=== PATIENT | male | born 1945 | race Caucasian/White ===

== ENCOUNTER 2020-04-17 11:55 | Outpatient (CLI) | payer MEDICARE, SELFPAY ==
--- NOTE | ~2020-04-17 | US_ITS ---
EXAMINATION: US venous doppler LE RT DATE: 04/17/2020 12:35 INDICATION: Right lower limb pain TECHNIQUE: Saleh scale images without and with compression and Doppler images of the right lower extre mity veins were obtained. COMPARISON: None FINDINGS: The right common femoral vein, profunda femoral vein, femoral vein, popliteal vein, peronea l trunk, posterior tibial veins, and greater saphenous vein are patent. IMPRESSION: 1. Patent right lower extremity veins. No evidence of deep venous thrombosis. Reviewed, dictated and finalized at location A. IER STAINED GLASS
== END 2020-04-17 11:56 | disposition home or self-care (01) ==
PROVIDERS: PCP Internal Medicine; Visit Provider Internal Medicine
DX: M79.651 Pain in right thigh (principal)
CPT/HCPCS: 93971

== ENCOUNTER 2022-04-15 09:46 | Outpatient (CLI) | payer MEDICARE, SELFPAY ==
--- NOTE | ~2022-04-15 | CT_ITS ---
EXAMINATION: CT diagnostic chest w con DATE: 04/15/2022 10:33 INDICATION: Weight loss, history of tobacco use TECHNIQUE: Transaxial computed tomographic images of the chest were obtained after the administration of 75 cc of Omnipaque 350 intravenous contrast. The dose-length product (DLP) was 137.96 mGy-cm. Ite rative reconstruction was used. COMPARISON: 05/12/2016 FINDINGS: There is severe emphysema. There is a suture line in the left lung apex. There is a new are a of thick walled cavitation in the left lung apex measuring approximately 4.6 x 3.6 cm. There is als o new soft tissue density surrounding the suture line of the left lung apex which tracks towards the left hilum. A chronic area of scarring is seen in the right lung apex. There is a new 6 mm nodule of the left upper lobe on image 47. There is no pleural effusion. The heart size is normal. Mucous secre tions are seen in the trachea. There is mild thoracic spondylosis. IMPRESSION: 1. New area of thick walled cavitation in the left lung apex and developing soft tissue density surro unding the left upper lobe suture line findings are concerning for malignancy or possibly infection. Further evaluation with PET/CT is recommended. 2. Severe emphysema. Reviewed, dictated and finalized at location A. ER TECHNICIAN IMPRESSION: 1. New area of thick walled cavitation in the left lung apex and developing sof t tissue density surrounding the left upper lobe suture line findings are los rning for malignancy or possibly infection. Further evaluation with PET/CT is r ecommended. 2. Severe emphysema.
== END 2022-04-15 09:47 | disposition home or self-care (01) ==
PROVIDERS: PCP Family Medicine; Visit Provider Nurse Practitioner Family
DX: R91.8 Other nonspecific abnormal finding of lung field (principal); A15.0 Tuberculosis of lung; J43.9 Emphysema, unspecified
CPT/HCPCS: 71260; Q9967

== ENCOUNTER 2022-04-27 07:18 | Outpatient (CLI) | payer MEDICARE, SELFPAY ==
--- NOTE | ~2022-04-27 | PE_ITS ---
EXAMINATION: PET skull to mid thigh DATE: 04/27/2022 10:51 INDICATION: Other nonspecific abnormal finding of lung field. TECHNIQUE: Blood glucose level was 83 mg/dL. 10.589 mCi of 18-fluorodeoxyglucose (18-FDG) was adminis tered i.v. Low dose computed tomography (CT) images were acquired from the base of the brain to the p roximal thighs for attenuation correction and anatomic localization. Automated exposure control was e mployed. Dose-length product (DLP) was 481 mGy-cm. Positron emission tomography (PET) images were acq uired in the same distribution. COMPARISON: Chest CT 04/15/2022, 05/12/2016 FINDINGS: Head/neck: There are no pathologically enlarged lymph nodes. Chest: There is severe emphysema. There is mild scarring at right lung apex. There is a staple line i n left upper lobe. There is a 6.5 x 6.2 cm cavitary mass involving left upper lobe and superior segme nt left lower lobe with maximum SUV of 9.9. There are approximately 4 nodules in left lung base measu ring up to 8 mm with maximum SUV of 3.6. No pleural effusion. Abdomen/pelvis/proximal thighs: The liver, gallbladder, spleen, pancreas, adrenal glands, and left ki dney are normal. There is a 4 mm stone in right kidney. There are no dilated loops of bowel. There is diverticulosis of the colon without evidence of diverticulitis. There are changes of appendectomy. T here are no pathologically enlarged lymph nodes. There is no free intraperitoneal fluid. There is no osseous malignancy. IMPRESSION: 1. Cavitary mass and nodules in left lung with increased activity, which may be infection and/or asmita gnancy. Consider bronchoscopy. 2. Severe emphysema. Reviewed, dictated and finalized at location A. CE SPECIALIST IMPRESSION: 1. Cavitary mass and nodules in left lung with increased activity, which may be infection and/or malignancy. Consider bronchoscopy. 2. Severe emphysema.
[2022-04-27 07:57] LABS: Glucose Point of Care 83 mg/dl (65-105)
== END 2022-04-27 07:19 | disposition home or self-care (01) ==
PROVIDERS: PCP Family Medicine; Visit Provider Nurse Practitioner Family
DX: R91.8 Other nonspecific abnormal finding of lung field (principal); J98.4 Other disorders of lung; R93.89 Abnormal findings on diagnostic imaging of other specified body structures; J43.9 Emphysema, unspecified
CPT/HCPCS: 78815; A9552

== ENCOUNTER 2022-05-14 01:20 | Day surgery (SDC) | payer MEDICARE, SELFPAY ==
[2022-05-04 14:57] VITALS: BMI 17.9
[2022-05-14 09:36] VITALS: BP 102/72; PULSE 61; RESP 18; TEMP 36.1; O2SAT 93
[2022-05-14] MEDS: LACTATED RINGERS 1,000 ML 150 ML IV CONT (09:38)
--- NOTE | 2022-05-14 09:55 | WPDANESEPPF ---
Anes - Initial Pre Proc Eval Procedure: Operation Date: 05/14/22 11:00 Proposed Procedures p Screening Colonoscopy - Chad Bolanos MD Date/Time: 05/14/22 09:55 Surgeon: Chad Bolanos MD Pre Op Diagnosis: neoplasm screening Patient Data Age: 76 Gender: M Height: 1.6 m Weight: 45.4 kg Last Vital Signs Temp 36.1 C L 05/14/22 09:36 Pulse 61 05/14/22 09:36 Resp 18 05/14/22 09:36 BP 102/72 05/14/22 09:36 Pulse Ox 93 05/14/22 09:36 O2 Del Method Room Air 05/14/22 09:36 Allergies Allergy/AdvReac Type Severity Reaction Status Date / Time No Known Allergies Allergy Verified 05/14/22 09:35 Home Medications Medication Instructions Recorded Confirmed Type albuterol sulfate 90 mcg/actuation 1 inh inhalation Q4H PRN shortness 03/11/22 05/14/22 Rx aerosol inhaler of breath or wheezing #6.7 grams aspirin 81 mg chewable tablet 81 mg PO DAILY 03/11/22 05/14/22 History metoprolol succinate 25 mg 25 mg PO DAILY #90 tabs 03/11/22 05/14/22 Rx tablet,extended release 24 hr simvastatin 10 mg tablet 10 mg PO DAILY #90 tabs 03/11/22 05/14/22 Rx vitamins A,C,O-vwrw-gykwqu 2,148 2 tablet PO DAILY 03/11/22 05/14/22 History mcg-113 mg-45 mg-17.4 mg tablet (PreserVision AREDS) mirtazapine 15 mg tablet (Remeron) 15 mg PO QHS #90 tabs 04/06/22 05/14/22 Rx budesonide-formoterol HFA 160 2 inh inhalation BID 05/04/22 05/14/22 History mcg-4.5 mcg/actuation aerosol inhaler (Symbicort) Patient hx anesthesia problems: none Family hx anesthesia problems: none Results Review: All pre-operative results and documents have been reviewed as part of the pre-operative evaluation. 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 They have 3 living children; one child in a car wreck. Retired 1998. Smoked cigarettes 1 ppd x 10 years, then cigars up to 10 per day, now 2 cigars a week. Years smoked: 50 Smoking status: Former smoker Tobacco type: cigars Additional smoking assessment comments: Difficult to assess smoking intensity, mixture of cigarettes then cigars, Alcohol intake: current Alcohol use details: 2 drinks yearly Substance use: never Substance use type: does not use Living arrangements: with family Spiritual care concerns: No Anes - Eval Final PreProcedure Day of Procedure 05/14/22 09:55 Patient weight: thin Heart: regular rate and rhythm Lungs: clear to auscultation Airway: Mallampati scale class II Neurological: alert and oriented Last oral intake: >/= 8 hours ASA classification: IV Emergent: no Anesthetic plan: proceed Anesthesia type and monitoring: general GIVS and standard monitoring Results Review: All pre-operative results and documents have been reviewed as part of the pre-operative evaluation. Informed Consent: The patient's anesthetic plan and its attendant risks and benefits were discussed with the patient/family/POA. Questions were solicited and answers provided to the satisfaction of the patient/family/POA.
--- NOTE | 2022-05-14 10:04 | PM.HPGS ---
History of Present Illness History of Present Illness Consent: Risks, benefits, and alternatives have been discussed and questions answered. Patient agrees to proceed with procedure. Chief complaint: neoplasm screening Narrative: Velasquez Kent is a 76 year old male with last colonoscopy about 15 years ago Review of Systems Constitutional: Constitutional: Denies headache(s) and Denies weakness Eyes: Eyes: Denies blurry vision ENT: Reports Normal hearing present, Denies headache(s) and Denies neck pain Cardiovascular: Cardiovascular: Denies chest pain and Denies dyspnea Respiratory: Respiratory: Denies dyspnea Gastrointestinal: Gastrointestinal: Reports no additional gastrointestinal complaints Genitourinary: Genitourinary: Denies dysuria Musculoskeletal: Musculoskeletal: Denies neck pain Integumentary/Breasts: Skin/Breast: Denies dry skin Neurologic: Reports Normal hearing present, Denies headache(s) and Denies weakness Psychiatric: Psychiatric: Denies anxiety Endocrine: Endocrine: Denies change in body appearance Hematologic/Lymphatic: Hematologic/Lymphatic: Denies easy bleeding Allergic/Immunologic: Allergic/Immunologic: Denies urticaria PMFSH Past Medical History Medical History Colonoscopy planned (~2010) Emphysema lung Essential hypertension Hyperlipidemia Personal history of skin cancer Screening for colon cancer 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 They have 3 living children; one child in a car wreck. Retired 1998. Smoked cigarettes 1 ppd x 10 years, then cigars up to 10 per day, now 2 cigars a week. Years smoked: 50 Smoking status: Former smoker Tobacco type: cigars Additional smoking assessment comments: Difficult to assess smoking intensity, mixture of cigarettes then cigars, Alcohol intake: current Alcohol use details: 2 drinks yearly Substance use: never Substance use type: does not use Living arrangements: with family Spiritual care concerns: No Meds Home Medications and Allergies Home Medications Medication Instructions Recorded Confirmed Type albuterol sulfate 90 mcg/actuation 1 inh inhalation Q4H PRN shortness 03/11/22 05/14/22 Rx aerosol inhaler of breath or wheezing #6.7 grams aspirin 81 mg chewable tablet 81 mg PO DAILY 03/11/22 05/14/22 History metoprolol succinate 25 mg 25 mg PO DAILY #90 tabs 03/11/22 05/14/22 Rx tablet,extended release 24 hr simvastatin 10 mg tablet 10 mg PO DAILY #90 tabs 03/11/22 05/14/22 Rx vitamins A,C,N-twej-rehgxw 2,148 2 tablet PO DAILY 03/11/22 05/14/22 History mcg-113 mg-45 mg-17.4 mg tablet (PreserVision AREDS) mirtazapine 15 mg tablet (Remeron) 15 mg PO QHS #90 tabs 04/06/22 05/14/22 Rx budesonide-formoterol HFA 160 2 inh inhalation BID 05/04/22 05/14/22 History mcg-4.5 mcg/actuation aerosol inhaler (Symbicort) Allergies Allergy/AdvReac Type Severity Reaction Status Date / Time No Known Allergies Allergy Verified 05/14/22 09:35 Vital Signs Vital Signs - 24 hr 05/14/22 09:36 Temperature 97 F L Pulse Rate 61 Respiratory Rate 18 Blood Pressure 102/72 Pulse Oximetry 93 Oxygen Delivery Room Air Exam Const: General: comfortable and no acute distress HENMT: Face/Nose/Sinus: Normal nares present Eyes: General: appearance normal, both eyes and all related structures Neck: Neck: no JVD Resp:
[2022-05-14 10:37] VITALS: BP 112/63; PULSE 70; RESP 17; O2SAT 99
[2022-05-14 10:47] VITALS: BP 104/59; PULSE 71; RESP 16; O2SAT 100
[2022-05-14 10:57] VITALS: BP 105/61; PULSE 70; RESP 20; O2SAT 100
== END 2022-05-14 11:05 | disposition home or self-care (01) ==
PROVIDERS: PCP Family Medicine; Visit Provider Internal Medicine Gastroenterology
PROC: 0DJD8ZZ Inspection of Lower Intestinal Tract, Via Natural or Artificial Opening Endoscopic (ICD-10-PCS; CPT 45378; principal; 2022-05-14 11:00)
DX: Z12.11 Encounter for screening for malignant neoplasm of colon (principal); K57.30 Diverticulosis of large intestine without perforation or abscess without bleeding; D12.3 Benign neoplasm of transverse colon; D12.4 Benign neoplasm of descending colon; K64.8 Other hemorrhoids; J43.9 Emphysema, unspecified; I10 Essential (primary) hypertension; E78.5 Hyperlipidemia, unspecified; Z87.891 Personal history of nicotine dependence; Z79.51 Long term (current) use of inhaled steroids; Z79.82 Long term (current) use of aspirin
CPT/HCPCS: 45385; 88305; J2704; J7120

== ENCOUNTER 2022-05-19 12:13 | Outpatient (CLI) | payer MEDICARE, SELFPAY ==
[2022-05-19 13:25] LABS: Alveolar/Arterial O2 Gradient 21.2 mmHg; Base Excess ABG 1.2 mEq/l (+/-2.0); Carboxyhemoglobin 1.4 % THb (0-2.0); Fractional Inspired Oxygen 21 %; HCO3 ABG 25.3 mEq/l (22.0-26.0); Methemoglobin ABG 0.3 %THb (0-1.5); Oxygen Content ABG 19.8 %vol (16.0-22.0); Oxygen Saturation ABG 96.5 % (95.0-100.0); Oxyhemoglobin 94.4 % THb (90.0-100.0); PCO2 ABG 38.5 mmHg (35.0-45.0); PO2 ABG 82.4 mmHg (80.0-100.0); PO2 FiO2 Ratio Arterial Blood 3.92 %; Reduced Hemoglobin 3.9 %THb (0-5.0); Total Hemoglobin 14.9 g/dL (12.0-18.0); pH ABG 7.435 (7.350-7.450)
[2022-05-19 13:28] LABS: Device ROOM AIR; Modified Allen's Test Pass; Site Drawn RIGHT RADIAL
--- NOTE | 2022-05-19 14:22 | ECHO_ITS ---
Patient Info Name: Velasquez Kent Age: 76 years : 1945 Gender: Male Ht: 63 in Wt: 100 lbs BSA: 1.41 m2 Technical Quality: Poor Exam Date: 05/19/2022 2:35 PM Exam Location: [facility] Patient Status: Outpatient Admit Date: 05/19/2022 Staff Ordering Physician: Supriya Jacobo MD Coyote Hunter: Jer Rich RDCS, RT Attending Provider: Supriya Jacobo MD Referring Physician: Odalis VALENCIA; Exam Type: CA echo doppler color flow Study Info Indications R06.02 - Shortness of breath Complete two-dimensional, color flow and Doppler transthoracic echocardiogram is performed. Summary 1. Complete two-dimensional, color flow and Doppler transthoracic echocardiogram is performed. 2. Technically suboptimal study due to poor sonographic images. 3. Left ventricular chamber dimension is normal. 4. Left ventricular systolic function is normal, estimated at 60-65%. 5. The left ventricular diastolic function is abnormal. 6. E/e' 13 is mildly elevated. Left Ventricle Technically suboptimal study due to poor sonographic images. E/e' 13 is mildly elevated. Left ventricular chamber dimension is normal. Left ventricular systolic function is normal, estimated at 60-65%. The left ventricular diastolic function is abnormal. Right Ventricle Right ventricular chamber dimension is not well visualized. Left Atria Left atrial chamber dimension is normal. Right Atria Right atrial chamber dimension is not well visualized. Aortic Valve The aortic valve is not well visualized. Cannot determine number of aortic valve leaflets. There is no aortic valve stenosis based on valve area and gradients. There is no aortic valve regurgitation. Pulmonic Valve There is no pulmonic regurgitation. Mitral Valve There is no mitral valve stenosis. There is no mitral valve regurgitation. Tricuspid Valve There is no tricuspid valve regurgitation. Pericardium/Pleural There is no pericardial effusion. Inferior Vena Cava Normal inferior vena cava with >50% collapse upon inspiration consistent with normal right atrial pressure, 5 mmHg. Aorta The aortic root size at the sinus of Valsalva is not well visualized. Left Ventricular Outflow Tract Name Value Normal LVOT 2D LVOT Diameter 1.9 cm LVOT Doppler LVOT Peak Gradient 2 mmHg LVOT Mean Gradient 1 mmHg LVOT VTI 12 cm LVOT VTI/AV VTI Ratio 1.1 LVOT Stroke Volume 33 ml LVOT CO 5.3 l/min LVOT CI 3.8 l/min/m2 Mitral Valve Name Value Normal MV Doppler MV Decel Mcpherson 669 cm/s2 MV PHT 36 ms MV Area (PHT) 6.1 cm2 4.0-5.0
--- NOTE | 2022-05-20 13:30 | WPDSIXMINUTE ---
Six Minute Walk Procedure Procedure Performed Pulmonary Stress Test (6 min walk) Six Minute Walk Six Minute Walk: This is a 6 minute walk test. The test was performed and interpreted in accordance with the 2014 ERS/ATS task force guidelines. Findings: The patient's resting room air oxygen saturation measured by pulse oximetry and resting heart rate were not recorded due to technical difficulties. After 1 minute ambulation, the room air saturation was 96% and the heart rate was 79 bpm. Patient ambulated for 183 meters and oxygen saturation remained 92 to 95%. Heart rate at the end of the study was 96 bpm. The patient did not qualify for supplemental oxygen at rest or with ambulation. There are no prior studies for comparison.
--- NOTE | 2022-05-20 13:33 | P.PCNPFT_ITS ---
PFT Procedure Performed PFT Procedure Performed Spirometry with Pre/Post Bronchodilator Plethysmography (Lung Vol) Diffusing Cap (DLCO) Flow Vol Loop PFT Interpretation This is a pulmonary function test with pre and post-bronchodilator spirometry, plethysmography and diffusing capacity. The test was performed and results interpreted in accordance with the 2019 and 2005 ATS/ERS Task Force guidelines respectively using the Global Lung Function Initiative-2012 reference equations. Patient demonstrated good effort and cooperation. Reproducibility criteria were met. The quality of the pre bronchodilator spirometry maneuver was Grade A and post bronchodilator spirometry maneuver was Grade A. Findings: Spirometry: There is decreased maximal expiratory airflow at all lung volumes with concave expiratory flow tracing. The contour the inspiratory flow tracing is normal. The pre bronchodilator FVC is 2.50 L, 80% predicted. The pre bronchodilator FEV1 is 0.73 L, 631% predicted. The pre bronchodilator FEV1: FVC ratio is 29%. The post bronchodilator FVC is 3.01 L, representing a 20% increase. The post bronchodilator FEV1 is 0.84 L, representing a 15% increase. The post bronchodilator FEV1: FVC ratio is 28%. Plethysmography: The total lung capacity is 6.31 L, 112% predicted. The functional residual capacity is 4.61 L, 156% predicted. The residual volume is 3.75 L, 171% predicted. Diffusion capacity: The diffusing capacity unadjusted for hemoglobin and carboxyhemoglobin is 8.3, 38% predicted. The diffusing capacity adjusted for alveolar volume is 2.60, 63% predicted. The resting room air arterial blood gas is a pH of 7.44, PaCO2 39, PaO2 82. Impression: There is a very severe obstructive abnormality with significant improvement after inhaling a single dose of albuterol. The increase in residual volume is consistent with air trapping from an obstructive abnormality. H yperinflation is present as demonstrated by the increase in functional residual capacity and is consistent with an obstructive abnormality. The diffusing capacity unadjusted for hemoglobin and carboxyhemoglobin is moderately decreased and normalizes when adjusted for alveolar volume. There are no prior studies for comparison
== END 2022-05-19 12:14 | disposition home or self-care (01) ==
LOC: ANHPFT 12:14
PROVIDERS: PCP Family Medicine; Visit Provider Internal Medicine Critical Care Medicine
DX: R06.02 Shortness of breath (principal); R07.9 Chest pain, unspecified; R91.8 Other nonspecific abnormal finding of lung field; R94.2 Abnormal results of pulmonary function studies
CPT/HCPCS: 36600; 82375; 82805; 83050; 93306; 94060; 94618; 94726; 94729

== ENCOUNTER 2022-05-20 08:44 | Outpatient (CLI) | payer MEDICARE, SELFPAY ==
[2022-05-12 15:21] VITALS: BMI 17.9
--- NOTE | 2022-05-12 15:21 | PC.NURSE ---
Pre Radiology instructions Report to the outpatient [facility] on date _05/20/22 @ 0900_ Procedure Time: _1100_ YOU MAY BE MONITORED AT HOSPITAL FOR UP TO 4 HOURS AFTER YOUR PROCEDURE. A visitors will be allowed to accompany the patient into the hospital. ?The visitor will be instructed to remain with patient at all times or leave the building due to restrictions.? We will allow the visitor to come back to the postoperative area when patient is ready.? NO children visitors allowed at this time. You and your visitor will be asked to self-screen and do not enter if you have any COVID symptoms. A mask is OPTIONAL within the hospital. Patients are to have no food or drink 6 hours prior to procedure time (0500 AM) Driving will be restricted after the procedure, you must have a person to drive you home. Labs will be drawn in preop area and once reviewed, you will be taken to radiology area for procedure. When the procedure is completed, you will be taken to outpatient where you will be monitored for several hours. You may have one visitor in this area. Other than holding anti-coagulants, patient may take other medication(s) as scheduled. Prior to your appointment date patients are instructed to hold anti-coagulants after discussing with ordering provider to stop. If unable to discontinue anti-coagulants please notify radiologist. ? No aspirin or warfarin (Coumadin) for 7 days prior to the procedure. ? No clopidogrel (Plavix), ticagrelor (Brilinta), prasugrel (Effient) or dabigatran (Pradaxa) for 5 days prior to the procedure. ? No rivaroxaban (Xarelto), apixaban (Eliquis), dipyridamole (Aggrenox or Persantine) or cilostazol (Pletal) for 2 days prior to the procedure. Medications to discontinue per physician: __ASPIRIN Date to take last dose: ___05/12/22 Please leave all valuables, including medications, at home the day of procedure. The hospital will not accept responsibility for valuables. Wear comfortable, loose fitting clothing.? Follow any additional instructions given to you from ordering provider. Telephone instructions given to PATIENT and asked if any additional questions and then verbalized understanding. Patient advised to call scheduling provider office or registration scheduling [phone] if any additional questions.
[2022-05-20] VITALS (12 sets, daily range): BP systolic 89–136; BP diastolic 53–79; PULSE 57–62; RESP 16; TEMP 36.5; O2SAT 99–100
--- NOTE | ~2022-05-20 | CT_ITS ---
EXAMINATION: CT biopsy lung w/imaging DATE: 05/20/2022 11:52 INDICATION: Thick-walled FDG avid cavitary mass in the left upper lobe. TECHNIQUE: The procedure including the risks and benefits was discussed with the patient. Risks discu ssed included infection, approximately 1/20 risk of symptomatic hemorrhage beyond mild hemoptysis, ap proximately 1/3 risk of pneumothorax, and approximately 1/10 risk of pneumothorax severe enough to wa rrant chest tube placement. The patient understood the risks and agreed to proceed. The patient was p laced prone. The skin overlying the left paraspinal posterior chest wall was prepped and draped in s terile fashion. Anesthetic was administered with 1% lidocaine subcutaneously. A 19 gauge outer need le was advanced under CT guidance to the lesion of interest. A 20 gauge core biopsy needle was then u sed to obtain 6 core biopsy specimens, 4 placed in formalin for cytology and to place and a sterile c ontainer for AFB and fungal smears and culture. The needle was removed and the entry site was cleaned and dressed. There were no immediate complications. The dose-length product was 122.63 mGy-cm. FINDINGS: CT images demonstrate the outer needle tip adjacent to a solid nodular component to the thi ck-walled cavitary lesion in the left upper lobe which demonstrated increased FDG uptake in this loca tion on prior PET/CT. IMPRESSION: 1. Successful CT-guided biopsy of a solid FDG avid component of a thick-walled cavitary mass in the l eft upper lobe. Reviewed, dictated and finalized at location A. IMPRESSION: 1. Successful CT-guided biopsy of a solid FDG avid component of a thick-walled cavitary mass in the left upper lobe.
--- NOTE | ~2022-05-20 | XR_ITS ---
XR chest 1V portable DATE: 05/20/2022 14:41 INDICATION: [address]-guided lung biopsy TECHNIQUE: Portable upright AP chest on 05/20/2022 at 1438 hours COMPARISON: 05/20/2022 portable AP chest at 1244 hours FINDINGS: There remains no evidence of pneumothorax following CT-guided percutaneous needle biopsy of left upper lobe thick-walled cavitary mass. Postoperative change of the left lung is again noted. Bilateral hyperinflation, consistent with COPD. Normal heart size. Prominent aortic arch calcification. Osteopenia. IMPRESSION: No evidence of iatrogenic pneumothorax [address] guided percutaneous needle biopsy of left lung Reviewed, dictated and finalized at location A. IMPRESSION: No evidence of iatrogenic pneumothorax [address] guided percu taneous needle biopsy of left lung
--- NOTE | ~2022-05-20 | XR_ITS ---
EXAMINATION: XR chest 1V portable DATE: 05/20/2022 12:47 INDICATION: Status post percutaneous left lung biopsy TECHNIQUE: frontal view of the chest was obtained. COMPARISON: Chest radiograph dated 05/20/2022 at 11:47 AM FINDINGS: Emphysema with regions of increased lucency and architectural distortion. Left apical opacity with in terspersed lucencies correspond to a thick-walled cavitary mass on prior CT. Suture line extends thro ugh the opacity which along with mild relative volume loss in left hemithorax is likely related to pr ior partial left pneumonectomy . Linear discoid atelectasis/scarring at the left lower lung zone. No other airspace opacities, pulmonary edema, pleural effusion or pneumothorax. Heart size is normal. IMPRESSION: 1. No pneumothorax or other acute cardiopulmonary disease post percutaneous biopsy of a cavitary left upper lobe mass which could be either malignant or related to chronic infection. Reviewed, dictated and finalized at location A. IMPRESSION: 1. No pneumothorax or other acute cardiopulmonary disease post percutaneous bio psy of a cavitary left upper lobe mass which could be either malignant or relat ed to chronic infection.
--- NOTE | ~2022-05-20 | XR_ITS ---
EXAMINATION: XR chest 1V DATE: 05/20/2022 11:49 INDICATION: Status post percutaneous left upper lobe lung biopsy TECHNIQUE: frontal view of the chest was obtained. COMPARISON: Chest radiograph dated 04/06/2022 FINDINGS: Scattered increased lucencies with architectural distortion consistent with severe emphysema. Opaciti es in the left upper lobe corresponding to the biopsied thick-walled cavitary mass. There is a suture line extending across the mass consistent with prior partial pneumonectomy. Mild linear discoid atel ectasis/scarring at the medial left lower lung zone. No other airspace opacities, pulmonary edema, p leural effusion or pneumothorax. Heart size is normal. IMPRESSION: 1. No pneumothorax, pleural effusion or other acute cardiopulmonary disease post percutaneous biopsy of a thick-walled left upper lobe cavitary mass which could be infectious or malignant in etiology. 2. Severe emphysema. Reviewed, dictated and finalized at location A. IMPRESSION: 1. No pneumothorax, pleural effusion or other acute cardiopulmonary disease pos t percutaneous biopsy of a thick-walled left upper lobe cavitary mass which cou ld be infectious or malignant in etiology. 2. Severe emphysema.
[2022-05-20 10:00] LABS: Mean Platelet Volume 10.6 fl (7.4-10.4); Platelet Count Result 277 k/mm3 (150-375)
[2022-05-20 10:17] LABS: INR 1.1; Prothrombin Time 13.6 Seconds (11.1-14.7)
== END 2022-05-20 15:42 | disposition home or self-care (01) ==
PROVIDERS: PCP Family Medicine; Referring Provider Internal Medicine Critical Care Medicine; Visit Provider Radiology Diagnostic Radiology
PROC: BB24ZZZ Computerized Tomography (CT Scan) of Bilateral Lungs (ICD-10-PCS; CPT 32408; principal; 2022-05-20 11:00)
DX: J84.10 Pulmonary fibrosis, unspecified (principal); J43.9 Emphysema, unspecified
CPT/HCPCS: 32408; 36415; 71045; 85049; 85610; 87015; 87102; 87116; 87206; 88305; 88312

== ENCOUNTER 2022-09-09 13:51 | Outpatient (CLI) | payer MEDICARE, SELFPAY ==
--- NOTE | ~2022-09-09 | CT_ITS ---
EXAMINATION:CT diagnostic chest wo con DATE: 09/09/2022 14:06 INDICATION: Other nonspecific abnormal findings in lung field. TECHNIQUE: Computed tomography (CT) of the chest was performed without intravenous contrast. Automate d exposure control and iterative reconstruction technique were employed. The dose-length product (DLP ) was 148.82 mGy-cm. COMPARISON: Chest CT 05/20/2022, 04/15/2022 FINDINGS: There is severe emphysema. Calcified bilateral lung nodules and calcified hilar lymph nodes are consistent with old granulomatous disease. There is peripheral scarring in right upper lobe and superior segment right lower lobe. There are airspace opacities with cavitation and volume loss invol ving left upper lobe and superior segment left lower lobe. No pleural effusion. There is calcified at herosclerosis of the aorta and many of the other arteries. The heart size is normal. There are alberts ry artery calcifications. No pericardial effusion. There is a 5 mm stone in right kidney. There is mi ld thoracic spondylosis. IMPRESSION: 1. Airspace opacities with cavitation and volume loss involving left upper lobe and superior segment left lower lobe, stable from 04/15/2022, likely granulomatous disease. Correlate with biopsy results f rom 05/20/2022. 2. Severe emphysema. Reviewed, dictated and finalized at location E. IMPRESSION: 1. Airspace opacities with cavitation and volume loss involving left upper lobe and superior segment left lower lobe, stable from 04/15/2022, likely granulomat ous disease. Correlate with biopsy results from 05/20/2022. 2. Severe emphysema.
== END 2022-09-09 13:52 | disposition home or self-care (01) ==
PROVIDERS: PCP Family Medicine; Visit Provider Internal Medicine Critical Care Medicine
DX: R91.8 Other nonspecific abnormal finding of lung field (principal); J43.9 Emphysema, unspecified
CPT/HCPCS: 71250

== ENCOUNTER 2023-02-14 08:44 | Outpatient (CLI) | payer MEDICARE, SELFPAY ==
--- NOTE | ~2023-02-14 | CT_ITS ---
CT Scan of the Chest without Contrast: Clinical Indication: Lung mass Technique: Contiguous sections were acquired throughout the chest without intravenous contrast. Dose reduction technique was used on this scan by utilizing automated exposure control and iterative recon struction technique. The dose-length product (DLP) was 66.49 mGy-cm. COMPARISON: 09/09/2022 Findings: There is no evidence of any significant mediastinal, hilar or axillary lymphadenopathy. The mediastin al soft tissues appear normal. There is no evidence of pleural or pericardial effusion. There is severe emphysema. Stable right apical scarring noted. Calcified right lower lobe granulomas are present. Stable appearance of apparent heterogeneous cavitary lesion in the left upper lobe with coarse calcifications and some nodular consolidation. Images through the upper abdomen reveal nonobstructing right renal stone. Impression: Stable heterogeneous appearing cavitary lesion left upper lobe with associated volume loss and coarse calcification. Correlate with prior biopsy results. Severe emphysema. Reviewed, dictated and finalized at [facility]. 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 Correlate with prior biopsy results. Severe emphysema.
== END 2023-02-14 08:45 | disposition home or self-care (01) ==
PROVIDERS: PCP Family Medicine; Visit Provider Internal Medicine Critical Care Medicine
DX: J43.9 Emphysema, unspecified (principal); R91.8 Other nonspecific abnormal finding of lung field
CPT/HCPCS: 71250

== ENCOUNTER 2023-09-20 09:45 | Outpatient (CLI) | payer MEDICARE, SELFPAY ==
--- NOTE | ~2023-09-20 | CT_ITS ---
EXAMINATION: CT diagnostic chest wo con DATE: 09/20/2023 10:10 INDICATION: R91.8 - Other nonspecific abnormal finding of lung field TECHNIQUE: Computed tomography (CT) of the chest was performed without intravenous contrast. Addition al 3D reconstructions utilizing coronal maximum intensity projection (MIP) were performed. Automated exposure control and iterative reconstruction technique were employed. The dose-length product was 63 .13 mGy-cm. COMPARISON: None FINDINGS: Severe upper lung predominant emphysema. Stable appearance of the left upper lung where there is volu me loss partial collapse and consolidation of a significant portion of the perihilar left upper lobe with and pleural parenchymal scarring thick-walled cavitary lesion at the left apex. A cavitary lesio n also involves a portion of the superior segment of the left lower lobe most likely sequela of prior infection. In the left midlung there is additional new region of atelectasis with associated volume loss at the periphery of the anterior segment of the left upper lobe. There are a few new small centr ilobular nodules in the posterior segment of the left lower lobe largest measuring 4 mm with subtle c alcification consistent with old granulomatous disease. Also stable appearance of peripheral pleural parenchymal with calcifications at the posterior right upper lobe. Several new patchy areas of consol idation and spiculated nodular opacities in the anterior segment of the right upper lobe, the largest region of consolidation measuring 2.3 x 1.8 cm. A few additional 4 mm or smaller new pulmonary nodul es clustered along the right upper lobe along the minor fissure. Unchanged small loculated left pleur al effusion. Heart size is normal. No pericardial effusion. Thoracic aorta is normal in caliber. No p athologically enlarged thoracic lymphadenopathy. 6 mm nonobstructing stone at the upper pole the righ t kidney. Mild thoracic spondylosis. IMPRESSION: 1. New patchy areas of consolidation and spiculated nodules in the anterior segment of the right uppe r lobe most suggestive of pneumonia but would recommend 3 month follow-up chest CT to document resolu tion or appropriate evolution. 2. Stable appearance of chronic volume loss, atelectasis/scarring and thick-walled cavitary lesion at the left apex and small loculated left pleural effusion which are likely sequela of chronic infectio n. 3. Severe emphysema. 4. 6 mm nonobstructing right renal stone. Reviewed, dictated and finalized at location A. IMPRESSION: 1. New patchy areas of consolidation and spiculated nodules in the anterior seg ment of the right upper lobe most suggestive of pneumonia but would recommend 3 month follow-up chest CT to document resolution or appropriate evolution. 2. Stable appearance of chronic volume loss, atelectasis/scarring and thick-wal led cavitary lesion at the left apex and small loculated left pleural effusion which are likely sequela of chronic infection. 3. Severe emphysema. 4. 6 mm nonobstructing right renal stone.
== END 2023-09-20 09:46 | disposition home or self-care (01) ==
PROVIDERS: PCP Nurse Practitioner Family; Visit Provider Internal Medicine Critical Care Medicine
DX: R91.8 Other nonspecific abnormal finding of lung field (principal); J43.9 Emphysema, unspecified; N20.0 Calculus of kidney
CPT/HCPCS: 71250

== ENCOUNTER 2023-09-22 15:44 | Inpatient (IN) | payer MEDICARE, SELFPAY ==
[2023-09-22] VITALS (11 sets, daily range): BP systolic 93–121; BP diastolic 54–76; PULSE 111–126; RESP 16–35; TEMP 36.3; O2SAT 97–100; BMI 14.9; BMI 15.1
--- NOTE | ~2023-09-22 | XR_ITS ---
XR chest 1V portable 09/22/2023 16:19 Indication: Chest pain Procedure: AP portable chest Comparison: Comparison to multiple prior studies sequentially, with oldest reviewed study dated 08/2020.. Findings: There is a spiculated mass in the right upper lobe which may may be infectious/inflammatory , although malignancy is not excluded. There is chronic left apical pleural thickening/scarring. The lungs are hyperinflated which is consistent with, but not diagnostic of chronic obstructive pulmonary disease. Impression: 1: Spiculated mass right upper lobe which may be infectious/inflammatory, although malignancy is not excluded. 2: Chronic left apical pleural thickening/scarring with associated postsurgical changes. Reviewed, dictated and finalized at location B. Impression: 1: Spiculated mass right upper lobe which may be infectious/inflammatory, altho ugh malignancy is not excluded. 2: Chronic left apical pleural thickening/scarring with associated postsurgica l changes.
--- NOTE | ~2023-09-22 | CT_ITS ---
EXAMINATION: CTA chest PE protocol DATE: 09/22/2023 18:13 INDICATION: elevated dimer, chest pain, follow up CXR TECHNIQUE: Computed tomography angiography (CTA) of the chest was performed with 100 mL Omnipaque-350 intravenous contrast timed to evaluate the pulmonary arteries. Coronal maximum intensity projection 3D-reconstructions were created by the technologist. The dose-length product (DLP) was 169.66 mGy-cm. Automated exposure control and iterative reconstruction technique were employed. COMPARISON: CT chest 09/20/2023. FINDINGS: Lung parenchyma and airways: Severe emphysematous change. Left apical cavitary lesion with left upper lobe volume loss. Spiculated irregular right upper lobe nodule. Scattered smaller pulmonary nodules. Peripheral nodular scarring in the right apex. Pleura: Stable small loculated left pleural effusion. Thoracic inlet, axillae and chest wall: Unremarkable. Thoracic aorta: No significant dilation. No dissection. Mediastinum: Normal. Heart and pericardium: Normal. Coronary artery calcifications: Absent. Upper abdomen: No significant finding. Bones: No acute osseous finding. Pulmonary arteries: Study quality: Adequate. No pulmonary emboli detected. IMPRESSION: No CT evidence of acute pulmonary embolus. Stable likely postinfectious left upper lung cavitary lesion. Stable irregular spiculated right upper lobe nodule, prior recommendation for 3 month follow-up is unchanged. Stable loculated small left pleural effusion Reviewed, dictated and finalized at location K.
--- NOTE | 2023-09-22 15:59 | ECG_ITS ---
Test Date: 2023-09-22 16:02:36 Measurements Intervals [place] Rate: 112 P: 0 NM: 0 QRS: 58 QRSD: 85 T: 84 QT: 289 QTc: 395 Interpretive Statements ATRIAL FIBRILLATION WITH RAPID VENTRICULAR RESPONSE ANTEROSEPTAL MYOCARDIAL INFARCTION , OF INDETERMINATE AGE BORDERLINE ST ABNORMALITY- LATERAL LEADS BASELINE ARTIFACT- I, II, III, AVR, AVL, AVF, V1-V2 ABNORMAL ECG No previous ECG available for comparison Electronically Signed On 09-22-2023 16:57:37 CDT by Ramy Javed D.O.
--- NOTE | 2023-09-22 16:07 | ED.CHESTPAIN ---
HPI - Chest Pain General Chief Complaint: Chest Pain <Garrett Vaughan PA-C - Last Filed: 09/22/23 19:11> Stated Complaint: chest tightness <Garrett Vaughan PA-C - Last Filed: 09/22/23 19:11> Time Seen by Provider: 09/22/23 15:56 <Garrett Vaughan PA-C - Last Filed: 09/22/23 19:11> Source: patient <Garrett Vaughan PA-C - Last Filed: 09/22/23 19:11> Mode of arrival: EMS <Garrett Vaughan PA-C - Last Filed: 09/22/23 19:11> Limitations: no limitations <Garrett Vaughan PA-C - Last Filed: 09/22/23 19:11> History of Present Illness HPI narrative: This is a 77-year-old male presents to the ED via EMS for Chief complaint of chest tightness. Reports a sense of impending doom but is unsure how to describe this other than just not feeling right. reports some intermittent chest tightness on the left side but not necessarily associated with exertion. Denies shortness of breath above baseline. He has emphysema and has chronic shortness of breath and cough. EMS reported AFib and patient does think that he has been in AFib before. States that he takes metoprolol but no blood thinners. Patient states that he just started taking Zoloft yesterday prescribed by PCP. Lot of increased stressors recently with dying last year and his dog dying this year. Denies back pain, dyspnea, abdominal pain, nausea vomiting, syncope, lightheadedness, numbness, weakness. <Garrett Vaughan PA-C - Last Filed: 09/22/23 19:11> Related Data Home Medications: Home Medications Medication Instructions Recorded Confirmed aspirin 81 mg chewable tablet 81 mg PO DAILY 03/11/22 09/20/23 vitamins A,C,S-jnpg-kazjst 2,148 2 tablet PO DAILY 03/11/22 09/20/23 mcg-113 mg-45 mg-17.4 mg tablet (PreserVision AREDS) <Garrett Vaughan PA-C - Last Filed: 09/22/23 19:11> Allergies/Adverse Reactions: Allergies Allergy/AdvReac Type Severity Reaction Status Date / Time No Known Allergies Allergy Verified 09/22/23 16:00 <Garrett Vaughan PA-C - Last Filed: 09/22/23 19:11> Review of Systems Review of Systems: All systems as dictated in HPI <Garrett Vaughan PA-C - Last Filed: 09/22/23 19:11> [facility] Past Medical History Medical History: Medical History Atypical nevi Colonoscopy planned (~2010) Emphysema lung Essential hypertension Hyperlipidemia Loss of appetite Personal history of skin cancer 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 They have 3 living children; one child in a car wreck. Retired 1998. Smoked cigarettes 1 ppd x 10 years, then cigars up to 10 per day, now 2 cigars a week. Years smoked: 50 Smoking status: Former smoker Tobacco type: cigars Additional smoking assessment comments: Difficult to assess smoking intensity, mixture of cigarettes then cigars, Alcohol intake: current Alcohol use details: 2 drinks yearly Substance use: never Substance use type: does not use Living arrangements: with family Occupation/Education: retired Gender identity (if verbalized by the patient): Male Spiritual care concerns: No <Garrett
[2023-09-22 16:18] LABS: Basophils Absolute Auto 0.1 K/mm3 (0.0-0.1); Basophils Percent Auto 0.7 % (0.2-1.2); Eosinophils Absolute Auto 0.1 K/mm3 (0-0.3); Eosinophils Percent Auto 0.8 % (0-4.4); Hematocrit 42.1 % (42.0-52.0); Hemoglobin 13.8 g/dL (14.0-18.0); Immature Granulocyte Absolute 0.06 K/mm3 (0.00-0.031); Immature Granulocyte Percent A 0.6 % (0-0.5); Lymphocytes Absolute Auto 1.55 K/mm3 (0.9-3.2); Lymphocytes Percent Auto 15.8 % (18.3-44.2); Mean Corpuscular HGB Conc 32.8 g/dl (32-36); Mean Corpuscular Hemoglobin 30.1 pg (26-34); Mean Corpuscular Volume 91.9 fl (80-100); Mean Platelet Volume 9.8 fl (7.4-10.4); Monocytes Absolute Auto 1.1 K/mm3 (0.1-0.6); Monocytes Percent Auto 10.7 % (2.6-8.5); Neutrophils Percent Auto 71.4 % (45.5-73.1); Platelet Count Result 320 k/mm3 (150-375); Red Blood Count 4.58 M/mm3 (4.6-6.20); White Blood Count 9.8 K/mm3 (4.5-10.0)
[2023-09-22 16:26] LABS: INR 1.1; Partial Thromboplastin Time 27.5 Seconds (22.3-36.8)
[2023-09-22 16:29] LABS: Alanine Aminotransferase 26 U/L (6-50); Albumin Level 3.5 g/dL (3.5-5.1); Alkaline Phosphatase 180 U/L (38-126); Anion Gap 6 mmol/L (4-12); Aspartate Amino Transferase 34 U/L (17-59); Bilirubin,Total 0.4 mg/dL (0.2-1.3); Blood Urea Nitrogen 14 mg/dL (9-20); Calcium 8.4 mg/dL (8.4-10.2); Carbon Dioxide 29 mmol/L (22-30); Chloride 98 mmol/L (98-107); Estimated CRCL calculation 47 ml/min; Estimated Glomerular Filt Rate > 60; Glucose 94 mg/dL (65-110); Lipase 120 U/L (23-300); Potassium 4.6 mmol/L (3.4-5.0); Sodium 133 mmol/L (137-145)
[2023-09-22 16:41] LABS: Troponin I < 0.012 ng/mL (0.000-0.034)
[2023-09-22 16:47] LABS: D Dimer 0.61 ug/mL (<0.48)
[2023-09-22 17:12] LABS: Device ROOM AIR; Fractional Inspired Oxygen 21 %; HCO3 VBG 26.9 mEq/l (24.0-30.0); PCO2 VBG 47.9 mmHg (42.0-48.0); PO2 VBG 31.6 mmHg (35.0-45.0); pH VBG 7.368 (7.300-7.400)
[2023-09-22 17:21] LABS: NT Pro B Type Natriuretic Pept 4190 pg/mL (19.9-100)
--- NOTE | 2023-09-22 18:54 | ECG_ITS ---
Test Date: 2023-09-22 19:30:33 Measurements Intervals [place] Rate: 121 P: 0 NV: 0 QRS: -30 QRSD: 76 T: 84 QT: 286 QTc: 406 Interpretive Statements ATRIAL FIBRILLATION WITH RAPID VENTRICULAR RESPONSE ANTEROSEPTAL MYOCARDIAL INFARCTION , OF INDETERMINATE AGE BORDERLINE ST-T WAVE ABNORMALITY- HIGH LATERAL LEADS BASELINE ARTIFACT- I, II, III, AVR, AVL, AVF ABNORMAL ECG Compared to ECG 09/22/2023 16:02:36 No significant changes Electronically Signed On 09-22-2023 20:26:51 CDT by Ramy Javed D.O.
--- NOTE | 2023-09-22 19:52 | PC.NURSE ---
Upon assessing patient and obtaining vitals the patient's blood pressure was 95/63. Notified Dr. Fisher who advised to hold off on giving the Metoprol 25mg PO.
[2023-09-22 19:57] LABS: Troponin I < 0.012 ng/mL (0.000-0.034)
--- NOTE | 2023-09-22 21:03 | ADMGEN ---
This patient, Velasquez Kent, was admitted to IMU Room 212-01. Patient/family oriented to hospital policies and general routines including ID bracelet, bed and alarms, visiting hours, pain management, procedures, bathroom and other care routines, personal items, smoking policy, room service/diet, and visiting hours. Information on how to activate the Rapid Response Team has been discussed. Patient/Family are encouraged to report perceived risks to care and to ask questions if they do not understand what they are told or what they should do.
[2023-09-22] MEDS: ACETAMINOPHEN 500 MG TABLET 1000 MG PO (22:01)
[2023-09-22] MEDS: METOPROLOL TARTRATE INJ 5 MG/5 ML VIAL IV PUSH (22:04)
--- NOTE | 2023-09-22 22:28 | PM.IMHP ---
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 Stable irregular spiculated right upper lobe nodule 1st noted on CT chest on 09/22/2023. The patient woke up on the day of admission and he felt very off. He reports he cannot describe it well but it was like and pending doom, it was not chest pain or chest pressure. He just knew he had to go to the ER. Summoned EMS. [place] [facility] demonstrated BNP 4100, alkaline phosphatase 180, sodium 133, chest CTA with small loculated stable left pleural effusion, stable left upper lobe and right upper lobe nodules. No PE. Blood pressure 95/55 and heart rate in the 110s to 120s. EKG demonstrating atrial fibrillation with rapid ventricular rate. No obvious acute ischemia. Troponin negative. No intervention was given in the ER and the patient was admitted to IMU telemetry unit for admission on 09/22/2023. 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 They have 3 living children; one child in a car wreck. Retired 1998. Smoked cigarettes 1 ppd x 10 years, then cigars up to 10 per day, now 2 cigars a week. Years smoked: 50 Smoking status: Current every day smoker Tobacco type: cigars Additional smoking assessment comments: 1 Cigar a day Alcohol intake: former Alcohol use details: 2 drinks yearly Substance use: never Substance use type: does not use Do You Feel Safe in your Home?: Yes Lack of Transportation: No Lack of Food: Never True Current Housing: I Have Housing Concerned About Future Housing: No Difficulty Paying Gas/Electric Bills: No Difficulty Paying for Meds: No Currently Unemployed: No Education: High School Diploma/GED Difficulty w/ Childcare or Family Care: No Living arrangements: with family Occupation/Education: retired Gender identity (if verbalized by the patient): Male Spiritual care concerns: No Meds Home Medications and Allergies Home Medications Medication Instructions Recorded Confirmed Type aspirin 81 mg chewable tablet 81 mg PO DAILY 03/11/22 09/22/23 History vitamins A,C,S-wsuf-qmswqa 2,148 1 tablet PO BIDWM 03/11/22 09/22/23 History mcg-113 mg-45 mg-17.4 mg tablet (PreserVision AREDS) sertraline 25 mg tablet 25 mg PO DAILY #90 tabs 09/20/23 09/22/23 Rx budesonide 160 mcg-glycopyr 9 See Rx Instructions .Route 09/21/23 09/22/23 Rx mcg-formot 4.8 mcg/actuation HFA .COMPLEX #30 grams inhaler (Breztri Aerosphere) metoprolol succinate 25 mg 25 mg PO DAILY #90 tabs 09/21/23 09/22/23 Rx tablet,extended release 24 hr simvastatin 10 mg tablet 10 mg PO D
[2023-09-22 22:38] LABS: Troponin I < 0.012 ng/mL (0.000-0.034)
[2023-09-22 22:51] LABS: Magnesium 2.1 mg/dL (1.6-2.3)
[2023-09-22] MEDS: APIXABAN 2.5 MG TABLET PO (23:06)
[2023-09-22] MEDS: METOPROLOL TARTRATE 25 MG TABLET PO (23:07)
[2023-09-22] MEDS: SODIUM CHLORIDE 0.9% IV 1,000 ML 150 ML IV CONT (23:07)
[2023-09-23] VITALS (17 sets, daily range): BP systolic 90–121; BP diastolic 51–63; PULSE 47–122; RESP 16–18; TEMP 36.2–37; O2SAT 97–99; BMI 15.1
--- NOTE | 2023-09-23 | ECHO_ITS ---
Patient Info Name: Velasquez Kent Age: 77 years : 1945 Gender: Male Ht: 63 in Wt: 88 lbs BSA: 1.32 m2 HR: 107 bpm BP: 90 / 63 mmHg Heart Rhythm: Bradycardia Technical Quality: Fair Exam Date: 09/23/2023 11:09 AM Exam Location: Echo Lab Patient Status: Outpatient Admit Date: 09/22/2023 Staff Ordering Physician: Mariama Jane MD Die Engraver: Dilcia Dale RDCS Attending Provider: Mariama Jane MD Exam Type: CA echo doppler color flow Study Info Indications - a fib Complete two-dimensional, color flow and Doppler transthoracic echocardiogram is performed. Summary 1. Left ventricular chamber dimension is normal. 2. Left ventricular systolic function is normal, estimated at 65-70%. 3. Right ventricular systolic function is normal. 4. There is mild mitral valve regurgitation. 5. There is trivial anterior pericardial effusion. Left Ventricle Left ventricular chamber dimension is normal. Left ventricular systolic function is normal, estimated at 65-70%. There is no increased left ventricular wall thickness. Right Ventricle Right ventricular chamber dimension is normal. Right ventricular systolic function is normal. Left Atria Left atrial chamber dimension is normal. Right Atria Right atrial chamber dimension is normal. Atrial Septum Intact interatrial septum visualized by color flow imaging. Aortic Valve The aortic valve is not well visualized. There is no aortic valve stenosis. There is no aortic valve regurgitation. There is mild aortic valve calcification. Pulmonic Valve The pulmonic valve is not well visualized. There is no pulmonic regurgitation. Mitral Valve There is mild mitral valve regurgitation. Tricuspid Valve There is trace tricuspid valve regurgitation. Pericardium/Pleural There is trivial anterior pericardial effusion. Inferior Vena Cava Normal inferior vena cava with >50% collapse upon inspiration consistent with normal right atrial pressure, 3 mmHg. Aorta The aortic root size at the sinus of Valsalva is normal. Left Ventricular Outflow Tract Name Value Normal LVOT 2D LVOT Diameter 1.9 cm LVOT Doppler LVOT Peak Gradient 2 mmHg LVOT Mean Gradient 1 mmHg LVOT VTI 19 cm LVOT VTI/AV VTI Ratio 1.1 LVOT Stroke Volume 53 ml LVOT CO 2.7 l/min LVOT CI 2.1 l/min/m2 Pulmonic Valve Name Value Normal PV Doppler PV Peak Gradient 2 mmHg Mitral Valve Name Value Normal MV Doppler MV Decel [place] 165 cm/s2
[2023-09-23] MEDS: ALBUTEROL SULFATE (*SP) AEROSOL 1 PUFF INHALATION (02:32)
[2023-09-23 05:06] LABS: Hemoglobin 13.2 g/dL (14.0-18.0); Mean Corpuscular Volume 90.9 fl (80-100); Mean Platelet Volume 10.1 fl (7.4-10.4); Platelet Count Result 305 k/mm3 (150-375); White Blood Count 9.7 K/mm3 (4.5-10.0)
[2023-09-23 05:10] LABS: Anion Gap 5 mmol/L (4-12); Blood Urea Nitrogen 15 mg/dL (9-20); Calcium 8.3 mg/dL (8.4-10.2); Carbon Dioxide 27 mmol/L (22-30); Chloride 101 mmol/L (98-107); Estimated CRCL calculation 43 ml/min; Estimated Glomerular Filt Rate > 60; Glucose 79 mg/dL (65-110); Potassium 4.3 mmol/L (3.4-5.0); Sodium 133 mmol/L (137-145)
[2023-09-23] MEDS: SODIUM CHLORIDE 0.9% IV 1,000 ML 150 ML IV CONT ×2 (05:41→13:04)
--- NOTE | 2023-09-23 07:38 | ECG_ITS ---
Test Date: 2023-09-23 07:45:12 Measurements Intervals [place] Rate: 48 P: 85 AK: 142 QRS: 32 QRSD: 87 T: 66 QT: 409 QTc: 367 Interpretive Statements SINUS BRADYCARDIA ANTEROSEPTAL MYOCARDIAL INFARCTION, PROBABLY OLD BORDERLINE ST-T WAVE ABNORMALITY- INF/LAT LEADS BASELINE ARTIFACT- I, II, III, AVR, AVL, AVF, V1, V5-V6 ABNORMAL ECG Compared to ECG 09/22/2023 19:30:33 ATRIAL FIBRILLATION NO LONGER PRESENT Electronically Signed On 09-23-2023 07:49:01 CDT by Ramy Javed D.O.
--- NOTE | 2023-09-23 07:56 | PM.IMPN ---
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 Stable irregular spiculated right upper lobe nodule 1st noted on CT chest on 09/22/2023. The patient woke up on the day of admission and he felt very off. He reports he cannot describe it well but it was like and pending doom, it was not chest pain or chest pressure. He just knew he had to go to the ER. Summoned EMS. [facility] demonstrated BNP 4100, alkaline phosphatase 180, sodium 133, chest CTA with small loculated stable left pleural effusion, stable left upper lobe and right upper lobe nodules. No PE. Blood pressure 95/55 and heart rate in the 110s to 120s. EKG demonstrating atrial fibrillation with rapid ventricular rate. No obvious acute ischemia. Troponin negative. No intervention was given in the ER and the patient was admitted to IMU telemetry unit for admission on 09/22/2023. atrial fibrillation with rapid ventricular rate Continue Eliquis 2.5 mg p.o. b.i.d.. Adverse effects, risk and benefits discussed to which she agreed to start. His ventricular rate is currently between 110 and 120s. Received metoprolol 5 mg IV x1. On metoprolol tartrate 25 mg p.o. b.i.d.. 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 Now patient has sinus rhythm, and sinus Martínez, hold metoprolol p.o. Consult pipe insulator helper for medical managements Severe malnutrition He is not yet 80 years old but he is 40 kg only and his skin is very frail already. -TSH within normal limits Possible due to depression, patient has no appetite, and dog within the last year. He was 105 lb 1 year ago, now 88 lb. He has a very poor appetite. Regular diet ordered with dietary supplements and dietitian consult. Continue FRONT END UI DEVELOPER sertraline 25 mg p.o. daily which was just started prior to admission continue to assess for response. Care coordination consulted to help strengthen his support system. right upper lobe, left upper lobe nodules -status: Stable. -his plant tour guide is Dr. Jacobo. Continue outpatient follow-up and serial imaging history of hypertension Hold hypertension medication because of hypotension Chronic Conditions -COPD: Continue FRONT END UI DEVELOPER Breztri, his plant tour guide is Dr. Jacobo -hyperlipidemia: Continue FRONT END UI DEVELOPER statin F/E/N: Replace lytes as needed, regular diet with dietary supplements GI prophylaxis: Not indicated DVT prophylaxis: Start Eliquis 2.5 mg p.o. b.i.d. Lines: Peripheral IV Code Status: Patient wishes to be full code Dispo: Admission to telemetry unit for AFib with RVR and dehydration. Anticipate discharge back to home. Functional status and anticipated needs: Blind in the left eye. Does not drive. Within the last year his and dog . His friends do not call or visit. He is lonely at home and has been diagnosed with depression. He is very high risk. Comfort and empathy provided. Support groups and psycho social therapy are indicated. Care coordination consulted to assist. Will refer patient to psychiatrist after discharge Medication reconciliation obtained via the following: Nurse completed on admission Social Drivers of Health -Living arrangements, functional status, significant history: Lives at home alone. Not use
--- NOTE | 2023-09-23 08:20 | PC.NURSE ---
Detailed message left with Dr. Neff informing that pt converted to sinus altagracia.
[2023-09-23] MEDS: APIXABAN 2.5 MG TABLET PO (08:26)
[2023-09-23] MEDS: OPTI-GEN TAB 1 TABLET PO ×2 (08:26→17:24)
[2023-09-23] MEDS: SERTRALINE HCL 25 MG TABLET PO (08:26)
[2023-09-23] MEDS: SIMVASTATIN 10 MG TABLET PO (08:27)
--- NOTE | 2023-09-23 09:01 | PM.CNCAR ---
Assessment and Plan Assessment and plan (1) Atrial fibrillation: Code(s): I48.91 - Unspecified atrial fibrillation Status: Acute Assessment and Plan: Paroxysmal atrial fibrillation presenting with symptomatic atrial fibrillation with rapid ventricular response. He spontaneously converted to sinus rhythm this morning around 0730. Will discontinue metoprolol tartrate 25mg q12 and shift him back to ToprolXL 25mg daily (he is mildly bradycardic) He has been started on anticoagulation with apixaban Echo has been ordered TSH within normal limits electrolytes within normal limits (2) Dehydration: Code(s): E86.0 - Dehydration Status: Acute Assessment and Plan: Continue IV fluids (3) Depression: Code(s): F32.A - Depression, unspecified Status: Acute Assessment and Plan: Continue SSRI. Provided emotional support. History of Present Illness History of Present Illness Consult date/time: 09/23/23 09:01 Requesting physician: Eladio Neff MD Consult reason: atrial fibrillation Reason For Visit: Afib RVR, Chest pain rule out Narrative: Velasquez Kent is a 77 year old male with paroxysmal atrial fibrillation. He comes to the hospital with complaints of just not feeling right. He has been having issues with balance and feeling dizzy but has not had any falls. He has been feeling a sensation of racing heartbeat intermittently for the past year but his symptoms are usually self limited therefore he has not been evaluated. He does state that he had atrial fibrillation during two previous hospitalizations and takes metoprolol at home but has never been anticoagulated. He is back in sinus rhythm at this point and is asymptomatic. 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 They have 3 living children; one child in a car wreck. Retired 1998. Smoked cigarettes 1 ppd x 10 years, then cigars up to 10 per day, now 2 cigars a week. Years smoked: 50 Smoking status: Current every day smoker Tobacco type: cigars Additional smoking assessment comments: 1 Cigar a day Alcohol intake: former Alcohol use details: 2 drinks yearly Substance use: never Substance use type: does not use Do You Feel Safe in your Home?: Yes Lack of Transportation: No Lack of Food: Never True Current Housing: I Have Housing Concerned About Future Housing: No Difficulty Paying Gas/Electric Bills: No Difficulty Paying for Meds: No Currently Unemployed: No Education: High School Diploma/GED Difficulty w/ Childcare or Family Care: No Living arrangements: with family Occupation/Education: retired Gender identity (if verbalized by the patient): Male Spiritual care concerns: No Meds Home Medications and Allergies Home Medications Medication Instructions Recorded Confirmed Type aspirin 81 mg chewable tablet 81 mg PO DAILY 03/11/22 09/22/23 History vitamins A,C,F-hizy-yaxaus 2,148 1 tablet PO BIDWM 03/11/22 09/22/23 History mcg-113 mg-45 mg-17.4 mg tab
[2023-09-23] MEDS: FLUTICASONE/UMECLIDIN/VILANTER 100-62.5-25 MCG ELLIPTA 1 PUFF INHALATION (09:11)
[2023-09-23] MEDS: APIXABAN 5 MG TABLET BY MOUTH (21:57)
[2023-09-23] MEDS: MELATONIN 5 MG TABLET PO (21:57)
[2023-09-24] VITALS (14 sets, daily range): BP systolic 116–129; BP diastolic 50–71; PULSE 47–60; RESP 18–32; TEMP 36.7–36.9; O2SAT 98
[2023-09-24] MEDS: FLUTICASONE/UMECLIDIN/VILANTER 100-62.5-25 MCG ELLIPTA 1 PUFF INHALATION (08:25)
[2023-09-24] MEDS: APIXABAN 5 MG TABLET BY MOUTH ×2 (08:53→20:40)
[2023-09-24] MEDS: SERTRALINE HCL 25 MG TABLET PO (08:53)
[2023-09-24] MEDS: OPTI-GEN TAB 1 TABLET PO ×2 (08:53→16:32)
[2023-09-24] MEDS: SIMVASTATIN 10 MG TABLET PO (08:54)
--- NOTE | 2023-09-24 09:44 | PM.IMPN ---
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 Stable irregular spiculated right upper lobe nodule 1st noted on CT chest on 09/22/2023. The patient woke up on the day of admission and he felt very off. He reports he cannot describe it well but it was like and pending doom, it was not chest pain or chest pressure. He just knew he had to go to the ER. Summoned EMS. [facility] demonstrated BNP 4100, alkaline phosphatase 180, sodium 133, chest CTA with small loculated stable left pleural effusion, stable left upper lobe and right upper lobe nodules. No PE. Blood pressure 95/55 and heart rate in the 110s to 120s. EKG demonstrating atrial fibrillation with rapid ventricular rate. No obvious acute ischemia. Troponin negative. No intervention was given in the ER and the patient was admitted to IMU telemetry unit for admission on 09/22/2023. atrial fibrillation with rapid ventricular rate Continue Eliquis 2.5 mg p.o. b.i.d.. Adverse effects, risk and benefits discussed to which she agreed to start. His ventricular rate is currently between 110 and 120s. Received metoprolol 5 mg IV x1. On metoprolol tartrate 25 mg p.o. b.i.d.. 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 Now patient has sinus rhythm, and sinus Martínez, Decrease metoprolol p.o. 25 mg daily p.o. per progressive care nurse, bradycardia persists Consult progressive care nurse for medical managements Follow recommendation Severe malnutrition He is not yet 80 years old but he is 40 kg only and his skin is very frail already. -TSH within normal limits Possible due to depression, patient has no appetite, and dog within the last year. He was 105 lb 1 year ago, now 88 lb. He has a very poor appetite. Regular diet ordered with dietary supplements and dietitian consult. Continue SCRIPT EDITOR sertraline 25 mg p.o. daily which was just started prior to admission continue to assess for response. Care coordination consulted to help strengthen his support system. right upper lobe, left upper lobe nodules -status: Stable. -his mergers and acquisitions banker is Dr. Jacobo. Continue outpatient follow-up and serial imaging history of hypertension Hold hypertension medication because of hypotension Chronic Conditions -COPD: Continue SCRIPT EDITOR Breztri, his mergers and acquisitions banker is Dr. Jacobo -hyperlipidemia: Continue SCRIPT EDITOR statin F/E/N: Replace lytes as needed, regular diet with dietary supplements GI prophylaxis: Not indicated DVT prophylaxis: Start Eliquis 2.5 mg p.o. b.i.d. Lines: Peripheral IV Code Status: Patient wishes to be full code Dispo: Admission to telemetry unit for AFib with RVR and dehydration. Anticipate discharge back to home. Functional status and anticipated needs: Blind in the left eye. Does not drive. Within the last year his and dog . His friends do not call or visit. He is lonely at home and has been diagnosed with depression. He is very high risk. Comfort and empathy provided. Support groups and psycho social therapy are indicated. Care coordination consulted to assist. Will refer patient to psychiatrist after discharge Medication reconciliation obtained via the following: Nurse completed on admission [facility]
[2023-09-24 11:46] LABS: Glucose Point of Care 95 mg/dl (65-105)
[2023-09-24] MEDS: MELATONIN 5 MG TABLET PO (20:40)
[2023-09-25] VITALS (16 sets, daily range): BP systolic 95–138; BP diastolic 54–76; PULSE 51–155; RESP 16–32; TEMP 36.5–36.8; O2SAT 95–98
--- NOTE | 2023-09-25 05:58 | ECG_ITS ---
Test Date: 2023-09-25 05:59:59 Measurements Intervals [place] Rate: 140 P: 0 TN: 0 QRS: -23 QRSD: 86 T: 91 QT: 288 QTc: 440 Interpretive Statements ATRIAL FIBRILLATION WITH RAPID VENTRICULAR RESPONSE FREQUENT VENTRICULAR PREMATURE COMPLEXES ANTEROSEPTAL MYOCARDIAL INFARCTION, OF INDETERMINATE AGE ST-T WAVE ABNORMALITY IN INF/LAT LEADS- CONSIDER ISCHEMIA BASELINE ARTIFACT- I, II, III, AVR, AVL, AVF, V5-V6 ABNORMAL ECG Compared to ECG 09/23/2023 07:45:12 SINUS BRADYCARDIA NO LONGER PRESENT ST-T WAVE ABNORMALITY NOW PRESENT Electronically Signed On 09-25-2023 08:06:37 CDT by Ramy Javed D.O.
[2023-09-25] MEDS: METOPROLOL TARTRATE 50 MG TAB PO (06:43)
[2023-09-25] MEDS: FLUTICASONE/UMECLIDIN/VILANTER 100-62.5-25 MCG ELLIPTA 1 PUFF INHALATION (07:50)
[2023-09-25] MEDS: OPTI-GEN TAB 1 TABLET PO ×2 (09:20→16:16)
[2023-09-25] MEDS: SIMVASTATIN 10 MG TABLET PO (09:20)
[2023-09-25] MEDS: SERTRALINE HCL 25 MG TABLET PO (09:20)
[2023-09-25] MEDS: APIXABAN 5 MG TABLET BY MOUTH ×2 (09:20→21:28)
--- NOTE | 2023-09-25 10:36 | PM.IMPN ---
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 Stable irregular spiculated right upper lobe nodule 1st noted on CT chest on 09/22/2023. The patient woke up on the day of admission and he felt very off. He reports he cannot describe it well but it was like and pending doom, it was not chest pain or chest pressure. He just knew he had to go to the ER. Summoned EMS. [facility] demonstrated BNP 4100, alkaline phosphatase 180, sodium 133, chest CTA with small loculated stable left pleural effusion, stable left upper lobe and right upper lobe nodules. No PE. Blood pressure 95/55 and heart rate in the 110s to 120s. EKG demonstrating atrial fibrillation with rapid ventricular rate. No obvious acute ischemia. Troponin negative. No intervention was given in the ER and the patient was admitted to IMU telemetry unit for admission on 09/22/2023. atrial fibrillation with rapid ventricular rate Continue Eliquis 2.5 mg p.o. b.i.d.. Adverse effects, risk and benefits discussed to which she agreed to start. His ventricular rate is currently between 110 and 120s. Received metoprolol 5 mg IV x1. On metoprolol tartrate 25 mg p.o. b.i.d.. 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 Now patient has sinus rhythm, and sinus Martínez, Decrease metoprolol p.o. 25 mg daily p.o. per night assistant, bradycardia on metoprolol now pt has afib again, patient has palpitation Consult night assistant for medical managements Follow recommendation Severe malnutrition He is not yet 80 years old but he is 40 kg only and his skin is very frail already. -TSH within normal limits Possible due to depression, patient has no appetite, and dog within the last year. He was 105 lb 1 year ago, now 88 lb. He has a very poor appetite. Regular diet ordered with dietary supplements and dietitian consult. Continue MIS SPECIALIST sertraline 25 mg p.o. daily which was just started prior to admission continue to assess for response. Care coordination consulted to help strengthen his support system. right upper lobe, left upper lobe nodules -status: Stable. -his hand riveter is Dr. Jacobo. Continue outpatient follow-up and serial imaging history of hypertension Hold hypertension medication because of hypotension Chronic Conditions -COPD: Continue MIS SPECIALIST Breztri, his hand riveter is Dr. Jacobo -hyperlipidemia: Continue MIS SPECIALIST statin F/E/N: Replace lytes as needed, regular diet with dietary supplements GI prophylaxis: Not indicated DVT prophylaxis: Start Eliquis 2.5 mg p.o. b.i.d. Lines: Peripheral IV Code Status: Patient wishes to be full code Dispo: Admission to telemetry unit for AFib with RVR and dehydration. Anticipate discharge back to home. Functional status and anticipated needs: Blind in the left eye. Does not drive. Within the last year his and dog . His friends do not call or visit. He is lonely at home and has been diagnosed with depression. He is very high risk. Comfort and empathy provided. Support groups and psycho social therapy are indicated. Care coordination consulted to assist. Will refer patient to psychiatrist after discharge Medication reconciliation obtained via the following: Nurse comple
--- NOTE | 2023-09-25 14:04 | PM.PNCARD ---
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 If the patient continued to have problem with tachy-altagracia syndrome consider pacemaker Subjective Date/time seen: 09/25/23 14:04 Interval history: palpitation in AM and have recurrnt AF with RVR and HR was in 180 and down to 120 with metoprolol Review of Systems Review of Systems: All systems reviewed & are unremarkable except as noted in HPI and below Exam Const: General: comfortable and no acute distress Other: Able to lie flat Neck: Neck: supple and no JVD Carotids: no bruits Resp: Auscultation: clear to auscultation bilaterally and lung sounds not diminished Other: No chest wall tenderness Cardio: Rate: tachycardic Rhythm: abnormal rhythm regularly irregular Heart sounds: no gallops, no murmurs and no rubs Objective Data Vital Signs Vital Signs: Vital Signs - 24 hr 09/24/23 16:00 09/24/23 16:00 09/24/23 16:00 Temperature 36.7 C Pulse Rate 52 L 54 L Respiratory Rate 32 H Blood Pressure 116/50 L Pulse Oximetry 98 Oxygen Delivery Room Air Fraction of Inspired Oxygen 09/24/23 19:56 09/24/23 20:00 09/25/23 00:00 Temperature 36.7 C Pulse Rate 51 L 49 L 80 Respiratory Rate 18 Blood Pressure 116/58 L Pulse Oximetry 98 Oxygen Delivery Fraction of Inspired Oxygen 09/25/23 04:00 09/25/23 06:43 09/25/23 06:04 Temperature 36.6 C Pulse Rate 51 L 155 H 153 H Respiratory Rate 20 Blood Pressure 105/76 Pulse Oximetry 95 Oxygen Delivery Fraction of Inspired Oxygen 09/25/23 07:50 09/25/23 07:50 09/25/23 08:00 Temperature 36.6 C Pulse Rate 89 89 60 Respiratory Rate 20 20 32 H Blood Pressure 110/63 Pulse Oximetry 98 97 Oxygen Delivery Room Air Fraction of Inspired Oxygen 09/25/23 09:26 09/25/23 08:00 09/25/23 10:00 Temperature Pulse Rate 121 H 125 H 130 H Respiratory Rate Blood Pressure 106/62 Pulse Oximetry Oxygen Delivery Fraction of Inspired Oxygen 09/25/23 08:00 09/25/23 12:00 09/25/23 12:00 Temperature 36.5 C Pulse Rate 128 H 121 H Respiratory Rate 16 Blood Pressure 95/56 L Pulse Oximetry 98 Oxygen Delivery Room Air Fraction of Inspired Oxygen Intake/Output Intake/Output: Intake & Output 09/22/23 09/23/23 09/24/23 09/25/23 23:59 23:59 23:59 23:59 Intake Total 3355 1430 440 Output Total 380 2140 770 Balance 4416 -827 -819 Meds/Results Medications: Active Medications Generic Name Dose Route Start Last Admin Trade Name Freq PRN Reason Stop Dose Admin Albuterol 1 puff 09/22/23 22:15 09/23/23 02:32 Albuterol Sulfate (*Sp) Aerosol 1 Puff INHALATION 1 puff Q4H PRN Administration shortness of breath or wheezing Apixaban 5 mg 09/23/23 21:00 09/25/23 09:20 Apixaban 5 Mg Tablet BY MOUTH 5 mg Q12HR BROCK Administration Fluticasone/Umeclidinium/Vilanterol 1 puff 09/23/23 08:00 09/25/23 07:50 Fluticasone/Umeclidin/Vilanter 100-62.5-25 Mcg Ellipta INHALATION 1 puff DAILYRT BROCK Administration Melatonin 5 mg 09/23/23 21:00 09/24/23 20:40 Melatonin 5 Mg Tablet PO 5 mg HS BROCK Administration Multivitamins/Minerals 1 tablet 09/23/23 08:00 09/25/23 09:20 Opti-Gen Tab PO 1 tablet BIDWM BROCK Administration Perflutren Lipid Microsphere 0 ml 09/22/23 18:59 Perflutren Lipid Microspheres 1.5 Ml Vial Diluted To 10 Ml Total Volume IV PUSH 09/25/23 19:00 ONCE PRN adequate visualization Protocol Sertraline HCl 25 mg 09/23/23 09:00 09/25/23 09:20 Sertraline Hcl 25 Mg Tablet PO 2
[2023-09-25] MEDS: MELATONIN 5 MG TABLET PO (21:28)
[2023-09-25] MEDS: METOPROLOL TARTRATE 25 MG TABLET PO (21:29)
[2023-09-26] VITALS (23 sets, daily range): BP systolic 87–131; BP diastolic 47–66; PULSE 42–121; RESP 18–20; TEMP 35.9–36.7; O2SAT 96–99
[2023-09-26] MEDS: FLUTICASONE/UMECLIDIN/VILANTER 100-62.5-25 MCG ELLIPTA 1 PUFF INHALATION (08:02)
[2023-09-26] MEDS: OPTI-GEN TAB 1 TABLET PO ×2 (08:26→16:55)
[2023-09-26] MEDS: SERTRALINE HCL 25 MG TABLET PO (08:26)
[2023-09-26] MEDS: SIMVASTATIN 10 MG TABLET PO (08:26)
[2023-09-26] MEDS: METOPROLOL TARTRATE 25 MG TABLET PO (08:27)
[2023-09-26] MEDS: APIXABAN 5 MG TABLET BY MOUTH ×2 (08:27→21:03)
--- NOTE | 2023-09-26 10:05 | PM.IMPN ---
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 Stable irregular spiculated right upper lobe nodule 1st noted on CT chest on 09/22/2023. The patient woke up on the day of admission and he felt very off. He reports he cannot describe it well but it was like and pending doom, it was not chest pain or chest pressure. He just knew he had to go to the ER. Summoned EMS. [place] [facility] demonstrated BNP 4100, alkaline phosphatase 180, sodium 133, chest CTA with small loculated stable left pleural effusion, stable left upper lobe and right upper lobe nodules. No PE. Blood pressure 95/55 and heart rate in the 110s to 120s. EKG demonstrating atrial fibrillation with rapid ventricular rate. No obvious acute ischemia. Troponin negative. No intervention was given in the ER and the patient was admitted to IMU telemetry unit for admission on 09/22/2023. atrial fibrillation with rapid ventricular rate Continue Eliquis 2.5 mg p.o. b.i.d.. Adverse effects, risk and benefits discussed to which she agreed to start. His ventricular rate is currently between 110 and 120s. Received metoprolol 5 mg IV x1. On metoprolol tartrate 25 mg p.o. b.i.d.. 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 Now patient has sinus rhythm, and sinus Martínez, Decrease metoprolol p.o. 25 mg daily p.o. per anesthesiologist and critical care, bradycardia on metoprolol now pt has afib again, patient has palpitation Consult anesthesiologist and critical care for medical managements Started flecainide per anesthesiologist and critical care Severe malnutrition He is not yet 80 years old but he is 40 kg only and his skin is very frail already. -TSH within normal limits Possible due to depression, patient has no appetite, and dog within the last year. He was 105 lb 1 year ago, now 88 lb. He has a very poor appetite. Regular diet ordered with dietary supplements and dietitian consult. Continue DIRECTOR OF NUCLEAR MEDICINE sertraline 25 mg p.o. daily which was just started prior to admission continue to assess for response. Care coordination consulted to help strengthen his support system. right upper lobe, left upper lobe nodules -status: Stable. -his city magistrate is Dr. Jacobo. Continue outpatient follow-up and serial imaging history of hypertension Hold hypertension medication because of hypotension Chronic Conditions -COPD: Continue DIRECTOR OF NUCLEAR MEDICINE Breztri, his city magistrate is Dr. Jacobo -hyperlipidemia: Continue DIRECTOR OF NUCLEAR MEDICINE statin F/E/N: Replace lytes as needed, regular diet with dietary supplements GI prophylaxis: Not indicated DVT prophylaxis: Start Eliquis 2.5 mg p.o. b.i.d. Lines: Peripheral IV Code Status: Patient wishes to be full code Dispo: Admission to telemetry unit for AFib with RVR and dehydration. Anticipate discharge back to home. Functional status and anticipated needs: Blind in the left eye. Does not drive. Within the last year his and dog . His friends do not call or visit. He is lonely at home and has been diagnosed with depression. He is very high risk. Comfort and empathy provided. Support groups and psycho social therapy are indicated. Care coordination consulted to assist. Will refer patient to psychiatrist after discharge Medication reconciliation obtained via the following:
[2023-09-26] MEDS: ACETAMINOPHEN 325 MG TABLET 650 MG PO (10:13)
--- NOTE | 2023-09-26 11:20 | PCNFU ---
Nutrition Follow-Up Complete: Moderate Protein Calorie Malnutrition as related to inadequate protein-energy intake with increased protein energy needs in setting of chronic disease as evidenced by minimal oral intake for > 1-2 months, weight loss of 17 ibs in the past 1 year with moderate muscle wasting (temporalis) and moderate subcutaneous fast loss ( orbital fat pads). Goal:Meet estimated nutritional needs. Pt is progressing towards goal. Continue with same goal. Pt current nutrition is Regular, Ensure compact BID. Nutrition recommendation: Increased Ensure compact to TID Last recorded weight is 40 kg. Bowel Motility: +BM 09/22 Labs Reviewed: Hgb:13.2, HCT:40, NA:133 Meds Noted: eliquis Skin: no skin issues noted Additional Notes: Pt continues on a regular diet, intake varied from 25-100% of meals. Ensure compact BID, will increase to TID. Will monitor weight, labs, skin, oral intake, meds every 5 days.
--- NOTE | 2023-09-26 11:28 | PM.PNCARD ---
Progress Note: A&P Assessment and Plan (1) Atrial fibrillation: Code(s): I48.91 - Unspecified atrial fibrillation Status: Acute Plan 77-year-old man with severe emphysema presenting with increasing shortness of breath and paroxysmal atrial fibrillation. He has normal left ventricular systolic function by echo and no history of coronary disease. I am going to add flecainide to his regimen in hopes of restoring and maintaining sinus rhythm more effectively. For now continue the current dose of metoprolol as well as the apixaban. Lobo Romero MD [facility] Subjective Date/time seen: Date of service: 09/26/23 11:28 Interval history: palpitation in AM and have recurrnt AF with RVR and HR was in 180 and down to 120 with metoprolol 09/26/2023: Patient is still predominantly in atrial fibrillation on telemetry heart rate between 110 and 120. He is essentially asymptomatic with this. Exam Const: General: comfortable, no acute distress, alert and awake Orientation/consciousness: patient oriented x3 Other: Able to lie flat HENMT: Head: normal to inspection Eyes: General: appearance abnormal, both eyes Pupils: Equal, round and reactive pupils present Neck: Neck: normal visual inspection, supple and no JVD Carotids: normal carotid upstroke and no bruits Resp: Effort & Inspection: normal respiratory effort Auscultation: clear to auscultation bilaterally and lung sounds not diminished Other: No chest wall tenderness Cardio: Rate: tachycardic Rhythm: abnormal rhythm regularly irregular Heart sounds: S1 normal heart sound present, S2 normal heart sound present, no gallops, no murmurs and no rubs GI: Auscultation: normal bowel sounds Skin: General skin exam: normal color Neuro: General: patient oriented x3 Cranial nerves: Yes Equal, round and reactive pupils present Extrem: General: normal to inspection Psych: Appearance: grossly normal Mental Status: mental status grossly normal Objective Data Vital Signs Vital Signs: Vital Signs - 24 hr 09/25/23 12:00 09/25/23 12:00 09/25/23 14:00 Temperature 36.5 C Pulse Rate 128 H 121 H 128 H Respiratory Rate 16 Blood Pressure 95/56 L Pulse Oximetry 98 Oxygen Delivery Fraction of Inspired Oxygen 09/25/23 16:00 09/25/23 16:09/25/23 18:00 Temperature 36.8 C Pulse Rate 118 H 119 H 128 H Respiratory Rate 20 Blood Pressure 106/54 L Pulse Oximetry 97 Oxygen Delivery Fraction of Inspired Oxygen 09/25/23 20:39 09/25/23 21:29 09/25/23 20:00 Temperature 36.7 C Pulse Rate 110 H 103 H 110 H Respiratory Rate 18 18 Blood Pressure 138/68 Pulse Oximetry 98 98 Oxygen Delivery Room Air Fraction of Inspired Oxygen 09/25/23 20:00 09/26/23 00:00 09/26/23 01:54 Temperature Pulse Rate 117 H 109 H 110 H Respiratory Rate Blood Pressure Pulse Oximetry Oxygen Delivery Fraction of Inspired Oxygen 09/25/23 22:00 09/26/23 04:34 09/26/23 04:39 Temperature 36.7 C Pulse Rate 110 H 115 H Respiratory Rate 18 Blood Pressure 87/58 L 96/54 L Pulse Oximetry 96 Oxygen Delivery Fraction of Inspired Oxygen 09/26/23 04:00 09/26/23 05:41 09/26/23 08:00 Temperature 36.3 C L Pulse Rate 116 H 111 H 74 Respiratory Rate 20 Blood Pressure 103/66 Pulse Oximetry 98 Oxygen Delivery Fraction of Inspired Oxygen 09/26/23 08:02 09/26/23 08:02 09/26/23 08:27 Temperature Pulse Rate 103 H 110 H Respiratory Rate 20 Blood Pressure Pulse Oximetry 99 Oxygen Delivery Room Air Fraction of Inspired Oxygen 21 09/26/23 08:31 Temperature Pulse Rate 110 H Respiratory Rate Blood Pressure Pulse Oximetry Oxygen Delivery Fraction of Inspired Oxygen Intake/Output Intake/Output: Intake & Output 09/23/23 09/24/23 09/25/23 09/26/23 23:59 23:59 23:59 23:59 Intake Total 3355 1430 980 650 Output Total 380 2140 1620 290 Balance 6110 -869
--- NOTE | 2023-09-26 12:37 | PC.NURSE ---
1210- Jojo Gonzales [employer]E [employer] called and notified pt had 4.78 sec pause and converted to SB 40's. new order for Tambocor 100mg po to start was received - med not given; Jojo Gonzales stated she will notify Dr. Romero
[2023-09-26] MEDS: MELATONIN 5 MG TABLET PO (21:03)
[2023-09-27] VITALS (15 sets, daily range): BP systolic 103–134; BP diastolic 48–57; PULSE 41–85; RESP 16–22; TEMP 36.6–36.7; O2SAT 96–100
[2023-09-27] MEDS: FLUTICASONE/UMECLIDIN/VILANTER 100-62.5-25 MCG ELLIPTA 1 PUFF INHALATION (08:07)
[2023-09-27] MEDS: SERTRALINE HCL 25 MG TABLET PO (08:36)
[2023-09-27] MEDS: SIMVASTATIN 10 MG TABLET PO (08:36)
[2023-09-27] MEDS: APIXABAN 5 MG TABLET BY MOUTH ×2 (08:36→20:41)
[2023-09-27] MEDS: OPTI-GEN TAB 1 TABLET PO ×2 (08:36→17:17)
--- NOTE | 2023-09-27 09:02 | PM.IMPN ---
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 Stable irregular spiculated right upper lobe nodule 1st noted on CT chest on 09/22/2023. The patient woke up on the day of admission and he felt very off. He reports he cannot describe it well but it was like and pending doom, it was not chest pain or chest pressure. He just knew he had to go to the ER. Summoned EMS. [place] [facility] demonstrated BNP 4100, alkaline phosphatase 180, sodium 133, chest CTA with small loculated stable left pleural effusion, stable left upper lobe and right upper lobe nodules. No PE. Blood pressure 95/55 and heart rate in the 110s to 120s. EKG demonstrating atrial fibrillation with rapid ventricular rate. No obvious acute ischemia. Troponin negative. No intervention was given in the ER and the patient was admitted to IMU telemetry unit for admission on 09/22/2023. atrial fibrillation with rapid ventricular rate Continue Eliquis 2.5 mg p.o. b.i.d.. Adverse effects, risk and benefits discussed to which she agreed to start. His ventricular rate is currently between 110 and 120s. Received metoprolol 5 mg IV x1. On metoprolol tartrate 25 mg p.o. b.i.d.. echocardiogram 1. Left ventricular chamber dimension is normal. 2. Left ventricular systolic function is normal, estimated at 65-70%. 3. Right ventricular systolic function is normal. 4. There is mild mitral valve regurgitation. 5. There is trivial anterior pericardial effusion. Now patient has sinus rhythm, and sinus Martínez, Continue flecainide per gun barrel finisher Appreciate cardiology's consultation Severe malnutrition He is not yet 80 years old but he is 40 kg only and his skin is very frail already. -TSH within normal limits Possible due to depression, patient has no appetite, and dog within the last year. He was 105 lb 1 year ago, now 88 lb. He has a very poor appetite. Regular diet ordered with dietary supplements and dietitian consult. Continue BLOCK OPERATOR sertraline 25 mg p.o. daily which was just started prior to admission continue to assess for response. Care coordination consulted to help strengthen his support system. right upper lobe, left upper lobe nodules -status: Stable. -his fruit and vegetable inspector is Dr. Jacobo. Continue outpatient follow-up and serial imaging history of hypertension Hold hypertension medication because of hypotension Chronic Conditions -COPD: Continue BLOCK OPERATOR Breztri, his fruit and vegetable inspector is Dr. Jacobo -hyperlipidemia: Continue BLOCK OPERATOR statin F/E/N: Replace lytes as needed, regular diet with dietary supplements GI prophylaxis: Not indicated DVT prophylaxis: Start Eliquis 2.5 mg p.o. b.i.d. Lines: Peripheral IV Code Status: Patient wishes to be full code Dispo: Admission to telemetry unit for AFib with RVR and dehydration. Anticipate discharge back to home. Functional status and anticipated needs: Blind in the left eye. Does not drive. Within the last year his and dog . His friends do not call or visit. He is lonely at home and has been diagnosed with depression. He is very high risk. Comfort and empathy provided. Support groups and psycho social therapy are indicated. Care coordination consulted to assist. Will refer patient to psychiatrist after discharge Medication reconciliation obtained v
--- NOTE | 2023-09-27 10:37 | PM.PNCARD ---
Progress Note: A&P Assessment and Plan (1) Atrial fibrillation: Code(s): I48.91 - Unspecified atrial fibrillation Status: Acute Assessment and Plan: Paroxysmal atrial fibrillation presenting with symptomatic atrial fibrillation with rapid ventricular response. He spontaneously converted to sinus rhythm but went back into atrial fibrillation with RVR over the weekend. Attempted to start antiarrhythmic therapy with flecainide, but spontaneously converted to sinus rhythm once again and bradycardia has precluded flecainide administration Discontinue flecainide Will continue metoprolol tartrate 25mg q12h for now He has been started on anticoagulation with apixaban Evidence of tachy-altagracia syndrome. May require pacemaker at some point if we are unable to control his heart rate during episodes of AF Could also consider amiodarone for maintenance of sinus rhythm (2) Dehydration: Code(s): E86.0 - Dehydration Status: Acute Assessment and Plan: Resolved. (3) Depression: Code(s): F32.A - Depression, unspecified Status: Acute Assessment and Plan: Continue SSRI. Subjective Date/time seen: 09/27/23 10:37 Interval history: palpitation in AM and have recurrnt AF with RVR and HR was in 180 and down to 120 with metoprolol 09/26/2023: Patient is still predominantly in atrial fibrillation on telemetry heart rate between 110 and 120. He is essentially asymptomatic with this. Date of service 09/27/2023: He remains in sinus rhythm/sinus bradycardia today. Does not have any complaints. Exam Const: General: comfortable, no acute distress, alert and awake Orientation/consciousness: patient oriented x3 Other: Able to lie flat HENMT: Head: normal to inspection Eyes: General: appearance abnormal, both eyes Pupils: Equal, round and reactive pupils present Neck: Neck: normal visual inspection, supple and no JVD Carotids: normal carotid upstroke and no bruits Resp: Effort & Inspection: normal respiratory effort Auscultation: clear to auscultation bilaterally and lung sounds not diminished Other: No chest wall tenderness Cardio: Rate: regular rate and bradycardic Rhythm: regular rhythm Heart sounds: S1 normal heart sound present, S2 normal heart sound present, no gallops, no murmurs and no rubs GI: Auscultation: normal bowel sounds Skin: General skin exam: normal color Neuro: General: patient oriented x3 Cranial nerves: Yes Equal, round and reactive pupils present Extrem: General: normal to inspection Psych: Appearance: grossly normal Mental Status: mental status grossly normal Objective Data Vital Signs Vital Signs: Vital Signs - 24 hr 09/26/23 12:10 09/26/23 12:00 09/26/23 12:10 Temperature 36.4 C Pulse Rate 45 L 76 45 L Respiratory Rate 20 Blood Pressure 105/50 L Pulse Oximetry 99 Oxygen Delivery 09/26/23 14:00 09/26/23 16:30 09/26/23 16:35 Temperature 35.9 C L Pulse Rate 44 L 45 L 43 L Respiratory Rate 20 Blood Pressure 92/50 L 93/50 L Pulse Oximetry 96 Oxygen Delivery 09/26/23 16:00 09/26/23 18:00 09/26/23 20:00 Temperature Pulse Rate 47 L 44 L Respiratory Rate Blood Pressure Pulse Oximetry Oxygen Delivery Room Air 09/26/23 21:02 09/26/23 21:02 09/26/23 20:20 Temperature 36.6 C Pulse Rate 42 L 42 L 48 L Respiratory Rate 20 Blood Pressure 95/47 L Pulse Oximetry 98 Oxygen Delivery 09/26/23 20:00 09/26/23 21:34 09/26/23 23:18 Temperature Pulse Rate 45 L 44 L Respiratory Rate Blood Pressure Pulse Oximetry Oxygen Delivery Room Air 09/26/23 23:57 09/27/23 00:00 09/27/23 01:56 Temperature 36.5 C Pulse Rate 44 L 43 L 42 L Respiratory Rate 18 Blood Pressure 131/54 L Pulse Oximetry 99 Oxygen Delivery 09/27/23 03:44 09/27/23 04:00 09/27/23 04:00 Temperature 36.6 C Pulse Rate 42 L 41 L Respiratory Rate 18 Blood Pressu
[2023-09-27] MEDS: MELATONIN 5 MG TABLET PO (20:41)
[2023-09-27] MEDS: traZODone HCL 50 MG TABLET PO (23:42)
[2023-09-28] VITALS (19 sets, daily range): BP systolic 104–153; BP diastolic 47–56; PULSE 45–94; RESP 14–24; TEMP 36–36.7; O2SAT 93–100
[2023-09-28] MEDS: FLUTICASONE/UMECLIDIN/VILANTER 100-62.5-25 MCG ELLIPTA 1 PUFF INHALATION (07:05)
[2023-09-28] MEDS: OPTI-GEN TAB 1 TABLET PO ×2 (08:55→16:36)
[2023-09-28] MEDS: SIMVASTATIN 10 MG TABLET PO (08:55)
[2023-09-28] MEDS: APIXABAN 5 MG TABLET BY MOUTH ×2 (08:55→20:29)
[2023-09-28] MEDS: SERTRALINE HCL 25 MG TABLET PO (08:56)
--- NOTE | 2023-09-28 10:21 | PM.IMPN ---
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 Stable irregular spiculated right upper lobe nodule 1st noted on CT chest on 09/22/2023. The patient woke up on the day of admission and he felt very off. He reports he cannot describe it well but it was like and pending doom, it was not chest pain or chest pressure. He just knew he had to go to the ER. Summoned EMS. [place] [facility] demonstrated BNP 4100, alkaline phosphatase 180, sodium 133, chest CTA with small loculated stable left pleural effusion, stable left upper lobe and right upper lobe nodules. No PE. Blood pressure 95/55 and heart rate in the 110s to 120s. EKG demonstrating atrial fibrillation with rapid ventricular rate. No obvious acute ischemia. Troponin negative. No intervention was given in the ER and the patient was admitted to IMU telemetry unit for admission on 09/22/2023. atrial fibrillation with rapid ventricular rate echocardiogram 1. Left ventricular chamber dimension is normal. 2. Left ventricular systolic function is normal, estimated at 65-70%. 3. Right ventricular systolic function is normal. 4. There is mild mitral valve regurgitation. 5. There is trivial anterior pericardial effusion. Now patient has sinus rhythm, and sinus Altagracia, Appreciate cardiology's consultation, suspecting tachy-altagracia syndrome considering pacemaker at some point if we are unable to control his heart rate during episodes of AF, consider amiodarone for maintenance of sinus rhythm Severe malnutrition He is not yet 80 years old but he is 40 kg only and his skin is very frail already. -TSH within normal limits Possible due to depression, patient has no appetite, and dog within the last year. He was 105 lb 1 year ago, now 88 lb. He has a very poor appetite. Regular diet ordered with dietary supplements and dietitian consult. Continue CHECK WRITER sertraline 25 mg p.o. daily which was just started prior to admission continue to assess for response. Care coordination consulted to help strengthen his support system. right upper lobe, left upper lobe nodules -status: Stable. -his brick tender is Dr. Jacobo. Continue outpatient follow-up and serial imaging history of hypertension Hold hypertension medication because of hypotension Chronic Conditions -COPD: Continue CHECK WRITER Breztri, his brick tender is Dr. Jacobo -hyperlipidemia: Continue CHECK WRITER statin F/E/N: Replace lytes as needed, regular diet with dietary supplements GI prophylaxis: Not indicated DVT prophylaxis: Start Eliquis 2.5 mg p.o. b.i.d. Lines: Peripheral IV Code Status: Patient wishes to be full code Dispo: Admission to telemetry unit for AFib with RVR and dehydration. Anticipate discharge back to home. Functional status and anticipated needs: Blind in the left eye. Does not drive. Within the last year his and dog . His friends do not call or visit. He is lonely at home and has been diagnosed with depression. He is very high risk. Comfort and empathy provided. Support groups and psycho social therapy are indicated. Care coordination consulted to assist. Will refer patient to psychiatrist after discharge Medication reconciliation obtained via the following: Nurse completed on admission Social Drivers of Health -Living arrangements, vargas
--- NOTE | 2023-09-28 11:42 | PM.PNCARD ---
Progress Note: A&P Assessment and Plan (1) Atrial fibrillation: Code(s): I48.91 - Unspecified atrial fibrillation Status: Acute Assessment and Plan: Paroxysmal atrial fibrillation presenting with symptomatic atrial fibrillation with rapid ventricular response. He spontaneously converted to sinus rhythm but went back into atrial fibrillation with RVR over the weekend. Attempted to start antiarrhythmic therapy with flecainide, but spontaneously converted to sinus rhythm once again and bradycardia has precluded flecainide administration Because of bradycardia, will further reduce his metoprolol tartrate down to 12.5 mg p.o. b.i.d.. May need to stop it completely. Flecainide was stopped yesterday. He has been started on anticoagulation with apixaban Evidence of tachy-altagracia syndrome. May require pacemaker at some point if we are unable to control his heart rate during episodes of AF Could also consider amiodarone for maintenance of sinus rhythm (2) Dehydration: Code(s): E86.0 - Dehydration Status: Acute Assessment and Plan: Resolved. (3) Depression: Code(s): F32.A - Depression, unspecified Status: Acute Assessment and Plan: Continue SSRI. (4) Essential hypertension: Code(s): I10 - Essential (primary) hypertension Status: Acute Assessment and Plan: At goal (5) Hyperlipidemia: Code(s): E78.5 - Hyperlipidemia, unspecified Status: Acute Assessment and Plan: Continue statin Subjective Date/time seen: 09/28/23 11:42 Interval history: palpitation in AM and have recurrnt AF with RVR and HR was in 180 and down to 120 with metoprolol 09/26/2023: Patient is still predominantly in atrial fibrillation on telemetry heart rate between 110 and 120. He is essentially asymptomatic with this. Date of service 09/27/2023: He remains in sinus rhythm/sinus bradycardia today. Does not have any complaints. Date of service 09/28/2023: Heart rate is still slow but no chest pain or shortness of breath. Feels tired. Review of Systems Review of Systems: All systems reviewed & are unremarkable except as noted in HPI and below ENT: Denies Normal hearing present Cardiovascular: Cardiovascular: Denies diaphoresis Exam Const: General: comfortable, no acute distress, alert and awake Orientation/consciousness: patient oriented x3 Other: Able to lie flat HENMT: Head: normal to inspection Eyes: General: appearance abnormal, both eyes Sclera: sclerae normal Neck: Neck: normal visual inspection, supple and no JVD Carotids: normal carotid upstroke and no bruits Resp: Effort & Inspection: normal respiratory effort Auscultation: clear to auscultation bilaterally and lung sounds not diminished Other: No chest wall tenderness Cardio: Rate: regular rate and bradycardic Rhythm: regular rhythm Heart sounds: S1 normal heart sound present, S2 normal heart sound present, no gallops, no murmurs and no rubs GI: Inspection: non-distended Auscultation: normal bowel sounds Skin: General skin exam: normal color Neuro: General: patient oriented x3 Speech: normal speech Extrem: General: normal to inspection Psych: Appearance: grossly normal Mental Status: mental status grossly normal Objective Data Vital Signs Vital Signs: Vital Signs - 24 hr 09/27/23 12:00 09/27/23 12:00 09/27/23 12:00 Temperature 36.6 C Pulse Rate 48 L 47 L Respiratory Rate 20 Blood Pressure 103/53 L Pulse Oximetry 100 Oxygen Delivery Room Air 09/27/23 14:00 09/27/23 16:00 09/27/23 16:00 Temperature 36.6 C Pulse Rate 51 L 52 L 48 L Respiratory Rate 16 Blood Pressure 114/51 L Pulse Oximetry 98 Oxygen Delivery 09/27/23 16:00 09/27/23 18:00 09/27/23 20:00 Temperature 36.7 C Pulse Rate 51 L 47 L Respiratory Rate 22 H Blood Pressure 109/56 L Pulse Oximetry 97 Oxygen Delivery Room Air 09/27/23 20:41
[2023-09-28] MEDS: LIDOCAINE 5% PATCH 1 PATCH TRANSDERM (21:00)
[2023-09-28] MEDS: traZODone HCL 50 MG TABLET PO (21:01)
[2023-09-29] VITALS (18 sets, daily range): BP systolic 104–141; BP diastolic 46–61; PULSE 46–66; RESP 16–20; TEMP 35.8–36.8; O2SAT 96–100
[2023-09-29] MEDS: METOPROLOL TARTRATE 12.5 MG TABLET PO (08:17)
[2023-09-29] MEDS: APIXABAN 5 MG TABLET BY MOUTH (08:17)
[2023-09-29] MEDS: SIMVASTATIN 10 MG TABLET PO (08:17)
[2023-09-29] MEDS: OPTI-GEN TAB 1 TABLET PO ×2 (08:17→16:47)
[2023-09-29] MEDS: SERTRALINE HCL 25 MG TABLET PO (08:18)
[2023-09-29] MEDS: FLUTICASONE/UMECLIDIN/VILANTER 100-62.5-25 MCG ELLIPTA 1 PUFF INHALATION (08:30)
--- NOTE | 2023-09-29 09:01 | PM.IMPN ---
Progress Note: A&P Assessment and Plan (1) Atrial fibrillation: Code(s): I48.91 - Unspecified atrial fibrillation Status: Acute Assessment and Plan: 09/29/23: Currently rate controlled in the 60s On metoprolol 12.5 mg b.i.d. Continue Eliquis (2) Dehydration: Code(s): E86.0 - Dehydration Status: Acute Assessment and Plan: 09/29/23: Euvolemic Time Spent With Patient Time with patient: Greater than 35 minutes Subjective Date/time seen: 09/29/23 09:01 Interval history: Interval history: This is a 77-year-old male who presented to the hospital on 09/22/2023 with feeling off and described it as impending doom. Workup in the hospital included a chest CT which showed new patchy areas of consolidation and nodules in the anterior segment of the right upper lobe most suggestive of pneumonia with stable appearance of chronic volume loss, with thick walled cavitary lesion at the left apex and small loculated left pleural effusion, severe emphysema, 6 mm nonobstructing right renal stone. Chest x-ray showed a spiculated mass right upper lobe which may be infectious/inflammatory however malignancy could not be ruled out, chronic left apical pleural thickening/scarring with associated postsurgical changes. Chest CTA was negative for PE, stable likely postinfectious left upper lung cavitary lesion, stable irregular spiculated right upper lobe nodule, small left pleural effusion. Initial labs showed a normal white blood cell count of 9.8, hemoglobin of 13.8, D-dimer 0.61, sodium 133, alk-phos 180, proBNP 4190, lipase 120. EKG showing AFib with RVR with a rate of 140, QTC 440. Cardiology was consulted. Cardiology has decreased metoprolol down to 12.5 considering his bradycardia. He is now with heart rate in the 60s. 09/29/23: Patient denies. Patient endorses. Review of Systems Review of Systems: All systems reviewed & are unremarkable except as noted in HPI and below Constitutional: Constitutional: Reports as per HPI and Reports no additional constitutional complaints Eyes: Eyes: Reports as per HPI and Reports no additional eye complaints ENT: Reports system reviewed and no additional complaints, except as documented and Reports as per HPI Cardiovascular: Cardiovascular: Reports as per HPI and Reports no additional cardiovascular complaints Respiratory: Respiratory: Reports as per HPI and Reports no additional respiratory complaints Gastrointestinal: Gastrointestinal: Reports as per HPI and Reports no additional gastrointestinal complaints Genitourinary: Genitourinary: Reports no additional male genitourinary complaints and Reports as per HPI Musculoskeletal: Musculoskeletal: Reports no additional musculoskeletal complaints and Reports as per HPI Integumentary/Breasts: Skin/Breast: Reports system reviewed and no additional complaints, except as docu and Reports as per HPI Neurologic: Reports system reviewed and no additional complaints, except as documented and Reports as per HPI Psychiatric: Psychiatric: Reports no additional psychiatric complaints and Reports as per HPI Exam Narrative: General: In no acute distress, well nourished Head: atraumatic, no encephalopathy Eyes: EOMI, PERRLA, sclera clear ENT: moist mucous membranes, nasal passages clear Neck: supple, no JVD, no adenopathy, trachea midline Cardiac: Normal S1 and S2. No murmur, gallops or friction rubs, peripheral pulses intact. Respiratory: Lungs clear to auscultation, no adventitious lung sounds Gastrointestinal: soft, non-distended, non-tender, normoactive bowel sounds. : voiding without difficulty. Extremities: moves all extremities well, no edema, good ROM, strength 5/5 Skin: clean, dry, intact. No wounds or lesions. Neuro: Alert and oriented x4, cranial nerves intact, no neuro deficits. Psych: normal mood, normal affect, interactive Objective Data Vital Signs Vital Signs: Vital Signs - 24 hr 09/28/23
[2023-09-29 09:59] LABS: Basophils Absolute Auto 0.1 K/mm3 (0.0-0.1); Basophils Percent Auto 0.8 % (0.2-1.2); Eosinophils Absolute Auto 0.1 K/mm3 (0-0.3); Eosinophils Percent Auto 0.8 % (0-4.4); Hematocrit 36.1 % (42.0-52.0); Hemoglobin 12.1 g/dL (14.0-18.0); Immature Granulocyte Absolute 0.04 K/mm3 (0.00-0.031); Immature Granulocyte Percent A 0.5 % (0-0.5); Lymphocytes Absolute Auto 0.98 K/mm3 (0.9-3.2); Lymphocytes Percent Auto 11.3 % (18.3-44.2); Mean Corpuscular HGB Conc 33.5 g/dl (32-36); Mean Corpuscular Hemoglobin 30.6 pg (26-34); Mean Corpuscular Volume 91.2 fl (80-100); Mean Platelet Volume 10.1 fl (7.4-10.4); Monocytes Absolute Auto 0.8 K/mm3 (0.1-0.6); Monocytes Percent Auto 8.9 % (2.6-8.5); Neutrophils Absolute Auto 6.8 K/mm3 (1.3-6.7); Neutrophils Percent Auto 77.7 % (45.5-73.1); Platelet Count Result 263 k/mm3 (150-375); Red Blood Count 3.96 M/mm3 (4.6-6.20); Red Cell Distribution Width 13.7 % (11.5-14.5); White Blood Count 8.7 K/mm3 (4.5-10.0)
[2023-09-29 10:14] LABS: Alanine Aminotransferase 25 U/L (6-50); Alkaline Phosphatase 165 U/L (38-126); Anion Gap 5 mmol/L (4-12); Aspartate Amino Transferase 28 U/L (17-59); Bilirubin,Total 0.3 mg/dL (0.2-1.3); Blood Urea Nitrogen 13 mg/dL (9-20); Calcium 8.6 mg/dL (8.4-10.2); Carbon Dioxide 32 mmol/L (22-30); Chloride 95 mmol/L (98-107); Estimated CRCL calculation 42 ml/min; Estimated Glomerular Filt Rate > 60; Glucose 103 mg/dL (65-110); Magnesium 2.1 mg/dL (1.6-2.3); Sodium 132 mmol/L (137-145)
--- NOTE | 2023-09-29 12:45 | PM.DS ---
DS: Admitting Diagnosis Discharge Date 09/29/23 Admitting Diagnosis Atrial fibrillation Dehydration Depression DS: Summary Hospital Course Reason for hospitalization: Atrial fibrillation Dehydration Depression Hospital Course: This is a 77-year-old male who presented to the hospital on 09/22/2023 with feeling off and described it as impending doom. Workup in the hospital included a chest CT which showed new patchy areas of consolidation and nodules in the anterior segment of the right upper lobe most suggestive of pneumonia with stable appearance of chronic volume loss, with thick walled cavitary lesion at the left apex and small loculated left pleural effusion, severe emphysema, 6 mm nonobstructing right renal stone. Chest x-ray showed a spiculated mass right upper lobe which may be infectious/inflammatory however malignancy could not be ruled out, chronic left apical pleural thickening/scarring with associated postsurgical changes. Chest CTA was negative for PE, stable likely postinfectious left upper lung cavitary lesion, stable irregular spiculated right upper lobe nodule, small left pleural effusion. Initial labs showed a normal white blood cell count of 9.8, hemoglobin of 13.8, D-dimer 0.61, sodium 133, alk-phos 180, proBNP 4190, lipase 120. EKG showing AFib with RVR with a rate of 140, QTC 440. Cardiology was consulted. Cardiology has decreased metoprolol down to 12.5 considering his bradycardia. He is now with heart rate in the 60s. Today patient denies any new complaints. He is in a normal sinus rhythm. Labs reviewed and vitals are stable. Patient is stable for discharge at this time. He will be discharged on metoprolol ER 12.5 mg daily. He will need to follow with cardiology in a few weeks. Final diagnosis: AFib RVR, dehydration Status at Discharge Cognitive/behavioral status at discharge: Alert oriented x3 Functional status at discharge: independent ambulation Overall status at discharge: patient is progressing back to baseline Time Spent with Patient Time attestation: Total time spent providing and/or coordinating discharge services: Time spent: Greater than 30 minutes Exam Narrative: General: In no acute distress, well nourished Head: atraumatic, no encephalopathy Eyes: EOMI, PERRLA, sclera clear ENT: moist mucous membranes, nasal passages clear Neck: supple, no JVD, no adenopathy, trachea midline Cardiac: Normal S1 and S2. No murmur, gallops or friction rubs, peripheral pulses intact. Respiratory: Lungs clear to auscultation, no adventitious lung sounds Gastrointestinal: soft, non-distended, non-tender, normoactive bowel sounds. : voiding without difficulty. Extremities: moves all extremities well, no edema, good ROM, strength 5/5 Skin: clean, dry, intact. No wounds or lesions. Neuro: Alert and oriented x4, cranial nerves intact, no neuro deficits. Psych: normal mood, normal affect, interactive DS: Data Data Completed and Pending Completed studies during hospitalization: chest ct chest xray chest cta Pending studies at discharge: None Labs on day of discharge: Labs from last 24 hours 09/29/23 09:54 WBC 8.7 RBC 3.96 L Hgb 12.1 L Hct 36.1 L MCV 91.2 MCH 30.6 MCHC 33.5 RDW 13.7 Plt Count 263 MPV 10.1 Immature Gran % (Auto) 0.5 Neut % (Auto) 77.7 H Lymph % (Auto) 11.3 L Ferry % (Auto) 8.9 H Eos % (Auto) 0.8 Baso % (Auto) 0.8 Lymph # (Auto) 0.98 Ferry # (Auto) 0.8 H Eos # (Auto) 0.1 Baso # (Auto) 0.1 Abs Immat Gran (auto) 0.04 H Absolute Neuts (auto) 6.8 H Absolute Nucleated RBC 0.000 Nucleated RBC % 0.0 Sodium 132 L Potassium 4.0 Chloride 95 L Carbon Dioxide 32 H Anion Gap 5 BUN 13 Creatinine 0.70 Estim Creat Clear Calc 42 Estimated GFR > 60 Glucose 103 Calcium 8.6 Magnesium 2.1 Total Bilirubin 0.3 AST 28 ALT 25 Alkaline Phosphatase 165 H Total Protein 6.0 L Albumin 3.0 L Procedures/Treatments: None Discharge Plan Di
--- NOTE | 2023-09-29 13:00 | PCNFU ---
Nutrition Follow-Up Complete: Moderate Protein Calorie Malnutrition as related to inadequate protein-energy intake with increased protein energy needs in setting of chronic disease as evidenced by minimal oral intake for > 1-2 months, weight loss of 17 ibs in the past 1 year with moderate muscle wasting (temporalis) and moderate subcutaneous fast loss ( orbital fat pads). Goal:Meet estimated nutritional needs. Pt is progressing towards goal. Continue with same goal Pt current nutrition is Regular, Ensure compact BID. Nutrition recommendation: encourage po intake Last recorded weight is 39.2 kg. Bowel Motility:No BM recorded at this time Labs Reviewed: No new labs Meds Noted: Eliquis Skin: WNL Additional Notes: Pt continues on a regular diet, ensure compact BID. Intake averages 50% of meals. Encourage po intake. Will monitor weight, labs, skin, oral intake, meds every 5 days.
[2023-09-29] MEDS: ARTIFICIAL TEARS OPHTH SOLN 15 ML BOTTLE 1 DROP EACH EYE (13:07)
--- NOTE | 2023-09-29 14:59 | PC.NURSE ---
pt c/o of not feeling well - denies nausea BP 104/49 sitting in chair- monitor SB 46; pt returned to bed -HR 50's and BP 136/46 supine- pt stated felt better. Laura Henry NP called and updated on pt ;
--- NOTE | 2023-09-29 17:49 | PC.NURSE ---
Discharge instructions discussed with pt and son; ; also discussed fall precautions- pt / son acknowledged understanding. reviewed new medication and changes in metoprolol dose- pill cutter provided- son stated he will help his dad , home via w/c accompanied by staff to private vehicle driven by son
== END 2023-09-29 17:51 | disposition home or self-care (01) | DRG 308 ==
LOC: ANHED 19:11 → ANHIMU 19:53
PROVIDERS: Admitting Provider General Practice; Emergency Provider Physician Assistant; PCP Nurse Practitioner Family; Visit Provider Nurse Practitioner Acute Care
DX: I48.0 Paroxysmal atrial fibrillation (principal); E43 Unspecified severe protein-calorie malnutrition; Z68.1 Body mass index [BMI] 19.9 or less, adult; I10 Essential (primary) hypertension; E78.5 Hyperlipidemia, unspecified; F32.A Depression, unspecified; E86.0 Dehydration; J44.9 Chronic obstructive pulmonary disease, unspecified; F17.210 Nicotine dependence, cigarettes, uncomplicated; R91.8 Other nonspecific abnormal finding of lung field; Z85.828 Personal history of other malignant neoplasm of skin; Z79.82 Long term (current) use of aspirin; Z85.46 Personal history of malignant neoplasm of prostate
CPT/HCPCS: 36415; 71045; 71250; 71275; 80048; 80053; 82803; 82948; 83690; 83735; 83880; 84484; 85025; 85027; 85380; 85610; 85730; 93005; 93306; 94640; 97161; 97165; 99285; A9270; G0378; J7030; Q9967

== ENCOUNTER 2023-10-07 07:09 | Inpatient (IN) | payer MEDICARE, SELFPAY ==
[2023-10-07] VITALS (24 sets, daily range): BP systolic 99–135; BP diastolic 45–94; PULSE 43–128; RESP 16–26; TEMP 36.2–36.8; O2SAT 96–100; BMI 15.0
--- NOTE | ~2023-10-07 | XR_ITS ---
Clinical Indication: Atrial fibrillation PA and lateral views of the chest: Comparison: 09/22/2023 Findings: Stable COPD pattern. There is irregular consolidation/density medial left lung apex, which could reflect chronic scarring or other chronic change. Probable suture lines in place at the left latesha ng apex. Hazy airspace opacities the right upper lobe is similar to prior exam. Cardiomediastinal triston houette is within normal limits. Bones and soft tissues are unremarkable. Impression: Stable hazy opacity right upper lobe, probably pneumonia or nodule. Please refer to prior CT for furt her details. Probable stable irregular density at the left lung apex with suture line, which could reflect chronic scarring or other chronic change. Underlying COPD. Reviewed, dictated and finalized at location . Impression: Stable hazy opacity right upper lobe, probably pneumonia or nodule. Please refe r to prior CT for further details. Probable stable irregular density at the left lung apex with suture line, which could reflect chronic scarring or other chronic change. Underlying COPD.
--- NOTE | 2023-10-07 07:15 | ECG_ITS ---
Test Date: 2023-10-07 07:14:28 Measurements Intervals [place] Rate: 117 P: 0 NE: 0 QRS: -17 QRSD: 86 T: 98 QT: 286 QTc: 400 Interpretive Statements ATRIAL FIBRILLATION WITH RAPID VENTRICULAR RESPONSE ANTEROSEPTAL MYOCARDIAL INFARCTION , OF INDETERMINATE AGE [40+ ms Q WAVE IN V1-V4] ABNORMAL ECG Compared to ECG 09/25/2023 05:59:59 NO SIGNIFICANT CHANGE Electronically Signed On 10-07-2023 14:59:04 CDT by Lobo Romero M.D.
--- NOTE | 2023-10-07 07:26 | ED.ARRPALP ---
HPI - Arrhythmia/Palpitations General Chief Complaint: Arrhythmia/Palpitations Stated Complaint: Irreg heart rate Time Seen by Provider: 10/07/23 07:25 Source: patient and EMS Mode of arrival: EMS Limitations: no limitations History of Present Illness HPI narrative: 77 years old white male came to the emergency room by ambulance from home complaining not feeling well, diaphoretic, hot flashes nausea started auto striper. Similar to the symptoms when he had AFib 1 week ago. Patient currently on aspirin and an Eliquis. Patient lives alone. On arrival to the ED patient is asymptomatic monitor showing AFib with RVR at 120th Related Data Home Medications Medication Instructions Recorded Confirmed aspirin 81 mg chewable tablet 81 mg PO DAILY 03/11/22 09/22/23 vitamins A,C,B-fcro-jvcope 2,148 1 tablet PO BIDWM 03/11/22 09/22/23 mcg-113 mg-45 mg-17.4 mg tablet (PreserVision AREDS) albuterol sulfate 90 mcg/actuation 1 inh inhalation Q4H PRN shortness 09/22/23 09/22/23 aerosol inhaler of breath or wheezing Allergies Allergy/AdvReac Type Severity Reaction Status Date / Time No Known Allergies Allergy Verified 09/22/23 16:00 Review of Systems Review of Systems: All systems reviewed & are unremarkable except as noted in HPI and below PMFSH Past Medical History Medical History Atypical nevi Colonoscopy planned (~2010) Emphysema lung Essential hypertension Hyperlipidemia Loss of appetite Personal history of skin cancer 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 They have 3 living children; one child in a car wreck. Retired 1998. Smoked cigarettes 1 ppd x 10 years, then cigars up to 10 per day, now 2 cigars a week. Years smoked: 50 Smoking status: Current every day smoker Tobacco type: cigars Additional smoking assessment comments: 1 Cigar a day Alcohol intake: former Alcohol use details: 2 drinks yearly Substance use: never Substance use type: does not use Do You Feel Safe in your Home?: Yes Lack of Transportation: No Lack of Food: Never True Current Housing: I Have Housing Concerned About Future Housing: No Difficulty Paying Gas/Electric Bills: No Difficulty Paying for Meds: No Currently Unemployed: No Education: High School Diploma/GED Difficulty w/ Childcare or Family Care: No Living arrangements: with family Occupation/Education: retired Gender identity (if verbalized by the patient): Male Spiritual care concerns: No Exam Narrative: General appearance: Well-developed, well-nourished Skin: Normal color Head: Normocephalic, nontraumatic Eyes: Clear conjunctiva ENT: Oropharynx normal, ears normal, nose normal Neck: Supple, nontender Chest and respiratory: Airway patent, no respiratory distress, no accessory muscle use Heart: Tachycardia, irregular irregularity Abdomen: Soft, nontender, no organomegaly, quiet bowel sounds Vascular: Normal peripheral pulses, normal capillary refill. Musculoskeletal: Normal range of motion, nontender back Neurologic: Alert and oriented ?3, ENGAGEMENT LIAISON is normal as tested, no gross motor deficit
[2023-10-07] MEDS: dilTIAZem 100 MG/100 ML 100 MG/100 ML BAG IV CONT (07:38)
[2023-10-07] MEDS: dilTIAZem HCl INJ 25 MG/5 ML VIAL 10 MG IV PUSH (07:38)
[2023-10-07 07:43] LABS: Basophils Absolute Auto 0.1 K/mm3 (0.0-0.1); Basophils Percent Auto 0.8 % (0.2-1.2); Eosinophils Absolute Auto 0.1 K/mm3 (0-0.3); Eosinophils Percent Auto 0.5 % (0-4.4); Hematocrit 46.3 % (42.0-52.0); Hemoglobin 15.3 g/dL (14.0-18.0); Immature Granulocyte Absolute 0.11 K/mm3 (0.00-0.031); Immature Granulocyte Percent A 0.8 % (0-0.5); Lymphocytes Absolute Auto 1.62 K/mm3 (0.9-3.2); Lymphocytes Percent Auto 12.1 % (18.3-44.2); Mean Corpuscular Hemoglobin 30.1 pg (26-34); Mean Corpuscular Volume 91.1 fl (80-100); Mean Platelet Volume 10.3 fl (7.4-10.4); Monocytes Percent Auto 7.2 % (2.6-8.5); Neutrophils Absolute Auto 10.6 K/mm3 (1.3-6.7); Neutrophils Percent Auto 78.6 % (45.5-73.1); Platelet Count Result 357 k/mm3 (150-375); Red Blood Count 5.08 M/mm3 (4.6-6.20); Red Cell Distribution Width 13.5 % (11.5-14.5); White Blood Count 13.4 K/mm3 (4.5-10.0)
[2023-10-07 07:54] LABS: Alanine Aminotransferase 34 U/L (6-50); Albumin Level 3.8 g/dL (3.5-5.1); Alkaline Phosphatase 197 U/L (38-126); Anion Gap 11 mmol/L (4-12); Aspartate Amino Transferase 34 U/L (17-59); Bilirubin,Total 0.6 mg/dL (0.2-1.3); Blood Urea Nitrogen 10 mg/dL (9-20); Calcium 9.3 mg/dL (8.4-10.2); Carbon Dioxide 27 mmol/L (22-30); Chloride 97 mmol/L (98-107); Estimated Glomerular Filt Rate > 60; Glucose 144 mg/dL (65-110); Lipase 93 U/L (23-300); Potassium 4.5 mmol/L (3.4-5.0); Sodium 135 mmol/L (137-145)
[2023-10-07 08:03] LABS: INR 1.1
[2023-10-07 08:04] LABS: Troponin I < 0.012 ng/mL (0.000-0.034)
[2023-10-07 08:05] LABS: Partial Thromboplastin Time 26.1 Seconds (22.3-36.8)
--- NOTE | 2023-10-07 09:57 | ECG_ITS ---
Test Date: 2023-10-07 10:05:28 Measurements Intervals [place] Rate: 93 P: 0 IN: 0 QRS: -34 QRSD: 85 T: 90 QT: 331 QTc: 414 Interpretive Statements ATRIAL FIBRILLATION BORDERLINELEFT AXIS DEVIATION [QRS AXIS < -30] ANTEROSEPTAL MYOCARDIAL INFARCTION , OF INDETERMINATE AGE [40+ ms Q WAVE IN V1-V4] ABNORMAL ECG Compared to ECG 10/07/2023 07:14:28 NO SIGNIFICANT CHANGE Electronically Signed On 10-07-2023 15:01:44 CDT by Lobo Romero M.D.
--- NOTE | 2023-10-07 10:28 | ADMGEN ---
This patient, Velasquez Kent, was admitted to IMU Room 202-. Patient/family oriented to hospital policies and general routines including ID bracelet, bed and alarms, visiting hours, pain management, procedures, bathroom and other care routines, personal items, smoking policy, room service/diet, and visiting hours. Information on how to activate the Rapid Response Team has been discussed. Patient/Family are encouraged to report perceived risks to care and to ask questions if they do not understand what they are told or what they should do.
[2023-10-07 10:43] LABS: Troponin I < 0.012 ng/mL (0.000-0.034)
--- NOTE | 2023-10-07 11:11 | PM.CNCAR ---
Assessment and Plan Assessment and plan (1) Atrial fibrillation with rapid ventricular response: Code(s): I48.91 - Unspecified atrial fibrillation Status: Acute Plan 77-year-old man with severe emphysema that is triggering atrial fibrillation. He is anticoagulated with apixaban and despite modest dose of metoprolol is back in symptomatic atrial fibrillation. We do not have many other antiarrhythmic options other than amiodarone at this time so I am going to start loading him with IV amiodarone in the IMU today. I will stop the diltiazem IV and replace it with amiodarone. Systemic anticoagulation with apixaban will be continued. The patient expresses significant cost concerns regarding the apixaban but for now this will be continued. We can have the case workers look into his [id number] cost for either Xarelto and or dabigatran. Explained to the patient that warfarin of course is a low-cost option. He remembers for his father being on warfarin and he would like to avoid that. Will follow with you. Hope and expect that IV amiodarone will convert him to sinus rhythm at which time we will transition him to a maintenance dose of that agent. Lobo Romero MD [facility] History of Present Illness History of Present Illness Consult date/time: 10/07/23 11:11 Reason For Visit: Afib with RVR Narrative: This is a 77-year-old man with severe COPD/emphysema who is admitted to the hospital today with symptomatic recurrence of atrial fibrillation. He was just in the hospital here at [place] recently and the reader is referred to our notes from that hospitalization for further details. In summary he was found to have atrial fibrillation probably was driven by his severe COPD. He was treated treated with anticoagulation with apixaban and beta-elena. He was started on flecainide in hopes of maintaining sinus rhythm but because of problematic bradycardia in sinus rhythm flecainide was stopped. He was discharged to the hospital on a very low dose of metoprolol along with apixaban. This morning he was noticing abruptly he was feeling poorly with the sense of palpitations and generalized weakness. He was not really struggling to breathe or having any chest pain. He tried to take his pulse and recognize that it was fast and irregular as we called an ambulance was brought back to the hospital. In the ER he was of course found to be back in AF with RVR and he was then admitted for further evaluation and management. Are notes in the hospital record indicated that if he does not control sinus rhythm with metoprolol we would consider amiodarone as another, less ideal option given his significant lung disease. We did not feel he would be a good candidate for sotalol since he is rather bradycardic when he is in sinus rhythm and flecainide was stopped the last time he was in the hospital for similar reasons. He otherwise appears to be relatively comfortable he has IV diltiazem running and his heart rate is in the 100-115 at this time Review of Systems Constitutional: Constitutional: Reports lethargy Eyes: Eyes: Reports no additional eye complaints ENT: Reports system reviewed and no additional complaints, except as documented Cardiovascular: Cardiovascular: Reports as per HPI and Reports palpitations Respiratory: Respiratory: Reports no additional respiratory complaints Gastrointestinal: Gastrointestinal: Reports no additional gastrointestinal complaints Musculoskeletal: Musculoskeletal: Reports back pain Integumentary/Breasts: Skin/Breast: Reports system reviewed and no additional complaints, except as docu Neurologic: Reports system reviewed and no additional complaints, except as documented Endocrine: Endocrine: Reports no additional endocrine complaints Hematologic/Lymphatic: Hematologic/Lymphatic: Reports no additional hematologic/lymphatic complaints Allergic/Immunologic: Allergic/Immunologic: Reports no additional allergic/
[2023-10-07] MEDS: AMIODARONE 150 MG/D5W 100 ML 150 MG/100 ML BAG 600 MG IV CONT (12:02)
[2023-10-07] MEDS: AMIODARONE 360 MG/D5W 200 ML 360 MG/200 ML BAG 33.33 MG IV CONT (12:17)
--- NOTE | 2023-10-07 12:19 | PM.IMHP ---
H&P: HPI History of Present Illness Date/Time: 10/07/23 12:19 Chief Complaint: Tachycardia Narrative: 77 y/o M presents here with tachycardia with PMH of pAFib, hypertension, hyperlipidemia, and squamous cell carcinoma of right upper extremity. The patient presents here via EMS from home for further evaluation of suspected recurrent atrial fibrillation. Patient began feeling nauseated, diaphoretic, and general malaise this morning around 06:00 am while he was standing in the kitchen. Denying associated chest pain, shortness of breath, dizziness, or pre-syncope sensation. Did have some mild transient lightheadedness. Patient reports symptoms are similar to when he had AFib approximately 1 week ago. Per chart review, patient was admitted from 09/22/2023 to 09/29/2023 patient for paroxysmal AFib, had 2 previous episodes of atrial fibrillation during hospitalizations and was on metoprolol 25 mg ER daily. 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 Patient had been started on flecainide during the hospital course but subsequently developed bradycardia, flecainide was discontinued and metoprolol dose was decreased to 12.5 mg p.o. b.i.d. Now also on anticoagulation, Eliquis 5 mg b.i.d. Initial VS at presentation: 97.6? F, HR 128, RR 25, 135/94, and 100% on RA. ED workup showed: WBC 13.4, hemoglobin 15.3, normal coags, creatinine 0.9 and GFR >60, troponin thus far negative x2. CXR showed stable hazy opacity of the right upper lobe probably pneumonia or nodule (please refer to prior CT for further details on 09/21), probable stable irregular density of the left lung apex 0 suture line, and underlying COPD. 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 They have 3 living children; one child in a car wreck. Retired 1998. Smoked cigarettes 1 ppd x 10 years, then cigars up to 10 per day, now 2 cigars a week. Years smoked: 50 Smoking status: Former smoker Tobacco type: cigars Smoking end date: 10/24/23 Additional smoking assessment comments: 1/2 - 1 cigar per day, quit approx. two weeks ago Alcohol intake: former Alcohol use details: 2 drinks yearly Substance use: never Substance use type: does not use Do You Feel Safe in your Home?: Yes Lack of Transportation: No Lack of Food: Never True Current Housing: I Have Housing Concerned About Future Housing: No Difficulty Paying Gas/Electric Bills: No Difficulty Paying for Meds: No Currently Unemployed: No Education: High School Diploma/GED Difficulty w/ Childcare or Family Care: No Living arrangements: with family Occupation/Education: retired Gender identity (if verbalized by the patient): Male Spiritual care concerns: No Meds Home Medications and Allergies Home Medications Medication Instructions Recorded Confirmed Type asp
[2023-10-07 14:18] LABS: Troponin I < 0.012 ng/mL (0.000-0.034)
[2023-10-07] MEDS: ACETAMINOPHEN 325 MG TABLET 650 MG PO ×2 (15:35→20:21)
[2023-10-07] MEDS: ALBUTEROL SULFATE (*SP) AEROSOL 1 PUFF INHALATION (15:40)
[2023-10-07] MEDS: OPTI-GEN TAB 1 TABLET PO (18:27)
[2023-10-07] MEDS: AMIODARONE 360 MG/D5W 200 ML 360 MG/200 ML BAG 16.67 MG IV CONT (18:28)
[2023-10-07] MEDS: APIXABAN 5 MG TABLET BY MOUTH (20:21)
[2023-10-08] VITALS (24 sets, daily range): BP systolic 110–135; BP diastolic 54–68; PULSE 42–69; RESP 16–40; TEMP 36.4–37.1; O2SAT 98–100
[2023-10-08 04:23] LABS: Hemoglobin 12.4 g/dL (14.0-18.0); Mean Corpuscular HGB Conc 32.6 g/dl (32-36); Mean Platelet Volume 10.2 fl (7.4-10.4); Platelet Count Result 309 k/mm3 (150-375); Red Blood Count 4.27 M/mm3 (4.6-6.20); Red Cell Distribution Width 13.6 % (11.5-14.5); White Blood Count 8.4 K/mm3 (4.5-10.0)
[2023-10-08 04:39] LABS: Anion Gap 7 mmol/L (4-12); Blood Urea Nitrogen 16 mg/dL (9-20); Calcium 9.1 mg/dL (8.4-10.2); Carbon Dioxide 30 mmol/L (22-30); Chloride 94 mmol/L (98-107); Estimated CRCL calculation 33 ml/min; Estimated Glomerular Filt Rate > 60; Glucose 88 mg/dL (65-110); Potassium 4.4 mmol/L (3.4-5.0); Sodium 131 mmol/L (137-145)
[2023-10-08] MEDS: OPTI-GEN TAB 1 TABLET PO ×2 (08:12→17:08)
[2023-10-08] MEDS: ASPIRIN 81 MG CHEWABLE TABLET PO (08:12)
[2023-10-08] MEDS: SIMVASTATIN 10 MG TABLET PO (08:12)
[2023-10-08] MEDS: SERTRALINE HCL 25 MG TABLET PO (08:12)
[2023-10-08] MEDS: APIXABAN 5 MG TABLET BY MOUTH ×2 (08:12→20:41)
--- NOTE | 2023-10-08 08:26 | PM.PNCARD ---
Progress Note: A&P Assessment and Plan (1) Atrial fibrillation with rapid ventricular response: Code(s): I48.91 - Unspecified atrial fibrillation Status: Acute Plan Paroxysmal atrial fibrillation with RVR alternating with sinus bradycardia Hypertension controlled Plan Change from IV amiodarone to oral amiodarone 200 mg daily Continue apixaban 5 mg b.i.d. DC aspirin Continue metoprolol succinate 6.25 mg p.o. b.i.d. Follow-up in Dermatology to assist the severity and extent of bradycardia and chronotropic response Subjective Date/time seen: 10/08/23 08:26 Interval history: Converted to sinus rhythm yesterday, and currently sinus bradycardia Feel nausea this morning Review of Systems Review of Systems: All systems reviewed & are unremarkable except as noted in HPI and below Exam Const: Other: Pleasant thin chronically ill-appearing man a barrel-chested, in good spirits in no distress HENMT: Mouth: Yes moist mucous membranes Eyes: Sclera: sclerae normal Neck: Neck: supple Resp: Effort & Inspection: normal respiratory effort Other: Breath sounds are markedly diminished in all lung navarro Cardio: Rate: bradycardic Rhythm: regular rhythm GI: GI Palp: Yes Soft to palpation Auscultation: normal bowel sounds Skin: General skin exam: normal color Neuro: Other: Alert and oriented x3 Extrem: General: normal to inspection Objective Data Vital Signs Vital Signs: Vital Signs - 24 hr 10/07/23 09:50 10/07/23 10:38 10/07/23 11:34 Temperature 36.2 C L 36.2 C L Pulse Rate 97 118 H Respiratory Rate 26 H 22 H 20 Blood Pressure 108/70 105/54 L 103/48 L Pulse Oximetry 100 96 99 Oxygen Delivery 10/07/23 12:02 10/07/23 11:12 10/07/23 12:17 Temperature Pulse Rate 98 99 Respiratory Rate Blood Pressure Pulse Oximetry Oxygen Delivery Room Air 10/07/23 12:13 10/07/23 12:11 10/07/23 12:00 Temperature Pulse Rate 98 90 99 Respiratory Rate Blood Pressure Pulse Oximetry Oxygen Delivery 10/07/23 14:00 10/07/23 14:00 10/07/23 15:04 Temperature 36.8 C Pulse Rate 47 L 47 L 45 L Respiratory Rate 18 Blood Pressure 101/52 L 99/45 L Pulse Oximetry 100 Oxygen Delivery 10/07/23 15:40 10/07/23 18:28 10/07/23 18:20 Temperature Pulse Rate 58 L 52 L 52 L Respiratory Rate 16 Blood Pressure 105/56 L 105/56 L Pulse Oximetry Oxygen Delivery 10/07/23 16:00 10/07/23 18:00 10/07/23 16:00 Temperature Pulse Rate 45 L 52 L Respiratory Rate Blood Pressure Pulse Oximetry Oxygen Delivery Room Air 10/07/23 20:16 10/07/23 20:00 10/07/23 20:00 Temperature 36.8 C Pulse Rate 47 L 47 L 47 L Respiratory Rate 16 Blood Pressure 110/63 110/63 Pulse Oximetry 100 Oxygen Delivery 10/07/23 20:00 10/07/23 22:00 10/07/23 22:25 Temperature 36.8 C Pulse Rate 43 L 53 L Respiratory Rate 18 Blood Pressure 113/48 L 113/48 L Pulse Oximetry 100 Oxygen Delivery Room Air 10/07/23 22:00 10/07/23 23:49 10/08/23 00:00 Temperature 36.8 C Pulse Rate 43 L 43 L 43 L Respiratory Rate 16 Blood Pressure 110/56 L Pulse Oximetry 100 Oxygen Delivery 10/08/23 00:00 10/08/23 00:00 10/08/23 02:05 Temperature 36.7 C Pulse Rate 43 L 48 L Respiratory Rate 16 Blood Pressure 110/56 L 116/64 Pulse Oximetry 100 Oxygen Delivery Room Air 10/08/23 02:00 10/08/23 02:00 10/08/23 03:46 Temperature 36.8 C Pulse Rate 43 L 48 L 42 L Respiratory Rate 18 Blood Pressure 116/64 135/62 Pulse Oximetry 100 Oxygen Delivery 10/08/23 04:00 10/08/23 04:00 10/08/23 04:00 Temperature Pulse Rate 42 L 42 L 43 L Respiratory Rate 18 Blood Pressure 135/62 Pulse Oximetry 100 Oxygen Delivery Room Air 10/08/23 05:23 10/08/23 06:22 10/08/23 06:00 Temperature 36.8 C Pulse Rate 43 L 46 L 46 L Respiratory Rate 18 Blood Pressure 126/54 L 126/54 L Pulse O
[2023-10-08] MEDS: FLUTICASONE/UMECLIDIN/VILANTER 100-62.5-25 MCG ELLIPTA 1 PUFF INHALATION (09:23)
[2023-10-08] MEDS: AMIODARONE HCL 200 MG TABLET PO (09:24)
--- NOTE | 2023-10-08 11:35 | PM.IMPN ---
Progress Note: A&P Assessment and Plan (1) Atrial fibrillation with rapid ventricular response: Code(s): I48.91 - Unspecified atrial fibrillation Status: Acute (2) Essential hypertension: Code(s): I10 - Essential (primary) hypertension Status: Acute Plan Patient here with recurrent AFib. Admitted last month for same complaint, some difficulty controlling rate due to bradycardia. Metoprolol dose was decreased from 25 mg daily to 12.5 mg b.i.d.. Initially given diltiazem in the ED, transitioned to amiodarone by cardiology. cxr with hazy opacity rul, probabaly pneumonia. prior ct with probable stable irregular density at the left lung apex with suture line, which could relfect chronic scarring or other chronic change. unelrying COPD troponin x 3 negative. diltiazem switch to amiodarone. not a good candidate for flecainide or sotalol given patient was bradycardic durignt previous admission. on eliquis for anticoagulation. 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 Prefers to avoid warfarin. emphysema/copd Diet: Heart healthy GI Prophylaxis: Not currently indicated DVT Prophylaxis: Continue home Eliquis Lines: Peripheral Code Status: Full code Subjective Date/time seen: 10/08/23 11:35 Interval history: convereted to sinus rhythm. no new compalints. no sob, chest pain. Review of Systems Review of Systems: All systems reviewed & are unremarkable except as noted in HPI and below Exam Narrative: General appearance: Well-developed, well-nourished Skin: Normal color Head: Normocephalic, nontraumatic Eyes: Clear conjunctiva ENT: Oropharynx normal, ears normal, nose normal Neck: Supple, nontender Chest and respiratory: Airway patent, no respiratory distress, no accessory muscle use Heart: regular rate and rhythm Abdomen: Soft, nontender, no organomegaly, quiet bowel sounds Vascular: Normal peripheral pulses, normal capillary refill. 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, no gross motor deficit Objective Data Vital Signs Vital Signs: Vital Signs - 24 hr 10/07/23 12:02 10/07/23 12:17 10/07/23 12:13 Temperature Pulse Rate 98 99 98 Respiratory Rate Blood Pressure Pulse Oximetry Oxygen Delivery 10/07/23 12:11 10/07/23 12:00 10/07/23 14:00 Temperature Pulse Rate 90 99 47 L Respiratory Rate Blood Pressure Pulse Oximetry Oxygen Delivery 10/07/23 14:00 10/07/23 15:04 10/07/23 15:40 Temperature 98.3 F Pulse Rate 47 L 45 L 58 L Respiratory Rate 18 16 Blood Pressure 101/52 L 99/45 L Pulse Oximetry 100 Oxygen Delivery 10/07/23 18:28 10/07/23 18:20 10/07/23 16:00 Temperature Pulse Rate 52 L 52 L 45 L Respiratory Rate Blood Pressure 105/56 L 105/56 L Pulse Oximetry Oxygen Delivery 10/07/23 18:00 10/07/23 16:00 10/07/23 20:16 Temperature 98.3 F Pulse Rate 52 L 47 L Respiratory Rate 16 Blood Pressure 110/63 Pulse Oximetry 100 Oxygen Delivery Room Air 10/07/23 20:00 10/07/23 20:00 10/07/23 20:00 Temperature Pulse Rate 47 L 47 L Respiratory Rate Blood Pressure 110/63 Pulse Oximetry Oxygen Delivery Room Air 10/07/23 22:00 10/07/23 22:25 10/07/23 22:00 Temperature 98.2 F Pulse Rate 43 L 53 L 43 L Respiratory Rate 18 Blood Pressure 113/48 L 113/48 L Pulse Oximetry 100 Oxygen Delivery 10/07/23 23:49 10/08/23 00:00 10/08/23 00:00 Temperature 98.3 F Pulse Rate 43 L 43 L Respiratory Rate 16 Blood Pressure 110/56 L Pulse Oximetry 100 Oxygen Delivery Room Air 10/08/23 00:00 10/08/23 02:05 10/08/23 02:00 Temperature 98.1 F Pulse Rate 43 L 48 L 43 L Respiratory Rate 16 Blood Pressure 110/56 L 116/64 Pulse Oximetry 100 Oxygen Delivery 10/08/23 02:00 10/08/23 03:46 10/08/23 04:00 Temperature 98.3 F Pulse Rate 48
[2023-10-08] MEDS: ALBUTEROL SULFATE (*SP) AEROSOL 1 PUFF INHALATION ×2 (15:25→21:27)
[2023-10-08] MEDS: ACETAMINOPHEN 325 MG TABLET 650 MG PO (17:08)
[2023-10-08] MEDS: MELATONIN 3 MG TABLET 6 MG PO (21:24)
[2023-10-09] VITALS (23 sets, daily range): BP systolic 94–144; BP diastolic 58–73; PULSE 50–139; RESP 18–40; TEMP 36.5–37.1; O2SAT 97–100
[2023-10-09 04:34] LABS: Basophils Absolute Auto 0.1 K/mm3 (0.0-0.1); Basophils Percent Auto 0.8 % (0.2-1.2); Eosinophils Absolute Auto 0.1 K/mm3 (0-0.3); Eosinophils Percent Auto 1.1 % (0-4.4); Hematocrit 35.9 % (42.0-52.0); Hemoglobin 12.3 g/dL (14.0-18.0); Immature Granulocyte Absolute 0.03 K/mm3 (0.00-0.031); Immature Granulocyte Percent A 0.4 % (0-0.5); Lymphocytes Absolute Auto 1.43 K/mm3 (0.9-3.2); Lymphocytes Percent Auto 17.1 % (18.3-44.2); Mean Corpuscular HGB Conc 34.3 g/dl (32-36); Mean Corpuscular Volume 87.6 fl (80-100); Mean Platelet Volume 9.8 fl (7.4-10.4); Monocytes Absolute Auto 0.9 K/mm3 (0.1-0.6); Monocytes Percent Auto 10.7 % (2.6-8.5); Neutrophils Absolute Auto 5.9 K/mm3 (1.3-6.7); Neutrophils Percent Auto 69.9 % (45.5-73.1); Platelet Count Result 272 k/mm3 (150-375); Red Cell Distribution Width 13.3 % (11.5-14.5); White Blood Count 8.4 K/mm3 (4.5-10.0)
[2023-10-09 05:09] LABS: Alanine Aminotransferase 26 U/L (6-50); Albumin Level 2.9 g/dL (3.5-5.1); Alkaline Phosphatase 152 U/L (38-126); Anion Gap 6 mmol/L (4-12); Aspartate Amino Transferase 29 U/L (17-59); Bilirubin,Total 0.5 mg/dL (0.2-1.3); Blood Urea Nitrogen 13 mg/dL (9-20); Calcium 8.5 mg/dL (8.4-10.2); Carbon Dioxide 28 mmol/L (22-30); Chloride 95 mmol/L (98-107); Estimated CRCL calculation 39 ml/min; Estimated Glomerular Filt Rate > 60; Glucose 90 mg/dL (65-110); Magnesium 1.9 mg/dL (1.6-2.3); Sodium 129 mmol/L (137-145)
--- NOTE | 2023-10-09 07:54 | PM.PNCARD ---
Progress Note: A&P Assessment and Plan (1) Atrial fibrillation with rapid ventricular response: Code(s): I48.91 - Unspecified atrial fibrillation Status: Acute Plan Paroxysmal atrial fibrillation with RVR alternating with sinus bradycardia Hypertension controlled Sinus bradycardia asymptomatic Plan Cont amiodarone 200 mg daily Continue apixaban 5 mg b.i.d. Continue metoprolol succinate 6.25 mg p.o. b.i.d. Follow-up in clinic Subjective Date/time seen: 10/09/23 07:54 Interval history: no acute events Review of Systems Review of Systems: All systems reviewed & are unremarkable except as noted in HPI and below Exam Const: Other: Pleasant thin chronically ill-appearing man a barrel-chested, in good spirits in no distress HENMT: Mouth: Yes moist mucous membranes Eyes: Sclera: sclerae normal Neck: Neck: supple Resp: Effort & Inspection: normal respiratory effort Other: Breath sounds are markedly diminished in all lung navarro Cardio: Rate: bradycardic Rhythm: regular rhythm GI: GI Palp: Yes Soft to palpation Auscultation: normal bowel sounds Skin: General skin exam: normal color Neuro: Other: Alert and oriented x3 Extrem: General: normal to inspection Objective Data Vital Signs Vital Signs: Vital Signs - 24 hr 10/08/23 08:00 10/08/23 09:24 10/08/23 09:30 Temperature 37.1 C Pulse Rate 48 L 54 L 56 L Respiratory Rate 32 H Blood Pressure 130/58 L Pulse Oximetry 98 Oxygen Delivery 10/08/23 08:00 10/08/23 10:00 10/08/23 08:00 Temperature Pulse Rate 45 L 51 L Respiratory Rate Blood Pressure Pulse Oximetry Oxygen Delivery Room Air 10/08/23 11:48 10/08/23 12:00 10/08/23 15:26 Temperature 36.4 C Pulse Rate 52 L 56 L Respiratory Rate 24 H 20 Blood Pressure 115/57 L Pulse Oximetry 100 Oxygen Delivery Room Air 10/08/23 15:46 10/08/23 12:00 10/08/23 14:00 Temperature 36.5 C Pulse Rate 54 L 54 L 53 L Respiratory Rate 40 H Blood Pressure 131/59 L Pulse Oximetry 100 Oxygen Delivery 10/08/23 16:00 10/08/23 16:00 10/08/23 18:00 Temperature Pulse Rate 54 L 54 L Respiratory Rate Blood Pressure Pulse Oximetry Oxygen Delivery Room Air 10/08/23 20:14 10/08/23 20:00 10/08/23 21:28 Temperature 36.5 C Pulse Rate 69 68 Respiratory Rate 18 20 Blood Pressure 113/63 Pulse Oximetry 100 Oxygen Delivery Room Air 10/08/23 23:24 10/08/23 20:00 10/08/23 22:00 Temperature 36.5 C Pulse Rate 53 L 59 L 54 L Respiratory Rate 18 Blood Pressure 120/68 Pulse Oximetry 100 Oxygen Delivery 10/09/23 00:00 10/09/23 00:00 10/09/23 02:00 Temperature Pulse Rate 54 L 51 L Respiratory Rate Blood Pressure Pulse Oximetry Oxygen Delivery Room Air 10/09/23 04:57 10/09/23 04:00 10/09/23 06:00 Temperature 36.5 C Pulse Rate 51 L 52 L 50 L Respiratory Rate 18 Blood Pressure 128/61 Pulse Oximetry 100 Oxygen Delivery 10/09/23 04:00 Temperature Pulse Rate Respiratory Rate Blood Pressure Pulse Oximetry Oxygen Delivery Room Air Intake/Output Intake/Output: Intake & Output 10/06/23 10/07/23 10/08/23 10/09/23 23:59 23:59 23:59 23:59 Intake Total 1021.7 751.1 350 Output Total 400 700 Balance 1021.7 351.1 -350 Meds/Results Medications: Active Medications Generic Name Dose Route Start Last Admin Trade Name Freq PRN Reason Stop Dose Admin Acetaminophen 650 mg 10/07/23 09:14 10/08/23 17:08 Acetaminophen 325 Mg Tablet PO 650 mg Q4H PRN Administration Mild Pain (1-3) or Fever Albuterol 1 puff 10/07/23 12:32 10/08/23 21:27 Albuterol Sulfate (*Sp) Aerosol 1 Puff INHALATION 1 puff Q4H PRN Administration shortness of breath or wheezing Amiodarone HCl 200 mg 10/08/23 09:00 10/08/23 09:24 Amiodarone Hcl 200 Mg Tablet PO 200 mg DAILY@0800 BROCK Administration Apixaban
[2023-10-09] MEDS: FLUTICASONE/UMECLIDIN/VILANTER 100-62.5-25 MCG ELLIPTA 1 PUFF INHALATION (08:13)
[2023-10-09] MEDS: ASPIRIN 81 MG CHEWABLE TABLET PO (08:24)
[2023-10-09] MEDS: SERTRALINE HCL 25 MG TABLET PO (08:24)
[2023-10-09] MEDS: APIXABAN 5 MG TABLET BY MOUTH ×2 (08:24→21:11)
[2023-10-09] MEDS: SIMVASTATIN 10 MG TABLET PO (08:24)
[2023-10-09] MEDS: AMIODARONE HCL 200 MG TABLET PO (08:24)
[2023-10-09] MEDS: OPTI-GEN TAB 1 TABLET PO ×2 (08:25→17:29)
[2023-10-09] MEDS: AMIODARONE 150 MG/D5W 100 ML 150 MG/100 ML BAG 600 MG IV CONT (09:04)
[2023-10-09] MEDS: ACETAMINOPHEN 325 MG TABLET 650 MG PO ×2 (09:43→15:23)
[2023-10-09] MEDS: AMIODARONE 360 MG/D5W 200 ML 360 MG/200 ML BAG 33.33 MG IV CONT (11:28)
--- NOTE | 2023-10-09 12:37 | PM.IMPN ---
Progress Note: A&P Assessment and Plan (1) Atrial fibrillation with rapid ventricular response: Code(s): I48.91 - Unspecified atrial fibrillation Status: Acute (2) Essential hypertension: Code(s): I10 - Essential (primary) hypertension Status: Acute Plan Patient here with recurrent AFib. Admitted last month for same complaint, some difficulty controlling rate due to bradycardia. Metoprolol dose was decreased from 25 mg daily to 12.5 mg b.i.d.. Initially given diltiazem in the ED, transitioned to amiodarone by cardiology. cxr with hazy opacity rul, probabaly pneumonia. prior ct with probable stable irregular density at the left lung apex with suture line, which could relfect chronic scarring or other chronic change. unelrying COPD troponin x 3 negative. diltiazem switch to amiodarone. not a good candidate for flecainide or sotalol given patient was bradycardic durignt previous admission. Patient converted to sinus rhythm however back to AFib again. Further management per Cardiology. on eliquis for anticoagulation. 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 Prefers to avoid warfarin. emphysema/copd Diet: Heart healthy GI Prophylaxis: Not currently indicated DVT Prophylaxis: Continue home Eliquis Lines: Peripheral Code Status: Full code Subjective Date/time seen: 10/09/23 12:37 Interval history: Patient flipped back to AFib RVR again today. Received IV amiodarone bolus per Cardiology. Review of Systems Review of Systems: All systems reviewed & are unremarkable except as noted in HPI and below Exam Narrative: General appearance: Well-developed, well-nourished Skin: Normal color Head: Normocephalic, nontraumatic Eyes: Clear conjunctiva ENT: Oropharynx normal, ears normal, nose normal Neck: Supple, nontender Chest and respiratory: Airway patent, no respiratory distress, no accessory muscle use Heart: AFib with RVR tachycardic Abdomen: Soft, nontender, no organomegaly, quiet bowel sounds Vascular: Normal peripheral pulses, normal capillary refill. 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, no gross motor deficit Objective Data Vital Signs Vital Signs: Vital Signs - 24 hr 10/08/23 15:26 10/08/23 15:46 10/08/23 14:00 Temperature 97.7 F Pulse Rate 56 L 54 L 53 L Respiratory Rate 20 40 H Blood Pressure 131/59 L Pulse Oximetry 100 Oxygen Delivery 10/08/23 16:00 10/08/23 16:00 10/08/23 18:00 Temperature Pulse Rate 54 L 54 L Respiratory Rate Blood Pressure Pulse Oximetry Oxygen Delivery Room Air 10/08/23 20:14 10/08/23 20:00 10/08/23 21:28 Temperature 97.7 F Pulse Rate 69 68 Respiratory Rate 18 20 Blood Pressure 113/63 Pulse Oximetry 100 Oxygen Delivery Room Air 10/08/23 23:24 10/08/23 20:00 10/08/23 22:00 Temperature 97.7 F Pulse Rate 53 L 59 L 54 L Respiratory Rate 18 Blood Pressure 120/68 Pulse Oximetry 100 Oxygen Delivery 10/09/23 00:00 10/09/23 00:00 10/09/23 02:00 Temperature Pulse Rate 54 L 51 L Respiratory Rate Blood Pressure Pulse Oximetry Oxygen Delivery Room Air 10/09/23 04:57 10/09/23 04:00 10/09/23 06:00 Temperature 97.7 F Pulse Rate 51 L 52 L 50 L Respiratory Rate 18 Blood Pressure 128/61 Pulse Oximetry 100 Oxygen Delivery 10/09/23 04:00 10/09/23 08:00 10/09/23 08:24 Temperature 97.9 F Pulse Rate 57 L 120 H Respiratory Rate 40 H Blood Pressure 144/61 H Pulse Oximetry 100 Oxygen Delivery Room Air 10/09/23 09:04 10/09/23 11:28 10/09/23 11:41 Temperature 98 F Pulse Rate 132 H 126 H 139 H Respiratory Rate 40 H Blood Pressure 144/61 H 120/72 122/58 L Pulse Oximetry 100 Oxygen Delivery 10/09/23 08:00 10/09/23 10:00 10/09/23 12:00 Temperature Pulse Rate 72 122 H 122 H Respiratory Rate Blood Pressure
[2023-10-09] MEDS: AMIODARONE 360 MG/D5W 200 ML 360 MG/200 ML BAG 16.67 MG IV CONT (17:29)
[2023-10-09] MEDS: traZODone HCL 50 MG TABLET PO (21:11)
--- NOTE | 2023-10-09 22:22 | PM.EVENT ---
Event Note Event Note Event Note: Patient on amiodarone drip at 0.5 mg/minute after he received bolus and oral 200 mg earlier today. Nursing states that patient has been continuing to get tachycardic into the 120-140 range. No infectious symptoms reported. Ordered one time dose 12.5 mg metoprolol tartrate oral.
[2023-10-09] MEDS: METOPROLOL TARTRATE 12.5 MG TABLET PO (22:31)
[2023-10-10] VITALS (24 sets, daily range): BP systolic 90–114; BP diastolic 46–68; PULSE 46–102; RESP 16–22; TEMP 36.1–37.1; O2SAT 97–100
[2023-10-10 04:38] LABS: Basophils Absolute Auto 0.1 K/mm3 (0.0-0.1); Basophils Percent Auto 1.1 % (0.2-1.2); Eosinophils Absolute Auto 0.2 K/mm3 (0-0.3); Eosinophils Percent Auto 2.9 % (0-4.4); Hematocrit 37.7 % (42.0-52.0); Hemoglobin 12.5 g/dL (14.0-18.0); Immature Granulocyte Absolute 0.04 K/mm3 (0.00-0.031); Immature Granulocyte Percent A 0.6 % (0-0.5); Lymphocytes Absolute Auto 1.33 K/mm3 (0.9-3.2); Lymphocytes Percent Auto 20.2 % (18.3-44.2); Mean Corpuscular HGB Conc 33.2 g/dl (32-36); Mean Corpuscular Hemoglobin 29.4 pg (26-34); Mean Corpuscular Volume 88.7 fl (80-100); Mean Platelet Volume 10.1 fl (7.4-10.4); Monocytes Absolute Auto 0.8 K/mm3 (0.1-0.6); Monocytes Percent Auto 12.8 % (2.6-8.5); Neutrophils Absolute Auto 4.1 K/mm3 (1.3-6.7); Neutrophils Percent Auto 62.4 % (45.5-73.1); Platelet Count Result 260 k/mm3 (150-375); Red Blood Count 4.25 M/mm3 (4.6-6.20); Red Cell Distribution Width 13.4 % (11.5-14.5); White Blood Count 6.6 K/mm3 (4.5-10.0)
[2023-10-10 04:56] LABS: Alanine Aminotransferase 25 U/L (6-50); Albumin Level 2.8 g/dL (3.5-5.1); Alkaline Phosphatase 148 U/L (38-126); Anion Gap 6 mmol/L (4-12); Aspartate Amino Transferase 28 U/L (17-59); Bilirubin,Total 0.2 mg/dL (0.2-1.3); Blood Urea Nitrogen 14 mg/dL (9-20); Calcium 8.4 mg/dL (8.4-10.2); Carbon Dioxide 28 mmol/L (22-30); Chloride 98 mmol/L (98-107); Estimated CRCL calculation 39 ml/min; Estimated Glomerular Filt Rate > 60; Glucose 86 mg/dL (65-110); Magnesium 1.9 mg/dL (1.6-2.3); Potassium 3.8 mmol/L (3.4-5.0); Sodium 132 mmol/L (137-145)
[2023-10-10] MEDS: AMIODARONE 360 MG/D5W 200 ML 360 MG/200 ML BAG 16.67 MG IV CONT (05:00)
[2023-10-10] MEDS: FLUTICASONE/UMECLIDIN/VILANTER 100-62.5-25 MCG ELLIPTA 1 PUFF INHALATION (07:40)
--- NOTE | 2023-10-10 08:22 | PM.PNCARD ---
Progress Note: A&P Assessment and Plan (1) Atrial fibrillation with rapid ventricular response: Code(s): I48.91 - Unspecified atrial fibrillation Status: Acute Plan 77-year-old man with paroxysmal atrial fibrillation. As I mentioned on my consult note on Tuesday he is a poor candidate for sotalol and flecainide therefore he has been started on amiodarone despite the fact that he has significant chronic lung disease. He has been receiving intravenous amiodarone all weekend. Going to shift him to an oral loading dose today. I will also add a low dose of long-acting metoprolol to the regimen to try to provide better heart rate control when he is in atrial fib. We may not continue this for the mcc. Current dosage of amiodarone will be 800 mg daily with plans to gradually reduce that to a maintenance dosage over time. Lobo Romero MD [facility] Subjective Date/time seen: Date of service: 10/10/23 08:22 Interval history: Follow-up visit in this 77-year-old man with paroxysmal atrial fibrillation as well as severe COPD. He feels gradually better over the weekend. Telemetry in the last 48 hours demonstrates paroxysmal atrial fib with sinus bradycardia alternating between AF. His AF heart rate has come down such as when he is in it he is essentially asymptomatic. At this time he is in atrial fibrillation with a heart rate of 90-110 and is unaware of it. Exam Const: Other: Pleasant thin chronically ill-appearing man a barrel-chested, in good spirits in no distress HENMT: Mouth: Yes moist mucous membranes Eyes: Sclera: sclerae normal Neck: Neck: supple Resp: Effort & Inspection: normal respiratory effort Other: Breath sounds are markedly diminished in all lung navarro Cardio: Rate: regular rate Rhythm: abnormal rhythm irregularly irregular Other: Irregularly irregular heart rate 95 GI: Auscultation: normal bowel sounds Skin: General skin exam: normal color Neuro: Other: Alert and oriented x3 Extrem: General: normal to inspection Objective Data Vital Signs Vital Signs: Vital Signs - 24 hr 10/09/23 08:24 10/09/23 09:04 10/09/23 11:28 Temperature Pulse Rate 120 H 132 H 126 H Respiratory Rate Blood Pressure 144/61 H 120/72 Pulse Oximetry Oxygen Delivery 10/09/23 11:41 10/09/23 10:00 10/09/23 12:00 Temperature 36.6 C Pulse Rate 139 H 122 H 122 H Respiratory Rate 40 H Blood Pressure 122/58 L Pulse Oximetry 100 Oxygen Delivery 10/09/23 12:00 10/09/23 14:00 10/09/23 09:15 Temperature Pulse Rate 107 H 130 H Respiratory Rate Blood Pressure Pulse Oximetry Oxygen Delivery Room Air 10/09/23 16:00 10/09/23 17:29 10/09/23 16:00 Temperature 37.1 C Pulse Rate 109 H 102 H Respiratory Rate 28 H Blood Pressure 135/73 107/65 Pulse Oximetry 98 Oxygen Delivery Room Air 10/09/23 16:00 10/09/23 17:29 10/09/23 18:00 Temperature Pulse Rate 96 102 H 106 H Respiratory Rate Blood Pressure 107/65 Pulse Oximetry Oxygen Delivery 10/09/23 19:44 10/09/23 21:56 10/09/23 22:31 Temperature 37.1 C 37.1 C Pulse Rate 102 H 118 H 136 H Respiratory Rate 18 18 Blood Pressure 109/64 114/68 Pulse Oximetry 99 99 Oxygen Delivery 10/09/23 23:53 10/09/23 20:00 10/09/23 20:00 Temperature 36.9 C Pulse Rate 81 91 Respiratory Rate 18 Blood Pressure 94/60 L Pulse Oximetry 97 Oxygen Delivery Room Air 10/09/23 22:00 10/10/23 00:00 10/10/23 00:00 Temperature Pulse Rate 131 H 71 Respiratory Rate Blood Pressure Pulse Oximetry Oxygen Delivery Room Air 10/10/23 01:58 10/10/23 02:00 10/10/23 04:00 Temperature 37.1 C Pulse Rate 98 79 82 Respiratory Rate 18 Blood Pressure 91/54 L Pulse Oximetry 97 Oxygen Delivery 10/10/23 04:00 10/10/23 04:59 10/10/23 05:00 Temperature Pulse Rate 89 89 Respiratory Rate Blood Pressure 102/64 Pul
[2023-10-10] MEDS: APIXABAN 5 MG TABLET BY MOUTH ×2 (09:12→20:44)
[2023-10-10] MEDS: ASPIRIN 81 MG CHEWABLE TABLET PO (09:12)
[2023-10-10] MEDS: SIMVASTATIN 10 MG TABLET PO (09:12)
[2023-10-10] MEDS: OPTI-GEN TAB 1 TABLET PO ×2 (09:12→17:48)
[2023-10-10] MEDS: AMIODARONE HCL 200 MG TABLET 400 MG PO ×3 (09:12→20:44)
[2023-10-10] MEDS: METOPROLOL SUCCINATE EXT REL 25 MG TABCR PO (09:12)
[2023-10-10] MEDS: SERTRALINE HCL 25 MG TABLET PO (09:12)
--- NOTE | 2023-10-10 10:11 | PC.NURSE ---
Addendum entered by Betty Hernandez RN 10/10/23 10:37: Dr. Harrison informed of pt's heart rate and rhythm. No new orders Original Note: Pt spontaneously converted into sinus bradycrdia. HR 48-52. Pt denies dizziness or lightheadedness.
--- NOTE | 2023-10-10 13:15 | PCNFU ---
Nutrition Follow-Up Complete: Severe protein calorie malnutrition related to chronic loss of appetite as evidenced by Weight loss -17%/6 months; intakes <50% needs >1 month; severe muscle wasting and fat loss Goal:1. Improve PO intake at least 50% meals and supplements 2. Maintain weight Pt current nutrition is Regular, Ensure compact BID. Nutrition recommendation: continue with current plan of care Last recorded weight is 41.3 kg. Bowel Motility: +BM 10/07 Labs Reviewed: Hgb:12.5, HCt:37.7, Alb:2.8, NA:132 Meds Noted: Eliquis Skin: WNL Additional Notes: Pt on a regular diet, intake varied from 25-75%, pt reports being a small eater, does not like or want any supplements, states he is eating the best he can. Encouraged good po intake. Agree with orders. Monitoring intakes, weights, labs, plan of care Follow up in 7 days
--- NOTE | 2023-10-10 13:25 | PM.IMPN ---
Progress Note: A&P Assessment and Plan (1) Atrial fibrillation with rapid ventricular response: Code(s): I48.91 - Unspecified atrial fibrillation Status: Acute (2) Essential hypertension: Code(s): I10 - Essential (primary) hypertension Status: Acute Plan Patient here with recurrent AFib. Admitted last month for same complaint, some difficulty controlling rate due to bradycardia. Metoprolol dose was decreased from 25 mg daily to 12.5 mg b.i.d.. Initially given diltiazem in the ED, transitioned to amiodarone by cardiology. cxr with hazy opacity rul, probabaly pneumonia. prior ct with probable stable irregular density at the left lung apex with suture line, which could relfect chronic scarring or other chronic change. unelrying COPD troponin x 3 negative. diltiazem switch to amiodarone. not a good candidate for flecainide or sotalol given patient was bradycardic durignt previous admission. Patient converted to sinus rhythm however back to AFib again. Re-initiated amiodarone drip and switched to higher dose of amiodarone. Back to sinus rhythm again. Will continue to monitor at this time. If remains on sinus rhythm plan to DC on amiodarone 400 mg b.i.d. on eliquis for anticoagulation. 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 Prefers to avoid warfarin. emphysema/copd Diet: Heart healthy GI Prophylaxis: Not currently indicated DVT Prophylaxis: Continue home Eliquis Lines: Peripheral Code Status: Full code Subjective Date/time seen: 10/10/23 13:25 Interval history: Amiodarone infusion switched to oral amiodarone. Converted back to sinus rhythm this a.m.. Denies any new complaints. Review of Systems Review of Systems: All systems reviewed & are unremarkable except as noted in HPI and below Exam Narrative: General appearance: Well-developed, well-nourished Skin: Normal color Head: Normocephalic, nontraumatic Eyes: Clear conjunctiva ENT: Oropharynx normal, ears normal, nose normal Neck: Supple, nontender Chest and respiratory: Airway patent, no respiratory distress, no accessory muscle use Heart: Sinus rhythm mildly bradycardic Abdomen: Soft, nontender, no organomegaly, quiet bowel sounds Vascular: Normal peripheral pulses, normal capillary refill. 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, no gross motor deficit Objective Data Vital Signs Vital Signs: Vital Signs - 24 hr 10/09/23 14:00 10/09/23 16:00 10/09/23 17:29 Temperature 98.8 F Pulse Rate 107 H 109 H 102 H Respiratory Rate 28 H Blood Pressure 135/73 107/65 Pulse Oximetry 98 Oxygen Delivery 10/09/23 16:00 10/09/23 16:00 10/09/23 17:29 Temperature Pulse Rate 96 102 H Respiratory Rate Blood Pressure 107/65 Pulse Oximetry Oxygen Delivery Room Air 10/09/23 18:00 10/09/23 19:44 10/09/23 21:56 Temperature 98.8 F 98.8 F Pulse Rate 106 H 102 H 118 H Respiratory Rate 18 18 Blood Pressure 109/64 114/68 Pulse Oximetry 99 99 Oxygen Delivery 10/09/23 22:31 10/09/23 23:53 10/09/23 20:00 Temperature 98.4 F Pulse Rate 136 H 81 91 Respiratory Rate 18 Blood Pressure 94/60 L Pulse Oximetry 97 Oxygen Delivery 10/09/23 20:00 10/09/23 22:00 10/10/23 00:00 Temperature Pulse Rate 131 H 71 Respiratory Rate Blood Pressure Pulse Oximetry Oxygen Delivery Room Air 10/10/23 00:00 10/10/23 01:58 10/10/23 02:00 Temperature 98.8 F Pulse Rate 98 79 Respiratory Rate 18 Blood Pressure 91/54 L Pulse Oximetry 97 Oxygen Delivery Room Air 10/10/23 04:00 10/10/23 04:00 10/10/23 04:59 Temperature Pulse Rate 82 89 Respiratory Rate Blood Pressure Pulse Oximetry Oxygen Delivery Room Air 10/10/23 05:00 10/09/23 20:00 10/09/23 22:00 Temperature Pulse Rate 89 98 131 H Respiratory Rate Blood Pressure 102/64
[2023-10-10] MEDS: traZODone HCL 50 MG TABLET PO (20:44)
[2023-10-11] VITALS (13 sets, daily range): BP systolic 95–110; BP diastolic 40–56; PULSE 41–61; RESP 16–20; TEMP 36.6–36.7; O2SAT 97–98
[2023-10-11] MEDS: FLUTICASONE/UMECLIDIN/VILANTER 100-62.5-25 MCG ELLIPTA 1 PUFF INHALATION (08:23)
[2023-10-11] MEDS: AMIODARONE HCL 200 MG TABLET 400 MG PO (08:52)
[2023-10-11] MEDS: APIXABAN 5 MG TABLET BY MOUTH (08:52)
[2023-10-11] MEDS: SIMVASTATIN 10 MG TABLET PO (08:52)
[2023-10-11] MEDS: OPTI-GEN TAB 1 TABLET PO (08:52)
[2023-10-11] MEDS: METOPROLOL SUCCINATE EXT REL 25 MG TABCR PO (08:52)
[2023-10-11] MEDS: ASPIRIN 81 MG CHEWABLE TABLET PO (08:52)
[2023-10-11] MEDS: SERTRALINE HCL 25 MG TABLET PO (08:52)
--- NOTE | 2023-10-11 09:47 | PM.PNCARD ---
Progress Note: A&P Assessment and Plan (1) Atrial fibrillation with rapid ventricular response: Code(s): I48.91 - Unspecified atrial fibrillation Status: Acute Assessment and Plan: Paroxysmal atrial fibrillation with symptomatic recurrence on metoprolol. He has been started on an oral loading dose of amiodarone and in the last 24 hours has been maintaining sinus rhythm with this. Metoprolol has also been added to his regimen in hopes of providing better rate control if he does revert to atrial fibrillation. Continue amiodarone 400mg q12h for one week, then decrease to 400mg daily. Will plan to decrease to a maintenance dose when seen as an outpatient Continue ToprolXL 25mg daily Continue systemic anticoagulation with apixaban Referral to EP has been sent He has been scheduled for follow up in our office [place] for discharge today from a cardiac standpoint Subjective Date/time seen: 10/11/23 09:47 Interval history: Follow-up visit in this 77-year-old man with paroxysmal atrial fibrillation as well as severe COPD. He feels gradually better over the weekend. Telemetry in the last 48 hours demonstrates paroxysmal atrial fib with sinus bradycardia alternating between AF. His AF heart rate has come down such as when he is in it he is essentially asymptomatic. At this time he is in atrial fibrillation with a heart rate of 90-110 and is unaware of it. Date of service 10/11/2023: He is feeling well today. Denies palpitations. His telemetry remains stable with maintenance of sinus rhythm/sinus bradycardia. Review of Systems Review of Systems: All systems reviewed & are unremarkable except as noted in HPI and below Constitutional: Constitutional: Reports lethargy Eyes: Eyes: Reports no additional eye complaints ENT: Reports system reviewed and no additional complaints, except as documented Cardiovascular: Cardiovascular: Reports as per HPI and Reports palpitations Respiratory: Respiratory: Reports no additional respiratory complaints Gastrointestinal: Gastrointestinal: Reports no additional gastrointestinal complaints Musculoskeletal: Musculoskeletal: Reports back pain Integumentary/Breasts: Skin/Breast: Reports system reviewed and no additional complaints, except as docu Neurologic: Reports system reviewed and no additional complaints, except as documented Endocrine: Endocrine: Reports no additional endocrine complaints and Reports palpitations Hematologic/Lymphatic: Hematologic/Lymphatic: Reports no additional hematologic/lymphatic complaints Allergic/Immunologic: Allergic/Immunologic: Reports no additional allergic/immunologic complaints Exam Const: Other: Pleasant thin chronically ill-appearing man a barrel-chested, in good spirits in no distress HENMT: Mouth: Yes moist mucous membranes Eyes: Sclera: sclerae normal Neck: Neck: supple Resp: Effort & Inspection: normal respiratory effort Auscultation: clear to auscultation bilaterally and diminished lung sounds Cardio: Rate: regular rate and bradycardic Rhythm: regular rhythm GI: Auscultation: normal bowel sounds Skin: General skin exam: normal color Neuro: Other: Alert and oriented x3 Extrem: General: normal to inspection Other: No edema Objective Data Vital Signs Vital Signs: Vital Signs - 24 hr 10/10/23 10:00 10/10/23 11:33 10/10/23 12:00 Temperature 36.1 C L Pulse Rate 48 L 46 L 48 L Respiratory Rate 22 H Blood Pressure 96/46 L Pulse Oximetry 99 Oxygen Delivery 10/10/23 12:00 10/10/23 16:04 10/10/23 14:00 Temperature 36.4 C Pulse Rate 52 L 48 L Respiratory Rate 22 H Blood Pressure 90/49 L Pulse Oximetry 99 Oxygen Delivery Room Air 10/10/23 16:00 10/10/23 16:00 10/10/23 18:00 Temperature Pulse Rate 46 L 49 L Respiratory Rate Blood Pressure Pulse Oximetry Oxygen Delivery Room Air 10/10/23 20:11 10/10/23 20:44 10/10/23 20:00 [place]
--- NOTE | 2023-10-11 12:09 | PM.DS ---
DS: Admitting Diagnosis Discharge Date 10/11/2023 Admitting Diagnosis AFib with RVR DS: Discharge Diagnosis Discharge Diagnosis (1) Atrial fibrillation with rapid ventricular response: Code(s): I48.91 - Unspecified atrial fibrillation Status: Acute (2) Essential hypertension: Code(s): I10 - Essential (primary) hypertension Status: Acute DS: Summary Hospital Course Hospital Course: Patient here with recurrent AFib. Admitted last month for same complaint, some difficulty controlling rate due to bradycardia. Metoprolol dose was decreased from 25 mg daily to 12.5 mg b.i.d.. Initially given diltiazem in the ED, transitioned to amiodarone by cardiology. cxr with hazy opacity rul, probabaly pneumonia. prior ct with probable stable irregular density at the left lung apex with suture line, which could relfect chronic scarring or other chronic change. unelrying COPD troponin x 3 negative. diltiazem switch to amiodarone. not a good candidate for flecainide or sotalol given patient was bradycardic durignt previous admission. Patient converted to sinus rhythm however back to AFib again. Re-initiated amiodarone drip and switched to higher dose of amiodarone. Back to sinus rhythm again and remained in sinus rhythm. Amiodarone 400 mg twice daily for a week then lowered down to once daily planned. Needs EP evaluation as an outpatient basis which will be arranged by lead software developer. on eliquis for anticoagulation. manager case management to look into [id number] cost for either Xarelto and or dabigatran. Prefers to avoid warfarin. emphysema/copd Diet: Heart healthy GI Prophylaxis: Not currently indicated DVT Prophylaxis: Continue home Eliquis Lines: Peripheral Code Status: Full code Time Spent with Patient Time attestation: Total time spent providing and/or coordinating discharge services: 40 minutes Exam Narrative: General appearance: Well-developed, well-nourished Skin: Normal color Head: Normocephalic, nontraumatic Eyes: Clear conjunctiva ENT: Oropharynx normal, ears normal, nose normal Neck: Supple, nontender Chest and respiratory: Airway patent, no respiratory distress, no accessory muscle use Heart: Sinus rhythm mildly bradycardic Abdomen: Soft, nontender, no organomegaly, quiet bowel sounds Vascular: Normal peripheral pulses, normal capillary refill. Musculoskeletal: Normal range of motion, nontender back Neurologic: Alert and oriented ?3, [employer] is normal as tested, no gross motor deficit Discharge Plan Discharge Attending physician on discharge: Solitario Harrison Consulting providers: Alistair Kothari Discharging Clinician: Solitario Harrison Anticipated Discharge Date/Time: 10/11/23 12:06 Patient Disposition: Home, Self-Care Activity: as tolerated Diet: heart healthy Discharge Instructions: Please call Jen to check if there is assistance for cost of medication Patient Instructions: Antibiotic Form Stand Alone Forms: General Discharge Information Follow-up/Referrals: Jojo Gonzales APN-C [Advanced Practice Nurse] - (11/23/2023 at 10:00. Arrive at 9:45) Noelle Tian APN-C [Primary Care Provider] - 1 Week Discharge Medications: New metoprolol succinate [Toprol XL] 25 mg Tablet Extended Release 24 Hr 25 mg PO QAM Qty: 30 0RF amiodarone [Pacerone] 200 mg Tablet See Rx Instructions .ROUTE .COMPLEX Qty: 74 0RF Rx Instructions: 400 mg twice daily x 1 week then 400 mg daliy Continued sertraline 25 mg tablet 25 mg PO DAILY Qty: 90 0RF aspirin 81 mg tablet,chewable 81 mg PO DAILY PreserVision AREDS 2,148 mcg-113 mg-45 mg-17.4mg tablet 1 tablet PO BIDWM Rx Instructions: administer with AM and PM meals albuterol sulfate 90 mcg/actuation HFA aerosol inhaler 1 inh inhalation Q4H PRN (Reason: shortness of breath or wheezing) Eliquis 5 mg Tablet 5 mg BYMOUTH Q12HR Qty: 60 0RF Breztri Aerosphere 16
== END 2023-10-11 17:16 | disposition home or self-care (01) | DRG 310 ==
LOC: ANHED 09:22 → ANHIMU 09:45
PROVIDERS: Student in an Organized Health Care Education/Training Program; Admitting Provider Internal Medicine; Emergency Provider Emergency Medicine; PCP Nurse Practitioner Family; Visit Provider Internal Medicine
DX: I48.0 Paroxysmal atrial fibrillation (principal); J43.9 Emphysema, unspecified; E78.5 Hyperlipidemia, unspecified; F17.290 Nicotine dependence, other tobacco product, uncomplicated; I10 Essential (primary) hypertension; Z79.82 Long term (current) use of aspirin; Z79.01 Long term (current) use of anticoagulants; Z85.828 Personal history of other malignant neoplasm of skin
CPT/HCPCS: 36415; 71046; 80048; 80053; 83690; 83735; 84484; 85025; 85027; 85610; 85730; 93005; 94640; 96365; 96366; 96367; 99285; A9270; G0378; J0282

== ENCOUNTER 2023-10-18 07:22 | Inpatient (IN) | payer MEDICARE, SELFPAY ==
[2023-10-18] VITALS (32 sets, daily range): BP systolic 106–157; BP diastolic 43–77; PULSE 40–54; RESP 14–37; TEMP 36.3–36.7; O2SAT 99–100; BMI 16.4
--- NOTE | ~2023-10-18 | CT_ITS ---
EXAMINATION: CT abdomen pelvis w con DATE: 10/18/2023 13:52 INDICATION: Abdominal pain. Hematuria. TECHNIQUE: Computed tomography (CT) of the abdomen and pelvis was performed with 100 mL Omnipaque 350 intravenous contrast. Automated exposure control and iterative reconstruction technique were employe d. The dose-length product was 159.24 mGy-cm. COMPARISON: Chest CT 09/22/2023 FINDINGS: The visualized portions of the lung bases demonstrate emphysema. There is mild atelectasis bilaterally. No pleural effusion. The heart size is normal. No pericardial effusion. The liver, gallb ladder, spleen, pancreas, and adrenal glands are normal. There are cysts in the kidneys measuring up to 7 mm on the left. There is a 5 mm stone in right kidney. There is calcified atherosclerosis of the aorta and many of the other arteries. There is diverticulosis of the colon without evidence of diver ticulitis. There are changes of appendectomy. There are no pathologically enlarged lymph nodes. There is trace pelvic ascites. There is lumbar levoscoliosis and severe spondylosis. IMPRESSION: 1. 5 mm nonobstructing right kidney stone. Reviewed, dictated and finalized at location A.
--- NOTE | ~2023-10-18 | XR_ITS ---
EXAMINATION: XR chest 2V DATE: 10/18/2023 07:56 INDICATION: Shortness of breath. TECHNIQUE: Frontal and lateral views of the chest were obtained on 3 radiographs. COMPARISON: Chest 2 views 10/07/2023, chest CT 09/22/2023, 04/15/22 FINDINGS: The lungs are hyperexpanded with lucencies, consistent with emphysema. There is a 3 cm mass in right upper lobe. There are airspace opacities with volume loss, cavitation, suture lines, and ca lcifications in left lung upper lobe. No pleural effusion or pneumothorax. The heart size is normal. IMPRESSION: 1. Stable mass in right lung upper lobe, likely pneumonia. 2. Stable airspace opacities with cavitation in left upper lobe. Lung biopsy on 05/20/2022 demonstrate d necrotizing granuloma. 3. Emphysema. Reviewed, dictated and finalized at location A. IMPRESSION: 1. Stable mass in right lung upper lobe, likely pneumonia. 2. Stable airspace opacities with cavitation in left upper lobe. Lung biopsy on 05/20/2022 demonstrated necrotizing granuloma. 3. Emphysema.
--- NOTE | ~2023-10-18 | CT_ITS ---
EXAMINATION: CT brain wo con DATE: 10/18/2023 11:44 INDICATION: Headache. TECHNIQUE: Computed tomography (CT) of the head was performed without intravenous contrast. The mA wa s adjusted according to patient size. Iterative reconstruction technique was employed. The dose-lengt h product was 605.33 mGy-cm. COMPARISON: None FINDINGS: There are scattered areas of low attenuation in the cerebral white matter. There is no intr acranial hemorrhage, acute infarction, or abnormal intracranial mass lesion. The ventricles are joan l in size. There are likely changes of ocular lens replacement surgeries. The paranasal sinuses are c lear. The mastoid air cells are normal. IMPRESSION: 1. Extensive nonspecific cerebral white matter disease, which likely represents chronic small vessel ischemic disease. Reviewed, dictated and finalized at location A.
--- NOTE | 2023-10-18 07:25 | ECG_ITS ---
Test Date: 2023-10-18 07:31:59 Measurements Intervals [place] Rate: 40 P: 86 NC: 171 QRS: 38 QRSD: 96 T: 74 QT: 484 QTc: 397 Interpretive Statements SINUS BRADYCARDIA POSSIBLE ANTERIOR MYOCARDIAL INFARCTION , PROBABLY OLD [30 ms Q WAVE IN V3/V4, OR R < 0.2 mV IN V4] Compared to ECG 10/07/2023 10:05:28 Atrial fibrillation no longer present Electronically Signed On 10-18-2023 10:24:25 CDT by Kenneth Zabala M.D.
[2023-10-18 07:52] LABS: Basophils Absolute Auto 0.1 K/mm3 (0.0-0.1); Basophils Percent Auto 0.8 % (0.2-1.2); Eosinophils Absolute Auto 0.1 K/mm3 (0-0.3); Eosinophils Percent Auto 0.6 % (0-4.4); Hematocrit 39.9 % (42.0-52.0); Hemoglobin 13.3 g/dL (14.0-18.0); Immature Granulocyte Absolute 0.05 K/mm3 (0.00-0.031); Immature Granulocyte Percent A 0.6 % (0-0.5); Lymphocytes Absolute Auto 0.95 K/mm3 (0.9-3.2); Lymphocytes Percent Auto 12.2 % (18.3-44.2); Mean Corpuscular HGB Conc 33.3 g/dl (32-36); Mean Corpuscular Hemoglobin 29.7 pg (26-34); Mean Corpuscular Volume 89.1 fl (80-100); Mean Platelet Volume 10.2 fl (7.4-10.4); Monocytes Absolute Auto 0.6 K/mm3 (0.1-0.6); Monocytes Percent Auto 8.2 % (2.6-8.5); Neutrophils Percent Auto 77.6 % (45.5-73.1); Platelet Count Result 274 k/mm3 (150-375); Red Blood Count 4.48 M/mm3 (4.6-6.20); Red Cell Distribution Width 13.5 % (11.5-14.5); White Blood Count 7.8 K/mm3 (4.5-10.0)
[2023-10-18 08:02] LABS: Alanine Aminotransferase 35 U/L (6-50); Albumin Level 3.1 g/dL (3.5-5.1); Alkaline Phosphatase 167 U/L (38-126); Anion Gap 8 mmol/L (4-12); Aspartate Amino Transferase 36 U/L (17-59); Bilirubin,Total 0.5 mg/dL (0.2-1.3); Blood Urea Nitrogen 12 mg/dL (9-20); Calcium 9.3 mg/dL (8.4-10.2); Carbon Dioxide 27 mmol/L (22-30); Chloride 96 mmol/L (98-107); Estimated CRCL calculation 37 ml/min; Estimated Glomerular Filt Rate > 60; Glucose 97 mg/dL (65-110); Potassium 4.8 mmol/L (3.4-5.0); Sodium 131 mmol/L (137-145)
--- NOTE | 2023-10-18 10:19 | ED.SOB ---
HPI - SOB/Dyspnea General Chief Complaint: Shortness of Breath/Dyspnea Stated Complaint: SOB & abd pain Time Seen by Provider: 10/18/23 09:27 Source: patient Mode of arrival: EMS ([facility]) Limitations: no limitations History of Present Illness HPI Narrative: Patient presents with complaint of shortness of breath and abdominal pain. Notes the shortness of breath has been worse over the last 5 days and he has presented treat times to the hospital in a short period of time for this symptom. He was recently diagnosed with atrial fibrillation and has a history of COPD not on supplemental oxygen. He is prescribed breech tree and also uses additional albuterol inhaler p.r.n.. He is on Eliquis and believes he is on a rate controlling medication that begins with an A, possibly amiodarone. He used inhaler prior to arrival but did not feel that that helped. EMS had administered small bolus of normal saline in route. He says the abdominal pain is low in his abdomen, like a cramp. He denies any fever cough. He has been having an intermittent headache which he states is unusual for him. He states his brain feels numb he has been more forgetful. He denies any falls. He states he feels dizzy and off balance and in general has been having weakness.. Patient states he has had difficulty sleeping for the past 5 nights. His last bowel movement was the day before yesterday. He denies diarrhea, constipation, or bloody stools. He has been nauseated but no vomiting. His approximately a year ago and he recently had to put his dog down Brisa is having some increased anxiety about his health given the relatively new diagnosis of atrial fibrillation. He lives by himself and finds that his health is declining away he is unable to do certain things he used to do. He is able to name the activities of daily living that he can continue to do but he notes that he used to be able to cut the lawn, etc. Related Data Home Medications Medication Instructions Recorded Confirmed aspirin 81 mg chewable tablet 81 mg PO DAILY 03/11/22 10/18/23 vitamins A,C,W-xrlh-iaeeuy 2,148 1 tablet PO BIDWM 03/11/22 10/18/23 mcg-113 mg-45 mg-17.4 mg tablet (PreserVision AREDS) albuterol sulfate 90 mcg/actuation 1 inh inhalation Q4H PRN shortness 09/22/23 10/18/23 aerosol inhaler of breath or wheezing budesonide 160 mcg-glycopyr 9 2 inh inhalation BID 10/07/23 10/18/23 mcg-formot 4.8 mcg/actuation HFA inhaler (Breztri Aerosphere) Allergies Allergy/AdvReac Type Severity Reaction Status Date / Time No Known Allergies Allergy Verified 10/18/23 17:55 [facility] Past Medical History Medical History (Updated 10/18/23 @ 21:14 by Rona Sanchez DO) 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 Atrial fibrillation Paroxysmal Atypical nevi COPD (chronic obstructive pulmonary disease) severe obstructive lung disease with good response to bronchodilators noted on pulmonary function testing April 2022 Depression Emphysema lung Essential hypertension History of tobacco abuse Hyperlipidemia Macular degeneration 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 They have 3 living children; one child in a car wreck. Retired 1998. Smoked cigarettes 1 ppd x 10 years, then cigars up to 10 per day, now 2 cigars a week. He drinks only on very rare occasion. Code status: Surrogate decision maker:
[2023-10-18] MEDS: predniSONE 20 MG TABLET 40 MG PO (11:47)
[2023-10-18 11:57] LABS: Alveolar/Arterial O2 Gradient 66.1 mmHg; Base Excess ABG 1.9 mEq/l (+/-2.0); Fractional Inspired Oxygen 21 %; HCO3 ABG 27.2 mEq/l (22.0-26.0); Oxygen Content ABG 11.7 %vol (16.0-22.0); PCO2 ABG 45.1 mmHg (35.0-45.0); PO2 FiO2 Ratio Arterial Blood 1.41 %; Total Hemoglobin 14.1 g/dL (12.0-18.0); pH ABG 7.399 (7.350-7.450)
[2023-10-18] MEDS: IPRATROPIUM 0.5 MG/ALBUTEROL SULFATE 2.5 MG AMPUL.NEB 3 ML INHALATION (12:02)
[2023-10-18] MEDS: ALBUTEROL SULFATE NEB 2.5 MG/3 ML INH INHALATION ×2 (12:02→14:59)
[2023-10-18 12:09] LABS: Lactic Acid Reflex 1.2 mmol/L (0.7-2.0)
[2023-10-18 12:11] LABS: PO2 ABG 29.6 mmHg (80.0-100.0)
[2023-10-18 12:12] LABS: Oxygen Saturation ABG 55.8 % (95.0-100.0); Oxyhemoglobin 59.3 % THb (90.0-100.0)
[2023-10-18 12:13] LABS: Device ROOM AIR; Site Drawn LEFT RADIAL
[2023-10-18 12:35] LABS: Influenza A QL RT-PCR Negative (Negative); Influenza B QL RT-PCR Negative (Negative); RSV RNA, RT-PCR Negative (Negative); SARS-CoV-2 RNA PCR Negative (Negative)
[2023-10-18 13:16] LABS: Add Urine Microscopic? YES; Appearance Urine Turbid (Clear); Bacteria Urine None Seen /hpf; Bilirubin Urine Negative (Negative); Blood Urine 2+ (Negative); Color Urine Yellow (Yellow); Glucose Urine UA Negative (Negative); Ketones Urine Trace mg/dL (Negative); Leukocyte Esterase Ur Negative LEU/UL (Negative); Need Manual Microscopic Reviewed; Nitrate Urine Negative (Negative); Protein Urine Trace mg/dL (Negative); RBC Urine >100 /hpf (0-2); Squamous Epithelial Cell Urine None Seen /hpf (Few); WBC Urine 0-5 /hpf (0-3)
[2023-10-18 13:23] LABS: Amorphous Sediment Urine Moderate
[2023-10-18] MEDS: ACETAMINOPHEN 500 MG TABLET 1000 MG PO (13:58)
[2023-10-18] MEDS: MORPHINE SULFATE (*CRX) 4 MG/ML INJ IV PUSH (14:48)
[2023-10-18] MEDS: SODIUM CHLORIDE 0.9% IV 1,000 ML 999 ML IV CONT (15:56)
[2023-10-18 16:51] LABS: Troponin I < 0.012 ng/mL (0.000-0.034)
--- NOTE | 2023-10-18 17:25 | ADMGEN ---
This patient, Velasquez Kent, was admitted to Medical Room 247-. Patient/family oriented to hospital policies and general routines including ID bracelet, bed and alarms, visiting hours, pain management, procedures, bathroom and other care routines, personal items, smoking policy, room service/diet, and visiting hours. Information on how to activate the Rapid Response Team has been discussed. Patient/Family are encouraged to report perceived risks to care and to ask questions if they do not understand what they are told or what they should do.
--- NOTE | 2023-10-18 20:36 | PM.IMHP ---
H&P: HPI History of Present Illness Date/Time: 10/18/23 20:36 Chief Complaint: Shortness of breath and weakness Narrative: 77-year-old male with past medical history of severe obstructive pulmonary disease, paroxysmal atrial fibrillation and essential hypertension who presented to the ER via EMS from home due to shortness of breath and weakness. The patient reports that when he gets up to walk he has shaky legs and will feel pressure in his head. He reports that it feels like he may be getting a headache when he feels the pressure in his head but a true headache never develops. He reports that he feels cloudy or his if his head brain may be numb. He reported feeling forgetful to the ER provider. And has if he may be weight down. He denies any near syncopal as symptoms, vertigo or chest pain. He has not had significant cough. His symptoms have been getting worse for the last 5 days. He reports that the symptoms are not every time he gets up though they are intermittent. For the most part he has had bradycardia on documentation of vitals from the hospital since his last hospital stay. However when EMS came to pick the patient from his home his heart rate was 123. All of his vitals was EKG to the ER demonstrated bradycardia with heart rate in the 40s and 50s. He has not missed any of his medication doses. He is amiodarone and metoprolol. He has also been having abdominal pain is mostly in the right mid and lower quadrant for the last 5 days. The pain is cramping in nature and constant. He has not found anything that relieves the symptoms. He has had some nausea but no vomiting. He denies changes in bowel habits. His symptoms have interfered with his sleep. Although he does admit that he has been having some increased anxiety since he had to put his 14-year-old dog down about 6 weeks ago. He also mentions as last year. Patient reportedly had wheezing and tachypnea in the ER. However bedtime patient arrived to the medical floor patient was not having any wheezing or increased work of breathing. Labs in the ER demonstrated chronic hyponatremia, patient has CT in the ER which demonstrated a 5 mm nonobstructing right kidney stone. He had some microscopic hematuria but no evidence of UTI. Review of Systems Review of Systems: 12 systems were reviewed with pertinent positives and negatives per HPI. Except as documented in the HPI, all other systems were reviewed and are negative. 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 They have 3 living children; one child in a car wreck. Retired 1998. Smoked cigarettes 1 ppd x 10 years, then cigars up to 10 per day, now 2 cigars a week. He drinks only on very rare occasion. Code status: Surrogate decision maker: Smoking packs per day: 1 Smoking cigarettes per day: 20.0 Years smoked: 55 Smoking pack-years: 55.00 Smoking status: Former s
[2023-10-18] MEDS: APIXABAN 5 MG TABLET BY MOUTH (21:10)
[2023-10-18] MEDS: OPTI-GEN TAB 1 TABLET PO (21:10)
[2023-10-19] VITALS (18 sets, daily range): BP systolic 112–151; BP diastolic 49–87; PULSE 43–60; RESP 16–18; TEMP 36.4–36.7; O2SAT 96–100; BMI 16.4
[2023-10-19] MEDS: IPRATROPIUM BR 0.02% INH SOLN 0.5 MG/2.5 ML VIAL INHALATION ×4 (02:48→20:04)
[2023-10-19] MEDS: ALBUTEROL SULFATE NEB 2.5 MG/3 ML INH 5 MG INHALATION ×4 (02:48→20:04)
[2023-10-19] MEDS: FLUTICASONE/UMECLIDIN/VILANTER 100-62.5-25 MCG ELLIPTA 1 PUFF INHALATION (06:51)
--- NOTE | 2023-10-19 07:32 | P.PNIM_ITS ---
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 * Currently on room air * Respiratory panel negative for influenza A and B, RSV, COVID * Continue albuterol neb treatment * Continue Prednisone (2) Bradycardia, sinus: Code(s): R00.1 - Bradycardia, unspecified Status: Acute Assessment and Plan: 10/19/23: * HR in the 40's, Sinus bradycardia on EKG * Will hold Metoprolol in amiodarone for now * Continue cardiac monitoring * Heart healthy diet * Cardiology consulted (3) Renal calculus, right: Code(s): N20.0 - Calculus of kidney Status: Acute Assessment and Plan: 10/19/23: * CT of abdomen/pelvis revealed a 5mm non-obstructing right kidney stone (4) Hematuria: Qualifiers: Hematuria type: asymptomatic microscopic Qualified Code(s): R31.21 - Asymptomatic microscopic hematuria Code(s): R31.9 - Hematuria, unspecified Status: Acute Assessment and Plan: 10/19/23: * UA shown turbid appearance, trace ketones, 2+ urine blood, >100 urine RBC, moderate sediment * Will hold Eliquis * Place SCD's (5) Atrial fibrillation: Code(s): I48.91 - Unspecified atrial fibrillation Status: Acute Assessment and Plan: 10/19/23: * Restart Eliquis * Hold Amiodarone and metoprolol 400 mg daily * Currently Sinus Bradycardia in the 40's and has hematuria * Cardiology consulted (6) Lung mass: Code(s): R91.8 - Other nonspecific abnormal finding of lung field Status: Acute Assessment and Plan: 10/19/23: * Stable mass in the right lung upper lobe * Stable airspace opacities with cavitation in left upper lobe, Lung biopsy on 05/20/22 demonstrated necrotizing granuloma, emphysema * Follows with Dr. Jacobo on an outpatient basis (7) Essential hypertension: Code(s): I10 - Essential (primary) hypertension Status: Chronic Assessment and Plan: 10/19/23: * Blood pressure 106/43-112/49 * Metoprolol ER on hold due to bradycardia (8) History of tobacco abuse: Code(s): Z87.891 - Personal history of nicotine dependence Status: Chronic Assessment and Plan: 10/19/23: * Former smoker * 1 pack per year for 55 years. Stopped smoking on 08/29/23 * Still smoking Cigars, 2 per week (9) Hyperlipidemia: Code(s): E78.5 - Hyperlipidemia, unspecified Status: Chronic Assessment and Plan: 10/19/23: * Continue aspirin and simvastatin Time Spent With Patient Time with patient: Greater than 35 minutes Subjective Date/time seen: 10/19/23 07:32 Interval history: Interval history: This is a 77-year-old male who presented to the hospital on 10/18/2023 with shortness of breath/dyspnea and abdominal pain. CXR shown stable mass in right upper lobe, likely pneumonia, stable airspace opacities with cavitation in left upper lobe, lung biopsy from 05/20/22 demonstrated necrotizing granuloma, emphysema. Head CT revealed extensive nonspecific cerebral white matter disease, which likely represents chronic small vessel ischemic disease. Abdomen/Pelvis CT shown 5mm non-obstructing right kidney stone, diverticulosis w
--- NOTE | 2023-10-19 07:32 | PM.IMPN ---
Progress Note: A&P Assessment and Plan (1) COPD exacerbation: Code(s): J44.1 - Chronic obstructive pulmonary disease with (acute) exacerbation Status: Acute Assessment and Plan: 10/19/23: Patient received Albuterol, Duonebs, prednisone while in the ER CXR shown stable mass in right lung upper lobe, likely pneumonia, stable airspace opacities with cavitation in left upper lobe, lung biopsy on 05/20/2022 demonstrated necrotizing granuloma, emphysema. Currently on room air Respiratory panel negative for influenza A and B, RSV, COVID Continue albuterol neb treatment Continue Prednisone (2) Bradycardia, sinus: Code(s): R00.1 - Bradycardia, unspecified Status: Acute Assessment and Plan: 10/19/23: HR in the 40's, Sinus bradycardia on EKG Will hold Metoprolol in amiodarone for now Continue cardiac monitoring Heart healthy diet Cardiology consulted (3) Renal calculus, right: Code(s): N20.0 - Calculus of kidney Status: Acute Assessment and Plan: 10/19/23: CT of abdomen/pelvis revealed a 5mm non-obstructing right kidney stone (4) Hematuria: Qualifiers: Hematuria type: asymptomatic microscopic Qualified Code(s): R31.21 - Asymptomatic microscopic hematuria Code(s): R31.9 - Hematuria, unspecified Status: Acute Assessment and Plan: 10/19/23: UA shown turbid appearance, trace ketones, 2+ urine blood, >100 urine RBC, moderate sediment Will hold Eliquis Place SCD's (5) Atrial fibrillation: Code(s): I48.91 - Unspecified atrial fibrillation Status: Acute Assessment and Plan: 10/19/23: Restart Eliquis Hold Amiodarone and metoprolol 400 mg daily Currently Sinus Bradycardia in the 40's and has hematuria Cardiology consulted (6) Lung mass: Code(s): R91.8 - Other nonspecific abnormal finding of lung field Status: Acute Assessment and Plan: 10/19/23: Stable mass in the right lung upper lobe Stable airspace opacities with cavitation in left upper lobe, Lung biopsy on 05/20/22 demonstrated necrotizing granuloma, emphysema Follows with Dr. Jacobo on an outpatient basis (7) Essential hypertension: Code(s): I10 - Essential (primary) hypertension Status: Chronic Assessment and Plan: 10/19/23: Blood pressure 106/43-112/49 Metoprolol ER on hold due to bradycardia (8) History of tobacco abuse: Code(s): Z87.891 - Personal history of nicotine dependence Status: Chronic Assessment and Plan: 10/19/23: Former smoker 1 pack per year for 55 years. Stopped smoking on 08/29/23 Still smoking Cigars, 2 per week (9) Hyperlipidemia: Code(s): E78.5 - Hyperlipidemia, unspecified Status: Chronic Assessment and Plan: 10/19/23: Continue aspirin and simvastatin Time Spent With Patient Time with patient: Greater than 35 minutes Subjective Date/time seen: 10/19/23 07:32 Interval history: Interval history: This is a 77-year-old male who presented to the hospital on 10/18/2023 with shortness of breath/dyspnea and abdominal pain. CXR shown stable mass in right upper lobe, likely pneumonia, stable airspace opacities with cavitation in left upper lobe, lung biopsy from 05/20/22 demonstrated necrotizing granuloma, emphysema. Head CT revealed extensive nonspecific cerebral white matter disease, which likely represents chronic small vessel ischemic disease. Abdomen/Pelvis CT shown 5mm non-obstructing right kidney stone, diverticulosis without diverticulitis. Initial labs revealed Hgb 13.3, Na+ 131, Chloride 96, alkaline phosphatase 167, Troponin negative, TSH 3.420. UA shown turbid appearance, trace ketones, 2+ urine blood, urine RBC >100, moderate sediment. Respiratory panel was negative for Influenza A and B, RSV, Covid. EKG shown sinus bradycardia with a rate of 40, QTc 397. Last echo reviewed from 09/23/23 shown normal LV systolic function with an estimated EF of 65-70%, RV
[2023-10-19] MEDS: OPTI-GEN TAB 1 TABLET PO ×2 (08:26→16:36)
[2023-10-19] MEDS: SERTRALINE HCL 25 MG TABLET PO (08:26)
[2023-10-19] MEDS: predniSONE 20 MG TABLET 60 MG PO (08:26)
[2023-10-19] MEDS: SIMVASTATIN 10 MG TABLET PO (08:26)
[2023-10-19] MEDS: ASPIRIN 81 MG CHEWABLE TABLET PO (08:26)
[2023-10-19] MEDS: polyethylene glycoL 3350 17 GM POWD.PACK PO (16:36)
[2023-10-19] MEDS: APIXABAN 5 MG TABLET BY MOUTH (20:35)
[2023-10-20] VITALS (16 sets, daily range): BP systolic 108–149; BP diastolic 45–59; PULSE 50–69; RESP 16–20; TEMP 36.4–36.7; O2SAT 98–100
[2023-10-20] MEDS: IPRATROPIUM BR 0.02% INH SOLN 0.5 MG/2.5 ML VIAL INHALATION ×3 (03:11→13:56)
[2023-10-20] MEDS: ALBUTEROL SULFATE NEB 2.5 MG/3 ML INH 5 MG INHALATION ×3 (03:11→13:56)
[2023-10-20 06:03] LABS: Basophils Percent Auto 0.2 % (0.2-1.2); Hematocrit 34.6 % (42.0-52.0); Hemoglobin 11.6 g/dL (14.0-18.0); Immature Granulocyte Absolute 0.07 K/mm3 (0.00-0.031); Immature Granulocyte Percent A 0.6 % (0-0.5); Lymphocytes Absolute Auto 1.07 K/mm3 (0.9-3.2); Lymphocytes Percent Auto 9.5 % (18.3-44.2); Mean Corpuscular HGB Conc 33.5 g/dl (32-36); Mean Corpuscular Hemoglobin 29.9 pg (26-34); Mean Corpuscular Volume 89.2 fl (80-100); Mean Platelet Volume 10.4 fl (7.4-10.4); Monocytes Absolute Auto 0.7 K/mm3 (0.1-0.6); Monocytes Percent Auto 6.2 % (2.6-8.5); Neutrophils Absolute Auto 9.5 K/mm3 (1.3-6.7); Neutrophils Percent Auto 83.5 % (45.5-73.1); Platelet Count Result 268 k/mm3 (150-375); Red Blood Count 3.88 M/mm3 (4.6-6.20); Red Cell Distribution Width 14.2 % (11.5-14.5); White Blood Count 11.3 K/mm3 (4.5-10.0)
[2023-10-20 06:29] LABS: Alanine Aminotransferase 40 U/L (6-50); Alkaline Phosphatase 145 U/L (38-126); Anion Gap 5 mmol/L (4-12); Aspartate Amino Transferase 35 U/L (17-59); Bilirubin,Total 0.2 mg/dL (0.2-1.3); Blood Urea Nitrogen 19 mg/dL (9-20); Carbon Dioxide 29 mmol/L (22-30); Chloride 98 mmol/L (98-107); Estimated CRCL calculation 36 ml/min; Estimated Glomerular Filt Rate > 60; Glucose 97 mg/dL (65-110); Sodium 132 mmol/L (137-145)
--- NOTE | 2023-10-20 07:32 | P.CDI_ITS ---
CDI Query Clarification Request BMI 16.4 Nutritional Diagnostic Statement: Please refer to the comprehensive nutrition assessment for further information. If you agree with diagnosis of Severe protein calorie malnutrition related to chronic illness, loss of appetite as evidenced by weight loss 11%/7 months; intake s<75% needs >1 month; severe muscle wasting and fat loss. Please specify severity if known: * Mild * Moderate * Severe * Other/Unknown <Katya Zepeda RN - Last Filed: 10/20/23 07:33> Clarified Diagnosis Clarified Diagnosis: severe <Laura Tovar APRN - Last Filed: 10/20/23 07:41>
[2023-10-20] MEDS: FLUTICASONE/UMECLIDIN/VILANTER 100-62.5-25 MCG ELLIPTA 1 PUFF INHALATION (08:00)
[2023-10-20] MEDS: ASPIRIN 81 MG CHEWABLE TABLET PO (08:34)
[2023-10-20] MEDS: predniSONE 20 MG TABLET 60 MG PO (08:34)
[2023-10-20] MEDS: SERTRALINE HCL 25 MG TABLET PO (08:34)
[2023-10-20] MEDS: OPTI-GEN TAB 1 TABLET PO ×2 (08:34→16:56)
[2023-10-20] MEDS: SIMVASTATIN 10 MG TABLET PO (08:35)
[2023-10-20] MEDS: polyethylene glycoL 3350 17 GM POWD.PACK PO (08:35)
[2023-10-20] MEDS: APIXABAN 5 MG TABLET BY MOUTH ×2 (08:35→19:55)
--- NOTE | 2023-10-20 08:37 | P.PNIM_ITS ---
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 * Currently on room air * Respiratory panel negative for influenza A and B, RSV, COVID * Continue albuterol neb treatment * Continue Prednisone 10/20/23: * No change to current treatment plan (2) Bradycardia, sinus: Code(s): R00.1 - Bradycardia, unspecified Status: Acute Assessment and Plan: 10/19/23: * HR in the 40's, Sinus bradycardia on EKG * Will hold Metoprolol in amiodarone for now * Continue cardiac monitoring * Heart healthy diet * Cardiology consulted 10/20/23: * Awaiting Cardiology input * Continue to hold Metoprolol and amiodarone * Continue cardiac monitoring. (3) Renal calculus, right: Code(s): N20.0 - Calculus of kidney Status: Acute Assessment and Plan: 10/19/23: * CT of abdomen/pelvis revealed a 5mm non-obstructing right kidney stone 10/20/23: * No change (4) Hematuria: Qualifiers: Hematuria type: asymptomatic microscopic Qualified Code(s): R31.21 - Asymptomatic microscopic hematuria Code(s): R31.9 - Hematuria, unspecified Status: Acute Assessment and Plan: 10/19/23: * UA shown turbid appearance, trace ketones, 2+ urine blood, >100 urine RBC, moderate sediment * Will hold Eliquis * Place SCD's 10/20/23: * Eliquis restarted (5) Atrial fibrillation: Code(s): I48.91 - Unspecified atrial fibrillation Status: Acute Assessment and Plan: 10/19/23: * Restart Eliquis * Hold Amiodarone and metoprolol 400 mg daily * Currently Sinus Bradycardia in the 40's and has hematuria * Cardiology consulted 10/20/23: * Continue Eliquis * Hold amiodarone and metoprolol for now * Awaiting cardiology input (6) Lung mass: Code(s): R91.8 - Other nonspecific abnormal finding of lung field Status: Acute Assessment and Plan: 10/19/23: * Stable mass in the right lung upper lobe * Stable airspace opacities with cavitation in left upper lobe, Lung biopsy on 05/20/22 demonstrated necrotizing granuloma, emphysema * Follows with Dr. Jacobo on an outpatient basis 10/20/23: * No change (7) Essential hypertension: Code(s): I10 - Essential (primary) hypertension Status: Chronic Assessment and Plan: 10/19/23: * Blood pressure 106/43-112/49 * Metoprolol ER on hold due to bradycardia 10/20/23: * No change to current treatment plan (8) History of tobacco abuse: Code(s): Z87.891 - Personal history of nicotine dependence Status: Chronic Assessment and Plan: 10/19/23: * Former smoker * 1 pack per year for 55 years. Stopped smoking on 08/29/23 * Still smoking Cigars, 2 per week 10/20/23: * No change (9) Hyperlipidemia: Code(s): E78.5 - Hyperlipidemia, unspecified Status: Chronic Assessment and Plan: 10/19/23: * Continue aspirin and simvastatin 10/20/23: * No change to current treatment plan Time Spent With Patient Time with patient: 15 - 25 minutes Subjective Date/time seen: 10/20/23 08:37 I
--- NOTE | 2023-10-20 08:37 | PM.IMPN ---
Progress Note: A&P Assessment and Plan (1) COPD exacerbation: Code(s): J44.1 - Chronic obstructive pulmonary disease with (acute) exacerbation Status: Acute Assessment and Plan: 10/19/23: Patient received Albuterol, Duonebs, prednisone while in the ER CXR shown stable mass in right lung upper lobe, likely pneumonia, stable airspace opacities with cavitation in left upper lobe, lung biopsy on 05/20/2022 demonstrated necrotizing granuloma, emphysema. Currently on room air Respiratory panel negative for influenza A and B, RSV, COVID Continue albuterol neb treatment Continue Prednisone 10/20/23: No change to current treatment plan (2) Bradycardia, sinus: Code(s): R00.1 - Bradycardia, unspecified Status: Acute Assessment and Plan: 10/19/23: HR in the 40's, Sinus bradycardia on EKG Will hold Metoprolol in amiodarone for now Continue cardiac monitoring Heart healthy diet Cardiology consulted 10/20/23: Awaiting Cardiology input Continue to hold Metoprolol and amiodarone Continue cardiac monitoring. (3) Renal calculus, right: Code(s): N20.0 - Calculus of kidney Status: Acute Assessment and Plan: 10/19/23: CT of abdomen/pelvis revealed a 5mm non-obstructing right kidney stone 10/20/23: No change (4) Hematuria: Qualifiers: Hematuria type: asymptomatic microscopic Qualified Code(s): R31.21 - Asymptomatic microscopic hematuria Code(s): R31.9 - Hematuria, unspecified Status: Acute Assessment and Plan: 10/19/23: UA shown turbid appearance, trace ketones, 2+ urine blood, >100 urine RBC, moderate sediment Will hold Eliquis Place SCD's 10/20/23: Eliquis restarted (5) Atrial fibrillation: Code(s): I48.91 - Unspecified atrial fibrillation Status: Acute Assessment and Plan: 10/19/23: Restart Eliquis Hold Amiodarone and metoprolol 400 mg daily Currently Sinus Bradycardia in the 40's and has hematuria Cardiology consulted 10/20/23: Continue Eliquis Hold amiodarone and metoprolol for now Awaiting cardiology input (6) Lung mass: Code(s): R91.8 - Other nonspecific abnormal finding of lung field Status: Acute Assessment and Plan: 10/19/23: Stable mass in the right lung upper lobe Stable airspace opacities with cavitation in left upper lobe, Lung biopsy on 05/20/22 demonstrated necrotizing granuloma, emphysema Follows with Dr. Jacobo on an outpatient basis 10/20/23: No change (7) Essential hypertension: Code(s): I10 - Essential (primary) hypertension Status: Chronic Assessment and Plan: 10/19/23: Blood pressure 106/43-112/49 Metoprolol ER on hold due to bradycardia 10/20/23: No change to current treatment plan (8) History of tobacco abuse: Code(s): Z87.891 - Personal history of nicotine dependence Status: Chronic Assessment and Plan: 10/19/23: Former smoker 1 pack per year for 55 years. Stopped smoking on 08/29/23 Still smoking Cigars, 2 per week 10/20/23: No change (9) Hyperlipidemia: Code(s): E78.5 - Hyperlipidemia, unspecified Status: Chronic Assessment and Plan: 10/19/23: Continue aspirin and simvastatin 10/20/23: No change to current treatment plan Time Spent With Patient Time with patient: 15 - 25 minutes Subjective Date/time seen: 10/20/23 08:37 Interval history: Interval history: This is a 77-year-old male who presented to the hospital on 10/18/2023 with shortness of breath/dyspnea and abdominal pain. CXR shown stable mass in right upper lobe, likely pneumonia, stable airspace opacities with cavitation in left upper lobe, lung biopsy from 05/20/22 demonstrated necrotizing granuloma, emphysema. Head CT revealed extensive nonspecific cerebral white matter disease, which likely represents chronic small vessel ischemic disease. Abdomen/Pelvis CT shown 5mm non-obstructing right kidney stone, diverti
--- NOTE | 2023-10-20 09:11 | PM.CNCAR ---
Assessment and Plan Assessment and plan (1) Bradycardia, sinus: Code(s): R00.1 - Bradycardia, unspecified Status: Acute Assessment and Plan: His heart runs low when he is in sinus rhythm. His blood pressure is normal despite mild bradycardia. Heart rates are improving with metoprolol being held. Will discontinue metoprolol and will decrease amiodarone to 200mg daily as a maintenance dose. (2) Atrial fibrillation with rapid ventricular response: Code(s): I48.91 - Unspecified atrial fibrillation Status: Acute Assessment and Plan: Maintaining sinus rhythm on amiodarone. As above, will decrease to 200mg daily. Continue anticoagulation with eliquis 5mg b.i.d. Plan Cardiology will sign off. Please call with questions. History of Present Illness History of Present Illness Consult date/time: 10/20/23 09:11 Reason For Visit: Hematuria; Abd pain; COPD exac; Generalized weakne Narrative: Velasquez Kent is a 77 year old male with paroxysmal atrial fibrillation. He has had two recent hospitalizations where he was treated for atrial fibrillation with RVR, most recently amiodarone was added to his regimen for rhythm control and in hopes of managing tachycardia if he did revert to atrial fibrillation. He is hospitalized now with abdominal pain and weakness. Cardiology has been consulted because his heart rate was noted to be in the 40's. Patient denies any syncope, pre-syncope, palpitations, chest pain. He states he has felt generally weak since he was last released from the hospital. 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 They have 3 living children; one child in a car wreck. Retired 1998. Smoked cigarettes 1 ppd x 10 years, then cigars up to 10 per day, now 2 cigars a week. He drinks only on very rare occasion. Code status: Surrogate decision maker: Smoking packs per day: 1 Smoking cigarettes per day: 20.0 Years smoked: 55 Smoking pack-years: 55.00 Smoking status: Former smoker Tobacco type: cigars Smoking end date: 08/29/23 Additional smoking assessment comments: 1 pack per day for 10 years then switched to cigars couple of times a week Alcohol intake: never Alcohol use details: 2 drinks yearly Substance use: never Substance use type: does not use Do You Feel Safe in your Home?: Yes Lack of Transportation: No Lack of Food: Never True Current Housing: I Have Housing Concerned About Future Housing: No Difficulty Paying Gas/Electric Bills: No Difficulty Paying for Meds: No Currently Unemployed: No Education: High School Diploma/GED Difficulty w/ Childcare or Family Care: No Living arrangements: alone Occupation/Education: retired Gender identity (if verbalized by the patient): Male S
--- NOTE | 2023-10-20 13:33 | PCPTNOTE ---
On 10/20/23, the student, [Luz Elena Ch], provided care and completed [facility] documentation on this patient. I have reviewed the student's documentation and agree with the findings.
[2023-10-21] VITALS (10 sets, daily range): BP systolic 140; BP diastolic 53; PULSE 57–75; RESP 18–20; TEMP 36.2; O2SAT 96–97
[2023-10-21] MEDS: ALBUTEROL SULFATE NEB 2.5 MG/3 ML INH 5 MG INHALATION ×2 (03:19→09:37)
[2023-10-21] MEDS: IPRATROPIUM BR 0.02% INH SOLN 0.5 MG/2.5 ML VIAL INHALATION ×2 (03:19→09:37)
[2023-10-21 06:12] LABS: Basophils Percent Auto 0.2 % (0.2-1.2); Hematocrit 33.5 % (42.0-52.0); Hemoglobin 11.2 g/dL (14.0-18.0); Immature Granulocyte Absolute 0.11 K/mm3 (0.00-0.031); Immature Granulocyte Percent A 1.1 % (0-0.5); Lymphocytes Absolute Auto 0.85 K/mm3 (0.9-3.2); Lymphocytes Percent Auto 8.2 % (18.3-44.2); Mean Corpuscular HGB Conc 33.4 g/dl (32-36); Mean Corpuscular Hemoglobin 29.6 pg (26-34); Mean Corpuscular Volume 88.6 fl (80-100); Mean Platelet Volume 10.6 fl (7.4-10.4); Monocytes Absolute Auto 0.7 K/mm3 (0.1-0.6); Monocytes Percent Auto 6.8 % (2.6-8.5); Neutrophils Absolute Auto 8.7 K/mm3 (1.3-6.7); Neutrophils Percent Auto 83.7 % (45.5-73.1); Platelet Count Result 268 k/mm3 (150-375); Red Blood Count 3.78 M/mm3 (4.6-6.20); Red Cell Distribution Width 14.2 % (11.5-14.5); White Blood Count 10.3 K/mm3 (4.5-10.0)
[2023-10-21 06:19] LABS: Alanine Aminotransferase 86 U/L (6-50); Albumin Level 2.9 g/dL (3.5-5.1); Alkaline Phosphatase 135 U/L (38-126); Anion Gap 5 mmol/L (4-12); Aspartate Amino Transferase 80 U/L (17-59); Bilirubin,Total 0.3 mg/dL (0.2-1.3); Blood Urea Nitrogen 18 mg/dL (9-20); Calcium 8.8 mg/dL (8.4-10.2); Carbon Dioxide 30 mmol/L (22-30); Chloride 96 mmol/L (98-107); Estimated CRCL calculation 36 ml/min; Estimated Glomerular Filt Rate > 60; Glucose 94 mg/dL (65-110); Potassium 4.4 mmol/L (3.4-5.0); Sodium 131 mmol/L (137-145)
[2023-10-21] MEDS: SIMVASTATIN 10 MG TABLET PO (08:43)
[2023-10-21] MEDS: AMIODARONE HCL 200 MG TABLET BY MOUTH (08:44)
[2023-10-21] MEDS: predniSONE 20 MG TABLET 60 MG PO (08:44)
[2023-10-21] MEDS: ASPIRIN 81 MG CHEWABLE TABLET PO (08:44)
[2023-10-21] MEDS: OPTI-GEN TAB 1 TABLET PO (08:44)
[2023-10-21] MEDS: APIXABAN 5 MG TABLET BY MOUTH (08:44)
[2023-10-21] MEDS: SERTRALINE HCL 25 MG TABLET PO (08:44)
[2023-10-21] MEDS: FLUTICASONE/UMECLIDIN/VILANTER 100-62.5-25 MCG ELLIPTA 1 PUFF INHALATION (09:39)
--- NOTE | 2023-10-21 10:33 | PM.DS ---
DS: Admitting Diagnosis Discharge Date 10/21/23 Admitting Diagnosis COPD exacerbation Sinus bradycardia Hematuria Generalized weakness DS: Discharge Diagnosis Discharge Diagnosis (1) COPD exacerbation: Code(s): J44.1 - Chronic obstructive pulmonary disease with (acute) exacerbation Status: Acute (2) Bradycardia, sinus: Code(s): R00.1 - Bradycardia, unspecified Status: Acute (3) Renal calculus, right: Code(s): N20.0 - Calculus of kidney Status: Acute (4) Hematuria: Qualifiers: Hematuria type: asymptomatic microscopic Qualified Code(s): R31.21 - Asymptomatic microscopic hematuria Code(s): R31.9 - Hematuria, unspecified Status: Acute (5) Atrial fibrillation: Code(s): I48.91 - Unspecified atrial fibrillation Status: Acute (6) Lung mass: Code(s): R91.8 - Other nonspecific abnormal finding of lung field Status: Acute (7) Essential hypertension: Code(s): I10 - Essential (primary) hypertension Status: Chronic (8) History of tobacco abuse: Code(s): Z87.891 - Personal history of nicotine dependence Status: Chronic (9) Hyperlipidemia: Code(s): E78.5 - Hyperlipidemia, unspecified Status: Chronic DS: Summary Hospital Course Reason for hospitalization: COPD exacerbation Sinus bradycardia Hematuria Generalized weakness Hospital Course: This is a 77-year-old male who presented to the hospital on 10/18/2023 with shortness of breath/dyspnea and abdominal pain. CXR shown stable mass in right upper lobe, likely pneumonia, stable airspace opacities with cavitation in left upper lobe, lung biopsy from 05/20/22 demonstrated necrotizing granuloma, emphysema. Head CT revealed extensive nonspecific cerebral white matter disease, which likely represents chronic small vessel ischemic disease. Abdomen/Pelvis CT shown 5mm non-obstructing right kidney stone, diverticulosis without diverticulitis. Initial labs revealed Hgb 13.3, Na+ 131, Chloride 96, alkaline phosphatase 167, Troponin negative, TSH 3.420. UA shown turbid appearance, trace ketones, 2+ urine blood, urine RBC >100, moderate sediment. Respiratory panel was negative for Influenza A and B, RSV, Covid. EKG shown sinus bradycardia with a rate of 40, QTc 397. Last echo reviewed from 09/23/23 shown normal LV systolic function with an estimated EF of 65-70%, RV systolic function was normal, trivial anterior pericardial effusion. Patient was given 1L NS, Albuterol tx, Duoneb treatment, prednisone, and pain medication while in the ER. During his day we held his amiodarone and his metoprolol ER considering his sinus bradycardia in the 30s to 40s. Cardiology was consulted and patient was taken off of metoprolol ER and restarted back on amiodarone at a lower dose of 200 mg daily. His heart rate is now in the upper 50s to 60s and is stable. He also had a COPD exacerbation and was started on prednisone and DuoNebs. He is sending much better today. He is currently on room air. He is stable for discharge at this time. He will be given a prednisone taper along with azithromycin for 5 days for his COPD exacerbation. He will need to follow up with his primary care physician in 1 week. He will also need to follow up with Cardiology in 3 weeks. Final diagnosis: COPD exacerbation, sinus bradycardia Status at Discharge Cognitive/behavioral status at discharge: Alert and oriented x3 Functional status at discharge: independent ambulation Overall status at discharge: patient is progressing back to baseline Time Spent with Patient Time attestation: Total time spent providing and/or coordinating discharge services: Time spent: Greater than 30 minutes Exam Narrative: General: In no acute distress, malnourished Cardiac: Normal S1 and S2. Sinus Martínez- NSR, No murmur, gallops or friction rubs, peripheral pulses intact. Respiratory: Lungs clear to auscultation, mild inspiratory and expi
== END 2023-10-21 12:58 | disposition home health service (06) | DRG 190 ==
LOC: ANHED 09:48 → ANH2MED 16:33
PROVIDERS: Admitting Provider General Practice; Emergency Provider Student in an Organized Health Care Education/Training Program; PCP Nurse Practitioner Family; Visit Provider Nurse Practitioner Acute Care
DX: J44.1 Chronic obstructive pulmonary disease with (acute) exacerbation (principal); E43 Unspecified severe protein-calorie malnutrition; E87.1 Hypo-osmolality and hyponatremia; R64 Cachexia; Z68.1 Body mass index [BMI] 19.9 or less, adult; Z20.822 Contact with and (suspected) exposure to COVID-19; R00.1 Bradycardia, unspecified; R31.29 Other microscopic hematuria; I48.0 Paroxysmal atrial fibrillation; R91.8 Other nonspecific abnormal finding of lung field; I10 Essential (primary) hypertension; E78.5 Hyperlipidemia, unspecified; D64.9 Anemia, unspecified; N20.0 Calculus of kidney; H35.30 Unspecified macular degeneration; Z87.891 Personal history of nicotine dependence; Z79.82 Long term (current) use of aspirin; Z85.828 Personal history of other malignant neoplasm of skin
CPT/HCPCS: 36415; 36600; 70450; 71046; 74177; 80053; 81001; 82805; 83605; 83735; 84443; 84484; 85025; 87637; 93005; 94640; 96361; 96374; 97161; 97165; 99285; A9270; G0378; J2270; J7030; J7512; Q9967

== ENCOUNTER 2023-12-23 10:53 | Outpatient (CLI) | payer MEDICARE, SELFPAY ==
--- NOTE | ~2023-12-23 | CT_ITS ---
EXAMINATION:CT diagnostic chest wo con DATE: 12/23/2023 11:08 INDICATION: Pulmonary nodules. TECHNIQUE: Computed tomography (CT) of the chest was performed without intravenous contrast. Automate d exposure control and iterative reconstruction technique were employed. The dose-length product (DLP ) was 64.84 mGy-cm. COMPARISON: Chest CT 09/22/2023 FINDINGS: There is severe emphysema. There are multiple nodules in right upper lobe with change in di stribution from 09/22/2023, consistent with pneumonia. Calcified right lung nodules are consistent wit h old granulomatous disease. There are chronic airspace opacities with volume loss and cavitation and calcifications involving left upper lobe, consistent with granulomatous disease. There is an 8 mm no dule in left lower lobe, new from 09/22/2023, likely infection. There are new nodules in perihilar lef t lower lobe measuring up to 15 mm, likely infection. There are small nodules in left lower lobe. The re is a trace left pleural effusion. The heart size is normal. There are coronary artery calcificatio ns. No pericardial effusion. There is a 6 mm stone in right kidney. There is moderate lumbar spondylo sis. IMPRESSION: 1. Multifocal lung disease with worsening in left lower lobe, consistent with pneumonia. 2. Severe emphysema. Reviewed, dictated and finalized at location A. IMPRESSION: 1. Multifocal lung disease with worsening in left lower lobe, consistent with p neumonia. 2. Severe emphysema.
== END 2023-12-23 10:54 | disposition home or self-care (01) ==
LOC: ANHIMG 10:54
PROVIDERS: PCP Nurse Practitioner Family; Visit Provider Internal Medicine Critical Care Medicine
DX: R91.8 Other nonspecific abnormal finding of lung field (principal); J43.9 Emphysema, unspecified
CPT/HCPCS: 71250

== ENCOUNTER 2024-05-30 22:34 | Inpatient (IN) | payer MEDICARE, SELFPAY ==
--- NOTE | ~2024-05-30 | CT_ITS ---
History: Fall PROCEDURE: CT head without contrast. COMPARISON: 10/18/2023 TECHNIQUE: Axial imaging of the head performed from the skull base to the vertex without IV contrast. Sagittal a nd coronal reformations obtained. DLP: 605 mGy-cm FINDINGS: The ventricles are enlarged. The dilatation of the ventricles is proportional to the degree of sulcal prominence, not uncommon in the senescent brain. Decreased attenuation is identified within the periventricular white matter, likely secondary to micr ovascular ischemic disease, in a patient of this age. There is no mass, mass effect or midline shift. There is no abnormal extra-axial fluid collection or intracranial hemorrhage. Visualized paranasal sinuses are clear. The mastoid air cells are well aerated. No acute displaced fractures within the overlying cranium. Impression: No acute intracranial hemorrhage or suspicious mass effect. Reviewed, dictated and finalized at location A. Impression: No acute intracranial hemorrhage or suspicious mass effect.
--- NOTE | ~2024-05-30 | XR_ITS ---
XR chest 1V portable 06/01/2024 14:00 Indication: Shortness of breath Procedure: AP portable chest Comparison: Comparison to multiple prior studies sequentially, with oldest reviewed study dated 09/21. Findings: Spiculated mass right upper lobe surrounding scarring and lucency. This is not significantl y changed from 09/22/2023 overlying for differences of technique. There is chronic left apical pleural thickening/scarring, possibly post radiation therapy. Heart size normal. No acute focal pneumonia, e elvia or effusion. Impression: 1: Stable spiculated right upper lobe mass and apical pleural thickening/scarring bilaterally without significant change dating back to 09/22/2023. Underlying malignancy is not excluded. Reviewed, dictated and finalized at location A. Impression: 1: Stable spiculated right upper lobe mass and apical pleural thickening/scarri ng bilaterally without significant change dating back to 09/22/2023. Underlying malignancy is not excluded.
--- NOTE | ~2024-05-30 | XR_ITS ---
HISTORY: fall, rib pain COMPARISON: Reference is made to a CT examination of the chest dated 12/23/2023. TECHNIQUE: 2 views of the right ribs were performed along with a frontal view of the chest FINDINGS: Postoperative change within the left upper lobe, with resulting volume loss within the left hemithora x. Redemonstration of a spiculated mass within the right upper lobe. Panlobular emphysematous change is redemonstrated. Diffuse bony demineralization is identified, rendering detection of nondisplaced fractures somewhat l imited. No acute displaced right-sided rib fracture is identified. IMPRESSION: No acute displaced right-sided rib fracture, as detailed above. Remainder of the examination as detailed above. Reviewed, dictated and finalized at location A.
--- NOTE | ~2024-05-30 | CT_ITS ---
Clinical Indication: Anemia, lung mass, status post fall CT Scan of the Chest, Abdomen, and Pelvis with Contrast: Technique: Contiguous sections were acquired throughout the chest, abdomen, and pelvis after intraven ous administration of 100 cc of Omnipaque 350. Dose reduction technique was used on this scan by uti lizing automated exposure control and iterative reconstruction technique. The dose-length product (DL P) was 249.92 mGy-cm. Comparison: 12/23/2023, 10/18/2023 Findings: There is no evidence of any significant mediastinal, hilar or axillary lymphadenopathy. The mediastin al soft tissues an vascular structures appear normal. Minimal left pleural fluid present. No right pleural effusion. No pericardial effusion. There is severe emphysema. There are increased size of spiculated nodules/lesions in the right upper lobe/right perihilar region as compared to prior exam. There is stable area of cavitation or bronchie ctatic change at the left lung apex with peribronchial vascular thickening consolidation extending to wards the hilum, suggestive of post radiation or post treatment change. The liver, spleen, pancreas, gallbladder, adrenals and left kidney are within normal limits. 6 mm non obstructing right renal stone present. There are atherosclerotic calcifications of the aorta. No lym phadenopathy. No bowel obstruction or bowel wall thickening. There is no evidence to suggest acute appendicitis. Th ere is nonspecific infiltrative change in the presacral soft tissues. Urinary bladder is unremarkable. No pelvic mass seen. No ascites. Impression: Increased size and extent of spiculated nodules and small satellite nodules in the right upper lobe e xtending towards the right perihilar region. Findings are suspicious for progression of neoplastic/me tastatic disease, versus possibly worsening infectious/inflammatory process. Severe emphysema with stable probable postradiation or other posttreatment changes in the left lung a pex. Nonspecific infiltrative change in the presacral soft tissues. 6 mm nonobstructing right renal stone. Reviewed, dictated and finalized at location M. Impression: Increased size and extent of spiculated nodules and small satellite nodules in the right upper lobe extending towards the right perihilar region. Findings are suspicious for progression of neoplastic/metastatic disease, versus possibly w orsening infectious/inflammatory process. Severe emphysema with stable probable postradiation or other posttreatment kearns ges in the left lung apex. Nonspecific infiltrative change in the presacral soft tissues. 6 mm nonobstructing right renal stone.
[2024-05-30 22:32] VITALS: BP 142/45; PULSE 65; RESP 20; TEMP 36.7; O2SAT 100
--- NOTE | 2024-05-30 22:46 | ED_ITS ---
HPI - Fall General Chief Complaint: Fall Stated Complaint: FALL Time Seen by Provider: 05/30/24 22:39 History of Present Illness HPI Narrative: 78-year-old male with a past medical history including COPD, atrial fibrillation on Eliquis, hypertension. Patient presents to the emergency department after mechanical fall. Patient states that he felt like his legs were given out and he landed onto his right side onto carpet. Did strike his head but did not lose consciousness. He states he has 1/10 pain in his right side ribcage but denies any headache or vision changes. Was able to get up and called ambulance for assistance. He lives alone. No recent changes to his medications. No other injuries. Denies any headache, vision change, nausea, vomiting, abdominal pain, fever, chills, loss of continence, neurological complaints. Declines any allergies medications at this time. Related Data Home Medications ?Medication ?Instructions ?Recorded ?Confirmed ?Last Taken ?Type aspirin 81 mg chewable tablet 81 mg PO DAILY 03/11/22 05/23/24 10/06/23 08:00 History vitamins A,C,P-lnhj-yubqgw 2,148 1 tablet PO BIDWM 03/11/22 05/23/24 10/06/23 17:00 History mcg-113 mg-45 mg-17.4 mg tablet (PreserVision AREDS) Allergies Allergy/AdvReac Type Severity Reaction Status Date / Time No Known Allergies Allergy Verified 05/30/24 22:40 Review of Systems 2 Review of Systems: As reviewed above in HPI [facility] Past Medical History Medical History Pulmonary infiltrate present on computed tomography Depression Atrial fibrillation 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 History of tobacco abuse Hyperlipidemia 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 They have 3 living children; one child in a car wreck. Retired 1998. Smoked cigarettes 1 ppd x 10 years, then cigars up to 10 per day, now 2 cigars a week. He drinks only on very rare occasion. Code status: Surrogate decision maker: Smoking packs per day: 1 Smoking cigarettes per day: 20.0 Years smoked: 55 Smoking pack-years: 55.00 Smoking status: Former smoker Tobacco type: cigars Smoking end date: 08/29/23 Additional smoking assessment comments: 1 pack per day for 10 years then switched to cigars couple of times a week Alcohol intake: former Alcohol use details: 2 drinks yearly Substance use: never Substance use type: does not use Do You Feel Safe in your Home?: Yes Lack of Transportation: No Lack of Food: Never True Current Housing: I Have Housing Concerned About Future Housing: No Difficulty Paying Gas/Electric Bills: No Difficulty Paying for Meds: No Currently Unemployed: No Education: High School Diploma/GED Difficulty w/ Childcare or Family Care: No Living arrangements: alone Occupation/Education: retired Gender identity (if verbalized by the patient): Male Spiritual care concerns: No Exam 2 Narrative: GENERAL: Thin and frail but not any acute distress, very is old bruising noted to his arms HEAD: [Normocephalic, atraumatic.] EYES: [PERRLA and EOMI.] ENT: Nares clear, no rhinorrhea or epistaxis. Mucous membranes moist. NECK: Supple. CHEST: [Clear to auscultation. No respiratory distress.] HEART: [Regular rate and rhythm]. No murmur heard. [Normal peripheral pulses.] ABDOMEN: [Soft, nondistended], [nontender], [No rigidity or guarding] EXTREMITIES: Normal range of motion. [No edema.] Mild tenderness to palpation over the right-sided lateral rib cage without any overlying skin changes or crepitus. SKIN: Thin skin with various bruising over bilateral arms from old injuries. Skin tear to his left pinky area NEURO: [No focal deficits]. Alert and oriented [x3.] PSYCH: [Normal mood and affect.] Course Vital Signs Vital signs: Vital Signs Temperature 36.7 C 05/30/24 22:32 Pulse Rate 65 05/30/24 22:32 Respiratory Rate 20 05/30/24 22:32 Blood Pressure 142/45 H 05/30/24 22:32 Pulse Oximetry 100 05/30/24 22:32 Oxygen Delivery Room Air 05/30/24 22:32 Temperature 36.4 C 05/31/24 02:07 Pulse Rate 67 05/31/24 02:07 Respiratory Rate 24 H 05/31/24 02:07 Blood Pressure 158/61 H 05/31/24 02:07 Pulse Oximetry 99 05/31/24 02:07 Oxygen Delivery Room Air 05/30/24 22:32 MDM - Fall MDM Narrative Medical decision making narrative: 78-year-old male history of COPD, atrial fibrillation on [facility] presents to the ED after a mechanical fall at home. Patient fell onto carpet and landed onto his right side ribcage. He states he was feeling weak and his legs gave out. He states he did strike his head but did not lose consciousness. He has no significant evidence of trauma. He has very thin skin with various bruises to his arms and legs but nothing hyperacute. Full range of motion of the extremities. No central tenderness to the spine. No evidence of hematoma on the head. Given his age and risk factors with head trauma on [facility] a CT of the head was obtained. Right rib series was also ordered although suspicion for fracture is low. Patient politely declined any analgesia at this time. He has normal vital signs and unremarkable neurological exam. Laboratory studies were ordered including a CBC and CMP. Attempted to ambulate the patient after negative x-rays and he was not able to walk as he was feeling weak. Laboratory studies show significant derangements including a leukocytosis of 14.4, anemia of 5.6 and hematocrit of 19 which is significantly lower than his prior levels since last year. His chest x-ray shows no acute cardiopulmonary process or rib fracture but there is a spiculated mass that was redemonstrated. CT of the chest abdomen pelvis was ordered to rule out malignancy or potential GI process. He does have guaiac-positive stool at bedside examination but no active bleeding or bright red stool. External hemorrhoid was evident. Patient CT scan results were independently reviewed. He has severe paraseptal and centrilobular emphysema, multiple nodules in the right upper lobe, these nodules have been present for years according to his previous CT scans, left apex cavitation also seen but chronic. He has an acute right buccal fracture of the right 6th rib that was not seen on the x-ray, but no intrathoracic bleeding or hemothorax. Abdomen pelvis CT shows no traumatic injuries, and no acute intra-abdominal findings. Patient is hemodynamically stable and has received 2 units of packed red blood cells. Repeat H&H will be ordered as well as iron studies. Patient will be admitted to the hospitalist for further evaluation. Consult placed to GI, awaiting call back from Dr. Dupree. Spoke to Dr. Jane from the hospitalist team who accepted the patient to a telemetry monitored bed at this time. Spoke to Dr. Dupree who recommended iron studies and will see the patient during admission. Medical Records Attestation: I reviewed the patient's medical records. Lab Data Attestation: I reviewed the patient's lab results. 05/30/24 23:44 05/30/24 23:44 Labs: Lab Results 05/30/24 05/31/24 Range/Units 23:44 00:21 WBC 14.4 H (4.5-10.0) K/mm3 RBC 2.82 L (4.6-6.20) M/mm3 Hgb 5.6 L* D (14.0-18.0) g/dL Hct 19.0 L* (42.0-52.0) % MCV 67.4 L (80-100) fl MCH 19.9 L (26-34) pg MCHC 29.5 L (32-36) g/dl RDW 17.9 H (11.5-14.5) % Plt Count 297 (150-375) k/mm3 MPV 9.4 (7.4-10.4) fl Immature Gran % (Auto) 1.0 H (0-0.5) % Neut % (Auto) 89.0 H (45.5-73.1) % Lymph % (Auto) 4.7 L (18.3-44.2) % [place] % (Auto) 4.9 (2.6-8.5) % Eos % (Auto) 0.1 (0-4.4) % Baso % (Auto) 0.3 (0.2-1.2) % Lymph # (Auto) 0.67 L (0.9-3.2) K/mm3 [place] # (Auto) 0.7 H (0.1-0.6) K/mm3 Eos # (Auto) 0.0 (0-0.3) K/mm3 Baso # (Auto) 0.1 (0.0-0.1) K/mm3 Abs Immat Gran (auto) 0.15 H (0.00-0.031) K/mm3 Absolute Neuts (auto) 12.8 H (1.3-6.7) K/mm3 Absolute Nucleated RBC 0.000 (0.0-0.012) K/mm3 Band Neutrophils % Not Reportable Nucleated RBC % 0.0 (0.0-0.2) % Platelet Estimate Adequate (Adequate) Hypochromasia 2+ Anisocytosis 1+ Target Cells 1+ Ovalocytes 1+ Schistocytes 1+ PT 22.7 H (11.1-14.7) Seconds INR 2.0 APTT 34.4 (22.3-36.8) Seconds Sodium 136 L (137-145) mmol/L Potassium 4.3 (3.4-5.0) mmol/L Chloride 105 (98-107) mmol/L Carbon Dioxide 24 (22-30) mmol/L Anion Gap 7 (4-12) mmol/L BUN 21 H (9-20) mg/dL Creatinine 1.06 (0.7-1.3) mg/dL Estim Creat Clear Calc 37 ml/min Estimated GFR > 60 (59 - ) Glucose 100 (65-110) mg/dL Calcium 8.8 (8.4-10.2) mg/dL Total Bilirubin 0.4 (0.2-1.3) mg/dL AST 28 (17-59) U/L ALT 28 (6-50) U/L Alkaline Phosphatase 147 H (38-126) U/L Total Protein 6.0 L (6.3-8.2) g/dL Albumin 3.6 (3.5-5.1) g/dL Blood Type AB Positive Antibody Screen Negative Crossmatch See Detail Imaging Data Attestation: I personally reviewed and interpreted this imaging study as follows: My impression: Impressions Head CT 04/02/25 23:06 Impression: No acute intracranial hemorrhage or suspicious mass effect. Ribs X-Ray 05/30/24 23:10 IMPRESSION: No acute displaced right-sided rib fracture, as detailed above. Remainder of the examination as detailed above. Radiologist's impression: CT chest abdomen pelvis shows no visceral injuries, no acute disease injuries in the abdomen or pelvis, lung with stable nodules in the right upper lobe and left apex. Buckle fracture of the right 6th rib without displacement or underlying lung injury. Discharge Plan Discharge Clinical Impression: Acute anemia, Guaiac positive stools, Generalized weakness, Fall, Closed rib fracture, Multiple lung nodules on CT Patient Disposition: Still a Patient Condition: Stable Patient Language: Georgian Prescriptions: No Action albuterol sulfate 90 mcg/actuation HFA aerosol inhaler 1 inh inhalation Q4H PRN (Reason: shortness of breath or wheezing) Qty: 8.5 0RF Eliquis 5 mg tablet 5 mg BYMOUTH Q12HR Qty: 180 1RF amiodarone [Pacerone] 200 mg tablet 200 mg BYMOUTH DAILY Qty: 90 0RF azithromycin 250 mg tablet 250 mg PO DAILY Qty: 14 5RF Rx Instructions: Take one pill Tue, Tue, and Fridays. zolpidem [Ambien] 5 mg tablet 5 mg PO QHS Qty: 30 0RF aspirin 81 mg tablet,chewable 81 mg PO DAILY PreserVision AREDS 2,148 mcg-113 mg-45 mg-17.4mg tablet 1 tablet PO BIDWM Rx Instructions: administer with AM and PM meals polyethylene glycol 3350 [Miralax] 17 gram/dose powder 17 g PO DAILY Qty: 850 0RF Ohtuvayre 3 mg/2.5 mL suspension for nebulization 2.5 ml inhalation BID 30 Days Qty: 150 5RF simvastatin 10 mg tablet 10 mg PO DAILY Qty: 90 1RF Breztri Aerosphere 160-9-4.8 mcg/actuation HFA aerosol inhaler 2 inh inhalation BID 90 Days Qty: 32.1 0RF sertraline 25 mg tablet 25 mg PO DAILY Qty: 90 1RF trazodone 50 mg tablet 50 mg PO QHS PRN (Reason: sleep) Qty: 30 0RF Follow-up/Referrals: Noelle Tian, AVIATION PROJECT MANAGER-C [Primary Care Provider] - Time of Disposition: 02:42
--- OUTSIDE RECORDS SUMMARY | 2024-05-30 23:02 | XMS_ITS | Clinical Summary ---
Author Organization [facility] Address [address] [place] [id number] Care Team Providers Care Counseling Program Leader Name Role Phone Unavailable Primary Care Provider Unavailabl e Social History Tobacco Use Types Packs/Day Years Used Date Smoking Tobacco: Never Assessed Sex and Gender Information Value Date Recorded Sex Assigned at Not on file Legal Sex Male 11:10 PM CDT Gender Identity Not on file Sexual Orientation Not on file Last Filed Vital Signs Vital Sign Reading Time Taken Comments Blood Pressure 124/68 07/06/2016 8:35 AM CDT Pulse 56 07/06/2016 8:35 AM CDT Temperature - - Respiratory Rate - - Oxygen Saturation - - Inhaled Oxygen Concentration - - Weight 52.6 kg (116 lb) 07/06/2016 8:35 AM CDT Height 161.3 cm (5' 3.5 ) 07/06/2016 8:35 AM CDT Body Mass Index 20.23 07/06/2016 8:35 AM CDT Plan of Treatment Health Maintenance Due Date Last Done Comments Hepatitis C 12/23/1963 DTaP, Tdap and Td Vaccines ( 1 - Tdap) 1964 Zoster Vaccines (1 of 2) 12/23/1995 Pneumococcal Vaccine: 65+ Ye ars (1 of 1 - PCV) 2010 RSV Immunization or 60+ Years (1 - 1-dose 75+ series) 2020 COVID-19 Vaccine ( - 2023-2 5 season) 2023 Influenza Adult (#1) 2023 Meningococcal B Vaccine Aged Out No l onger eligible based on patient's age to complete this topic Meningococcal Vaccine Aged Out No boogie parker eligible based on patient's age to complete this topic RSV Immunizations Under 20 Months Aged Out No longer eligible based on patient's age to complete this topic
--- OUTSIDE RECORDS SUMMARY | 2024-05-30 23:02 | XMS_ITS | Clinical Summary ---
Author Organization [facility] Address [address] [place] [address] Phone Care Team Providers Care Cab Starter Name Role Phone Jeffery Almonte MD Primary Care Provider [phone] Allergies No known active allergies Medications No known medications Immunizations Immunization Administration Dates Next Due (ADACEL/BOOSTRIX)(10 YR UP) TDAP VACCINE, 0.5ML, IM 09/18/2022 Social History Tobacco Use Types Packs/Day Years Used Date Smoking Tobacco: Former Cigarettes Alcohol Use Standard Drinks/Week Comments Never 0 (1 standard drink = 0.6 oz pur e alcohol) Feeling Safe Answer Date Recorded Are you in a relationship wi th someone who hurts you emotionally and/or physically? No 09/17/2022 Sex and Gender Information Value Date Recorded Sex Assigned at Not on file Legal Sex Male 9:31 PM CDT Gender Identity Not on file Sexual Orientation Not on file Last Filed Vital Signs Vital Sign Reading Time Taken Comments Blood Pressure 160/66 09/18/2022 12:04 AM CDT Pulse - - Temperature 36.6 C (97.9 F) 09/18/2022 12:04 AM CDT Respiratory Rate 18 09/18/2022 12:04 AM CDT Oxygen Saturation 96% 09/18/2022 12:04 AM CDT Inhaled Oxygen Concentration - - Weight 46.3 kg (102 lb) 09/17/2022 9:48 PM CDT Height 160 cm (5' 3 ) 09/17/2022 9:48 PM CDT Body Mass Index 18.07 09/17/2022 9:48 PM CDT Plan of Treatment Health Maintenance Due Date Last Done Comments PNEUMOCOCCAL VACCINE 50+ YEARS (1 of 1 - PCV) 12/22/18 96 ZOSTER VACCINE (1 of 2) 12/23/1995 RSV VACCINE (60+ or ) (1 - 1-dose 75+ series) 2020 INFLUENZA VACCINE (#1) 2023 DTAP/TDAP/TD VACCINES (2 - Td or Tdap) 09/18/2032 Insurance MEDICARE PART A AND B BCBS SUPP Care Teams Cab Starter Relationship Specialty Start Date End Date Jeffery Almonte MD [address] [place] [phone] PCP - General Family Practice 09/18/22
--- OUTSIDE RECORDS SUMMARY | 2024-05-30 23:02 | XMS_ITS | Continuity of Care Document ---
Author Organization [facility] Address [address] [place] [address] [place] [address] Phone Care Team Providers Care Supervisor Fish Processing Name Role Phone Mynor Chaparro Unavailable Unavailable Advance Directives Directive Yes / No Effective Date File Name No Information Encounters Encounter Description Practice Location Reason(s) For Visit Diagnoses Date Provider Providers Copied on Encounter [facility], [address], [place], [place], [id number], tel:[phone] [facility] No Information Shankar Lowe. [address] [place], [address], [place]. tel:[phone] Referring Provider: Aguila Frye, [address], [place], [place], [facility]. tel:[phone] Family History Family Member Type Diagnosis Age At Onset No Information Payers Payer name Insurance type Covered constitution party ID Authoriza tion(s) No Information Social History Type Description Quantity Date Captured Comments Sex Male Smoking Status No Information Chief Complaint And Reason For Visit No Information Reason For Referral Reason For Referral No Information History Of Present Illness Encounter Date Complaint History Of Prese nt Illness No Information Functional Status Date Functional Assessmen t No Information Instructions Date Instruction Additional Infor mation No Information Assessments Type Assessment Date No Information Patient Care Teams Name Effective Dates (start - stop) Status Members No Information
[2024-05-30 23:49] LABS: Basophils Absolute Auto 0.1 K/mm3 (0.0-0.1); Basophils Percent Auto 0.3 % (0.2-1.2); Eosinophils Percent Auto 0.1 % (0-4.4); Immature Granulocyte Absolute 0.15 K/mm3 (0.00-0.031); Lymphocytes Absolute Auto 0.67 K/mm3 (0.9-3.2); Lymphocytes Percent Auto 4.7 % (18.3-44.2); Mean Corpuscular HGB Conc 29.5 g/dl (32-36); Mean Corpuscular Hemoglobin 19.9 pg (26-34); Mean Corpuscular Volume 67.4 fl (80-100); Mean Platelet Volume 9.4 fl (7.4-10.4); Monocytes Absolute Auto 0.7 K/mm3 (0.1-0.6); Monocytes Percent Auto 4.9 % (2.6-8.5); Neutrophils Absolute Auto 12.8 K/mm3 (1.3-6.7); Platelet Count Result 297 k/mm3 (150-375); Red Blood Count 2.82 M/mm3 (4.6-6.20); Red Cell Distribution Width 17.9 % (11.5-14.5); White Blood Count 14.4 K/mm3 (4.5-10.0)
[2024-05-30 23:58] LABS: Alanine Aminotransferase 28 U/L (6-50); Albumin Level 3.6 g/dL (3.5-5.1); Alkaline Phosphatase 147 U/L (38-126); Anion Gap 7 mmol/L (4-12); Aspartate Amino Transferase 28 U/L (17-59); Bilirubin,Total 0.4 mg/dL (0.2-1.3); Blood Urea Nitrogen 21 mg/dL (9-20); Calcium 8.8 mg/dL (8.4-10.2); Carbon Dioxide 24 mmol/L (22-30); Chloride 105 mmol/L (98-107); Estimated CRCL calculation 37 ml/min; Estimated Glomerular Filt Rate > 60; Glucose 100 mg/dL (65-110); Potassium 4.3 mmol/L (3.4-5.0); Sodium 136 mmol/L (137-145)
[2024-05-31] VITALS (21 sets, daily range): BP systolic 123–158; BP diastolic 52–73; PULSE 47–125; RESP 15–26; TEMP 36.1–36.6; O2SAT 96–100; BMI 17.4
[2024-05-31 00:02] LABS: Prothrombin Time 22.7 Seconds (11.1-14.7)
[2024-05-31 00:03] LABS: Partial Thromboplastin Time 34.4 Seconds (22.3-36.8)
[2024-05-31 00:05] LABS: Hemoglobin 5.6 g/dL (14.0-18.0)
[2024-05-31 00:06] LABS: Anisocytosis 1+; Hypochromasia 2+; Platelet Estimate Adequate (Adequate); Target Cells 1+
[2024-05-31 00:07] LABS: Ovalocytes 1+; Schistocytes 1+
[2024-05-31] MEDS: SODIUM CHLORIDE 0.9% IV 250 ML 30 ML IV CONT (01:58)
[2024-05-31] MEDS: TUBING, BLOOD PLUM PUMP TUBING 1 EACH XX (01:58)
[2024-05-31] MEDS: MORPHINE SULFATE (*CRX) 2 MG/ML INJ IV PUSH ×3 (03:51→09:17)
[2024-05-31] MEDS: LACTATED RINGERS 1,000 ML 75 ML IV CONT ×2 (03:56→21:13)
--- NOTE | 2024-05-31 04:06 | ADMGEN ---
This patient, Velasquez Kent, was admitted to Medical Room 347-. Patient/family oriented to hospital policies and general routines including ID bracelet, bed and alarms, visiting hours, pain management, procedures, bathroom and other care routines, personal items, smoking policy, room service/diet, and visiting hours. Information on how to activate the Rapid Response Team has been discussed. Patient/Family are encouraged to report perceived risks to care and to ask questions if they do not understand what they are told or what they should do.
--- NOTE | 2024-05-31 05:41 | PM.IMHP ---
H&P: HPI History of Present Illness Date/Time: 05/31/24 05:41 Chief Complaint: Fall Narrative: A pleasant 78-year-old male with a history of COPD, atrial fibrillation on Eliquis and aspirin, hypertension, depression, history of tobacco abuse, hyperlipidemia, COPD. He presents to [place] ER after a mechanical fall. He felt like his legs had given out and landed onto his right side on a carpet. Reports he hit his head but did not have loss of consciousness. He complained of mild pain on his right ribcage. Denied any other complaints. Endorses a dark colored stool for about 3 months. He denies any prior history of gastrointestinal bleed. ER evaluation demonstrated normal vital signs aside from mildly uncontrolled blood pressure. WBC 14.4, hemoglobin 5.6 with a baseline of 11 in the past 6 months. Platelets 297, INR 2.0, sodium 136, BUN 21, creatinine 1.06. Stool guaiac positive. CT head did not demonstrate acute abnormality. X-ray of the ribs two view did not demonstrate acute fracture. CTA chest abdomen pelvis performed with preliminary reading revealing severe paraseptal and centrilobular emphysema, multiple nodules in the right upper lobe, left apex cavitation which are chronic findings. It did reveal a acute fracture of the right 6 rib. 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 They have 3 living children; one child in a car wreck. Retired 1998. Smoked cigarettes 1 ppd x 10 years, then cigars up to 10 per day, now 2 cigars a week. He drinks only on very rare occasion. Code status: Surrogate decision maker: Smoking packs per day: 1 Smoking cigarettes per day: 20.0 Years smoked: 55 Smoking pack-years: 55.00 Smoking status: Current some day smoker Tobacco type: cigars Smoking end date: 08/29/23 Additional smoking assessment comments: 1 pack per day for 10 years then switched to cigars couple of times a week Alcohol intake: current Alcohol use details: 2 drinks yearly Substance use: never Substance use type: does not use Do You Feel Safe in your Home?: Yes Lack of Transportation: No Lack of Food: Never True Current Housing: I Have Housing Concerned About Future Housing: No Difficulty Paying Gas/Electric Bills: No Difficulty Paying for Meds: No Currently Unemployed: No Education: High School Diploma/GED Difficulty w/ Childcare or Family Care: No Living arrangements: alone Occupation/Education: retired Gender identity (if verbalized by the patient): Male Spiritual care concerns: No Meds Home Medications and Allergies Home Medications ?Medication ?Instructions ?Recorded ?Confirmed ?Type aspirin 81 mg chewable tablet 81 mg PO DAILY 03/11/22 05/31/24 History vitamins A,C,U-ymta-mpluyx 2,148 1 tablet PO BIDWM 03/11/22 05/31/24 History mcg-113 mg-45 mg-17.4 mg tablet (PreserVision AREDS) polyethylene glycol 3350 17 17 g PO DAILY #850 grams 10/21/23 05/31/24 Rx gram/dose oral powder (Miralax) ensifentrine 3 mg/2.5 mL 2.5 ml inhalation BID COPD 1 month 02/16/24 05/31/24 Rx suspension for nebulization #150 mL (Ohtuvayre) albuterol sulfate 90 mcg/actuation 1 inh inhalation Q4H PRN shortness 03/13/24 05/31/24 Rx aerosol inhaler of breath or wheezing #8.5 grams apixaban 5 mg tablet (Eliquis) 5 mg BYMOUTH Q12HR #180 tabs 03/13/24 05/31/24 Rx simvastatin 10 mg tablet 10 mg PO DAILY #90 tabs 04/03/24 05/31/24 Rx amiodarone 200 mg tablet (Pacerone) 200 mg BYMOUTH DAILY #90 tabs 05/04/24 05/31/24 Rx zolpidem 5 mg tablet (Ambien) 5 mg PO QHS #30 tabs 05/04/24 05/31/24 Rx budesonide 160 mcg-glycopyr 9 2 inh inhalation BID 90 days #32.1 05/07/24 05/31/24 Rx mcg-formot 4.8 mcg/actuation HFA grams inhaler (Breztri Aerosphere) sertraline 25 mg tablet 25 mg PO DAILY #90 tabs 05/29/24 05/31/24 Rx trazodone 50 mg tablet 50 mg PO QHS PRN sleep #30 tabs 05/29/24 05/31/24 Rx Allergies Allergy/AdvReac Type Severity Reaction Status Date / Time No Known Allergies Allergy Verified 05/30/24 22:40 Vital Signs Vital Signs - 24 hr 05/30/24 22:32 05/31/24 01:06 05/31/24 01:49 Temperature 98.0 F 97.4 F L Pulse Rate 65 71 69 Respiratory Rate 20 21 H 26 H Blood Pressure 142/45 H 130/72 148/52 H Pulse Oximetry 100 96 96 Oxygen Delivery Room Air 05/31/24 02:07 05/31/24 03:06 05/31/24 03:07 Temperature 97.6 F 97.1 F L 97.1 F L Pulse Rate 67 60 60 Respiratory Rate 24 H 15 15 Blood Pressure 158/61 H 123/71 123/71 Pulse Oximetry 99 99 99 Oxygen Delivery 05/31/24 03:30 05/31/24 03:59 05/31/24 04:38 Temperature 97.8 F 97.4 F L 97.8 F Pulse Rate 64 125 H 59 L Respiratory Rate 17 18 16 Blood Pressure 153/71 H 127/56 L 129/73 Pulse Oximetry 98 100 100 Oxygen Delivery 05/31/24 04:56 05/31/24 04:56 Temperature 97.2 F L 97.2 F L Pulse Rate 57 L 57 L Respiratory Rate 16 16 Blood Pressure 141/53 H 141/53 H Pulse Oximetry 99 99 Oxygen Delivery Exam Const: General: comfortable and no acute distress Other: A&O x3 HENMT: Mouth: Yes moist mucous membranes Eyes: Pupils: Equal, round and reactive pupils present Neck: Neck: supple Resp: Effort & Inspection: normal respiratory effort Auscultation: clear to auscultation bilaterally Cardio: Rate: regular rate Rhythm: regular rhythm GI: GI Palp: Yes Soft to palpation and No Tenderness to palpation present (GI) Neuro: Motor exam (neuro): 5/5 motor strength present throughout Extrem: General: no edema H&P: Results Labs Labs: Short CBC 05/30/24 Range/Units 23:44 WBC 14.4 H (4.5-10.0) K/mm3 Hgb 5.6 L* D (14.0-18.0) g/dL Hct 19.0 L* (42.0-52.0) % Plt Count 297 (150-375) k/mm3 BMP 05/30/24 23:44 Sodium 136 L Potassium 4.3 Chloride 105 Carbon Dioxide 24 BUN 21 H Creatinine 1.06 Glucose 100 Calcium 8.8 Liver Function 05/30/24 Range/Units 23:44 Total Bilirubin 0.4 (0.2-1.3) mg/dL AST 28 (17-59) U/L ALT 28 (6-50) U/L Alkaline Phosphatase 147 H (38-126) U/L Albumin 3.6 (3.5-5.1) g/dL Assessment and Plan Assessment and plan (1) Essential hypertension: Code(s): I10 - Essential (primary) hypertension Status: Chronic (2) Guaiac positive stools: Code(s): R19.5 - Other fecal abnormalities Status: Acute (3) Fall: Code(s): W19.XXXA - Unspecified fall, initial encounter Status: Acute (4) Closed rib fracture: Code(s): S22.39XA - Fracture of one rib, unspecified side, initial encounter for closed fracture Status: Acute (5) Acute anemia: Code(s): D64.9 - Anemia, unspecified Status: Acute Plan A pleasant 78-year-old male with a history of COPD, atrial fibrillation on Eliquis and aspirin, hypertension, depression, history of tobacco abuse, hyperlipidemia, COPD. He presents to [place] ER after a mechanical fall. He felt like his legs had given out and landed onto his right side on a carpet. Reports he hit his head but did not have loss of consciousness. He complained of mild pain on his right ribcage. Denied any other complaints. Endorses a dark colored stool for about 3 months. He denies any prior history of gastrointestinal bleed. ER evaluation demonstrated normal vital signs aside from mildly uncontrolled blood pressure. WBC 14.4, hemoglobin 5.6 with a baseline of 11 in the past 6 months. Platelets 297, INR 2.0, sodium 136, BUN 21, creatinine 1.06. Stool guaiac positive. CT head did not demonstrate acute abnormality. X-ray of the ribs two view did not demonstrate acute fracture. CTA chest abdomen pelvis performed with preliminary reading revealing severe paraseptal and centrilobular emphysema, multiple nodules in the right upper lobe, left apex cavitation which are chronic findings. It did reveal a acute fracture of the right 6 rib. ----- Upon repeat examination on medical floor the patient rest comfortably and has no complaints. Denies analgesia however PRNs placed. PT OT ordered to increase mobility. GI consulted from ER. Iron studies pending. Receiving 2 units PRBC with a repeat afterwards. Guaiac stool positive, currently NPO. Protonix 40 mg IV q.a.m.. Hold Eliquis and aspirin. He is currently in normal sinus rhythm. No evidence of infectious etiology. Will repeat white blood cell counts and procalcitonin. Monitor for signs and symptoms of sepsis. Patient wishes to be DNR. SCDs. PT OT. NPO. Lactated Ringer's at 75 cc/hour. Fall precaution. Ambulate with assistance.
[2024-05-31] MEDS: PANTOPRAZOLE SODIUM IV 40 MG VIAL IV PUSH (06:31)
--- NOTE | 2024-05-31 07:58 | PM.IMPN ---
Progress Note: A&P Assessment and Plan (1) Guaiac positive stools: Code(s): R19.5 - Other fecal abnormalities Status: Acute Assessment and Plan: Endorses a dark colored stool for about 3 months. Anticoagulated with asa and eliquis for atrial fibrillation. - Iron studies: Iron 226, TIBC 361, % sat 63. Increasing suspicion of acute blood loss anemia given that iron is elevated but % saturation is low. - Pantoprazole IV, DC per GI - Diet: clear liquid diet, NPO at midnight for EGD/colonoscopy - DVT Px: SCDs - Avoid anti-coagulations: holding eliquis and asa, resume when appropriate - Monitor serum electrolytes, CBC, hemoglobin/hematocrit q.8 hours. If hemoglobin drops below 7 transfuse packed red blood cells - Monitor for bloody bowel movements,chest pain,SOB or dizziness/lightheadedness - GI consulted, appreciate recommendations (2) Acute anemia: Code(s): D64.9 - Anemia, unspecified Status: Acute Assessment and Plan: Likely secondary to acute GI bleed, guiac positive in ED - H/H 5.6/19 on 05/30 (admission) received 2 units pRBC, H/H responded appropriately now 8.9/28.7 on am labs - Iron studies: Iron 226, TIBC 361, % sat 63. Increasing suspicion of acute blood loss anemia given that iron is elevated but % saturation is low. - DVT Px: SCDs - Avoid anti-coagulations: holding eliquis and asa, resume when appropriat (3) Fall: Code(s): W19.XXXA - Unspecified fall, initial encounter Status: Acute Assessment and Plan: Patient reports a ground level fall where his legs gave out on him resulting in him falling onto his right side and hitting his head. Denies LOC. Head CT: unremarkable Rib XR: No acute displaced right-sided rib fracture Fall precaution. Ambulate with assistance. (4) Closed rib fracture: Code(s): S22.39XA - Fracture of one rib, unspecified side, initial encounter for closed fracture Status: Acute Assessment and Plan: Rib XR: No acute displaced right-sided rib fracture Supportive treatment (5) Lung nodules: Code(s): R91.8 - Other nonspecific abnormal finding of lung field Status: Acute Assessment and Plan: Chest/abdomen/pelvis CT: Increased size and extent of spiculated nodules and small satellite nodules in the right upper lobe extending towards the right perihilar region. Findings are suspicious for progression of neoplastic/metastatic disease, versus possibly worsening infectious/inflammatory process.Severe emphysema with stable probable postradiation or other posttreatment changes in the left lung apex. Nonspecific infiltrative change in the presacral soft tissues. Patient will require follow up in the outpatient setting. He does not wish to follow with Dr. Rapp as he was his wifes oncologist prior to her . (6) Essential hypertension: Code(s): I10 - Essential (primary) hypertension Status: Chronic Assessment and Plan: Chronic, not on any home medications Currently stable, continue to monitor (7) Atrial fibrillation: Code(s): I48.91 - Unspecified atrial fibrillation Status: Acute Assessment and Plan: Chronic Continue amiodarone 200 mg daily Holding eliquis and aspirin for concern of ongoing GI bleed SCD for DVT ppx (8) Severe protein-calorie malnutrition: Code(s): E43 - Unspecified severe protein-calorie malnutrition Status: Acute Assessment and Plan: Supplement per nutrition Time Spent With Patient Time with patient: 25 - 35 minutes Subjective Date/time seen: 05/31/24 07:58 Interval history: 78-year-old male with a past medical history of COPD, atrial fibrillation on Eliquis and aspirin, hypertension, depression, history of tobacco abuse, hyperlipidemia, and COPD presents to the hospital after a mechanical fall. Patient is pleasant lying comfortably in bed. He continues to endorse dark stools. He denies excessive alcohol use or NSAID use. GI has been consulted, plan for an EGD/colonoscopy tomorrow. Patient continues to endorse slight rib pain to the right. Notes that current pain regimen is covering this okay. He has no complaints at this time denying chest pain, palpitations, shortness of breath nausea/vomiting, abdominal pain. Discussed patients lung nodules that were seen on imaging. He states that Dr. Jacobo follows him. Discussed the concern for metastatic disease. He states understanding and does not wish to be seen by oncology Dr. Rapp here as this was his wifes oncologist. Discussed with him that he will require follow up in the out patient setting then. Review of Systems Review of Systems: All systems reviewed & are unremarkable except as noted in HPI and below Exam Narrative: AF HR 54 RR 16 Spo2 100 BP 151/61 General: frail male in no acute respiratory distress who is nontoxic appearing, lying semi recumbent in bed. HEENT: Normocephalic. Atraumatic. Extraocular movement intact. Sclera clear and anicteric. No facial asymmetry. Chest: Lungs are clear to auscultation bilaterally. No wheezes or crackles. CV: Heart was regular rate and rhythm. Abd: Abdomen was soft. Nontender. Nondistended. Positive bowel sounds. Ext: No clubbing, cyanosis, or edema. 2+ DP pulses bilaterally. Neuro: Patient is alert and oriented x3. Speech is clear. Objective Data Vital Signs Vital Signs: Vital Signs - 24 hr 05/30/24 22:32 05/31/24 01:06 05/31/24 01:49 Temperature 98.0 F 97.4 F L Pulse Rate 65 71 69 Respiratory Rate 20 21 H 26 H Blood Pressure 142/45 H 130/72 148/52 H Pulse Oximetry 100 96 96 Oxygen Delivery Room Air 05/31/24 02:07 05/31/24 03:06 05/31/24 03:07 Temperature 97.6 F 97.1 F L 97.1 F L Pulse Rate 67 60 60 Respiratory Rate 24 H 15 15 Blood Pressure 158/61 H 123/71 123/71 Pulse Oximetry 99 99 99 Oxygen Delivery 05/31/24 03:30 05/31/24 03:59 05/31/24 04:00 Temperature 97.8 F 97.4 F L Pulse Rate 64 125 H 61 Respiratory Rate 17 18 Blood Pressure 153/71 H 127/56 L Pulse Oximetry 98 100 Oxygen Delivery 05/31/24 04:38 05/31/24 04:56 05/31/24 04:56 Temperature 97.8 F 97.2 F L 97.2 F L Pulse Rate 59 L 57 L 57 L Respiratory Rate 16 16 16 Blood Pressure 129/73 141/53 H 141/53 H Pulse Oximetry 100 99 99 Oxygen Delivery 05/31/24 05:56 05/31/24 05:58 05/31/24 06:25 Temperature 97.8 F 97.8 F 97.4 F L Pulse Rate 58 L 58 L 54 L Respiratory Rate 17 17 16 Blood Pressure 141/69 H 141/69 H 151/61 H Pulse Oximetry 97 97 100 Oxygen Delivery Intake/Output Intake/Output: Intake & Output 05/28/24 05/29/24 05/30/24 05/31/24 23:59 23:59 23:59 23:59 Intake Total 696 Output Total 300 Balance 396 Meds/Results Medications: Active Medications Generic Name Dose Route Start Last Admin Trade Name Freq PRN Reason Stop Dose Admin Acetaminophen 650 mg 05/31/24 02:42 Acetaminophen 325 Mg Tablet PO Q4H PRN Mild Pain (1-3) or Fever Hydrocodone Bitart/Acetaminophen 1 tab 05/31/24 02:42 Hydrocodone/Acetaminophen (*Crx) 5-325 Mg Tablet PO Q4H PRN Pain Rated 4-6 Albuterol 2 puff 05/31/24 04:58 Albuterol Sulfate (*Sp) Aerosol 1 Puff INHALATION Q4H PRN shortness of breath or wheezing Fluticasone/Umeclidinium/Vilanterol 1 puff 05/31/24 08:00 Fluticasone/Umeclidin/Vilanter 100-62.5-25 Mcg Ellipta INHALATION DAILYRT BROCK Sodium Chloride 250 mls @ 30 mls/hr 05/31/24 00:07 05/31/24 01:58 Normal Saline Iv IV CONT 05/31/24 08:26 30 mls/hr .[id number] STA Administration Lactated Ringer's 1,000 mls @ 75 mls/hr 05/31/24 02:45 05/31/24 03:56 Lr - Lactated Ringers Iv IV CONT 75 mls/hr .[id number] BROCK Administration Miscellaneous Information 0 each 05/31/24 06:10 Ensifentrine [Ohtuvayre] 3 Mg/2.5 Ml Suspension For Nebulization- Nonformulary. Please Obt XX 06/30/24 06:09 CLARIFY BROCK Morphine Sulfate 2 mg 05/31/24 02:42 05/31/24 06:32 Morphine Sulfate (*Crx) 2 Mg/Ml Inj IV PUSH 2 mg Q2H PRN Administration Pain Rated 7-10 Non-Formulary Medication 2.5 ml 05/31/24 09:00 Ensifentrine [Ohtuvayre] INHALATION 06/30/24 08:59 BID BROCK Polyethylene Glycol 119 gm 05/31/24 20:00 Polyethylene Glycol 3350 238 Gm Bottle PO 06/01/24 05:01 BID@0500,1999 [facility] Radiology Results: ITS Impressions Head CT 05/30/24 23:06 Impression: No acute intracranial hemorrhage or suspicious mass effect. Ribs X-Ray 05/30/24 23:10 IMPRESSION: No acute displaced right-sided rib fracture, as detailed above. Remainder of the examination as detailed above. Chest/Abdomen/Pelvis CT 05/31/24 06:07 Impression: Increased size and extent of spiculated nodules and small satellite nodules in the right upper lobe extending towards the right perihilar region. Findings are suspicious for progression of neoplastic/metastatic disease, versus possibly worsening infectious/inflammatory process. Severe emphysema with stable probable postradiation or other posttreatment changes in the left lung apex. Nonspecific infiltrative change in the presacral soft tissues. 6 mm nonobstructing right renal stone. Labs Labs: Laboratory Results - last 24 hr 05/30/24 05/31/24 23:44 00:21 WBC 14.4 H RBC 2.82 L Hgb 5.6 L* D Hct 19.0 L* MCV 67.4 L MCH 19.9 L MCHC 29.5 L RDW 17.9 H Plt Count 297 MPV 9.4 Immature Gran % (Auto) 1.0 H Neut % (Auto) 89.0 H Lymph % (Auto) 4.7 L [place] % (Auto) 4.9 Eos % (Auto) 0.1 Baso % (Auto) 0.3 Lymph # (Auto) 0.67 L [place] # (Auto) 0.7 H Eos # (Auto) 0.0 Baso # (Auto) 0.1 Abs Immat Gran (auto) 0.15 H Absolute Neuts (auto) 12.8 H Absolute Nucleated RBC 0.000 Band Neutrophils % Not Reportable Nucleated RBC % 0.0 Platelet Estimate Adequate Hypochromasia 2+ Anisocytosis 1+ Target Cells 1+ Ovalocytes 1+ Schistocytes 1+ PT 22.7 H INR 2.0 APTT 34.4 Sodium 136 L Potassium 4.3 Chloride 105 Carbon Dioxide 24 Anion Gap 7 BUN 21 H Creatinine 1.06 Estim Creat Clear Calc 37 Estimated GFR > 60 Glucose 100 Calcium 8.8 Total Bilirubin 0.4 AST 28 ALT 28 Alkaline Phosphatase 147 H Total Protein 6.0 L Albumin 3.6 Blood Type AB Positive Antibody Screen Negative Crossmatch See Detail Quality VTE Prophylaxis VTE prophylaxis: mechanical ordered
[2024-05-31 08:04] LABS: Basophils Absolute Auto 0.1 K/mm3 (0.0-0.1); Basophils Percent Auto 0.5 % (0.2-1.2); Eosinophils Percent Auto 0.2 % (0-4.4); Hematocrit 28.7 % (42.0-52.0); Hemoglobin 8.9 g/dL (14.0-18.0); Immature Granulocyte Absolute 0.14 K/mm3 (0.00-0.031); Immature Granulocyte Percent A 1.3 % (0-0.5); Lymphocytes Absolute Auto 0.76 K/mm3 (0.9-3.2); Lymphocytes Percent Auto 7.3 % (18.3-44.2); Mean Corpuscular Hemoglobin 22.4 pg (26-34); Mean Corpuscular Volume 72.1 fl (80-100); Mean Platelet Volume 9.7 fl (7.4-10.4); Monocytes Absolute Auto 0.7 K/mm3 (0.1-0.6); Monocytes Percent Auto 6.2 % (2.6-8.5); Neutrophils Absolute Auto 8.9 K/mm3 (1.3-6.7); Neutrophils Percent Auto 84.5 % (45.5-73.1); Platelet Count Result 234 k/mm3 (150-375); Red Blood Count 3.98 M/mm3 (4.6-6.20); Red Cell Distribution Width 19.3 % (11.5-14.5); White Blood Count 10.5 K/mm3 (4.5-10.0)
[2024-05-31] MEDS: FLUTICASONE/UMECLIDIN/VILANTER 100-62.5-25 MCG ELLIPTA 1 PUFF INHALATION (08:24)
[2024-05-31 08:28] LABS: Platelet Estimate Adequate (Adequate)
[2024-05-31 08:29] LABS: Hypochromasia 1+; Target Cells 1+
[2024-05-31 08:30] LABS: Anisocytosis 2+; Schistocytes Rare
[2024-05-31 08:35] LABS: Iron 226 ug/dL (49-181)
[2024-05-31 08:37] LABS: Alanine Aminotransferase 26 U/L (6-50); Albumin Level 3.1 g/dL (3.5-5.1); Alkaline Phosphatase 128 U/L (38-126); Anion Gap 4 mmol/L (4-12); Aspartate Amino Transferase 29 U/L (17-59); Bilirubin,Total 2.1 mg/dL (0.2-1.3); Blood Urea Nitrogen 16 mg/dL (9-20); Calcium 8.3 mg/dL (8.4-10.2); Carbon Dioxide 24 mmol/L (22-30); Chloride 106 mmol/L (98-107); Estimated CRCL calculation 37 ml/min; Estimated Glomerular Filt Rate > 60; Glucose 79 mg/dL (65-110); Potassium 4.4 mmol/L (3.4-5.0); Sodium 134 mmol/L (137-145)
[2024-05-31 08:44] LABS: Percent Iron Saturation 63 % (20-50)
[2024-05-31 08:55] LABS: Procalcitonin 0.2 ng/mL
[2024-05-31] MEDS: ALBUTEROL SULFATE (*SP) AEROSOL 1 PUFF 2 PUFF INHALATION ×2 (09:27→22:06)
[2024-05-31] MEDS: MORPHINE SULFATE (*CRX) 2 MG/ML INJ 1 MG IV PUSH ×2 (13:33→18:36)
[2024-05-31 15:31] LABS: Hematocrit 30.1 % (42.0-52.0); Hemoglobin 9.1 g/dL (14.0-18.0)
--- NOTE | 2024-05-31 17:23 | P.CONGI_ITS ---
Assessment and Plan Assessment and plan (1) Anemia: Code(s): D64.9 - Anemia, unspecified Status: Acute Assessment and Plan: The patient presents with symptomatic anemia of unclear etiology. Repeat iron studies are unreliable at this time due to recent blood transfusions. We will obtain additional laboratory tests, including B12 and folate levels, LDH, and a reticulocyte count, to investigate potential etiologies . While the elevated iron saturation may represent a laboratory error, chronic blood loss remains a significant consideration. We will perform an EGD and colonoscopy tomrrow to rule out sources of acute and chronic blood loss, including peptic ulcer disease, colon cancer, arteriovenous malformations, and erosive gastritis. GI Consult Note Consult date/time: 05/31/24 17:23 Reason for consult: Severe anemia HPI: Velasquez Kent, a 78-year-old male with a history of COPD and atrial fibrillation treated with Eliquis, was admitted early this morning following a fall secondary to weakness. Emergency room evaluation revealed the following laboratory findings: WBC 14.4 , hemoglobin 5.6 , hematocrit 19%, heme-positive stools, and INR 2.0. Notably, his hemoglobin was 11.2 g/dL on October 21, 2023. He reports intermittent dark stools over the past few weeks but denies aspirin or NSAID use. His iron saturation is 63%, which is inconsistent with iron deficiency. 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 They have 3 living children; one child in a car wreck. Retired 1998. Smoked cigarettes 1 ppd x 10 years, then cigars up to 10 per day, now 2 cigars a week. He drinks only on very rare occasion. Code status: Surrogate decision maker: Smoking packs per day: 1 Smoking cigarettes per day: 20.0 Years smoked: 55 Smoking pack-years: 55.00 Smoking status: Current some day smoker Tobacco type: cigars Smoking end date: 08/29/23 Additional smoking assessment comments: 1 pack per day for 10 years then switched to cigars couple of times a week Alcohol intake: current Alcohol use details: 2 drinks yearly Substance use: never Substance use type: does not use Do You Feel Safe in your Home?: Yes Lack of Transportation: No Lack of Food: Never True Current Housing: I Have Housing Concerned About Future Housing: No Difficulty Paying Gas/Electric Bills: No Difficulty Paying for Meds: No Currently Unemployed: No Education: High School Diploma/GED Difficulty w/ Childcare or Family Care: No Living arrangements: alone Occupation/Education: retired Gender identity (if verbalized by the patient): Male Spiritual care concerns: No Meds Home Medications and Allergies Home Medications ?Medication ?Instructions ?Recorded ?Confirmed ?Type aspirin 81 mg chewable tablet 81 mg PO DAILY 03/11/22 05/31/24 History vitamins A,C,R-idfd-lbpvrs 2,148 1 tablet PO BIDWM 03/11/22 05/31/24 History mcg-113 mg-45 mg-17.4 mg tablet (PreserVision AREDS) polyethylene glycol 3350 17 17 g PO DAILY #850 grams 10/21/23 05/31/24 Rx gram/dose oral powder (Miralax) ensifentrine 3 mg/2.5 mL 2.5 ml inhalation BID COPD 1 month 02/16/24 05/31/24 Rx suspension for nebulization #150 mL (Ohtuvayre) albuterol sulfate 90 mcg/actuation 1 inh inhalation Q4H PRN shortness 03/13/24 05/31/24 Rx aerosol inhaler of breath or wheezing #8.5 grams apixaban 5 mg tablet (Eliquis) 5 mg BYMOUTH Q12HR #180 tabs 03/13/24 05/31/24 Rx simvastatin 10 mg tablet 10 mg PO DAILY #90 tabs 04/03/24 05/31/24 Rx amiodarone 200 mg tablet (Pacerone) 200 mg BYMOUTH DAILY #90 tabs 05/04/24 05/31/24 Rx zolpidem 5 mg tablet (Ambien) 5 mg PO QHS #30 tabs 05/04/24 05/31/24 Rx budesonide 160 mcg-glycopyr 9 2 inh inhalation BID 90 days #32.1 05/07/24 05/31/24 Rx mcg-formot 4.8 mcg/actuation HFA grams inhaler (Breztri Aerosphere) sertraline 25 mg tablet 25 mg PO DAILY #90 tabs 05/29/24 05/31/24 Rx trazodone 50 mg tablet 50 mg PO QHS PRN sleep #30 tabs 05/29/24 05/31/24 Rx Allergies Allergy/AdvReac Type Severity Reaction Status Date / Time No Known Allergies Allergy Verified 05/30/24 22:40 Vital Signs Vital Signs - 24 hr 05/30/24 22:32 05/31/24 01:06 05/31/24 01:49 Temperature 98.0 F 97.4 F L Pulse Rate 65 71 69 Respiratory Rate 20 21 H 26 H Blood Pressure 142/45 H 130/72 148/52 H Pulse Oximetry 100 96 96 Oxygen Delivery Room Air 05/31/24 02:07 05/31/24 03:06 05/31/24 03:07 Temperature 97.6 F 97.1 F L 97.1 F L Pulse Rate 67 60 60 Respiratory Rate 24 H 15 15 Blood Pressure 158/61 H 123/71 123/71 Pulse Oximetry 99 99 99 Oxygen Delivery 05/31/24 03:30 05/31/24 03:59 05/31/24 04:00 Temperature 97.8 F 97.4 F L Pulse Rate 64 125 H 61 Respiratory Rate 17 18 Blood Pressure 153/71 H 127/56 L Pulse Oximetry 98 100 Oxygen Delivery 05/31/24 04:38 05/31/24 04:56 05/31/24 04:56 Temperature 97.8 F 97.2 F L 97.2 F L Pulse Rate 59 L 57 L 57 L Respiratory Rate 16 16 16 Blood Pressure 129/73 141/53 H 141/53 H Pulse Oximetry 100 99 99 Oxygen Delivery 05/31/24 05:56 05/31/24 05:58 05/31/24 06:25 Temperature 97.8 F 97.8 F 97.4 F L Pulse Rate 58 L 58 L 54 L Respiratory Rate 17 17 16 Blood Pressure 141/69 H 141/69 H 151/61 H Pulse Oximetry 97 97 100 Oxygen Delivery 05/31/24 08:04 05/31/24 08:25 05/31/24 09:15 Temperature Pulse Rate 53 L Respiratory Rate Blood Pressure Pulse Oximetry 96 Oxygen Delivery Room Air Room Air 05/31/24 12:05 05/31/24 13:02 05/31/24 14:23 Temperature 97.0 F L Pulse Rate 47 L 52 L Respiratory Rate 17 Blood Pressure 153/72 H Pulse Oximetry 99 Oxygen Delivery Room Air 05/31/24 16:04 Temperature Pulse Rate 69 Respiratory Rate Blood Pressure Pulse Oximetry Oxygen Delivery Exam 2 Narrative: AF HR 54 RR 16 Spo2 100 BP 151/61 General: frail male in no acute respiratory distress who is nontoxic appearing, lying semi recumbent in bed. HEENT: Normocephalic. Atraumatic. Extraocular movement intact. Sclera clear and anicteric. No facial asymmetry. Chest: Lungs are clear to auscultation bilaterally. No wheezes or crackles. CV: Heart was regular rate and rhythm. Abd: Abdomen was soft. Nontender. Nondistended. Positive bowel sounds. Ext: No clubbing, cyanosis, or edema. 2+ DP pulses bilaterally. Neuro: Patient is alert and oriented x3. Speech is clear. Results Labs 05/31/24 15:17 05/31/24 07:46 Labs: Short CBC 05/30/24 05/31/24 05/31/24 Range/Units 23:44 07:46 15:17 WBC 14.4 H 10.5 H (4.5-10.0) K/mm3 Hgb 5.6 L* D 8.9 L D 9.1 L (14.0-18.0) g/dL Hct 19.0 L* 28.7 L 30.1 L (42.0-52.0) % Plt Count 297 234 (150-375) k/mm3 BMP 05/30/24 05/31/24 23:44 07:46 Sodium 136 L 134 L Potassium 4.3 4.4 Chloride 105 106 Carbon Dioxide 24 24 BUN 21 H 16 Creatinine 1.06 0.92 Glucose 100 79 Calcium 8.8 8.3 L Liver Function 05/30/24 05/31/24 Range/Units 23:44 07:46 Total Bilirubin 0.4 2.1 H (0.2-1.3) mg/dL AST 28 29 (17-59) U/L ALT 28 26 (6-50) U/L Alkaline Phosphatase 147 H 128 H (38-126) U/L Albumin 3.6 3.1 L (3.5-5.1) g/dL
--- NOTE | 2024-05-31 18:39 | PC.NURSE ---
On 05/31/24, the student, Cindy White, provided care and completed [facility] documentation on this patient. I have reviewed the student's documentation and agree with the findings.
[2024-05-31] MEDS: polyethylene glycoL 3350 238 GM BOTTLE 119 GM PO (21:12)
[2024-05-31] MEDS: HYDROcodone/acetaminophen (*CRX) 5-325 MG TABLET 1 TAB PO (21:17)
[2024-06-01] VITALS (17 sets, daily range): BP systolic 103–142; BP diastolic 54–77; PULSE 47–78; RESP 15–24; TEMP 36.1–36.4; O2SAT 93–100
[2024-06-01 05:43] LABS: Basophils Absolute Auto 0.1 K/mm3 (0.0-0.1); Basophils Percent Auto 0.5 % (0.2-1.2); Eosinophils Absolute Auto 0.1 K/mm3 (0-0.3); Eosinophils Percent Auto 0.5 % (0-4.4); Hematocrit 29.9 % (42.0-52.0); Hemoglobin 9.1 g/dL (14.0-18.0); Immature Granulocyte Absolute 0.09 K/mm3 (0.00-0.031); Immature Granulocyte Percent A 0.9 % (0-0.5); Immature Platelet Fraction Pct 2.4 % (0.9-11.2); Immature Reticulocyte Fraction 36.7 % (3.0-15.9); Lymphocytes Absolute Auto 0.69 K/mm3 (0.9-3.2); Lymphocytes Percent Auto 7.2 % (18.3-44.2); Mean Corpuscular HGB Conc 30.4 g/dl (32-36); Mean Corpuscular Hemoglobin 22.2 pg (26-34); Mean Corpuscular Volume 72.9 fl (80-100); Mean Platelet Volume 9.6 fl (7.4-10.4); Monocytes Absolute Auto 0.8 K/mm3 (0.1-0.6); Monocytes Percent Auto 7.9 % (2.6-8.5); Platelet Count Result 233 k/mm3 (150-375); Reticulocyte Hemoglobin Conten 19.6 pg (28.2-36.6); Reticulocyte Percent 2.13 % (0.7-4.3); Reticulocytes Absolute 0.09 10^6/uL (0.02-0.10); White Blood Count 9.6 K/mm3 (4.5-10.0)
[2024-06-01] MEDS: MORPHINE SULFATE (*CRX) 2 MG/ML INJ 1 MG IV PUSH ×2 (05:52→12:07)
[2024-06-01] MEDS: polyethylene glycoL 3350 238 GM BOTTLE 119 GM PO (05:54)
[2024-06-01 06:13] LABS: Alanine Aminotransferase 25 U/L (6-50); Alkaline Phosphatase 125 U/L (38-126); Anion Gap 5 mmol/L (4-12); Aspartate Amino Transferase 28 U/L (17-59); Bilirubin,Total 1.1 mg/dL (0.2-1.3); Blood Urea Nitrogen 12 mg/dL (9-20); Calcium 8.1 mg/dL (8.4-10.2); Carbon Dioxide 25 mmol/L (22-30); Chloride 102 mmol/L (98-107); Estimated CRCL calculation 41 ml/min; Estimated Glomerular Filt Rate > 60; Glucose 85 mg/dL (65-110); Lactate Dehydrogenase 184 U/L (120-246); Potassium 4.5 mmol/L (3.4-5.0); Sodium 132 mmol/L (137-145)
[2024-06-01 06:31] LABS: Hypochromasia 1+; Platelet Estimate Adequate (Adequate)
[2024-06-01 06:32] LABS: Anisocytosis 1+; Basophilic Stippling 1+; Schistocytes 1+; Target Cells 1+
[2024-06-01 07:18] LABS: Folic Acid 10.2 ng/mL (2.76->20)
--- NOTE | 2024-06-01 08:12 | PM.IMPN ---
Progress Note: A&P Assessment and Plan (1) Guaiac positive stools: Code(s): R19.5 - Other fecal abnormalities Status: Acute Assessment and Plan: Endorses a dark colored stool for about 3 months. Anticoagulated with asa and eliquis for atrial fibrillation. - Iron studies: Iron 226, TIBC 361, % sat 63. Increasing suspicion of acute blood loss anemia given that iron is elevated but % saturation is low. - Pantoprazole IV, DC per GI - Diet: Regular - DVT Px: spoke with GI Dr. Dupree, resumed aspirin and eliquis - Monitor serum electrolytes, CBC, hemoglobin/hematocrit q.8 hours. If hemoglobin drops below 7 transfuse packed red blood cells - Monitor for bloody bowel movements,chest pain,SOB or dizziness/lightheadedness - GI consulted, appreciate recommendations EGD showing hiatal hernia and schatziks ring, no source of blood loss identified Patient refused colonoscopy prep, plan for outpatient scope (2) Acute anemia: Code(s): D64.9 - Anemia, unspecified Status: Acute Assessment and Plan: Likely secondary to acute GI bleed, guiac positive in ED - H/H 5.6/19 on 05/30 (admission) received 2 units pRBC, H/H responded appropriately now 8.9/28.7 on am labs - Iron studies: Iron 226, TIBC 361, % sat 63. Increasing suspicion of acute blood loss anemia given that iron is elevated but % saturation is low. - B12 and folate WNL - DVT Px: resumed aspirin and eliquis H/H remains stable. No longer endorsing dark colored stools. (3) Fall: Code(s): W19.XXXA - Unspecified fall, initial encounter Status: Acute Assessment and Plan: Patient reports a ground level fall where his legs gave out on him resulting in him falling onto his right side and hitting his head. Denies LOC. Head CT: unremarkable Rib XR: No acute displaced right-sided rib fracture Fall precaution. Ambulate with assistance. PT/OT recommending SNF, care coordination following for placement. (4) Closed rib fracture: Code(s): S22.39XA - Fracture of one rib, unspecified side, initial encounter for closed fracture Status: Acute Assessment and Plan: Rib XR: No acute displaced right-sided rib fracture Supportive treatment (5) Lung nodules: Code(s): R91.8 - Other nonspecific abnormal finding of lung field Status: Acute Assessment and Plan: Chest/abdomen/pelvis CT: Increased size and extent of spiculated nodules and small satellite nodules in the right upper lobe extending towards the right perihilar region. Findings are suspicious for progression of neoplastic/metastatic disease, versus possibly worsening infectious/inflammatory process.Severe emphysema with stable probable postradiation or other posttreatment changes in the left lung apex. Nonspecific infiltrative change in the presacral soft tissues. Patient will require follow up in the outpatient setting. He does not wish to follow with Dr. Rapp as he was his wifes oncologist prior to her . (6) Atrial fibrillation: Code(s): I48.91 - Unspecified atrial fibrillation Status: Acute Assessment and Plan: Chronic Continue amiodarone 200 mg daily Resume eliquis and aspirin (7) Essential hypertension: Code(s): I10 - Essential (primary) hypertension Status: Chronic Assessment and Plan: Chronic, not on any home medications Currently stable, continue to monitor (8) Severe protein-calorie malnutrition: Code(s): E43 - Unspecified severe protein-calorie malnutrition Status: Acute Assessment and Plan: Supplement per nutrition Time Spent With Patient Time with patient: 25 - 35 minutes Subjective Date/time seen: 06/01/24 08:12 Interval history: 78-year-old male with a past medical history of COPD, atrial fibrillation on Eliquis and aspirin, hypertension, depression, history of tobacco abuse, hyperlipidemia, and COPD presents to the hospital after a mechanical fall. Patient is pleasant sitting up in his bed. He endorses worsened shortness of breath and notes he has difficulty with deep breaths due to increased rib pain. SpO2 stable on room air. Chest xr obtained given patients IV fluids which sowed no change from admission. Patient has no other complaints denying chest pain, palpitations, nausea/vomiting and abdominal pain. Discussed patient anticoagulation with Dr. Leia BANSAL who states aspirin and eliquis can be resumed at this time. Patient to follow up for outpatient colonoscopy when he is ready. Review of Systems Review of Systems: All systems reviewed & are unremarkable except as noted in HPI and below Exam Narrative: AF HR 66 RR 21 Spo2 100 BP 141/73 General: frail male in no acute respiratory distress who is nontoxic appearing, sitting up in bed. HEENT: Normocephalic. Atraumatic. Extraocular movement intact. Sclera clear and anicteric. No facial asymmetry. Chest: Lungs are clear to auscultation bilaterally. Slight expiratory wheeze. CV: Heart was regular rate and rhythm. Abd: Abdomen was soft. Nontender. Nondistended. Positive bowel sounds. Ext: No clubbing, cyanosis, or edema. DP pulses bilaterally. Neuro: Patient is alert and oriented x3. Speech is clear. Objective Data Vital Signs Vital Signs: Vital Signs - 24 hr 05/31/24 08:25 05/31/24 09:15 05/31/24 12:05 Temperature Pulse Rate 47 L Respiratory Rate Blood Pressure Pulse Oximetry 96 Oxygen Delivery Room Air Room Air 05/31/24 13:02 05/31/24 14:23 05/31/24 16:04 Temperature 97.0 F L Pulse Rate 52 L 69 Respiratory Rate 17 Blood Pressure 153/72 H Pulse Oximetry 99 Oxygen Delivery Room Air 05/31/24 20:00 05/31/24 20:00 05/31/24 22:00 Temperature 97.7 F Pulse Rate 60 57 L Respiratory Rate 16 Blood Pressure 131/59 L Pulse Oximetry 97 Oxygen Delivery Room Air 05/31/24 22:11 06/01/24 00:00 06/01/24 04:00 Temperature Pulse Rate 59 L 49 L 56 L Respiratory Rate Blood Pressure Pulse Oximetry Oxygen Delivery 06/01/24 06:00 Temperature 97.2 F L Pulse Rate 54 L Respiratory Rate 18 Blood Pressure 125/56 L Pulse Oximetry 96 Oxygen Delivery Intake/Output Intake/Output: Intake & Output 05/29/24 05/30/24 05/31/24 06/01/24 23:59 23:59 23:59 23:59 Intake Total 1846 600 Output Total 1000 1000 Balance 846 -400 Meds/Results Medications: Active Medications Generic Name Dose Route Start Last Admin Trade Name Freq PRN Reason Stop Dose Admin Acetaminophen 650 mg 05/31/24 02:42 Acetaminophen 325 Mg Tablet PO Q4H PRN Mild Pain (1-3) or Fever Hydrocodone Bitart/Acetaminophen 1 tab 05/31/24 02:42 05/31/24 21:17 Hydrocodone/Acetaminophen (*Crx) 5-325 Mg Tablet PO 1 tab Q4H PRN Administration Pain Rated 4-6 Albuterol 2 puff 05/31/24 04:58 05/31/24 22:06 Albuterol Sulfate (*Sp) Aerosol 1 Puff INHALATION 2 puff Q4H PRN Administration shortness of breath or wheezing Amiodarone HCl 200 mg 06/01/24 09:00 Amiodarone Hcl 200 Mg Tablet BY MOUTH DAILY [facility] Fluticasone/Umeclidinium/Vilanterol 1 puff 05/31/24 08:00 05/31/24 08:24 Fluticasone/Umeclidin/Vilanter 100-62.5-25 Mcg Ellipta INHALATION 1 puff DAILYRT BROCK Administration Lactated Ringer's 1,000 mls @ 75 mls/hr 05/31/24 02:45 05/31/24 21:13 Lr - Lactated Ringers Iv IV CONT 75 mls/hr .[id number] BROCK Administration Miscellaneous Information 0 each 05/31/24 06:10 Ensifentrine [Ohtuvayre] 3 Mg/2.5 Ml Suspension For Nebulization- Nonformulary. Please Obt XX 06/30/24 06:09 CLARIFY [facility] Morphine Sulfate 1 mg 05/31/24 10:51 06/01/24 05:52 Morphine Sulfate (*Crx) 2 Mg/Ml Inj IV PUSH 1 mg Q4H PRN Administration Pain Rated 7-10 Non-Formulary Medication 2.5 ml 05/31/24 09:00 Ensifentrine [Ohtuvayre] INHALATION 06/30/24 08:59 BID [facility] Sertraline HCl 25 mg 06/01/24 09:00 Sertraline Hcl 25 Mg Tablet PO DAILY [facility] Simvastatin 10 mg 06/01/24 09:00 Simvastatin 10 Mg Tablet PO DAILY [facility] Radiology Results: ITS Impressions Head CT 05/30/24 23:06 Impression: No acute intracranial hemorrhage or suspicious mass effect. Ribs X-Ray 05/30/24 23:10 IMPRESSION: No acute displaced right-sided rib fracture, as detailed above. Remainder of the examination as detailed above. Chest/Abdomen/Pelvis CT 05/31/24 06:07 Impression: Increased size and extent of spiculated nodules and small satellite nodules in the right upper lobe extending towards the right perihilar region. Findings are suspicious for progression of neoplastic/metastatic disease, versus possibly worsening infectious/inflammatory process. Severe emphysema with stable probable postradiation or other posttreatment changes in the left lung apex. Nonspecific infiltrative change in the presacral soft tissues. 6 mm nonobstructing right renal stone. Labs Labs: Laboratory Results - last 24 hr 05/31/24 05/31/24 06/01/24 07:46 15:17 05:27 WBC 10.5 H 9.6 RBC 3.98 L 4.10 L Hgb 8.9 L D 9.1 L 9.1 L Hct 28.7 L 30.1 L 29.9 L MCV 72.1 L D 72.9 L MCH 22.4 L D 22.2 L MCHC 31.0 L 30.4 L RDW 19.3 H 19.0 H Plt Count 234 233 MPV 9.7 9.6 Immature Gran % (Auto) 1.3 H 0.9 H Neut % (Auto) 84.5 H 83.0 H Lymph % (Auto) 7.3 L 7.2 L [place] % (Auto) 6.2 7.9 Eos % (Auto) 0.2 0.5 Baso % (Auto) 0.5 0.5 Lymph # (Auto) 0.76 L 0.69 L [place] # (Auto) 0.7 H 0.8 H Eos # (Auto) 0.0 0.1 Baso # (Auto) 0.1 0.1 Abs Immat Gran (auto) 0.14 H 0.09 H Absolute Neuts (auto) 8.9 H 8.0 H Absolute Nucleated RBC 0.000 0.000 Band Neutrophils % Not Reportable Not Reportable Nucleated RBC % 0.0 0.0 Platelet Estimate Adequate Adequate % Immature Plt Fraction 2.4 Hypochromasia 1+ 1+ Basophilic Stippling 1+ Anisocytosis 2+ 1+ Target Cells 1+ 1+ Schistocytes Rare 1+ Absolute Retic 0.09 Percent Retic 2.13 Immature Retic Fraction 36.7 H Retic Hgb Content 19.6 L Sodium 134 L 132 L Potassium 4.4 4.5 Chloride 106 102 Carbon Dioxide 24 25 Anion Gap 4 5 BUN 16 12 Creatinine 0.92 0.81 Estim Creat Clear Calc 37 41 Estimated GFR > 60 > 60 Glucose 79 85 Calcium 8.3 L 8.1 L Magnesium 2.0 Iron 226 H TIBC 361 % Saturation 63 H Total Bilirubin 2.1 H 1.1 AST 29 28 ALT 26 25 Alkaline Phosphatase 128 H 125 Lactate Dehydrogenase 184 Total Protein 6.0 L 5.0 L Albumin 3.1 L 3.0 L Vitamin B12 552.0 Folate 10.2 Procalcitonin 0.2 Quality VTE Prophylaxis VTE prophylaxis: mechanical ordered and pharmacologic ordered
--- NOTE | 2024-06-01 09:43 | P.PNAN_ITS ---
Anes - Initial Pre Proc Eval Procedure: Operation Date: 06/01/24 14:30 Proposed Procedures p Esophagogastroduodenoscopy EGD - Adam Dupree MD Date/Time: 06/01/24 09:43 Surgeon: Saima Fulton PA-C Pre Op Diagnosis: Acute anemia, Generalized weakness and fall Patient Data Age: 78 Gender: M Height: 1.6 m Weight: 44.5 kg Last Vital Signs Temp 36.2 C L 06/01/24 06:00 Pulse 54 L 06/01/24 06:00 Resp 18 06/01/24 06:00 BP 125/56 L 06/01/24 06:00 Pulse Ox 96 06/01/24 06:00 O2 Del Method Room Air 05/31/24 20:00 Allergies Allergy/AdvReac Type Severity Reaction Status Date / Time No Known Allergies Allergy Verified 06/01/24 09:43 Home Medications ?Medication ?Instructions ?Recorded ?Confirmed ?Type aspirin 81 mg chewable tablet 81 mg PO DAILY 03/11/22 05/31/24 History vitamins A,C,Y-jdjy-jodbbi 2,148 1 tablet PO BIDWM 03/11/22 05/31/24 History mcg-113 mg-45 mg-17.4 mg tablet (PreserVision AREDS) polyethylene glycol 3350 17 17 g PO DAILY #850 grams 10/21/23 05/31/24 Rx gram/dose oral powder (Miralax) ensifentrine 3 mg/2.5 mL 2.5 ml inhalation BID COPD 1 month 02/16/24 05/31/24 Rx suspension for nebulization #150 mL (Ohtuvayre) albuterol sulfate 90 mcg/actuation 1 inh inhalation Q4H PRN shortness 03/13/24 05/31/24 Rx aerosol inhaler of breath or wheezing #8.5 grams apixaban 5 mg tablet (Eliquis) 5 mg BYMOUTH Q12HR #180 tabs 03/13/24 05/31/24 Rx simvastatin 10 mg tablet 10 mg PO DAILY #90 tabs 04/03/24 05/31/24 Rx amiodarone 200 mg tablet (Pacerone) 200 mg BYMOUTH DAILY #90 tabs 05/04/24 05/31/24 Rx zolpidem 5 mg tablet (Ambien) 5 mg PO QHS #30 tabs 05/04/24 05/31/24 Rx budesonide 160 mcg-glycopyr 9 2 inh inhalation BID 90 days #32.1 05/07/24 05/31/24 Rx mcg-formot 4.8 mcg/actuation HFA grams inhaler (Breztri Aerosphere) sertraline 25 mg tablet 25 mg PO DAILY #90 tabs 05/29/24 05/31/24 Rx trazodone 50 mg tablet 50 mg PO QHS PRN sleep #30 tabs 05/29/24 05/31/24 Rx Laboratory Tests 05/31/24 06/01/24 15:17 05:27 WBC 9.6 K/mm3 (4.5-10.0) RBC 4.10 L M/mm3 (4.6-6.20) Hgb 9.1 L g/dL 9.1 L g/dL (14.0-18.0) (14.0-18.0) Hct 30.1 L % 29.9 L % (42.0-52.0) (42.0-52.0) MCV 72.9 L fl (80-100) MCH 22.2 L pg (26-34) MCHC 30.4 L g/dl (32-36) RDW 19.0 H % (11.5-14.5) Plt Count 233 k/mm3 (150-375) MPV 9.6 fl (7.4-10.4) Immature Gran % (Auto) 0.9 H % (0-0.5) Neut % (Auto) 83.0 H % (45.5-73.1) Lymph % (Auto) 7.2 L % (18.3-44.2) [place] % (Auto) 7.9 % (2.6-8.5) Eos % (Auto) 0.5 % (0-4.4) Baso % (Auto) 0.5 % (0.2-1.2) Lymph # (Auto) 0.69 L K/mm3 (0.9-3.2) [place] # (Auto) 0.8 H K/mm3 (0.1-0.6) Eos # (Auto) 0.1 K/mm3 (0-0.3) Baso # (Auto) 0.1 K/mm3 (0.0-0.1) Abs Immat Gran (auto) 0.09 H K/mm3 (0.00-0.031) Absolute Neuts (auto) 8.0 H K/mm3 (1.3-6.7) Absolute Nucleated RBC 0.000 K/mm3 (0.0-0.012) Band Neutrophils % Not Reportable Nucleated RBC % 0.0 % (0.0-0.2) Platelet Estimate Adequate (Adequate) % Immature Plt Fraction 2.4 % (0.9-11.2) Hypochromasia 1+ Basophilic Stippling 1+ Anisocytosis 1+ Target Cells 1+ Schistocytes 1+ Absolute Retic 0.09 10^6/uL (0.02-0.10) Percent Retic 2.13 % (0.7-4.3) Immature Retic Fraction 36.7 H % (3.0-15.9) Retic Hgb Content 19.6 L pg (28.2-36.6) Sodium 132 L mmol/L (137-145) Potassium 4.5 mmol/L (3.4-5.0) Chloride 102 mmol/L (98-107) Carbon Dioxide 25 mmol/L (22-30) Anion Gap 5 mmol/L (4-12) BUN 12 mg/dL (9-20) Creatinine 0.81 mg/dL (0.7-1.3) Estim Creat Clear Calc 41 ml/min Estimated GFR > 60 (59 - ) Glucose 85 mg/dL (65-110) Calcium 8.1 L mg/dL (8.4-10.2) Total Bilirubin 1.1 mg/dL (0.2-1.3) AST 28 U/L (17-59) ALT 25 U/L (6-50) Alkaline Phosphatase 125 U/L (38-126) Lactate Dehydrogenase 184 U/L (120-246) Total Protein 5.0 L g/dL (6.3-8.2) Albumin 3.0 L g/dL (3.5-5.1) Vitamin B12 552.0 pg/mL (239-931) Folate 10.2 ng/mL (2.76->20) Patient hx anesthesia problems: none Family hx anesthesia problems: none Results Review: All pre-operative results and documents have been reviewed as part of the pre- operative evaluation. 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 They have 3 living children; one child in a car wreck. Retired 1998. Smoked cigarettes 1 ppd x 10 years, then cigars up to 10 per day, now 2 cigars a week. He drinks only on very rare occasion. Code status: Surrogate decision maker: Smoking packs per day: 1 Smoking cigarettes per day: 20.0 Years smoked: 55 Smoking pack-years: 55.00 Smoking status: Current some day smoker Tobacco type: cigars Smoking end date: 08/29/23 Additional smoking assessment comments: 1 pack per day for 10 years then switched to cigars couple of times a week Alcohol intake: current Alcohol use details: 2 drinks yearly Substance use: never Substance use type: does not use Do You Feel Safe in your Home?: Yes Lack of Transportation: No Lack of Food: Never True Current Housing: I Have Housing Concerned About Future Housing: No Difficulty Paying Gas/Electric Bills: No Difficulty Paying for Meds: No Currently Unemployed: No Education: High School Diploma/GED Difficulty w/ Childcare or Family Care: No Living arrangements: alone Occupation/Education: retired Gender identity (if verbalized by the patient): Male Spiritual care concerns: No Anes - Eval Final PreProcedure Day of Procedure 06/01/24 09:43 Patient weight: cachectic Heart: regular rate and rhythm Lungs: clear to auscultation and normal air movement Airway: Mallampati scale class II Neurological: alert and oriented Last oral intake: >/= 8 hours ASA classification: IV Emergent: yes Anesthetic plan: proceed Anesthesia type and monitoring: general GIVS and standard monitoring Results Review: All pre-operative results and documents have been reviewed as part of the pre- operative evaluation. Informed Consent: The patient's anesthetic plan and its attendant risks and benefits were discussed with the patient/family/POA. Questions were solicited and answers provided to the satisfaction of the patient/family/POA.
[2024-06-01] MEDS: LACTATED RINGERS 1,000 ML 150 ML IV CONT (09:50)
[2024-06-01] MEDS: ALBUTEROL SULFATE (*SP) AEROSOL 1 PUFF 2 PUFF INHALATION ×2 (09:52→14:12)
--- NOTE | 2024-06-01 11:38 | WPDGIPROGNO ---
Progress Note: A&P Assessment and Plan (1) Anemia: Code(s): D64.9 - Anemia, unspecified Status: Acute Assessment and Plan: the patient has anemia and evidence of occult blood in stools, however he refused to take a colonoscopy prep. EGD is unremarkable as an explanation for anemia P. suggest rescheduling the procedure as an outpatient. He can be fed with a regular diet from my standpoint and can be discharged home according to hospitalist criteria. Subjective Date/time seen: 06/01/24 11:38 Interval history: The patient's symptoms are only related to his fall, complaining of rib cage pain. He refused to take the prep for colonoscopy. See EGD r Exam Narrative: AF HR General: frail male in no acute respiratory distress who is nontoxic appearing, lying semi recumbent in bed. HEENT: Normocephalic. Atraumatic. Extraocular movement intact. Sclera clear and anicteric. No facial asymmetry. Chest: Lungs are clear to auscultation bilaterally. No wheezes or crackles. CV: Heart was regular rate and rhythm. Abd: Abdomen was soft. Nontender. Nondistended. Positive bowel sounds. Ext: No clubbing, cyanosis, or edema. 2+ DP pulses bilaterally. Neuro: Patient is alert and oriented x3. Speech is clear. Objective Data Vital Signs Vital Signs: Vital Signs - 24 hr 05/31/24 12:05 05/31/24 13:02 05/31/24 14:23 Temperature 97.0 F L Pulse Rate 47 L 52 L Respiratory Rate 17 Blood Pressure 153/72 H Pulse Oximetry 99 Oxygen Delivery Room Air 05/31/24 16:04 05/31/24 20:00 05/31/24 20:00 Temperature Pulse Rate 69 60 Respiratory Rate Blood Pressure Pulse Oximetry Oxygen Delivery Room Air 05/31/24 22:00 05/31/24 22:11 06/01/24 00:00 Temperature 97.7 F Pulse Rate 57 L 59 L 49 L Respiratory Rate 16 Blood Pressure 131/59 L Pulse Oximetry 97 Oxygen Delivery 06/01/24 04:00 06/01/24 06:00 06/01/24 09:00 Temperature 97.2 F L Pulse Rate 56 L 54 L Respiratory Rate 18 Blood Pressure 125/56 L Pulse Oximetry 96 Oxygen Delivery Room Air 06/01/24 09:47 06/01/24 11:28 Temperature 97 F L Pulse Rate 61 72 Respiratory Rate 24 H 15 Blood Pressure 142/66 H 132/72 Pulse Oximetry 96 100 Oxygen Delivery Room Air Room Air Intake/Output Intake/Output: Intake & Output 05/29/24 05/30/24 05/31/24 06/01/24 23:59 23:59 23:59 23:59 Intake Total 1846 600 Output Total 1000 1000 Balance 846 -400 Meds/Results Medications: Active Medications Generic Name Dose Route Start Last Admin Trade Name Freq PRN Reason Stop Dose Admin Acetaminophen 650 mg 05/31/24 02:42 Acetaminophen 325 Mg Tablet PO Q4H PRN Mild Pain (1-3) or Fever Hydrocodone Bitart/Acetaminophen 1 tab 05/31/24 02:42 05/31/24 21:17 Hydrocodone/Acetaminophen (*Crx) 5-325 Mg Tablet PO 1 tab Q4H PRN Administration Pain Rated 4-6 Albuterol 2 puff 05/31/24 04:58 06/01/24 09:52 Albuterol Sulfate (*Sp) Aerosol 1 Puff INHALATION 2 puff Q4H PRN Administration shortness of breath or wheezing Amiodarone HCl 200 mg 06/01/24 09:00 Amiodarone Hcl 200 Mg Tablet BY MOUTH DAILY BROCK Fluticasone/Umeclidinium/Vilanterol 1 puff 05/31/24 08:00 06/01/24 09:52 Fluticasone/Umeclidin/Vilanter 100-62.5-25 Mcg Ellipta INHALATION Not Given DAILYRT BROCK Lactated Ringer's 1,000 mls @ 75 mls/hr 05/31/24 02:45 05/31/24 21:13 Lr - Lactated Ringers Iv IV CONT 75 mls/hr .[id number] BROCK Administration Lactated Ringer's 1,000 mls @ 150 mls/hr 06/01/24 09:45 06/01/24 09:50 Lr - Lactated Ringers Iv IV CONT 150 mls/hr .[id number] BROCK Administration Miscellaneous Information 0 each 05/31/24 06:10 Ensifentrine [Ohtuvayre] 3 Mg/2.5 Ml Suspension For Nebulization- Nonformulary. Please Obt XX 06/30/24 06:09 CLARIFY BROCK Morphine Sulfate 1 mg 05/31/24 10:51 06/01/24 05:52 Morphine Sulfate (*Crx) 2 Mg/Ml Inj IV PUSH 1 mg Q4H PRN Administration Pain Rated 7-10 Non-Formulary Medication 2.5 ml 05/31/24 09:00 Ensifentrine [Ohtuvayre] INHALATION 06/30/24 08:59 BID [facility] Sertraline HCl 25 mg 06/01/24 09:00 Sertraline Hcl 25 Mg Tablet PO DAILY [facility] Simvastatin 10 mg 06/01/24 09:00 Simvastatin 10 Mg Tablet PO DAILY [facility] Radiology Results: ITS Impressions Head CT 05/30/24 23:06 Impression: No acute intracranial hemorrhage or suspicious mass effect. Ribs X-Ray 05/30/24 23:10 IMPRESSION: No acute displaced right-sided rib fracture, as detailed above. Remainder of the examination as detailed above. Chest/Abdomen/Pelvis CT 05/31/24 06:07 Impression: Increased size and extent of spiculated nodules and small satellite nodules in the right upper lobe extending towards the right perihilar region. Findings are suspicious for progression of neoplastic/metastatic disease, versus possibly worsening infectious/inflammatory process. Severe emphysema with stable probable postradiation or other posttreatment changes in the left lung apex. Nonspecific infiltrative change in the presacral soft tissues. 6 mm nonobstructing right renal stone. Labs Labs: Laboratory Results - last 24 hr 05/31/24 06/01/24 15:17 05:27 WBC 9.6 RBC 4.10 L Hgb 9.1 L 9.1 L Hct 30.1 L 29.9 L MCV 72.9 L MCH 22.2 L MCHC 30.4 L RDW 19.0 H Plt Count 233 MPV 9.6 Immature Gran % (Auto) 0.9 H Neut % (Auto) 83.0 H Lymph % (Auto) 7.2 L [place] % (Auto) 7.9 Eos % (Auto) 0.5 Baso % (Auto) 0.5 Lymph # (Auto) 0.69 L [place] # (Auto) 0.8 H Eos # (Auto) 0.1 Baso # (Auto) 0.1 Abs Immat Gran (auto) 0.09 H Absolute Neuts (auto) 8.0 H Absolute Nucleated RBC 0.000 Band Neutrophils % Not Reportable Nucleated RBC % 0.0 Platelet Estimate Adequate % Immature Plt Fraction 2.4 Hypochromasia 1+ Basophilic Stippling 1+ Anisocytosis 1+ Target Cells 1+ Schistocytes 1+ Absolute Retic 0.09 Percent Retic 2.13 Immature Retic Fraction 36.7 H Retic Hgb Content 19.6 L Sodium 132 L Potassium 4.5 Chloride 102 Carbon Dioxide 25 Anion Gap 5 BUN 12 Creatinine 0.81 Estim Creat Clear Calc 41 Estimated GFR > 60 Glucose 85 Calcium 8.1 L Total Bilirubin 1.1 AST 28 ALT 25 Alkaline Phosphatase 125 Lactate Dehydrogenase 184 Total Protein 5.0 L Albumin 3.0 L Vitamin B12 552.0 Folate 10.2
[2024-06-01] MEDS: SIMVASTATIN 10 MG TABLET PO (12:02)
[2024-06-01] MEDS: SERTRALINE HCL 25 MG TABLET PO (12:02)
[2024-06-01] MEDS: AMIODARONE HCL 200 MG TABLET BY MOUTH (12:02)
[2024-06-01] MEDS: HYDROcodone/acetaminophen (*CRX) 5-325 MG TABLET 1 TAB PO ×2 (13:52→20:47)
--- NOTE | 2024-06-01 14:20 | PCPTNOTE ---
Patient refused PT this afternoon. Patient states he does not feel well and is sore from laying on his side during EGD test this morning. PT will continue to follow per plan of care.
[2024-06-01] MEDS: ONDANSETRON INJ 4 MG/2 ML VIAL IV PUSH (16:44)
--- NOTE | 2024-06-01 17:50 | PHAR ---
Pharmacy verified home med: * Home Med * Ensifentrine [Ohtuvayre] 3 mg/2.5 mL suspension for nebulization - shake nebule and inhale contents via nebulizer twice daily
[2024-06-01] MEDS: [UNRECOGNIZED DRUG - OTHER] 2.5 EACH INHALATION (19:58)
[2024-06-01] MEDS: APIXABAN 5 MG TABLET BY MOUTH (20:42)
[2024-06-02] VITALS (15 sets, daily range): BP systolic 108–146; BP diastolic 48–59; PULSE 45–61; RESP 16–24; TEMP 36.2–36.4; O2SAT 90–93
[2024-06-02] MEDS: HYDROcodone/acetaminophen (*CRX) 5-325 MG TABLET 1 TAB PO ×3 (04:28→16:45)
[2024-06-02 05:31] LABS: Basophils Percent Auto 0.4 % (0.2-1.2); Eosinophils Absolute Auto 0.2 K/mm3 (0-0.3); Eosinophils Percent Auto 1.6 % (0-4.4); Hematocrit 28.5 % (42.0-52.0); Hemoglobin 8.6 g/dL (14.0-18.0); Immature Granulocyte Absolute 0.07 K/mm3 (0.00-0.031); Immature Granulocyte Percent A 0.7 % (0-0.5); Lymphocytes Absolute Auto 0.69 K/mm3 (0.9-3.2); Lymphocytes Percent Auto 7.2 % (18.3-44.2); Mean Corpuscular HGB Conc 30.2 g/dl (32-36); Mean Corpuscular Hemoglobin 22.2 pg (26-34); Mean Corpuscular Volume 73.5 fl (80-100); Mean Platelet Volume 9.8 fl (7.4-10.4); Monocytes Percent Auto 10.2 % (2.6-8.5); Neutrophils Absolute Auto 7.7 K/mm3 (1.3-6.7); Neutrophils Percent Auto 79.9 % (45.5-73.1); Platelet Count Result 218 k/mm3 (150-375); Red Blood Count 3.88 M/mm3 (4.6-6.20); Red Cell Distribution Width 19.8 % (11.5-14.5); White Blood Count 9.6 K/mm3 (4.5-10.0)
[2024-06-02 05:43] LABS: Alanine Aminotransferase 24 U/L (6-50); Albumin Level 3.1 g/dL (3.5-5.1); Alkaline Phosphatase 123 U/L (38-126); Anion Gap 8 mmol/L (4-12); Aspartate Amino Transferase 30 U/L (17-59); Bilirubin,Total 0.9 mg/dL (0.2-1.3); Blood Urea Nitrogen 15 mg/dL (9-20); Calcium 8.3 mg/dL (8.4-10.2); Carbon Dioxide 23 mmol/L (22-30); Chloride 99 mmol/L (98-107); Estimated CRCL calculation 36 ml/min; Estimated Glomerular Filt Rate > 60; Glucose 88 mg/dL (65-110); Potassium 4.4 mmol/L (3.4-5.0); Sodium 130 mmol/L (137-145)
[2024-06-02 05:51] LABS: Anisocytosis 1+; Hypochromasia 1+; Platelet Estimate Adequate (Adequate); Schistocytes Rare
--- NOTE | 2024-06-02 07:36 | PM.IMPN ---
Progress Note: A&P Assessment and Plan (1) Guaiac positive stools: Code(s): R19.5 - Other fecal abnormalities Status: Acute Assessment and Plan: Endorses a dark colored stool for about 3 months. Anticoagulated with asa and eliquis for atrial fibrillation. - Iron studies: Iron 226, TIBC 361, % sat 63. Increasing suspicion of acute blood loss anemia given that iron is elevated but % saturation is low. Possible iron levels are unreliable given recent blood transfusion. - Pantoprazole IV, DC per GI - Diet: Regular - DVT Px: spoke with GI Dr. Dupree, resumed aspirin and eliquis - Monitor serum electrolytes, CBC, hemoglobin/hematocrit q.8 hours. If hemoglobin drops below 7 transfuse packed red blood cells - Monitor for bloody bowel movements,chest pain,SOB or dizziness/lightheadedness - GI consulted, appreciate recommendations EGD showing hiatal hernia and schatziks ring, no source of blood loss identified Patient refused colonoscopy prep, plan for outpatient scope Per patient and RN, no longer reporting dark stools. (2) Acute anemia: Code(s): D64.9 - Anemia, unspecified Status: Acute Assessment and Plan: Likely secondary to acute GI bleed, guiac positive in ED - H/H 5.6/19 on /2 (admission) received 2 units pRBC, H/H responded appropriately now 8.9/28.7 on am labs - Iron studies: Iron 226, TIBC 361, % sat 63. Increasing suspicion of acute blood loss anemia given that iron is elevated but % saturation is low. Possible iron levels are unreliable given recent blood transfusion. - B12 and folate WNL - DVT Px: resumed aspirin and eliquis H/H remains stable. No longer endorsing dark colored stools. Continue to monitor. (3) Fall: Code(s): W19.XXXA - Unspecified fall, initial encounter Status: Acute Assessment and Plan: Patient reports a ground level fall where his legs gave out on him resulting in him falling onto his right side and hitting his head. Denies LOC. Head CT: unremarkable Rib XR: No acute displaced right-sided rib fracture Fall precaution. Ambulate with assistance. PT/OT recommending SNF, patient and family aware and agreeable. Care coordination following for placement. (4) Closed rib fracture: Code(s): S22.39XA - Fracture of one rib, unspecified side, initial encounter for closed fracture Status: Acute Assessment and Plan: Rib XR: No acute displaced right-sided rib fracture Supportive treatment (5) Lung nodules: Code(s): R91.8 - Other nonspecific abnormal finding of lung field Status: Acute Assessment and Plan: Chest/abdomen/pelvis CT: Increased size and extent of spiculated nodules and small satellite nodules in the right upper lobe extending towards the right perihilar region. Findings are suspicious for progression of neoplastic/metastatic disease, versus possibly worsening infectious/inflammatory process.Severe emphysema with stable probable postradiation or other posttreatment changes in the left lung apex. Nonspecific infiltrative change in the presacral soft tissues. - No signs of infection, WBC WNL, afebrile, no cough - Patient follows pulmonology Dr. Jacobo, - Patient will require follow up in the outpatient setting with pulmonology and oncology He does not wish to follow with Dr. Rapp as he was his wifes oncologist prior to her . (6) Atrial fibrillation: Code(s): I48.91 - Unspecified atrial fibrillation Status: Acute Assessment and Plan: Chronic Continue amiodarone 200 mg daily Resume eliquis and aspirin (7) Essential hypertension: Code(s): I10 - Essential (primary) hypertension Status: Chronic Assessment and Plan: Chronic, not on any home medications Currently stable, continue to monitor (8) Severe protein-calorie malnutrition: Code(s): E43 - Unspecified severe protein-calorie malnutrition Status: Acute Assessment and Plan: Supplement per nutrition Time Spent With Patient Time with patient: 25 - 35 minutes Subjective Date/time seen: 06/02/24 07:36 Interval history: 78-year-old male with a past medical history of COPD, atrial fibrillation on Eliquis and aspirin, hypertension, depression, history of tobacco abuse, hyperlipidemia, and COPD presents to the hospital after a mechanical fall. Patient is pleasant comfortably in bed. He continues to endorse difficulty with the breathing secondary to rib pain. He states that his shortness of breath is near his baseline considering his chronic COPD. He is able to speak full sentences throughout assessment. He has no other complaints stating that the dark stools have resolved. He also denies any chest pain, palpitations, nausea/vomiting, abdominal pain. Discussed with patient that care coordination and his son are looking into placement for further therapy. Patient agreeable with placed. Review of Systems Review of Systems: All systems reviewed & are unremarkable except as noted in HPI and below Exam Narrative: AF HR 54 RR 24 SpO2 90 BP 111/55 General: frail male in no acute respiratory distress who is nontoxic appearing, sitting up in bed. HEENT: Normocephalic. Atraumatic. Extraocular movement intact. Sclera clear and anicteric. No facial asymmetry. Chest: Lungs are clear to auscultation bilaterally. Speaking full sentences. CV: Heart was bradycardic and regular rhythm. Abd: Abdomen was soft. Nontender. Nondistended. Positive bowel sounds. Ext: No clubbing, cyanosis, or edema. DP pulses bilaterally. Neuro: Patient is alert and oriented x3. Speech is clear. Objective Data Vital Signs Vital Signs: Vital Signs - 24 hr 06/01/24 08:04 06/01/24 09:00 06/01/24 09:47 Temperature 97 F L Pulse Rate 63 61 Respiratory Rate 24 H Blood Pressure 142/66 H Pulse Oximetry 96 Oxygen Delivery Room Air Room Air 06/01/24 11:28 06/01/24 11:38 06/01/24 11:48 Temperature Pulse Rate 72 69 66 Respiratory Rate 15 21 H 21 H Blood Pressure 132/72 138/77 141/73 H Pulse Oximetry 100 100 100 Oxygen Delivery Room Air Room Air Room Air 06/01/24 12:02 06/01/24 12:05 06/01/24 13:58 Temperature 97.2 F L Pulse Rate 66 78 47 L Respiratory Rate 16 Blood Pressure 103/54 L Pulse Oximetry 93 Oxygen Delivery 06/01/24 16:04 06/01/24 20:00 06/01/24 20:02 Temperature Pulse Rate 51 L 60 58 L Respiratory Rate Blood Pressure Pulse Oximetry Oxygen Delivery 06/01/24 20:04 06/01/24 20:10 06/01/24 20:54 Temperature Pulse Rate 57 L Respiratory Rate Blood Pressure Pulse Oximetry 94 Oxygen Delivery Room Air Room Air 06/01/24 22:16 06/02/24 00:00 06/02/24 04:22 Temperature 97.6 F Pulse Rate 50 L 50 L 61 Respiratory Rate 16 Blood Pressure 128/74 Pulse Oximetry 95 Oxygen Delivery Intake/Output Intake/Output: Intake & Output 05/30/24 05/31/24 06/01/24 06/02/24 23:59 23:59 23:59 23:59 Intake Total 1846 2230 Output Total 1000 1100 50 Balance 846 1130 -50 Meds/Results Medications: Active Medications Generic Name Dose Route Start Last Admin Trade Name Freq PRN Reason Stop Dose Admin Acetaminophen 650 mg 05/31/24 02:42 Acetaminophen 325 Mg Tablet PO Q4H PRN Mild Pain (1-3) or Fever Hydrocodone Bitart/Acetaminophen 1 tab 05/31/24 02:42 06/02/24 04:28 Hydrocodone/Acetaminophen (*Crx) 5-325 Mg Tablet PO 1 tab Q4H PRN Administration Pain Rated 4-10 Albuterol 2 puff 05/31/24 04:58 06/01/24 14:12 Albuterol Sulfate (*Sp) Aerosol 1 Puff INHALATION 2 puff Q4H PRN Administration shortness of breath or wheezing Amiodarone HCl 200 mg 06/01/24 09:00 06/01/24 12:02 Amiodarone Hcl 200 Mg Tablet BY MOUTH 200 mg DAILY BROCK Administration Apixaban 5 mg 06/01/24 21:00 06/01/24 20:42 Apixaban 5 Mg Tablet BY MOUTH 5 mg Q12HR BROCK Administration Aspirin 81 mg 06/02/24 09:00 Aspirin 81 Mg Chewable Tablet PO DAILY BROCK Fluticasone/Umeclidinium/Vilanterol 1 puff 05/31/24 08:00 06/01/24 09:52 Fluticasone/Umeclidin/Vilanter 100-62.5-25 Mcg Ellipta INHALATION Not Given DAILYRT BROCK * Home Med * 2.5 ml 06/01/24 20:00 06/01/24 19:58 Ensifentrine [ INHALATION 07/01/24 19:59 2.5 ml Ohtuvayre] 3 Mg/2.5 Q12HRT BROCK Administration Ml Suspension For Nebulization Ondansetron HCl 4 mg 06/01/24 16:39 06/01/24 16:44 Ondansetron Inj 4 Mg/2 Ml Vial IV PUSH 4 mg Q4H PRN Administration Nausea And Vomiting Sertraline HCl 25 mg 06/01/24 09:00 06/01/24 12:02 Sertraline Hcl 25 Mg Tablet PO 25 mg DAILY BROCK Administration Simvastatin 10 mg 06/01/24 09:00 06/01/24 12:02 Simvastatin 10 Mg Tablet PO 10 mg DAILY BROCK Administration Radiology Results: ITS Impressions Head CT 05/30/24 23:06 Impression: No acute intracranial hemorrhage or suspicious mass effect. Ribs X-Ray 05/30/24 23:10 IMPRESSION: No acute displaced right-sided rib fracture, as detailed above. Remainder of the examination as detailed above. Chest/Abdomen/Pelvis CT 05/31/24 06:07 Impression: Increased size and extent of spiculated nodules and small satellite nodules in the right upper lobe extending towards the right perihilar region. Findings are suspicious for progression of neoplastic/metastatic disease, versus possibly worsening infectious/inflammatory process. Severe emphysema with stable probable postradiation or other posttreatment changes in the left lung apex. Nonspecific infiltrative change in the presacral soft tissues. 6 mm nonobstructing right renal stone. Chest X-Ray 06/01/24 14:05 Impression: 1: Stable spiculated right upper lobe mass and apical pleural thickening/scarring bilaterally without significant change dating back to 09/22/2023. Underlying malignancy is not excluded. Labs Labs: Laboratory Results - last 24 hr 06/02/24 05:21 WBC 9.6 RBC 3.88 L Hgb 8.6 L Hct 28.5 L MCV 73.5 L MCH 22.2 L MCHC 30.2 L RDW 19.8 H Plt Count 218 MPV 9.8 Immature Gran % (Auto) 0.7 H Neut % (Auto) 79.9 H Lymph % (Auto) 7.2 L [place] % (Auto) 10.2 H Eos % (Auto) 1.6 Baso % (Auto) 0.4 Lymph # (Auto) 0.69 L [place] # (Auto) 1.0 H Eos # (Auto) 0.2 Baso # (Auto) 0.0 Abs Immat Gran (auto) 0.07 H Absolute Neuts (auto) 7.7 H Absolute Nucleated RBC 0.000 Band Neutrophils % Not Reportable Nucleated RBC % 0.0 Platelet Estimate Adequate Hypochromasia 1+ Anisocytosis 1+ Schistocytes Rare Sodium 130 L Potassium 4.4 Chloride 99 Carbon Dioxide 23 Anion Gap 8 BUN 15 Creatinine 0.94 Estim Creat Clear Calc 36 Estimated GFR > 60 Glucose 88 Calcium 8.3 L Total Bilirubin 0.9 AST 30 ALT 24 Alkaline Phosphatase 123 Total Protein 6.0 L Albumin 3.1 L Quality VTE Prophylaxis VTE prophylaxis: mechanical ordered and pharmacologic ordered
[2024-06-02] MEDS: [UNRECOGNIZED DRUG - OTHER] 2.5 EACH INHALATION ×2 (07:57→19:54)
[2024-06-02] MEDS: FLUTICASONE/UMECLIDIN/VILANTER 100-62.5-25 MCG ELLIPTA 1 PUFF INHALATION (07:57)
[2024-06-02] MEDS: APIXABAN 5 MG TABLET BY MOUTH ×2 (09:39→21:47)
[2024-06-02] MEDS: SIMVASTATIN 10 MG TABLET PO (09:40)
[2024-06-02] MEDS: SERTRALINE HCL 25 MG TABLET PO (09:40)
[2024-06-02] MEDS: ASPIRIN 81 MG CHEWABLE TABLET PO (09:40)
--- NOTE | 2024-06-02 12:09 | PCPTNOTE ---
Pt refused PT, stating he was feeling wiped and just got comfortable after having a lot of rib pain. Will cont per POC
[2024-06-02 12:15] LABS: Iron 29 ug/dL (49-181)
[2024-06-02 12:24] LABS: Percent Iron Saturation 9 % (20-50)
[2024-06-03] VITALS (15 sets, daily range): BP systolic 108–133; BP diastolic 40–55; PULSE 50–62; RESP 16–22; TEMP 35.9–36.6; O2SAT 90–100
[2024-06-03] MEDS: HYDROcodone/acetaminophen (*CRX) 5-325 MG TABLET 1 TAB PO ×2 (03:25→17:51)
[2024-06-03 05:49] LABS: Basophils Absolute Auto 0.1 K/mm3 (0.0-0.1); Basophils Percent Auto 0.8 % (0.2-1.2); Eosinophils Absolute Auto 0.1 K/mm3 (0-0.3); Eosinophils Percent Auto 1.3 % (0-4.4); Hematocrit 28.2 % (42.0-52.0); Hemoglobin 8.6 g/dL (14.0-18.0); Immature Granulocyte Absolute 0.08 K/mm3 (0.00-0.031); Immature Granulocyte Percent A 0.9 % (0-0.5); Lymphocytes Absolute Auto 0.66 K/mm3 (0.9-3.2); Lymphocytes Percent Auto 7.7 % (18.3-44.2); Mean Corpuscular HGB Conc 30.5 g/dl (32-36); Mean Corpuscular Hemoglobin 22.3 pg (26-34); Mean Corpuscular Volume 73.2 fl (80-100); Mean Platelet Volume 9.4 fl (7.4-10.4); Monocytes Absolute Auto 0.9 K/mm3 (0.1-0.6); Monocytes Percent Auto 10.5 % (2.6-8.5); Neutrophils Absolute Auto 6.8 K/mm3 (1.3-6.7); Neutrophils Percent Auto 78.8 % (45.5-73.1); Platelet Count Result 227 k/mm3 (150-375); Red Blood Count 3.85 M/mm3 (4.6-6.20); Red Cell Distribution Width 20.6 % (11.5-14.5); White Blood Count 8.6 K/mm3 (4.5-10.0)
[2024-06-03 06:05] LABS: Alanine Aminotransferase 24 U/L (6-50); Albumin Level 2.9 g/dL (3.5-5.1); Alkaline Phosphatase 128 U/L (38-126); Anion Gap 5 mmol/L (4-12); Aspartate Amino Transferase 25 U/L (17-59); Bilirubin,Total 0.8 mg/dL (0.2-1.3); Blood Urea Nitrogen 18 mg/dL (9-20); Calcium 8.1 mg/dL (8.4-10.2); Carbon Dioxide 24 mmol/L (22-30); Chloride 100 mmol/L (98-107); Estimated CRCL calculation 36 ml/min; Estimated Glomerular Filt Rate > 60; Glucose 95 mg/dL (65-110); Potassium 4.2 mmol/L (3.4-5.0); Sodium 129 mmol/L (137-145)
[2024-06-03 06:12] LABS: Microcytosis 1+ (NORMAL); Platelet Estimate Adequate (Adequate)
[2024-06-03 06:13] LABS: Anisocytosis 2+; Hypochromasia 1+
[2024-06-03 06:17] LABS: Ovalocytes 1+; Poikilocytosis 1+; Schistocytes Rare
--- NOTE | 2024-06-03 07:14 | PM.IMPN ---
Progress Note: A&P Assessment and Plan (1) Bradycardia: Code(s): R00.1 - Bradycardia, unspecified Status: Acute Assessment and Plan: Reviewed patient's telemetry and noted that he is consistently dropping mid to upper 30s heart rate. Patient remains in sinus rhythm with stable blood pressures. Patient previously had bradycardia with amiodarone and metoprolol, maintaining in the 50s in 09/2023. He was taken off of metoprolol at that time and amiodarone dose decreased to 200 mg daily. Echo ordered to re-evaluate heart function Echo 09/22: LVEF 65-70% Cardiology consulted (2) Guaiac positive stools: Code(s): R19.5 - Other fecal abnormalities Status: Acute Assessment and Plan: Endorses a dark colored stool for about 3 months. Anticoagulated with asa and eliquis for atrial fibrillation. - Iron studies: Iron 226, TIBC 361, % sat 63. Increasing suspicion of acute blood loss anemia given that iron is elevated but % saturation is low. Possible iron levels are unreliable given recent blood transfusion. - Repeat iron studies: Iron 29, TIBC 331, % sat 9. Started on iron supplementation. - Diet: Regular - DVT Px: spoke with GI Dr. Dupree, resumed aspirin and eliquis - Monitor serum electrolytes, CBC, hemoglobin/hematocrit q.8 hours. If hemoglobin drops below 7 transfuse packed red blood cells - Monitor for bloody bowel movements,chest pain,SOB or dizziness/lightheadedness - GI consulted, appreciate recommendations EGD showing hiatal hernia and schatziks ring, no source of blood loss identified Patient refused colonoscopy prep, plan for outpatient scope Per patient and RN, no longer reporting dark stools. (3) Acute anemia: Code(s): D64.9 - Anemia, unspecified Status: Acute Assessment and Plan: Likely secondary to acute GI bleed, guiac positive in ED - H/H 5.6/19 on 42 (admission) received 2 units pRBC, H/H responded appropriately now 8.6/28.2 on am labs - Iron studies: Iron 226, TIBC 361, % sat 63. Increasing suspicion of acute blood loss anemia given that iron is elevated but % saturation is low. Possible iron levels are unreliable given recent blood transfusion. - Repeat iron studies: Iron 29, TIBC 331, % sat 9. Started on iron supplementation. - B12 and folate WNL - DVT Px: resumed aspirin and eliquis H/H remains stable. No longer endorsing dark colored stools and no hematuria noted. Continue to monitor. (4) Fall: Code(s): W19.XXXA - Unspecified fall, initial encounter Status: Acute Assessment and Plan: Patient reports a ground level fall where his legs gave out on him resulting in him falling onto his right side and hitting his head. Denies LOC. Head CT: unremarkable Rib XR: No acute displaced right-sided rib fracture Fall precaution. Ambulate with assistance. PT/OT recommending SNF, patient and family aware and agreeable. Care coordination following for placement. (5) Closed rib fracture: Code(s): S22.39XA - Fracture of one rib, unspecified side, initial encounter for closed fracture Status: Acute Assessment and Plan: Rib XR: No acute displaced right-sided rib fracture Supportive treatment (6) Lung nodules: Code(s): R91.8 - Other nonspecific abnormal finding of lung field Status: Acute Assessment and Plan: Chest/abdomen/pelvis CT: Increased size and extent of spiculated nodules and small satellite nodules in the right upper lobe extending towards the right perihilar region. Findings are suspicious for progression of neoplastic/metastatic disease, versus possibly worsening infectious/inflammatory process.Severe emphysema with stable probable postradiation or other posttreatment changes in the left lung apex. Nonspecific infiltrative change in the presacral soft tissues. - No signs of infection, WBC WNL, afebrile, no cough - Patient follows pulmonology Dr. Jacobo, - Patient will require follow up in the outpatient setting with pulmonology and oncology He does not wish to follow with Dr. Rapp as he was his wifes oncologist prior to her . (7) Atrial fibrillation: Code(s): I48.91 - Unspecified atrial fibrillation Status: Acute Assessment and Plan: Chronic Continue amiodarone 200 mg daily Resume eliquis and aspirin (8) Essential hypertension: Code(s): I10 - Essential (primary) hypertension Status: Chronic Assessment and Plan: Chronic, not on any home medications Currently stable, continue to monitor (9) Severe protein-calorie malnutrition: Code(s): E43 - Unspecified severe protein-calorie malnutrition Status: Acute Assessment and Plan: Supplement per nutrition Time Spent With Patient Time with patient: 25 - 35 minutes Subjective Date/time seen: 06/03/24 07:14 Interval history: 78-year-old male with a past medical history of COPD, atrial fibrillation on Eliquis and aspirin, hypertension, depression, history of tobacco abuse, hyperlipidemia, and COPD presents to the hospital after a mechanical fall. Patient is pleasant lying comfortably in bed. He continues to endorse shortness of breath but notes that this is at his baseline. He denies any recurrence dark bloody stools as well as any blood in his urine. Reviewed patient's telemetry and noted that he is consistently dropping into the heart rate of upper 30s. Patient has no complaints denying chest pain, palpitations, nausea/vomiting, and abdominal pain. Review of Systems Review of Systems: All systems reviewed & are unremarkable except as noted in HPI and below Exam Narrative: AF HR 58 RR 20 Spo2 94 BP 109/40 General: frail male in no acute respiratory distress who is nontoxic appearing, sitting up in bed. HEENT: Normocephalic. Atraumatic. Extraocular movement intact. Sclera clear and anicteric. No facial asymmetry. Chest: Lungs are clear to auscultation bilaterally. Speaking full sentences. CV: Heart was bradycardic and regular rhythm. Abd: Abdomen was soft. Nontender. Nondistended. Positive bowel sounds. Ext: No clubbing, cyanosis, or edema. DP pulses bilaterally. Neuro: Patient is alert and oriented x3. Speech is clear. Objective Data Vital Signs Vital Signs: Vital Signs - 24 hr 06/02/24 08:00 06/02/24 08:00 06/02/24 08:03 Temperature Pulse Rate 54 L 57 L Respiratory Rate 24 H Blood Pressure Pulse Oximetry 91 90 Oxygen Delivery Room Air Room Air 06/02/24 08:03 06/02/24 08:13 06/02/24 09:39 Temperature Pulse Rate 60 56 L 54 L Respiratory Rate 16 24 H Blood Pressure Pulse Oximetry Oxygen Delivery 06/02/24 12:00 06/02/24 13:50 06/02/24 14:00 Temperature 97.1 F L Pulse Rate 54 L 59 L Respiratory Rate 20 Blood Pressure 108/48 L Pulse Oximetry 92 Oxygen Delivery Room Air 06/02/24 16:00 06/02/24 19:54 06/02/24 20:05 Temperature Pulse Rate 45 L 45 L 45 L Respiratory Rate 20 20 Blood Pressure Pulse Oximetry Oxygen Delivery 06/02/24 21:23 06/02/24 21:45 06/02/24 21:45 Temperature Pulse Rate 47 L Respiratory Rate Blood Pressure Pulse Oximetry 92 Oxygen Delivery Room Air Room Air 06/02/24 21:57 06/03/24 00:00 06/03/24 04:00 Temperature 97.6 F Pulse Rate 52 L 57 L 56 L Respiratory Rate 16 Blood Pressure 146/59 H Pulse Oximetry 93 Oxygen Delivery Intake/Output Intake/Output: Intake & Output 05/31/24 06/01/24 06/02/24 06/03/24 23:59 23:59 23:59 23:59 Intake Total 1846 2230 1300 Output Total 1000 1100 800 Balance 846 1130 500 Meds/Results Medications: Active Medications Generic Name Dose Route Start Last Admin Trade Name Freq PRN Reason Stop Dose Admin Acetaminophen 650 mg 05/31/24 02:42 Acetaminophen 325 Mg Tablet PO Q4H PRN Mild Pain (1-3) or Fever Hydrocodone Bitart/Acetaminophen 1 tab 05/31/24 02:42 06/03/24 03:25 Hydrocodone/Acetaminophen (*Crx) 5-325 Mg Tablet PO 1 tab Q4H PRN Administration Pain Rated 4-10 Albuterol 2 puff 05/31/24 04:58 06/01/24 14:12 Albuterol Sulfate (*Sp) Aerosol 1 Puff INHALATION 2 puff Q4H PRN Administration shortness of breath or wheezing Amiodarone HCl 200 mg 06/01/24 09:00 06/02/24 09:39 Amiodarone Hcl 200 Mg Tablet BY MOUTH Not Given DAILY BROCK Apixaban 5 mg 06/01/24 21:00 06/02/24 21:47 Apixaban 5 Mg Tablet BY MOUTH 5 mg Q12HR BROCK Administration Aspirin 81 mg 06/02/24 09:00 06/02/24 09:40 Aspirin 81 Mg Chewable Tablet PO 81 mg DAILY BROCK Administration Fluticasone/Umeclidinium/Vilanterol 1 puff 05/31/24 08:00 06/02/24 07:57 Fluticasone/Umeclidin/Vilanter 100-62.5-25 Mcg Ellipta INHALATION 1 puff DAILYRT BROCK Administration * Home Med * 2.5 ml 06/01/24 20:00 06/02/24 19:54 Ensifentrine [ INHALATION 07/01/24 19:59 2.5 ml Ohtuvayre] 3 Mg/2.5 Q12HRT BROCK Administration Ml Suspension For Nebulization Ondansetron HCl 4 mg 06/01/24 16:39 06/01/24 16:44 Ondansetron Inj 4 Mg/2 Ml Vial IV PUSH 4 mg Q4H PRN Administration Nausea And Vomiting Sertraline HCl 25 mg 06/01/24 09:00 06/02/24 09:40 Sertraline Hcl 25 Mg Tablet PO 25 mg DAILY BROCK Administration Simvastatin 10 mg 06/01/24 09:00 06/02/24 09:40 Simvastatin 10 Mg Tablet PO 10 mg DAILY BROCK Administration Radiology Results: ITS Impressions Head CT 05/30/24 23:06 Impression: No acute intracranial hemorrhage or suspicious mass effect. Ribs X-Ray 05/30/24 23:10 IMPRESSION: No acute displaced right-sided rib fracture, as detailed above. Remainder of the examination as detailed above. Chest/Abdomen/Pelvis CT 05/31/24 06:07 Impression: Increased size and extent of spiculated nodules and small satellite nodules in the right upper lobe extending towards the right perihilar region. Findings are suspicious for progression of neoplastic/metastatic disease, versus possibly worsening infectious/inflammatory process. Severe emphysema with stable probable postradiation or other posttreatment changes in the left lung apex. Nonspecific infiltrative change in the presacral soft tissues. 6 mm nonobstructing right renal stone. Chest X-Ray 06/01/24 14:05 Impression: 1: Stable spiculated right upper lobe mass and apical pleural thickening/scarring bilaterally without significant change dating back to 09/22/2023. Underlying malignancy is not excluded. Labs Labs: Laboratory Results - last 24 hr 06/02/24 06/03/24 05:19 05:29 WBC 8.6 RBC 3.85 L Hgb 8.6 L Hct 28.2 L MCV 73.2 L MCH 22.3 L MCHC 30.5 L RDW 20.6 H Plt Count 227 MPV 9.4 Immature Gran % (Auto) 0.9 H Neut % (Auto) 78.8 H Lymph % (Auto) 7.7 L Taylor % (Auto) 10.5 H Eos % (Auto) 1.3 Baso % (Auto) 0.8 Lymph # (Auto) 0.66 L Taylor # (Auto) 0.9 H Eos # (Auto) 0.1 Baso # (Auto) 0.1 Abs Immat Gran (auto) 0.08 H Absolute Neuts (auto) 6.8 H Absolute Nucleated RBC 0.000 Band Neutrophils % Not Reportable Nucleated RBC % 0.0 Platelet Estimate Adequate Hypochromasia 1+ Poikilocytosis 1+ Anisocytosis 2+ Microcytosis 1+ Ovalocytes 1+ Schistocytes Rare Sodium 129 L Potassium 4.2 Chloride 100 Carbon Dioxide 24 Anion Gap 5 BUN 18 Creatinine 0.93 Estim Creat Clear Calc 36 Estimated GFR > 60 Glucose 95 Calcium 8.1 L Iron 29 L TIBC 331 % Saturation 9 L Total Bilirubin 0.8 AST 25 ALT 24 Alkaline Phosphatase 128 H Total Protein 5.0 L Albumin 2.9 L Quality VTE Prophylaxis VTE prophylaxis: mechanical ordered and pharmacologic ordered
[2024-06-03] MEDS: APIXABAN 5 MG TABLET BY MOUTH (08:41)
[2024-06-03] MEDS: ASPIRIN 81 MG CHEWABLE TABLET PO (08:41)
[2024-06-03] MEDS: SIMVASTATIN 10 MG TABLET PO (08:41)
[2024-06-03] MEDS: FERROUS SULFATE 325 MG TABLET DR PO (08:41)
[2024-06-03] MEDS: SERTRALINE HCL 25 MG TABLET PO (08:41)
[2024-06-03] MEDS: FLUTICASONE/UMECLIDIN/VILANTER 100-62.5-25 MCG ELLIPTA 1 PUFF INHALATION (08:56)
[2024-06-03] MEDS: [UNRECOGNIZED DRUG - OTHER] 2.5 EACH INHALATION ×2 (08:56→20:22)
--- NOTE | 2024-06-03 14:52 | P.CONCA_ITS ---
Assessment and Plan Assessment and plan (1) Bradycardia, sinus: Code(s): R00.1 - Bradycardia, unspecified Status: Acute Plan this is a 78-year-old man with paroxysmal atrial fibrillation because of severe underlying COPD. His rhythm is well controlled with amiodarone. He is in sinus bradycardia with which he is asymptomatic and this is NOT a new observation. The patient presents to the hospital with very concerning and level of anemia. The etiology of this has yet to be determined. He has been placed back on apixaban. His amiodarone has been held a couple of times in this hospital because of concerns regarding sinus bradycardia. I would not recommend holding this patient's amiodarone because of sinus bradycardia. Without amiodarone he will undoubtedly revert back into AFib with RVR which is a much worse problem then asymptomatic sinus bradycardia. Of greater concern is his anticoagulation. I would stop apixaban at this point since the patient has severe anemia which heretofore has been unexplained. The reason for anticoagulation is atrial fibrillation and he is currently in sinus rhythm. There is no urgency to placing him back on anticoagulation while he is markedly anemic. Lobo Romero MD [facility] History of Present Illness History of Present Illness Consult date/time: 06/03/24 14:52 Reason For Visit: Acute anemia, Generalized weakness and fall Narrative: this is a 78-year-old man who we see in our practice for evaluation management of paroxysmal atrial fibrillation. He has severe underlying COPD with longstanding history of smoking in the past and this has been felt to be the largely the etiology of his her atrial arrhythmia. In the past he was treated with Flecainide. with suboptimal control of this arrhythmia and then he was started on amiodarone with has been providing good control and maintenance of sinus rhythm. he entered this hospital with symptoms of generalized weakness and possibly a fall with weakness of his legs. His evaluation showed him to be markedly anemic with a hemoglobin of 5.5 and he was admitted for further evaluation of this. He has not had any overt bleeding denies any symptoms of hematochezia melanotic stools hematemesis etc.. A GI workup was requested he underwent an upper endoscopy without any source being identified. A colonoscopy was recommended he had a colon prep that was apparently not adequate and the study has not/could not be performed. He did receive his red cell transfusion his hemoglobin is improved and he is since then asymptomatic. Regarding his atrial fib he has been on amiodarone and apixaban. When in sinus rhythm he has been bradycardic, this is not new the reader can certainly see notes in our record that date back to her last year where he was in sinus bradycardia cardia and resulted in the decision to take him off of the beta-elena. Because of this asymptomatic sinus bradycardia amiodarone has been held the last couple of days by the staff. He has no cardiovascular complaints at this time. Review of Systems 2 Constitutional: Constitutional: Reports fatigue and Reports lethargy Eyes: Eyes: Reports no additional eye complaints ENT: Reports system reviewed and no additional complaints, except as documented Cardiovascular: Cardiovascular: Reports no additional cardiovascular complaints Respiratory: Respiratory: Reports dyspnea on exertion Gastrointestinal: Gastrointestinal: Reports no additional gastrointestinal complaints Musculoskeletal: Musculoskeletal: Reports back pain and Reports arthralgias Integumentary/Breasts: Skin/Breast: Reports system reviewed and no additional complaints, except as docu Neurologic: Reports system reviewed and no additional complaints, except as documented Endocrine: Endocrine: Reports no additional endocrine complaints Hematologic/Lymphatic: Hematologic/Lymphatic: Reports no additional hematologic/lymphatic complaints Allergic/Immunologic: Allergic/Immunologic: Reports no additional allergic/immunologic complaints PMFSH Past Medical History Medical History Pulmonary infiltrate present on computed tomography Depression Atrial fibrillation 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 History of tobacco abuse Hyperlipidemia 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 They have 3 living children; one child in a car wreck. Retired 1998. Smoked cigarettes 1 ppd x 10 years, then cigars up to 10 per day, now 2 cigars a week. He drinks only on very rare occasion. Code status: Surrogate decision maker: Smoking packs per day: 1 Smoking cigarettes per day: 20.0 Years smoked: 55 Smoking pack-years: 55.00 Smoking status: Current some day smoker Tobacco type: cigars Smoking end date: 08/29/23 Additional smoking assessment comments: 1 pack per day for 10 years then switched to cigars couple of times a week Alcohol intake: current Alcohol use details: 2 drinks yearly Substance use: never Substance use type: does not use Do You Feel Safe in your Home?: Yes Lack of Transportation: No Lack of Food: Never True Current Housing: I Have Housing Concerned About Future Housing: No Difficulty Paying Gas/Electric Bills: No Difficulty Paying for Meds: No Currently Unemployed: No Education: High School Diploma/GED Difficulty w/ Childcare or Family Care: No Living arrangements: alone Occupation/Education: retired Gender identity (if verbalized by the patient): Male Spiritual care concerns: No Meds Home Medications and Allergies Home Medications ?Medication ?Instructions ?Recorded ?Confirmed ?Type aspirin 81 mg chewable tablet 81 mg PO DAILY 03/11/22 05/31/24 History vitamins A,C,L-lbyc-oyiqwv 2,148 1 tablet PO BIDWM 03/11/22 05/31/24 History mcg-113 mg-45 mg-17.4 mg tablet (PreserVision AREDS) polyethylene glycol 3350 17 17 g PO DAILY #850 grams 10/21/23 05/31/24 Rx gram/dose oral powder (Miralax) ensifentrine 3 mg/2.5 mL 2.5 ml inhalation BID COPD 1 month 02/16/24 05/31/24 Rx suspension for nebulization #150 mL (Ohtuvayre) albuterol sulfate 90 mcg/actuation 1 inh inhalation Q4H PRN shortness 03/13/24 05/31/24 Rx aerosol inhaler of breath or wheezing #8.5 grams apixaban 5 mg tablet (Eliquis) 5 mg BYMOUTH Q12HR #180 tabs 03/13/24 05/31/24 Rx simvastatin 10 mg tablet 10 mg PO DAILY #90 tabs 04/03/24 05/31/24 Rx amiodarone 200 mg tablet (Pacerone) 200 mg BYMOUTH DAILY #90 tabs 05/04/24 05/31/24 Rx zolpidem 5 mg tablet (Ambien) 5 mg PO QHS #30 tabs 05/04/24 05/31/24 Rx budesonide 160 mcg-glycopyr 9 2 inh inhalation BID 90 days #32.1 05/07/24 05/31/24 Rx mcg-formot 4.8 mcg/actuation HFA grams inhaler (Breztri Aerosphere) sertraline 25 mg tablet 25 mg PO DAILY #90 tabs 05/29/24 05/31/24 Rx trazodone 50 mg tablet 50 mg PO QHS PRN sleep #30 tabs 05/29/24 05/31/24 Rx Allergies Allergy/AdvReac Type Severity Reaction Status Date / Time No Known Allergies Allergy Verified 06/01/24 09:43 Vital Signs Vital Signs - 24 hr 06/02/24 16:00 06/02/24 19:54 06/02/24 20:05 Temperature Pulse Rate 45 L 45 L 45 L Respiratory Rate 20 20 Blood Pressure Pulse Oximetry Oxygen Delivery 06/02/24 21:23 06/02/24 21:45 06/02/24 21:45 Temperature Pulse Rate 47 L Respiratory Rate Blood Pressure Pulse Oximetry 92 Oxygen Delivery Room Air Room Air 06/02/24 21:57 06/03/24 00:00 06/03/24 04:00 Temperature 36.4 C Pulse Rate 52 L 57 L 56 L Respiratory Rate 16 Blood Pressure 146/59 H Pulse Oximetry 93 Oxygen Delivery 06/03/24 06:00 06/03/24 08:00 06/03/24 08:00 Temperature 36.6 C Pulse Rate 50 L 58 L 58 L Respiratory Rate 16 20 Blood Pressure 109/40 L Pulse Oximetry 93 90 Oxygen Delivery Room Air 06/03/24 08:41 06/03/24 08:58 06/03/24 08:58 Temperature Pulse Rate 52 L 57 L Respiratory Rate 20 Blood Pressure Pulse Oximetry 94 Oxygen Delivery Room Air 06/03/24 09:11 Temperature Pulse Rate 58 L Respiratory Rate 20 Blood Pressure Pulse Oximetry Oxygen Delivery Exam 2 Narrative: Very thin frail elderly man Const: General: comfortable and no acute distress HENMT: Mouth: Yes moist mucous membranes Eyes: Sclera: sclerae normal Neck: Neck: supple and no JVD Other: no carotid bruits Resp: Effort & Inspection: normal respiratory effort Other: patient has hyperexpanded thorax with markedly diminished breath sounds throughout both lung navarro lungs are otherwise clear no wheezing rales or rhonchi, prolonged expiratory phase Cardio: Rate: bradycardic Rhythm: regular rhythm GI: GI Palp: Yes Soft to palpation Auscultation: normal bowel sounds Skin: General skin exam: normal color Neuro: Other: alert and oriented Extrem: Other: no edema, good perfusion Results Labs and Meds 06/03/24 05:29 06/03/24 05:29 Lab results: Cardiac Enzymes 06/03/24 Range/Units 05:29 AST 25 (17-59) U/L CBC 06/03/24 Range/Units 05:29 WBC 8.6 (4.5-10.0) K/mm3 RBC 3.85 L (4.6-6.20) M/mm3 Hgb 8.6 L (14.0-18.0) g/dL Hct 28.2 L (42.0-52.0) % Plt Count 227 (150-375) k/mm3 Lymph # (Auto) 0.66 L (0.9-3.2) K/mm3 Nolan # (Auto) 0.9 H (0.1-0.6) K/mm3 Eos # (Auto) 0.1 (0-0.3) K/mm3 Baso # (Auto) 0.1 (0.0-0.1) K/mm3 Comprehensive Metabolic Panel 06/03/24 Range/Units 05:29 Sodium 129 L (137-145) mmol/L Potassium 4.2 (3.4-5.0) mmol/L Chloride 100 (98-107) mmol/L Carbon Dioxide 24 (22-30) mmol/L BUN 18 (9-20) mg/dL Creatinine 0.93 (0.7-1.3) mg/dL Glucose 95 (65-110) mg/dL Calcium 8.1 L (8.4-10.2) mg/dL AST 25 (17-59) U/L ALT 24 (6-50) U/L Alkaline Phosphatase 128 H (38-126) U/L Total Protein 5.0 L (6.3-8.2) g/dL Albumin 2.9 L (3.5-5.1) g/dL Intake and Output 06/02/24 06/03/24 06/03/24 23:59 07:59 15:59 Intake Total 640 150 350 Output Total 400 Balance 640 -250 350 Intake: Oral 640 150 350 Output: Urine 400 Other: # Unmeasured Voids 1
[2024-06-03] MEDS: ALBUTEROL SULFATE (*SP) AEROSOL 1 PUFF 2 PUFF INHALATION (17:44)
[2024-06-04] VITALS (7 sets, daily range): BP systolic 146; BP diastolic 61; PULSE 46–62; RESP 16–18; TEMP 36.4; O2SAT 92–94
[2024-06-04 05:43] LABS: Basophils Absolute Auto 0.1 K/mm3 (0.0-0.1); Basophils Percent Auto 0.7 % (0.2-1.2); Eosinophils Absolute Auto 0.1 K/mm3 (0-0.3); Eosinophils Percent Auto 1.3 % (0-4.4); Hematocrit 30.9 % (42.0-52.0); Hemoglobin 9.2 g/dL (14.0-18.0); Immature Granulocyte Absolute 0.07 K/mm3 (0.00-0.031); Immature Granulocyte Percent A 0.7 % (0-0.5); Lymphocytes Absolute Auto 0.96 K/mm3 (0.9-3.2); Lymphocytes Percent Auto 10.1 % (18.3-44.2); Mean Corpuscular HGB Conc 29.8 g/dl (32-36); Mean Corpuscular Volume 73.9 fl (80-100); Mean Platelet Volume 8.9 fl (7.4-10.4); Monocytes Absolute Auto 0.9 K/mm3 (0.1-0.6); Neutrophils Absolute Auto 7.4 K/mm3 (1.3-6.7); Neutrophils Percent Auto 78.2 % (45.5-73.1); Platelet Count Result 235 k/mm3 (150-375); Red Blood Count 4.18 M/mm3 (4.6-6.20); Red Cell Distribution Width 21.5 % (11.5-14.5); White Blood Count 9.5 K/mm3 (4.5-10.0)
[2024-06-04 06:00] LABS: Alanine Aminotransferase 25 U/L (6-50); Albumin Level 3.1 g/dL (3.5-5.1); Alkaline Phosphatase 142 U/L (38-126); Anion Gap 7 mmol/L (4-12); Aspartate Amino Transferase 28 U/L (17-59); Blood Urea Nitrogen 15 mg/dL (9-20); Calcium 8.2 mg/dL (8.4-10.2); Carbon Dioxide 25 mmol/L (22-30); Chloride 101 mmol/L (98-107); Estimated CRCL calculation 41 ml/min; Estimated Glomerular Filt Rate > 60; Glucose 85 mg/dL (65-110); Potassium 4.3 mmol/L (3.4-5.0); Sodium 133 mmol/L (137-145)
[2024-06-04] MEDS: HYDROcodone/acetaminophen (*CRX) 5-325 MG TABLET 1 TAB PO ×2 (06:09→15:49)
[2024-06-04 06:45] LABS: Anisocytosis 2+; Hypochromasia 2+; Ovalocytes 1+; Platelet Estimate Adequate (Adequate); Schistocytes None Seen
[2024-06-04] MEDS: FLUTICASONE/UMECLIDIN/VILANTER 100-62.5-25 MCG ELLIPTA 1 PUFF INHALATION (07:48)
[2024-06-04] MEDS: [UNRECOGNIZED DRUG - OTHER] 2.5 EACH INHALATION (07:49)
[2024-06-04] MEDS: ASPIRIN 81 MG CHEWABLE TABLET PO (08:21)
[2024-06-04] MEDS: SIMVASTATIN 10 MG TABLET PO (08:21)
[2024-06-04] MEDS: SERTRALINE HCL 25 MG TABLET PO (08:21)
[2024-06-04] MEDS: AMIODARONE HCL 200 MG TABLET BY MOUTH (08:21)
[2024-06-04] MEDS: FERROUS SULFATE 325 MG TABLET DR PO (08:21)
[2024-06-04] MEDS: LIDOCAINE 5% PATCH 1 PATCH TRANSDERM (10:06)
--- NOTE | 2024-06-04 11:06 | P.PNCA_ITS ---
Progress Note: A&P Assessment and Plan (1) Atrial fibrillation: Code(s): I48.91 - Unspecified atrial fibrillation Status: Acute (2) Atrial fibrillation with rapid ventricular response: Code(s): I48.91 - Unspecified atrial fibrillation Status: Acute Plan 70 year man with severe COPD and paroxysmal atrial fibrillation was brought in for fall found to have severe anemia Paroxysmal atrial fibrillation -currently sinus bradycardia on amiodarone 200 mg p.o. daily -given the significant anemia without etiology of source, would continue holding his anticoagulation -no further inpatient cardiac workup warranted at this time He can follow up outpatient with Dr. Zabala Subjective Date/time seen: 06/04/24 11:06 Interval history: He is without chest pain or worsening shortness of breath Review of Systems Cardiovascular: Cardiovascular: Reports as per HPI Respiratory: Respiratory: Reports as per HPI Exam Const: General: comfortable HENMT: Mouth: Yes dry mucous membranes Neck: Neck: no JVD Resp: Effort & Inspection: normal respiratory effort Auscultation: rales and wheezes Cardio: Rate: bradycardic Rhythm: regular rhythm GI: GI Palp: Yes Soft to palpation Neuro: Speech: normal speech Extrem: General: no pedal edema Objective Data Vital Signs Vital Signs: Vital Signs - 24 hr 06/03/24 12:00 06/03/24 14:00 06/03/24 16:00 Temperature 35.9 C L Pulse Rate 58 L 58 L 62 Respiratory Rate 22 H Blood Pressure 108/48 L Pulse Oximetry 92 Oxygen Delivery Oxygen Flow Rate Fraction of Inspired Oxygen 06/03/24 17:44 06/03/24 17:44 06/03/24 20:00 Temperature Pulse Rate 55 L 54 L Respiratory Rate 20 Blood Pressure Pulse Oximetry 100 Oxygen Delivery Nasal Cannula Oxygen Flow Rate 2 Fraction of Inspired Oxygen 06/03/24 20:22 06/03/24 20:22 06/03/24 20:33 Temperature Pulse Rate 53 L 54 L Respiratory Rate 20 20 Blood Pressure Pulse Oximetry 98 Oxygen Delivery Nasal Cannula Oxygen Flow Rate 2 Fraction of Inspired Oxygen 06/03/24 22:00 06/04/24 00:00 06/04/24 04:00 Temperature 36.2 C L Pulse Rate 51 L 48 L 49 L Respiratory Rate 18 Blood Pressure 133/55 L Pulse Oximetry 99 Oxygen Delivery Oxygen Flow Rate Fraction of Inspired Oxygen 06/04/24 06:00 06/04/24 07:49 06/04/24 07:49 Temperature 36.4 C L Pulse Rate 56 L 60 Respiratory Rate 16 18 Blood Pressure 146/61 H Pulse Oximetry 93 92 Oxygen Delivery Room Air Oxygen Flow Rate Fraction of Inspired Oxygen 06/04/24 08:00 06/04/24 08:00 06/04/24 08:00 Temperature Pulse Rate 57 L 60 Respiratory Rate 18 Blood Pressure Pulse Oximetry 94 Oxygen Delivery Room Air Oxygen Flow Rate Fraction of Inspired Oxygen 06/04/24 08:21 Temperature Pulse Rate 62 Respiratory Rate Blood Pressure Pulse Oximetry Oxygen Delivery Oxygen Flow Rate Fraction of Inspired Oxygen Intake/Output Intake/Output: Intake & Output 06/01/24 06/02/24 06/03/24 06/04/24 23:59 23:59 23:59 23:59 Intake Total 2230 1300 740 480 Output Total 1100 800 600 400 Balance 1130 500 140 80 Meds/Results Medications: Active Medications Generic Name Dose Route Start Last Admin Trade Name Freq PRN Reason Stop Dose Admin Acetaminophen 650 mg 05/31/24 02:42 Acetaminophen 325 Mg Tablet PO Q4H PRN Mild Pain (1-3) or Fever Hydrocodone Bitart/Acetaminophen 1 tab 05/31/24 02:42 06/04/24 06:09 Hydrocodone/Acetaminophen (*Crx) 5-325 Mg Tablet PO 1 tab Q4H PRN Administration Pain Rated 4-10 Albuterol 2 puff 05/31/24 04:58 06/03/24 17:44 Albuterol Sulfate (*Sp) Aerosol 1 Puff INHALATION 2 puff Q4H PRN Administration shortness of breath or wheezing Amiodarone HCl 200 mg 06/01/24 09:00 06/04/24 08:21 Amiodarone Hcl 200 Mg Tablet BY MOUTH 200 mg DAILY BROCK Administration Aspirin 81 mg 06/02/24 09:00 06/04/24 08:21 Aspirin 81 Mg Chewable Tablet PO 81 mg DAILY BROCK Administration Ferrous Sulfate 325 mg 06/03/24 09:00 06/04/24 08:21 Ferrous Sulfate [address] PO 325 mg DAILY BROCK Administration Fluticasone/Umeclidinium/Vilanterol 1 puff 05/31/24 08:00 06/04/24 07:48 Fluticasone/Umeclidin/Vilanter 100-62.5-25 Mcg Ellipta INHALATION 1 puff DAILYRT BROCK Administration Lidocaine 1 patch 06/04/24 09:00 06/04/24 10:06 Lidocaine 5% Patch TRANSDERM 1 patch DAILY BROCK Administration * Home Med * 2.5 ml 06/01/24 20:00 06/04/24 07:49 Ensifentrine [ INHALATION 07/01/24 19:59 2.5 ml Ohtuvayre] 3 Mg/2.5 Q12HRT BROCK Administration Ml Suspension For Nebulization Ondansetron HCl 4 mg 06/01/24 16:39 06/01/24 16:44 Ondansetron Inj 4 Mg/2 Ml Vial IV PUSH 4 mg Q4H PRN Administration Nausea And Vomiting Perflutren Lipid Microsphere 0 ml 06/03/24 12:37 Perflutren Lipid Microspheres 1.5 Ml Vial Diluted To 10 Ml Total Volume IV PUSH 06/06/24 12:37 ONCE PRN adequate visualization Protocol Sertraline HCl 25 mg 06/01/24 09:00 06/04/24 08:21 Sertraline Hcl 25 Mg Tablet PO 25 mg DAILY BROCK Administration Simvastatin 10 mg 06/01/24 09:00 06/04/24 08:21 Simvastatin 10 Mg Tablet PO 10 mg DAILY BROCK Administration Radiology Results: ITS Impressions Head CT 05/30/24 23:06 Impression: No acute intracranial hemorrhage or suspicious mass effect. Ribs X-Ray 05/30/24 23:10 IMPRESSION: No acute displaced right-sided rib fracture, as detailed above. Remainder of the examination as detailed above. Chest/Abdomen/Pelvis CT 05/31/24 06:07 Impression: Increased size and extent of spiculated nodules and small satellite nodules in the right upper lobe extending towards the right perihilar region. Findings are suspicious for progression of neoplastic/metastatic disease, versus possibly worsening infectious/inflammatory process. Severe emphysema with stable probable postradiation or other posttreatment changes in the left lung apex. Nonspecific infiltrative change in the presacral soft tissues. 6 mm nonobstructing right renal stone. Chest X-Ray 06/01/24 14:05 Impression: 1: Stable spiculated right upper lobe mass and apical pleural thickening/scarring bilaterally without significant change dating back to 09/22/2023. Underlying malignancy is not excluded. Labs Labs: Laboratory Results - last 24 hr 06/04/24 05:33 WBC 9.5 RBC 4.18 L Hgb 9.2 L Hct 30.9 L MCV 73.9 L MCH 22.0 L MCHC 29.8 L RDW 21.5 H Plt Count 235 MPV 8.9 Immature Gran % (Auto) 0.7 H Neut % (Auto) 78.2 H Lymph % (Auto) 10.1 L [place] % (Auto) 9.0 H Eos % (Auto) 1.3 Baso % (Auto) 0.7 Lymph # (Auto) 0.96 [place] # (Auto) 0.9 H Eos # (Auto) 0.1 Baso # (Auto) 0.1 Abs Immat Gran (auto) 0.07 H Absolute Neuts (auto) 7.4 H Absolute Nucleated RBC 0.000 Band Neutrophils % Not Reportable Nucleated RBC % 0.0 Platelet Estimate Adequate Hypochromasia 2+ Anisocytosis 2+ Ovalocytes 1+ Schistocytes None seen Sodium 133 L Potassium 4.3 Chloride 101 Carbon Dioxide 25 Anion Gap 7 BUN 15 Creatinine 0.81 Estim Creat Clear Calc 41 Estimated GFR > 60 Glucose 85 Calcium 8.2 L Total Bilirubin 1.0 AST 28 ALT 25 Alkaline Phosphatase 142 H Total Protein 6.0 L Albumin 3.1 L
--- NOTE | 2024-06-04 12:51 | P.DS_ITS ---
DS: Admitting Diagnosis Discharge Date 06/04/2024 Admitting Diagnosis bradycardia guaiac positive stools acute anemia fall lung nodules HTN afib severe protein calorie malnutrition DS: Discharge Diagnosis Discharge Diagnosis (1) Bradycardia: Code(s): R00.1 - Bradycardia, unspecified Status: Acute (2) Guaiac positive stools: Code(s): R19.5 - Other fecal abnormalities Status: Acute (3) Acute anemia: Code(s): D64.9 - Anemia, unspecified Status: Acute (4) Fall: Code(s): W19.XXXA - Unspecified fall, initial encounter Status: Acute (5) Closed rib fracture: Code(s): S22.39XA - Fracture of one rib, unspecified side, initial encounter for closed fracture Status: Acute (6) Lung nodules: Code(s): R91.8 - Other nonspecific abnormal finding of lung field Status: Acute (7) Atrial fibrillation: Code(s): I48.91 - Unspecified atrial fibrillation Status: Acute (8) Essential hypertension: Code(s): I10 - Essential (primary) hypertension Status: Chronic (9) Severe protein-calorie malnutrition: Code(s): E43 - Unspecified severe protein-calorie malnutrition Status: Acute DS: Summary Hospital Course Reason for hospitalization: bradycardia guaiac positive stools acute anemia fall lung nodules HTN afib severe protein calorie malnutrition Hospital Course: 78-year-old male with a past medical history of COPD, atrial fibrillation on Eliquis and aspirin, hypertension, depression, history of tobacco abuse, hyperlipidemia, and COPD presents to the hospital after a mechanical ground level fall. Head CT unremarkable. Rib x-ray showing no acute displaced right- sided rib fracture. Started on analgesics. Patient noted to be severely anemic with a hemoglobin level of 5.6 on admission and a positive guaiac concerning for GI bleed. Received 2 units packed red blood cells and hemoglobin responded appropriately. GI consulted. Plan was for patient to undergo an EGD and colonoscopy however patient was unable to tolerate colonoscopy prep. EGD was performed and showed hiatal hernia and schatziks ring, no source of blood loss identified. GI suggest rescheduling the procedure as an outpatient. Hemoglobin remained stable throughout admission. Iron panel showing deficiency started on supplementation. Reviewed patient's telemetry and noted that he is consistently dropping mid to upper 30s heart rate. Patient remains in sinus rhythm with stable blood pressures. Cardiology consulted for further evaluation. Per cardiology no adjustments of amiodarone need to be made at this time as patient remains asymptomatic. They did note that patients eliquis should remain on hold at this time given anemia and that the remains in sinus rhythm on amiodarone. Chest/abdomen/pelvis CT showed increased size and extent of spiculated nodules and small satellite nodules in the right upper lobe extending toward the right perihilar region suspicious for neoplastic/metastatic disease versus worsening infectious/inflammatory process. No signs of infection as white blood cell count remains within normal limits he is afebrile and does not have a cough. Patient states that this has been followed by Dr. Jacobo. Discussed with patient that he will need outpatient follow-up with pulmonology and Oncology for possible biopsy in the outpatient setting. He states understanding. During admission patient evaluated by Nutrition and diagnosed with severe protein calorie malnutrition. Continue to supplement per nutrition recommendations. Patient worked with PT/OT who recommends placement. Patient has no complaints at time of discharge denying chest pain, palpitations, shortness a breath different from baseline, nausea/vomiting, abdominal pain. He denies recurrence of dark stools. Patient discharged to SNF in a stable condition. He is to follow-up with his primary care provider in 1 week. Status at Discharge Functional status at discharge: uses cane/walker Time Spent with Patient Time attestation: Total time spent providing and/or coordinating discharge services: Time spent: Greater than 30 minutes Exam Narrative: AF HR 56 RR 16 Spo2 93 BP 146/61 General: frail male in no acute respiratory distress who is nontoxic appearing, sitting up in bed. HEENT: Normocephalic. Atraumatic. Extraocular movement intact. Sclera clear and anicteric. No facial asymmetry. Chest: Lungs are clear to auscultation bilaterally. Speaking full sentences. CV: Heart was bradycardic and regular rhythm. Abd: Abdomen was soft. Nontender. Nondistended. Positive bowel sounds. Ext: No clubbing, cyanosis, or edema. DP pulses bilaterally. Neuro: Patient is alert and oriented x3. Speech is clear. DS: Data Data Completed and Pending Completed studies during hospitalization: chest xr chest/abdomen/pelvis Ct rib xr head ct Labs on day of discharge: Labs from last 24 hours 06/04/24 05:33 WBC 9.5 RBC 4.18 L Hgb 9.2 L Hct 30.9 L MCV 73.9 L MCH 22.0 L MCHC 29.8 L RDW 21.5 H Plt Count 235 MPV 8.9 Immature Gran % (Auto) 0.7 H Neut % (Auto) 78.2 H Lymph % (Auto) 10.1 L [place] % (Auto) 9.0 H Eos % (Auto) 1.3 Baso % (Auto) 0.7 Lymph # (Auto) 0.96 [place] # (Auto) 0.9 H Eos # (Auto) 0.1 Baso # (Auto) 0.1 Abs Immat Gran (auto) 0.07 H Absolute Neuts (auto) 7.4 H Absolute Nucleated RBC 0.000 Band Neutrophils % Not Reportable Nucleated RBC % 0.0 Platelet Estimate Adequate Hypochromasia 2+ Anisocytosis 2+ Ovalocytes 1+ Schistocytes None seen Sodium 133 L Potassium 4.3 Chloride 101 Carbon Dioxide 25 Anion Gap 7 BUN 15 Creatinine 0.81 Estim Creat Clear Calc 41 Estimated GFR > 60 Glucose 85 Calcium 8.2 L Total Bilirubin 1.0 AST 28 ALT 25 Alkaline Phosphatase 142 H Total Protein 6.0 L Albumin 3.1 L Discharge Plan Discharge Attending physician on discharge: Shweta Sanders Consulting providers: Lobo Romero Discharging Clinician: Saima Fulton Anticipated Discharge Date/Time: 06/04/24 12:47 Patient Disposition: SNF Activity: as tolerated Diet: as tolerated, heart healthy and other - see discharge instructions Discharge Instructions: Discharge disposition: Patient admitted for a ground level fall Imaging showing a right-sided rib fracture otherwise unremarkable Continue pain medication Tylenol and [place] for break through pain Lidocaine patch ordered attached is information on these medications do not drive or operate heavy machinery while taking [place] Continue working with therapy to regain strength On admission patient anemic requiring blood transfusion GI consulted for concern of GI bleed EGD performed and unremarkable for bleeding etiology Patient unable to complete bowel prep for colonoscopy. Plan for outpatient colonoscopy per GI. Attached is GI office information to set up an appointment Iron deficiency noted, started on iron supplementation. Attached is information on this medication. During admission dark stools had resolved and blood levels remained stable Keep an eye on your stool, should your stool be black or dark purple, you should come back to the hospital Patient continued to be bradycardic throughout admission Evaluated by cardiology Continue amiodarone as prescribed Discontinue apixaban as patient continues to be anemic and is sinus rhythm Continue aspirin as prescribed Follow up with your customer care coordinator as scheduled Imaging showed increased size of the known lung nodules concerning for metastatic disease Follow up with your primary care provider or couples therapist to obtain an oncology referral Monitor blood pressures Take caution while standing, rising, or moving Change positions slowly taking a break between each position change If you standing feel dizzy sit back down and take a break Evaluated by nutrition during admission and diagnosed with severe protein calorie malnutrition Continue clear liquid ensures and nutritional ice cream with all meals Monitor weight Encouraged to continue with yearly vaccinations Return to the emergency department if he developed sudden shortness of breath, chest pain, nausea, vomiting, upset stomach or intractable diarrhea Return to the emergency department if you develop fever greater than 101.5 Follow-up with the primary care physician within 1-2 weeks Thank you for choosing [facility] for your healthcare needs Patient Instructions: Iron Supplements (By mouth), Hydrocodone/Acetaminophen (By mouth), Lidocaine (On the skin), Rib Fracture (DC) Patient Language: Welsh Stand Alone Forms: General Discharge Information Follow-up/Referrals: Noelle Tian APN-C [Primary Care Provider] - 1 Week Adam Dupree MD [Physician] - Call for Appointment Discharge Medications: New ferrous sulfate 325 mg (65 mg iron) Tablet,Delayed Release (Dr/Ec) 325 mg PO DAILY Qty: 30 0RF lidocaine [Lidocan IV] 5 % adhesive patch,medicated 1 patch topical DAILY Qty: 15 0RF Rx Instructions: leave on most painful area for up to 12 hrs hydrocodone-acetaminophen 5-325 mg Tablet 1 tablet PO Q4H PRN (Reason: Pain Rated 4-10) Qty: 10 0RF Continued albuterol sulfate 90 mcg/actuation HFA aerosol inhaler 1 inh inhalation Q4H PRN (Reason: shortness of breath or wheezing) Qty: 8.5 0RF amiodarone [Pacerone] 200 mg tablet 200 mg BYMOUTH DAILY Qty: 90 0RF zolpidem [Ambien] 5 mg tablet 5 mg PO QHS Qty: 30 0RF aspirin 81 mg tablet,chewable 81 mg PO DAILY PreserVision AREDS 2,148 mcg-113 mg-45 mg-17.4mg tablet 1 tablet PO BIDWM Rx Instructions: administer with AM and PM meals polyethylene glycol 3350 [Miralax] 17 gram/dose powder 17 g PO DAILY Qty: 850 0RF Ohtuvayre 3 mg/2.5 mL suspension for nebulization 2.5 ml inhalation BID 30 Days Qty: 150 5RF simvastatin 10 mg tablet 10 mg PO DAILY Qty: 90 1RF Breztri Aerosphere 160-9-4.8 mcg/actuation HFA aerosol inhaler 2 inh inhalation BID 90 Days Qty: 32.1 0RF sertraline 25 mg tablet 25 mg PO DAILY Qty: 90 1RF trazodone 50 mg tablet 50 mg PO QHS PRN (Reason: sleep) Qty: 30 0RF Discontinued Eliquis 5 mg tablet 5 mg BYMOUTH Q12HR Qty: 180 1RF Date of admission: 05/31/24 02:42 Primary Care Provider: Noelle Tian Admitting Provider: Mariama Jane Attending physician on admission: Saima Fulton Condition: Stable Hospitalist MIPS Heart Failure (Exclusion) Patient has history of Heart Transplant or Left Ventricular Assistive Device?: No IF YES, STOP HERE Heart Failure (Qualifier) Patient has current or prior documentation of LVEF less than or equal to 40%, or mod/servere depressed LVSF?: No IF NO, STOP HERE
== END 2024-06-04 16:46 | DRG 811 ==
LOC: ANHED 05-31 02:42 → ANH3MED 05-31 03:08
PROVIDERS: Internal Medicine Gastroenterology; Admitting Provider General Practice; Emergency Provider Student in an Organized Health Care Education/Training Program; PCP Nurse Practitioner Family; Visit Provider Student in an Organized Health Care Education/Training Program
PROC: 0DJ08ZZ Inspection of Upper Intestinal Tract, Via Natural or Artificial Opening Endoscopic (ICD-10-PCS; principal; 2024-06-01 14:30)
DX: D50.9 Iron deficiency anemia, unspecified (principal); E43 Unspecified severe protein-calorie malnutrition; S22.31XA Fracture of one rib, right side, initial encounter for closed fracture; Z68.1 Body mass index [BMI] 19.9 or less, adult; W19.XXXA Unspecified fall, initial encounter; R91.8 Other nonspecific abnormal finding of lung field; R19.5 Other fecal abnormalities; R00.1 Bradycardia, unspecified; I48.0 Paroxysmal atrial fibrillation; J44.9 Chronic obstructive pulmonary disease, unspecified; K44.9 Diaphragmatic hernia without obstruction or gangrene; I10 Essential (primary) hypertension; H35.30 Unspecified macular degeneration; F17.290 Nicotine dependence, other tobacco product, uncomplicated; K22.2 Esophageal obstruction; E78.5 Hyperlipidemia, unspecified; Z79.01 Long term (current) use of anticoagulants; Z85.828 Personal history of other malignant neoplasm of skin
CPT/HCPCS: 36415; 36430; 70450; 71045; 71100; 71260; 74177; 80053; 82607; 82746; 83540; 83550; 83615; 83735; 84145; 85014; 85018; 85025; 85046; 85055; 85610; 85730; 86850; 86900; 86901; 86923; 94640; 96361; 96374; 97116; 97161; 97165; 97530; 99285; A9270; J2270; J2405; J2470; J2704; J7050; J7120; P9016; Q9967

== ENCOUNTER 2024-06-15 00:20 | Emergency (ER) | payer MEDICARE, SELFPAY ==
[2024-06-15] VITALS (7 sets, daily range): BP systolic 131–160; BP diastolic 45–79; PULSE 53–64; RESP 15–20; TEMP 36.6; O2SAT 98–100
--- NOTE | ~2024-06-15 | XR_ITS ---
Clinical Indication: Shortness of breath PA and lateral views of the chest: Comparison: 06/01/2024 Findings: Stable irregular nodular opacity in the right upper lobe. Stable probable left apical scarr ing or chronic change. COPD present.. Cardiomediastinal silhouette is within normal limits. Bones an d soft tissues are unremarkable. Impression: COPD with probable areas of chronic bilateral upper lobe scarring or post inflammatory change. Reviewed, dictated and finalized at location . Impression: COPD with probable areas of chronic bilateral upper lobe scarring or post infla mmatory change.
--- OUTSIDE RECORDS SUMMARY | 2024-06-15 00:22 | XMS_ITS | Continuity of Care Document ---
Author Organization [facility] Address [address] [place] [address] [place] [address] Phone Care Team Providers Care Service Order Clerk Name Role Phone Mynor Chaparro Unavailable Unavailable Advance Directives Directive Yes / No Effective Date File Name No Information Encounters Encounter Description Practice Location Reason(s) For Visit Diagnoses Date Provider Providers Copied on Encounter Merged with [facility], [address], [place], [place], [id number], tel:[phone] [facility] ([facility]3] No Information Shankar Lowe. [address] [place], [address], [place]. tel:[phone] Referring Provider: Aguila Frye, [address], [place], [place], [facility]. tel:[phone] Family History Family Member Type Diagnosis Age At Onset No Information Payers Payer name Insurance type Covered democrat ID Authoriza tion(s) No Information Social History [...]
--- OUTSIDE RECORDS SUMMARY | 2024-06-15 00:23 | XMS_ITS | Clinical Summary ---
Author Organization [facility] Address [address] [place] [id number] Care Team Providers Care [employer] Name Role Phone Unavailable Primary Care Provider [...] Td Vaccines ( 1 - Tdap) 1964 Pneumococcal Vaccine: 50+ Ye ars (1 of 1 - PCV) 12/23/1995 Zoster Vaccines (1 of 2) 12/23/1995 RSV Immunization or 60+ Years (1 - 1-dose 75+ series) 2020 COVID-19 Vaccine ( - 2023-2 5 season) 2023 Meningococcal B Vaccine Aged Out No l onger eligible based on patient's age to complete this topic Meningococcal Vaccine Aged Out No boogie parker eligible based on patient's age to complete this topic RSV Immunizations Under 20 Months Aged Out No longer eligible based on patient's age to complete this topic
--- OUTSIDE RECORDS SUMMARY | 2024-06-15 00:23 | XMS_ITS | Clinical Summary ---
Author Organization [facility] Address [address] [place] [address] Phone Care Team Providers Care Aluminum Container Tester Name Role Phone Jeffery Almonte MD Primary Care Provider [phone] Allergies No known active allergies Medications No [...] A AND B BCBS SUPP Care Teams Aluminum Container Tester Relationship Specialty Start Date End Date Jeffery Almonte MD [address] [place] [id number] PCP - General Family Practice 09/18/22
--- NOTE | 2024-06-15 00:24 | ECG_ITS ---
Test Date: 2024-06-15 00:32:22 Measurements Intervals [place] Rate: 54 P: 94 AL: 173 QRS: -40 QRSD: 104 T: -81 QT: 457 QTc: 436 Interpretive Statements SINUS BRADYCARDIA LEFT AXIS DEVIATION INCOMPLETE RIGHT BUNDLE BRANCH BLOCK ANTEROSEPTAL INFARCT, AGE INDETERMINATE ST-T WAVE ABNORMALITY IN INF/LAT LEADS- CONSIDER ISCHEMIA BASELINE ARTIFACT- I, II, III, AVR, AVL, AVF, V1-V6 ABNORMAL ECG Compared to ECG 10/18/2023 07:31:59 HEART RATE HAS INCREASED ST-T WAVE ABNORMALITY NOW PRESENT POSSIBLE ISCHEMIA NOW PRESENT Electronically Signed On 06-15-2024 06:14:53 CDT by Ramy Javed D.O.
[2024-06-15 00:42] LABS: Basophils Absolute Auto 0.1 K/mm3 (0.0-0.1); Basophils Percent Auto 0.8 % (0.2-1.2); Eosinophils Percent Auto 0.2 % (0-4.4); Hematocrit 35.2 % (42.0-52.0); Hemoglobin 10.4 g/dL (14.0-18.0); Immature Granulocyte Absolute 0.08 K/mm3 (0.00-0.031); Immature Granulocyte Percent A 1.4 % (0-0.5); Lymphocytes Absolute Auto 0.71 K/mm3 (0.9-3.2); Mean Corpuscular HGB Conc 29.5 g/dl (32-36); Mean Corpuscular Hemoglobin 23.3 pg (26-34); Mean Corpuscular Volume 78.9 fl (80-100); Mean Platelet Volume 9.6 fl (7.4-10.4); Monocytes Absolute Auto 0.6 K/mm3 (0.1-0.6); Monocytes Percent Auto 10.2 % (2.6-8.5); Neutrophils Absolute Auto 4.5 K/mm3 (1.3-6.7); Neutrophils Percent Auto 75.4 % (45.5-73.1); Platelet Count Result 388 k/mm3 (150-375); Red Blood Count 4.46 M/mm3 (4.6-6.20); Red Cell Distribution Width 27.2 % (11.5-14.5); White Blood Count 5.9 K/mm3 (4.5-10.0)
[2024-06-15 00:50] LABS: Alanine Aminotransferase 79 U/L (6-50); Albumin Level 3.3 g/dL (3.5-5.1); Alkaline Phosphatase 221 U/L (38-126); Anion Gap 8 mmol/L (4-12); Aspartate Amino Transferase 108 U/L (17-59); Bilirubin,Total 0.5 mg/dL (0.2-1.3); Blood Urea Nitrogen 14 mg/dL (9-20); Calcium 8.3 mg/dL (8.4-10.2); Carbon Dioxide 24 mmol/L (22-30); Chloride 100 mmol/L (98-107); Estimated CRCL calculation 37 ml/min; Estimated Glomerular Filt Rate > 60; Glucose 89 mg/dL (65-110); Potassium 4.2 mmol/L (3.4-5.0); Sodium 132 mmol/L (137-145)
[2024-06-15 00:56] LABS: Band Neutrophils Percent 0 % (0-6)
[2024-06-15 00:57] LABS: Anisocytosis 1+; Hypochromasia 1+; Ovalocytes 1+; Platelet Estimate Adequate (Adequate); Poikilocytosis 1+; Schistocytes None Seen
[2024-06-15 05:16] LABS: Hematocrit 35.3 % (42.0-52.0); Hemoglobin 10.5 g/dL (14.0-18.0); Mean Corpuscular HGB Conc 29.7 g/dl (32-36); Mean Corpuscular Hemoglobin 22.9 pg (26-34); Mean Corpuscular Volume 77.1 fl (80-100); Mean Platelet Volume 9.4 fl (7.4-10.4); Platelet Count Result 379 k/mm3 (150-375); Red Blood Count 4.58 M/mm3 (4.6-6.20); Red Cell Distribution Width 27.2 % (11.5-14.5); White Blood Count 6.8 K/mm3 (4.5-10.0)
[2024-06-15 05:17] LABS: Alanine Aminotransferase 82 U/L (6-50); Albumin Level 3.2 g/dL (3.5-5.1); Alkaline Phosphatase 209 U/L (38-126); Anion Gap 6 mmol/L (4-12); Aspartate Amino Transferase 102 U/L (17-59); Bilirubin,Total 0.5 mg/dL (0.2-1.3); Blood Urea Nitrogen 15 mg/dL (9-20); Calcium 8.5 mg/dL (8.4-10.2); Carbon Dioxide 26 mmol/L (22-30); Chloride 99 mmol/L (98-107); Estimated CRCL calculation 39 ml/min; Estimated Glomerular Filt Rate > 60; Glucose 91 mg/dL (65-110); INR 1.1; Partial Thromboplastin Time 37.8 Seconds (22.3-36.8); Potassium 4.4 mmol/L (3.4-5.0); Prothrombin Time 14.1 Seconds (11.1-14.7); Sodium 131 mmol/L (137-145); Troponin I 0.017 ng/mL (0.000-0.034)
--- NOTE | 2024-06-15 05:34 | ED_ITS ---
HPI - General Adult General Chief complaint: Shortness of Breath/Dyspnea Stated complaint: sob, fx ribs, Time Seen by Provider: 06/15/24 05:21 History of Present Illness HPI narrative: Patient is a 78-year-old male who presents to the emergency department this evening complaining of a cough and shortness of breath. Patient states that approximately 3 weeks ago he sustained multiple rib fractures. States that he generally feels unwell, generally fatigued and malaise. He is currently residing at [facility] secondary to recent rib fractures. Denies any additional symptoms or concerns including any chest pain, denies any recent illness, any fevers or chills. She also denies any nausea vomiting or any abdominal pain. Related Data Home Medications ?Medication ?Instructions ?Recorded ?Confirmed ?Last Taken ?Type aspirin 81 mg chewable tablet 81 mg PO DAILY 03/11/22 05/31/24 10/06/23 08:00 History vitamins A,C,C-jezq-pyhzos 2,148 1 tablet PO BIDWM 03/11/22 05/31/24 10/06/23 17:00 History mcg-113 mg-45 mg-17.4 mg tablet (PreserVision AREDS) Allergies Allergy/AdvReac Type Severity Reaction Status Date / Time No Known Allergies Allergy Verified 06/01/24 09:43 Review of Systems 2 Review of Systems: All systems are reviewed and are negative unless stated otherwise in the HPI. 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 They have 3 living children; one child in a car wreck. Retired 1998. Smoked cigarettes 1 ppd x 10 years, then cigars up to 10 per day, now 2 cigars a week. He drinks only on very rare occasion. Code status: Surrogate decision maker: Smoking packs per day: 1 Smoking cigarettes per day: 20.0 Years smoked: 55 Smoking pack-years: 55.00 Smoking status: Current some day smoker Tobacco type: cigars Smoking end date: 08/29/23 Additional smoking assessment comments: 1 pack per day for 10 years then switched to cigars couple of times a week Alcohol intake: current Alcohol use details: 2 drinks yearly Substance use: never Substance use type: does not use Do You Feel Safe in your Home?: Yes Lack of Transportation: No Lack of Food: Never True Current Housing: I Have Housing Concerned About Future Housing: No Difficulty Paying Gas/Electric Bills: No Difficulty Paying for Meds: No Currently Unemployed: No Education: High School Diploma/GED Difficulty w/ Childcare or Family Care: No Living arrangements: alone Occupation/Education: retired Gender identity (if verbalized by the patient): Male Spiritual care concerns: No Exam 2 Narrative: General: Alert, awake, afebrile, in no acute distress. HEENT: PERRL, no rhinorrhea, no post nasal drip, oropharynx clear. Neck: Trachea midline, no JVD, no lymphadenopathy. Cardiovascular: Regular rate and rhythm, no murmurs, rubs or gallops, no peripheral edema. Respiratory: Clear to auscultation bilaterally, no tachypnea, no wheezing, no rhonchi, no rubs, no respiratory distress. Abdomen: Soft, nontender, nondistended, no rebound, no guarding, no peritoneal signs. Musculoskeletal: No joint swelling or deformity, normal muscle tone. Skin: No rashes or petechia, no signs of infection. Psychiatric: Alert and oriented, normal behavior and judgment for situation. Neurological: Alert and oriented to person, place, and time. Follows all commands. No focal deficits, speech is clear and fluent. Course Vital Signs Vital signs: Vital Signs Temperature 97.8 F 06/15/24 00:25 Pulse Rate 64 06/15/24 00:25 Respiratory Rate 19 06/15/24 00:25 Blood Pressure 131/45 L 06/15/24 00:25 Pulse Oximetry 100 06/15/24 00:25 Oxygen Delivery Room Air 06/15/24 00:25 Temperature 97.8 F 06/15/24 00:25 Pulse Rate 53 L 06/15/24 05:51 Respiratory Rate 16 06/15/24 05:51 Blood Pressure 149/79 H 06/15/24 05:51 Pulse Oximetry 98 06/15/24 05:51 Oxygen Delivery Room Air 06/15/24 00:32 Medical Decision Making MDM Narrative Medical decision making narrative: The patient was evaluated by myself in the emergency department. History is obtained from patient who is an independent historian and physical exam was performed. External medical records were reviewed at this time. IV was established and pertinent tests were ordered. Patient was administered his home oral pain medications, [place] 5-325 mg secondary to his rib pain from his recent rib fractures. Patient was administerd 125mg of IV Solu-Medrol and a Duo-Neb breathing treatment for COPD. EKG was obtained which revealed sinus bradycardia rate of 54 beats per minute with ST depressions and T-wave inversions noted in the inferior leads, otherwise no evidence of acute ischemia. EKG was independently interpreted by me and is currently pending official cardiology read. Laboratory results obtained revealing transaminitis with an AST of 102 and ALT of 82 otherwise unremarkable. Imaging studies obtained included CXR which was independently interpreted by me revealing: COPD with probable areas of chronic bilateral upper lobe scarring or post inflammatory change. Differential diagnosis considerations include infectious process such as pneumonia, acute viral syndrome, dehydration, electrolyte derangements. Comorbidities impacting this visit include recent rib fractures. I have evaluated and discussed social determinants of health with the patient that could potentially impact subsequent diagnosis and treatment plans. On repeat assessment of the patient, reevaluation revealed that the patient is doing well and is in no acute distress. Patient symptoms have improved since he arrived to our emergency department. Repeat vital signs were all reviewed and noted to be stable. Differential diagnosis and treatment plan were discussed with the patient at bedside. Patient agrees with discussion and after shared medical decision making agrees with discharge. All questions were answered to the patient's satisfaction. Patient will follow up with his PCP in 3-5 days. Patient was provided with strict return precautions and instructed to return to the emergency department if any new or worsening symptoms develop. The patient was discharged in stable condition. Vital Signs Vital Signs: Vital Signs Temperature 97.8 F 06/15/24 00:25 Pulse Rate 64 06/15/24 00:25 Respiratory Rate 19 06/15/24 00:25 Blood Pressure 131/45 L 06/15/24 00:25 Pulse Oximetry 100 06/15/24 00:25 Oxygen Delivery Room Air 06/15/24 00:25 Temperature 97.8 F 06/15/24 00:25 Pulse Rate 53 L 06/15/24 05:51 Respiratory Rate 16 06/15/24 05:51 Blood Pressure 149/79 H 06/15/24 05:51 Pulse Oximetry 98 06/15/24 05:51 Oxygen Delivery Room Air 06/15/24 00:32 Lab Data 06/15/24 03:11 06/15/24 03:11 Labs: Lab Results 06/15/24 06/15/24 Range/Units 00:33 03:11 WBC 5.9 6.8 (4.5-10.0) K/mm3 RBC 4.46 L 4.58 L (4.6-6.20) M/mm3 Hgb 10.4 L 10.5 L (14.0-18.0) g/dL Hct 35.2 L 35.3 L (42.0-52.0) % MCV 78.9 L 77.1 L (80-100) fl MCH 23.3 L 22.9 L (26-34) pg MCHC 29.5 L 29.7 L (32-36) g/dl RDW 27.2 H 27.2 H (11.5-14.5) % Plt Count 388 H D 379 H (150-375) k/mm3 MPV 9.6 9.4 (7.4-10.4) fl Immature Gran % (Auto) 1.4 H (0-0.5) % Neut % (Auto) 75.4 H (45.5-73.1) % Lymph % (Auto) 12.0 L (18.3-44.2) % [place] % (Auto) 10.2 H (2.6-8.5) % Eos % (Auto) 0.2 (0-4.4) % Baso % (Auto) 0.8 (0.2-1.2) % Lymph # (Auto) 0.71 L (0.9-3.2) K/mm3 [place] # (Auto) 0.6 (0.1-0.6) K/mm3 Eos # (Auto) 0.0 (0-0.3) K/mm3 Baso # (Auto) 0.1 (0.0-0.1) K/mm3 Abs Immat Gran (auto) 0.08 H (0.00-0.031) K/mm3 Absolute Neuts (auto) 4.5 (1.3-6.7) K/mm3 Absolute Nucleated RBC 0.000 (0.0-0.012) K/mm3 Band Neutrophils % 0 (0-6) % Nucleated RBC % 0.0 (0.0-0.2) % Platelet Estimate Adequate (Adequate) Hypochromasia 1+ Poikilocytosis 1+ Anisocytosis 1+ Ovalocytes 1+ Schistocytes None seen PT 14.1 (11.1-14.7) Seconds INR 1.1 APTT 37.8 H (22.3-36.8) Seconds Sodium 132 L 131 L (137-145) mmol/L Potassium 4.2 4.4 (3.4-5.0) mmol/L Chloride 100 99 (98-107) mmol/L Carbon Dioxide 24 26 (22-30) mmol/L Anion Gap 8 6 (4-12) mmol/L BUN 14 15 (9-20) mg/dL Creatinine 0.88 0.84 (0.7-1.3) mg/dL Estim Creat Clear Calc 37 39 ml/min Estimated GFR > 60 > 60 (59 - ) Glucose 89 91 (65-110) mg/dL Calcium 8.3 L 8.5 (8.4-10.2) mg/dL Magnesium 2.0 (1.6-2.3) mg/dL Total Bilirubin 0.5 0.5 (0.2-1.3) mg/dL AST 108 H 102 H (17-59) U/L ALT 79 H 82 H (6-50) U/L Alkaline Phosphatase 221 H 209 H (38-126) U/L Troponin I 0.017 (0.000-0.034) ng/mL Total Protein 6.0 L 6.0 L (6.3-8.2) g/dL Albumin 3.3 L 3.2 L (3.5-5.1) g/dL Discharge Plan Discharge Clinical Impression: Asthma exacerbation in COPD Patient Disposition: SNF Condition: Improved Instructions: COPD (Chronic Obstructive Pulmonary Disease) (DC) Additional Instructions: Please follow-up with your family doctor within the next 3-5 days. Return to the emergency department if any new or worsening symptoms develop. Take the prescribed antibiotic as instructed for your COPD exacerbation. Patient Language: Nepali Prescriptions: New doxycycline hyclate 100 mg capsule 100 mg PO BID 5 Days Qty: 10 0RF No Action albuterol sulfate 90 mcg/actuation HFA aerosol inhaler 1 inh inhalation Q4H PRN (Reason: shortness of breath or wheezing) Qty: 8.5 0RF amiodarone [Pacerone] 200 mg tablet 200 mg BYMOUTH DAILY Qty: 90 0RF zolpidem [Ambien] 5 mg tablet 5 mg PO QHS Qty: 30 0RF aspirin 81 mg tablet,chewable 81 mg PO DAILY PreserVision AREDS 2,148 mcg-113 mg-45 mg-17.4mg tablet 1 tablet PO BIDWM Rx Instructions: administer with AM and PM meals polyethylene glycol 3350 [Miralax] 17 gram/dose powder 17 g PO DAILY Qty: 850 0RF ferrous sulfate 325 mg (65 mg iron) Tablet,Delayed Release (Dr/Ec) 325 mg PO DAILY Qty: 30 0RF lidocaine [Lidocan IV] 5 % adhesive patch,medicated 1 patch topical DAILY Qty: 15 0RF Rx Instructions: leave on most painful area for up to 12 hrs hydrocodone-acetaminophen 5-325 mg Tablet 1 tablet PO Q4H PRN (Reason: Pain Rated 4-10) Qty: 10 0RF simvastatin 10 mg tablet 10 mg PO DAILY Qty: 90 1RF Breztri Aerosphere 160-9-4.8 mcg/actuation HFA aerosol inhaler 2 inh inhalation BID 90 Days Qty: 32.1 0RF sertraline 25 mg tablet 25 mg PO DAILY Qty: 90 1RF trazodone 50 mg tablet 50 mg PO QHS PRN (Reason: sleep) Qty: 30 0RF Ohtuvayre 3 mg/2.5 mL suspension for nebulization 2.5 ml inhalation BID 90 Days Qty: 450 2RF Rx Instructions: Inhale 3 mg by mouth via nebulizer twice a day, once in the morning and once in the evening. Follow-up/Referrals: Noelle Tian APN-C [Primary Care Provider] - 3 Days Time of Disposition: 06:39
--- NOTE | 2024-06-15 05:36 | ECG_ITS ---
Test Date: 2024-06-15 05:40:11 Measurements Intervals [place] Rate: 54 P: 87 TN: 179 QRS: -40 QRSD: 108 T: -75 QT: 485 QTc: 460 Interpretive Statements SINUS BRADYCARDIA LEFT AXIS DEVIATION INCOMPLETE RIGHT BUNDLE BRANCH BLOCK ANTEROSEPTAL INFARCT, AGE INDETERMINATE ST-T WAVE ABNORMALITY IN INFERIOR LEADS- CONSIDER ISCHEMIA BASELINE ARTIFACT- II, III, AVR, AVL, AVF, V2-V6 ABNORMAL ECG Compared to ECG 06/15/2024 00:32:22 No significant changes Electronically Signed On 06-15-2024 06:16:02 CDT by Ramy Javed D.O.
--- OUTSIDE RECORDS SUMMARY | 2024-06-15 06:41 | XMS_ITS | Clinical Summary ---
Author Organization [facility] Address [address] [place] [id number] Care Team Providers Care Coating Mixer Name Role Phone Unavailable Primary Care Provider [...]
--- OUTSIDE RECORDS SUMMARY | 2024-06-15 06:41 | XMS_ITS | Clinical Summary ---
Author Organization [facility] Address [address] [place] [address] Phone Care Team Providers Care Foot Gatherer Name Role Phone Jeffery Almonte MD Primary Care Provider [phone] Allergies No known active allergies Medications No [...] A AND B BCBS SUPP Care Teams Foot Gatherer Relationship Specialty Start Date End Date Jeffery Almonte MD [address] [place] [phone] PCP - General Family Practice 09/18/22
--- OUTSIDE RECORDS SUMMARY | 2024-06-15 06:41 | XMS_ITS | Continuity of Care Document ---
Author Organization [facility] Address [address] [place] [address] [place] [address] Phone Care Team Providers Care Sap Basis Administrator Name Role Phone Mynor Chaparro Unavailable Unavailable Advance Directives Directive Yes / No Effective Date File Name No Information Encounters Encounter Description Practice Location Reason(s) For Visit Diagnoses Date Provider Providers Copied [facility] [address], [place], [place], [id number], tel:[phone] [facility] No Information Shankar Lowe. [address] [place], [address], [place]. tel:[phone] Referring Provider: Aguila Frye, [address], [place], [place], [facility]. tel:[phone] Family History Family Member Type Diagnosis Age At Onset No Information Payers Payer name Insurance type Covered republican ID Authoriza tion(s) No Information Social History [...]
[2024-06-15] MEDS: IPRATROPIUM 0.5 MG/ALBUTEROL SULFATE 2.5 MG AMPUL.NEB 3 ML INHALATION (06:55)
[2024-06-15] MEDS: methylPREDNISolone SOD SUCC 125 MG VIAL IV PUSH (07:03)
== END 2024-06-15 07:59 ==
PROVIDERS: Emergency Provider Emergency Medicine; PCP Nurse Practitioner Family
DX: J45.901 Unspecified asthma with (acute) exacerbation (principal); J44.89 Other specified chronic obstructive pulmonary disease; I48.0 Paroxysmal atrial fibrillation; I10 Essential (primary) hypertension; E78.5 Hyperlipidemia, unspecified; H35.30 Unspecified macular degeneration; F32.A Depression, unspecified; F17.290 Nicotine dependence, other tobacco product, uncomplicated; Z85.828 Personal history of other malignant neoplasm of skin; Z79.82 Long term (current) use of aspirin; Z79.899 Other long term (current) drug therapy; R00.1 Bradycardia, unspecified; I45.10 Unspecified right bundle-branch block; R94.31 Abnormal electrocardiogram [ECG] [EKG]
CPT/HCPCS: 36415; 71046; 80053; 83735; 84484; 85025; 85027; 85610; 85730; 93005; 94640; 96374; 99284; A9270; J2919

== ENCOUNTER 2024-06-17 02:19 | Inpatient (IN) | payer MEDICARE, SELFPAY ==
[2024-06-17] VITALS (26 sets, daily range): BP systolic 95–145; BP diastolic 49–81; PULSE 63–114; RESP 14–24; TEMP 36.5–36.9; O2SAT 94–100; BMI 15.7
--- NOTE | ~2024-06-17 | XR_ITS ---
XR chest 1V portable 06/17/2024 02:57 Indication: Shortness of breath Procedure: AP portable chest Comparison: Comparison to multiple prior studies sequentially, with oldest reviewed study dated 10/17. Findings: Heart size normal. Enlarging spiculated mass right upper lobe, consistent with bronchogenic carcinoma until proven otherwise. This mass has increased compared with chest x-ray dated 06/01/2024 . Recommend correlation with CT chest. The lungs are hyperinflated which is consistent with, but not diagnostic of chronic obstructive pulmonary disease. Provided left upper lobe pleural thickening/scar ring. Impression: 1: Enlarging right upper lobe mass, consistent with bronchogenic carcinoma until proven otherwise. Re commend follow-up clinical evaluation with either percutaneous biopsy or PET/CT scan. Reviewed, dictated and finalized at location A. Impression: 1: Enlarging right upper lobe mass, consistent with bronchogenic carcinoma unti l proven otherwise. Recommend follow-up clinical evaluation with either percuta neous biopsy or PET/CT scan.
--- NOTE | ~2024-06-17 | CT_ITS ---
EXAMINATION: CTA chest PE protocol DATE: 06/17/2024 14:21 INDICATION: sob TECHNIQUE: Computed tomography angiography (CTA) of the chest was performed with 100 mL Omnipaque-350 intravenous contrast timed to evaluate the pulmonary arteries. Coronal maximum intensity projection 3D-reconstructions were created by the technologist. The dose-length product (DLP) was 148.64 mGy-cm. Automated exposure control and iterative reconstruction technique were employed. COMPARISON: 05/31/2024; 12/23/2023. FINDINGS: Lung parenchyma and airways: Severe emphysematous change. Multiple pulmonary nodules. Extensive biapi aris and upper lobe scarring. Patent airways, with mild bronchial wall thickening. Pleura: Circumferential left apical pleural thickening versus cavitation, left medial lower thorax pl eural thickening. Thoracic inlet, axillae and chest wall: Unremarkable. Thoracic aorta: No significant dilation. No dissection. Mediastinum: Normal. Heart and pericardium: Normal. RV/LV ratio less than 1. Coronary artery calcifications: Mild. Upper abdomen: No significant finding. Bones: No acute osseous finding. Pulmonary arteries: Study quality: Adequate. Acute pulmonary embolus in subsegmental branches of the right upper lobe. IMPRESSION: Acute subsegmental right upper lobe embolus. Low clot burden. No CT evidence of right heart strain. No acute process detected in the chest. Pulmonary nodules, concerning for progression of neoplastic/metastatic disease. Reviewed, dictated and finalized at location K.
--- NOTE | 2024-06-17 02:25 | ECG_ITS ---
Test Date: 2024-06-17 02:36:11 Measurements Intervals [place] Rate: 75 P: 73 DC: 178 QRS: -55 QRSD: 109 T: -53 QT: 410 QTc: 460 Interpretive Statements SINUS RHYTHM LEFT ANTERIOR FASCICULAR BLOCK ANTEROSEPTAL INFARCT, AGE INDETERMINATE MODERATE T-WAVE ABNORMALITY, CONSIDER INFERIOR ISCHEMIA BASELINE ARTIFACT- I, II, III, AVR, AVL, AVF, V4-V6 ABNORMAL ECG Compared to ECG 06/15/2024 05:40:11 HEART RATE HAS INCREASED Electronically Signed On 06-17-2024 07:39:33 CDT by Ramy Javed D.O.
[2024-06-17] MEDS: methylPREDNISolone SOD SUCC 125 MG VIAL IV PUSH (02:31)
[2024-06-17 02:34] LABS: Basophils Percent Auto 0.1 % (0.2-1.2); Hematocrit 35.5 % (42.0-52.0); Hemoglobin 10.5 g/dL (14.0-18.0); Immature Granulocyte Absolute 0.04 K/mm3 (0.00-0.031); Immature Granulocyte Percent A 0.4 % (0-0.5); Lymphocytes Absolute Auto 0.81 K/mm3 (0.9-3.2); Lymphocytes Percent Auto 7.4 % (18.3-44.2); Mean Corpuscular HGB Conc 29.6 g/dl (32-36); Mean Corpuscular Hemoglobin 23.3 pg (26-34); Mean Corpuscular Volume 78.9 fl (80-100); Mean Platelet Volume 9.6 fl (7.4-10.4); Monocytes Absolute Auto 0.6 K/mm3 (0.1-0.6); Monocytes Percent Auto 5.5 % (2.6-8.5); Neutrophils Absolute Auto 9.5 K/mm3 (1.3-6.7); Neutrophils Percent Auto 86.6 % (45.5-73.1); Platelet Count Result 427 k/mm3 (150-375); Red Cell Distribution Width 27.2 % (11.5-14.5)
--- OUTSIDE RECORDS SUMMARY | 2024-06-17 02:34 | XMS_ITS | Clinical Summary ---
Author Organization [facility] Address [address] [place] [id number] Care Team Providers Care Supervisor Jewelry Department Name Role Phone Unavailable Primary Care Provider [...]
--- OUTSIDE RECORDS SUMMARY | 2024-06-17 02:34 | XMS_ITS | Continuity of Care Document ---
Author Organization [facility] Address [address] [place] [address] [place] [address] Phone Care Team Providers Care Regional Vice President Surgical Sales Name Role Phone Mynor Chaparro Unavailable Unavailable Advance Directives Directive Yes / No Effective Date File Name No Information Encounters Encounter Description Practice Location Reason(s) For Visit Diagnoses Date Provider Providers Copied on Encounter [facility], [address], [place], [place], [id number], tel:[phone] [facility] No Information Shankar Lowe. [address] [place], [address], [place]. tel:[phone] Referring Provider: Aguila Frye, [address], [place], [place], [facility]. tel:[phone] Family History Family Member Type Diagnosis Age At Onset No Information Payers Payer name Insurance type Covered alliance party ID Authoriza tion(s) No Information Social [...]
--- OUTSIDE RECORDS SUMMARY | 2024-06-17 02:34 | XMS_ITS | Clinical Summary ---
Author Organization [facility] Address [address] [place] [address] Phone Care Team Providers Care Perinatal Nurse Name Role Phone Jeffery Almonte MD Primary Care Provider [phone] Allergies No known active allergies Medications No [...] A AND B BCBS SUPP Care Teams Perinatal Nurse Relationship Specialty Start Date End Date Jeffery Almonte MD [address] [place] [phone] PCP - General Family Practice 09/18/22
[2024-06-17 02:42] LABS: Alanine Aminotransferase 105 U/L (6-50); Albumin Level 3.4 g/dL (3.5-5.1); Alkaline Phosphatase 219 U/L (38-126); Anion Gap 8 mmol/L (4-12); Aspartate Amino Transferase 131 U/L (17-59); Bilirubin,Total 0.5 mg/dL (0.2-1.3); Blood Urea Nitrogen 18 mg/dL (9-20); Calcium 8.5 mg/dL (8.4-10.2); Carbon Dioxide 26 mmol/L (22-30); Chloride 99 mmol/L (98-107); Estimated CRCL calculation 41 ml/min; Estimated Glomerular Filt Rate > 60; Glucose 108 mg/dL (65-110); Potassium 4.4 mmol/L (3.4-5.0); Sodium 133 mmol/L (137-145)
[2024-06-17] MEDS: IPRATROPIUM BR 0.02% INH SOLN 0.5 MG/2.5 ML VIAL 2 MG INHALATION (02:43)
[2024-06-17] MEDS: ALBUTEROL SULFATE NEB 2.5 MG/3 ML INH 10 MG INHALATION (02:43)
[2024-06-17 02:51] LABS: Magnesium 1.9 mg/dL (1.6-2.3)
[2024-06-17 02:53] LABS: Platelet Estimate Adequate (Adequate)
[2024-06-17 02:54] LABS: Anisocytosis 1+; Hypochromasia 2+
[2024-06-17 02:55] LABS: Schistocytes Rare
[2024-06-17 02:56] LABS: Tear Drop Cells 1+
[2024-06-17 03:05] LABS: Partial Thromboplastin Time 26.7 Seconds (22.3-36.8); Prothrombin Time 13.9 Seconds (11.1-14.7)
--- NOTE | 2024-06-17 03:19 | ED_ITS ---
HPI - General Adult General Chief complaint: Shortness of Breath/Dyspnea Stated complaint: sob Time Seen by Provider: 06/17/24 02:25 History of Present Illness HPI narrative: Patient is a 78-year-old male who presents the emergency department this evening complaining of shortness of breath. Patient was seen our facility 2 days ago for COPD exacerbation and a chronic cough. Was given multiple DuoNeb breathing treatments and steroids with improvement of her symptoms. He was discharged home in stable condition. Patient states that he started to have shortness of breath again. Admits to rib pain bilaterally secondary to recent rib fractures. Currently denies any chest pain outside of his rib pain. Denies any nausea, vomiting, abdominal pain, any recent illness, fevers or chills. Related Data Home Medications ?Medication ?Instructions ?Recorded ?Confirmed ?Last Taken ?Type aspirin 81 mg chewable tablet 81 mg PO DAILY 03/11/22 05/31/24 10/06/23 08:00 History vitamins A,C,O-hwbb-wkpstt 2,148 1 tablet PO BIDWM 03/11/22 05/31/24 10/06/23 17:00 History mcg-113 mg-45 mg-17.4 mg tablet (PreserVision AREDS) Allergies Allergy/AdvReac Type Severity Reaction Status Date / Time No Known Allergies Allergy Verified 06/01/24 09:43 Review of Systems 2 Review of Systems: All systems are reviewed and are negative unless stated otherwise in the HPI. 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 They have 3 living children; one child in a car wreck. Retired 1998. Smoked cigarettes 1 ppd x 10 years, then cigars up to 10 per day, now 2 cigars a week. He drinks only on very rare occasion. Code status: Surrogate decision maker: Smoking packs per day: 1 Smoking cigarettes per day: 20.0 Years smoked: 55 Smoking pack-years: 55.00 Smoking status: Current some day smoker Tobacco type: cigars Smoking end date: 08/29/23 Additional smoking assessment comments: 1 pack per day for 10 years then switched to cigars couple of times a week Alcohol intake: current Alcohol use details: 2 drinks yearly Substance use: never Substance use type: does not use Do You Feel Safe in your Home?: Yes Lack of Transportation: No Lack of Food: Never True Current Housing: I Have Housing Concerned About Future Housing: No Difficulty Paying Gas/Electric Bills: No Difficulty Paying for Meds: No Currently Unemployed: No Education: High School Diploma/GED Difficulty w/ Childcare or Family Care: No Living arrangements: alone Occupation/Education: retired Gender identity (if verbalized by the patient): Male Spiritual care concerns: No Exam 2 Narrative: General: Alert, awake, afebrile, in no acute distress. HEENT: PERRL, no rhinorrhea, no post nasal drip, oropharynx clear. Neck: Trachea midline, no JVD, no lymphadenopathy. Cardiovascular: Regular rate and rhythm, no murmurs, rubs or gallops, no peripheral edema. Respiratory: Diffuse wheezing bilaterally, no tachypnea, no respiratory distress. Abdomen: Soft, nontender, nondistended, no rebound, no guarding, no peritoneal signs. Musculoskeletal: No joint swelling or deformity, normal muscle tone. Skin: No rashes or petechia, no signs of infection. Psychiatric: Alert and oriented, normal behavior and judgment for situation. Neurological: Alert and oriented to person, place, and time. Follows all commands. No focal deficits, speech is clear and fluent. Course Vital Signs Vital signs: Vital Signs Temperature 98.5 F 06/17/24 02:16 Pulse Rate 85 06/17/24 02:16 Respiratory Rate 20 04/20/25 02:16 Blood Pressure 145/81 H 06/17/24 02:16 Pulse Oximetry 100 06/17/24 02:16 Oxygen Delivery Room Air 06/17/24 02:16 Temperature 98.5 F 06/17/24 02:16 Pulse Rate 75 06/17/24 02:47 Respiratory Rate 20 06/17/24 02:47 Blood Pressure 145/81 H 06/17/24 02:16 Pulse Oximetry 100 06/17/24 02:23 Oxygen Delivery Room Air 06/17/24 02:23 Medical Decision Making MDM Narrative Medical decision making narrative: The patient was evaluated by myself in the emergency department. History is obtained from patient who is an independent historian and physical exam was performed. External medical records were reviewed at this time. IV was established and pertinent tests were ordered. Patient was administered an hour long DuoNeb breathing treatment and 125 mg IV Solu-Medrol. EKG was obtained which revealed sinus rhythm at a rate of 75 beats per minute, no evidence of acute ischemia. EKG was independently interpreted by me and is currently pending official cardiology read. Laboratory results obtained revealing an elevated troponin of 1 0.030 and transaminitis with an AST of 131 and an ALT of 105 otherwise unremarkable. Imaging studies obtained included CXR which was independently interpreted by me revealing: Differential diagnosis considerations include COPD exacerbation, infectious process such as pneumonia, acute viral syndrome, coronary artery disease. Comorbidities impacting this visit include history of COPD. I have evaluated and discussed social determinants of health with the patient that could potentially impact subsequent diagnosis and treatment plans. On repeat assessment of the patient, reevaluation revealed that the patient is doing well and is in no acute distress. Patient symptoms have improved since he arrived to our emergency department. Repeat vital signs were all reviewed and noted to be stable. Differential diagnosis and treatment plan were discussed with the patient at bedside. Patient agrees with discussion and after shared medical decision making agrees with admission. All questions were answered to the patient's satisfaction. Case was discussed with the on-call hospitalist Dr. Jane at 0330 and he accepted admission to our IMU. Vital Signs Vital Signs: Vital Signs Temperature 98.5 F 06/17/24 02:16 Pulse Rate 85 06/17/24 02:16 Respiratory Rate 06/17/24 02:16 Blood Pressure 145/81 H 06/17/24 02:16 Pulse Oximetry 100 06/17/24 02:16 Oxygen Delivery Room Air 06/17/24 02:16 Temperature 98.5 F 06/17/24 02:16 Pulse Rate 75 06/17/24 02:47 Respiratory Rate 20 06/17/24 02:47 Blood Pressure 145/81 H 06/17/24 02:16 Pulse Oximetry 100 06/17/24 02:23 Oxygen Delivery Room Air 06/17/24 02:23 Lab Data 06/17/24 02:26 06/17/24 02:26 Labs: Lab Results 06/17/24 Range/Units 02:26 WBC 11.0 H (4.5-10.0) K/mm3 RBC 4.50 L (4.6-6.20) M/mm3 Hgb 10.5 L (14.0-18.0) g/dL Hct 35.5 L (42.0-52.0) % MCV 78.9 L (80-100) fl MCH 23.3 L (26-34) pg MCHC 29.6 L (32-36) g/dl RDW 27.2 H (11.5-14.5) % Plt Count 427 H (150-375) k/mm3 MPV 9.6 (7.4-10.4) fl Immature Gran % (Auto) 0.4 (0-0.5) % Neut % (Auto) 86.6 H (45.5-73.1) % Lymph % (Auto) 7.4 L (18.3-44.2) % [place] % (Auto) 5.5 (2.6-8.5) % Eos % (Auto) 0.0 (0-4.4) % Baso % (Auto) 0.1 L (0.2-1.2) % Lymph # (Auto) 0.81 L (0.9-3.2) K/mm3 [place] # (Auto) 0.6 (0.1-0.6) K/mm3 Eos # (Auto) 0.0 (0-0.3) K/mm3 Baso # (Auto) 0.0 (0.0-0.1) K/mm3 Abs Immat Gran (auto) 0.04 H (0.00-0.031) K/mm3 Absolute Neuts (auto) 9.5 H (1.3-6.7) K/mm3 Absolute Nucleated RBC 0.000 (0.0-0.012) K/mm3 Band Neutrophils % Not Reportable Nucleated RBC % 0.0 (0.0-0.2) % Platelet Estimate Adequate (Adequate) Hypochromasia 2+ Anisocytosis 1+ Tear Drop Cells 1+ Schistocytes Rare PT 13.9 (11.1-14.7) Seconds INR 1.0 APTT 26.7 (22.3-36.8) Seconds Sodium 133 L (137-145) mmol/L Potassium 4.4 (3.4-5.0) mmol/L Chloride 99 (98-107) mmol/L Carbon Dioxide 26 (22-30) mmol/L Anion Gap 8 (4-12) mmol/L BUN 18 (9-20) mg/dL Creatinine 0.78 (0.7-1.3) mg/dL Estim Creat Clear Calc 41 ml/min Estimated GFR > 60 (59 - ) Glucose 108 (65-110) mg/dL Calcium 8.5 (8.4-10.2) mg/dL Magnesium 1.9 (1.6-2.3) mg/dL Total Bilirubin 0.5 (0.2-1.3) mg/dL AST 131 H (17-59) U/L ALT 105 H (6-50) U/L Alkaline Phosphatase 219 H (38-126) U/L Troponin I 1.030 H* (0.000-0.034) ng/mL Total Protein 6.0 L (6.3-8.2) g/dL Albumin 3.4 L (3.5-5.1) g/dL Discharge Plan Discharge Clinical Impression: COPD exacerbation, Elevated troponin, Transaminitis Patient Disposition: Still a Patient Condition: Improved Patient Language: Slovenian Prescriptions: No Action albuterol sulfate 90 mcg/actuation HFA aerosol inhaler 1 inh inhalation Q4H PRN (Reason: shortness of breath or wheezing) Qty: 8.5 0RF amiodarone [Pacerone] 200 mg tablet 200 mg BYMOUTH DAILY Qty: 90 0RF zolpidem [Ambien] 5 mg tablet 5 mg PO QHS Qty: 30 0RF aspirin 81 mg tablet,chewable 81 mg PO DAILY PreserVision AREDS 2,148 mcg-113 mg-45 mg-17.4mg tablet 1 tablet PO BIDWM Rx Instructions: administer with AM and PM meals polyethylene glycol 3350 [Miralax] 17 gram/dose powder 17 g PO DAILY Qty: 850 0RF ferrous sulfate 325 mg (65 mg iron) Tablet,Delayed Release (Dr/Ec) 325 mg PO DAILY Qty: 30 0RF lidocaine [Lidocan IV] 5 % adhesive patch,medicated 1 patch topical DAILY Qty: 15 0RF Rx Instructions: leave on most painful area for up to 12 hrs hydrocodone-acetaminophen 5-325 mg Tablet 1 tablet PO Q4H PRN (Reason: Pain Rated 4-10) Qty: 10 0RF doxycycline hyclate 100 mg capsule 100 mg PO BID 5 Days Qty: 10 0RF simvastatin 10 mg tablet 10 mg PO DAILY Qty: 90 1RF Breztri Aerosphere 160-9-4.8 mcg/actuation HFA aerosol inhaler 2 inh inhalation BID 90 Days Qty: 32.1 0RF sertraline 25 mg tablet 25 mg PO DAILY Qty: 90 1RF trazodone 50 mg tablet 50 mg PO QHS PRN (Reason: sleep) Qty: 30 0RF Ohtuvayre 3 mg/2.5 mL suspension for nebulization 2.5 ml inhalation BID 90 Days Qty: 450 2RF Rx Instructions: Inhale 3 mg by mouth via nebulizer twice a day, once in the morning and once in the evening. Follow-up/Referrals: Noelle Tian APN-[facility] [Primary Care Provider] - Time of Disposition: 03:38
--- NOTE | 2024-06-17 03:59 | PC.NURSE ---
morphine 2mg x 1 dose ivp per edp gena
[2024-06-17] MEDS: MORPHINE SULFATE (*CRX) 2 MG/ML INJ IV PUSH (04:02)
--- NOTE | 2024-06-17 05:29 | PM.IMHP ---
H&P: HPI History of Present Illness Date/Time: 06/17/24 05:29 Chief Complaint: Shortness of breath Narrative: 70-year-old male with multiple medical comorbidities including active tobacco dependence, atrial fibrillation, COPD, hypertension who presents with shortness of breath. He is accompanied by his daughter Candie. The patient was in [place] [facility] few days prior for similar complaint of shortness of breath was diagnosed and treated for COPD exacerbation and discharged back to [facility] for rehab. The patient was then discharged home to rehab however at home his shortness of breath has worsened. He denies fever, sick contacts, worsened cough. He had a recent rib fracture however reports the pain is now more manageable. ER evaluation demonstrated adequate chloride O2 saturation on room air. WBC 11. Troponin 1.030. Patient noted to be severely wheezing. Administer DuoNeb, Solu-Medrol 125 mg IV x1, morphine 2 mg IV x1. His breathing greatly improved. Denies any chest pain. 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 They have 3 living children; one child in a car wreck. Retired 1998. Smoked cigarettes 1 ppd x 10 years, then cigars up to 10 per day, now 2 cigars a week. He drinks only on very rare occasion. Code status: Surrogate decision maker: Smoking packs per day: 1 Smoking cigarettes per day: 20.0 Years smoked: 55 Smoking pack-years: 55.00 Smoking status: Current some day smoker Tobacco type: cigars Smoking end date: 08/29/23 Additional smoking assessment comments: 1 pack per day for 10 years then switched to cigars couple of times a week Alcohol intake: current Alcohol use details: 2 drinks yearly Substance use: never Substance use type: does not use Do You Feel Safe in your Home?: Yes Lack of Transportation: No Lack of Food: Never True Current Housing: I Have Housing Concerned About Future Housing: No Difficulty Paying Gas/Electric Bills: No Difficulty Paying for Meds: No Currently Unemployed: No Education: High School Diploma/GED Difficulty w/ Childcare or Family Care: No Living arrangements: alone Occupation/Education: retired Gender identity (if verbalized by the patient): Male Spiritual care concerns: No Meds Home Medications and Allergies Home Medications ?Medication ?Instructions ?Recorded ?Confirmed ?Type aspirin 81 mg chewable tablet 81 mg PO DAILY 03/11/22 06/17/24 History vitamins A,C,R-nzyg-mkypff 2,148 1 tablet PO BIDWM 03/11/22 06/17/24 History mcg-113 mg-45 mg-17.4 mg tablet (PreserVision AREDS) albuterol sulfate 90 mcg/actuation 1 inh inhalation Q4H PRN shortness 03/13/24 06/17/24 Rx aerosol inhaler of breath or wheezing #8.5 grams simvastatin 10 mg tablet 10 mg PO DAILY #90 tabs 04/03/24 06/17/24 Rx amiodarone 200 mg tablet (Pacerone) 200 mg BYMOUTH DAILY #90 tabs 05/04/24 06/17/24 Rx zolpidem 5 mg tablet (Ambien) 5 mg PO QHS #30 tabs 05/04/24 06/17/24 Rx budesonide 160 mcg-glycopyr 9 2 inh inhalation BID 90 days #32.1 05/07/24 06/17/24 Rx mcg-formot 4.8 mcg/actuation HFA grams inhaler (Breztri Aerosphere) sertraline 25 mg tablet 25 mg PO DAILY #90 tabs 05/29/24 06/17/24 Rx trazodone 50 mg tablet 50 mg PO QHS PRN sleep #30 tabs 05/29/24 06/17/24 Rx ferrous sulfate 325 mg (65 mg 325 mg PO DAILY #30 tabs 06/04/24 06/17/24 Rx iron) tablet,delayed release hydrocodone 5 mg-acetaminophen 325 1 tablet PO Q4H PRN Pain Rated 06/04/24 06/17/24 Rx mg tablet 4-10 #10 tabs ensifentrine 3 mg/2.5 mL 2.5 ml inhalation BID COPD 3 06/08/24 06/17/24 Rx suspension for nebulization months #450 mL (Ohtuvayre) Allergies Allergy/AdvReac Type Severity Reaction Status Date / Time No Known Allergies Allergy Verified 06/01/24 09:43 Vital Signs Vital Signs - 24 hr 06/17/24 02:16 06/17/24 02:23 06/17/24 02:23 Temperature 98.5 F Pulse Rate 85 84 Respiratory Rate 20 Blood Pressure 145/81 H Pulse Oximetry 100 100 Oxygen Delivery Room Air Room Air 06/17/24 02:47 06/17/24 03:53 06/17/24 04:03 Temperature Pulse Rate 75 114 H 113 H Respiratory Rate 20 22 H 23 H Blood Pressure Pulse Oximetry 96 Oxygen Delivery 06/17/24 04:04 06/17/24 04:15 06/17/24 04:16 Temperature Pulse Rate 111 H 102 H 102 H Respiratory Rate 24 H 14 15 Blood Pressure 129/63 108/71 Pulse Oximetry 96 95 95 Oxygen Delivery 06/17/24 04:30 06/17/24 04:31 06/17/24 04:48 Temperature 98.1 F Pulse Rate 97 98 92 Respiratory Rate 16 15 16 Blood Pressure 99/63 L 119/64 Pulse Oximetry 94 95 94 Oxygen Delivery Exam Const: General: comfortable and no acute distress Other: A&O x3 Resp: Auscultation: diminished lung sounds Other: Expiratory wheezing Cardio: Rate: regular rate Rhythm: regular rhythm Heart sounds: no gallops, no murmurs and no rubs GI: GI Palp: Yes Soft to palpation and No Tenderness to palpation present (GI) Extrem: General: no edema H&P: Results Labs Labs: Short CBC 06/17/24 Range/Units 02:26 WBC 11.0 H (4.5-10.0) K/mm3 Hgb 10.5 L (14.0-18.0) g/dL Hct 35.5 L (42.0-52.0) % Plt Count 427 H (150-375) k/mm3 BMP 06/17/24 02:26 Sodium 133 L Potassium 4.4 Chloride 99 Carbon Dioxide 26 BUN 18 Creatinine 0.78 Glucose 108 Calcium 8.5 Cardiac Enzymes 06/17/24 Range/Units 02:26 Troponin I 1.030 H* (0.000-0.034) ng/mL Liver Function 06/17/24 Range/Units 02:26 Total Bilirubin 0.5 (0.2-1.3) mg/dL AST 131 H (17-59) U/L ALT 105 H (6-50) U/L Alkaline Phosphatase 219 H (38-126) U/L Albumin 3.4 L (3.5-5.1) g/dL Assessment and Plan Assessment and plan (1) COPD exacerbation: Code(s): J44.1 - Chronic obstructive pulmonary disease with (acute) exacerbation Status: Acute (2) History of tobacco abuse: Code(s): Z87.891 - Personal history of nicotine dependence Status: Chronic Plan 70-year-old male with multiple medical comorbidities including active tobacco dependence, atrial fibrillation, COPD, hypertension who presents with shortness of breath. He is accompanied by his daughter Candie. The patient was in [place] ER few days prior for similar complaint of shortness of breath was diagnosed and treated for COPD exacerbation and discharged back to [facility] for rehab. The patient was then discharged home to rehab however at home his shortness of breath has worsened. He denies fever, sick contacts, worsened cough. He had a recent rib fracture however reports the pain is now more manageable. ER evaluation demonstrated adequate chloride O2 saturation on room air. WBC 11. Troponin 1.030. Patient noted to be severely wheezing. Administer DuoNeb, Solu-Medrol 125 mg IV x1, morphine 2 mg IV x1. His breathing greatly improved. Denies any chest pain. ----- Patient reports feeling 90% better. Still no chest pain. Trending troponins. EKG without acute ischemia. Will continue DuoNebs and prednisone. Patient wishes to be DNR. Hospitalist [facility] Advance Care Plan I have confirmed that the patient's Advanced Care Plan is present, code status is documented, or surrogate decision maker is listed in patient medical record.: Yes Medication Reconciliation I have utilized all available resources to obtain, update and review the patients current medications (includes all prescriptions, OTC, herbals, cannabis, and nutritional supplements).: Yes
--- NOTE | 2024-06-17 05:29 | ADMGEN ---
This patient, Velasquez Kent, was admitted to IMU Room 206-02. Patient/family oriented to hospital policies and general routines including ID bracelet, bed and alarms, visiting hours, pain management, procedures, bathroom and other care routines, personal items, smoking policy, room service/diet, and visiting hours. Information on how to activate the Rapid Response Team has been discussed. Patient/Family are encouraged to report perceived risks to care and to ask questions if they do not understand what they are told or what they should do.
--- NOTE | 2024-06-17 06:05 | ECG_ITS ---
Test Date: 2024-06-17 06:28:14 Measurements Intervals [place]loan Rate: 83 P: 74 AR: 173 QRS: -28 QRSD: 112 T: 269 QT: 296 QTc: 350 Interpretive Statements SINUS RHYTHM INCOMPLETE LEFT BUNDLE BRANCH BLOCK ANTEROSEPTAL INFARCT, AGE INDETERMINATE BORDERLINE ST-T WAVE ABNORMALITY- INF/HIGH LAT LEADS BASELINE ARTIFACT- I, II, III, AVR, AVL, AVF, V1-V6 ABNORMAL ECG Compared to ECG 06/17/2024 02:36:11 POSSIBLE ISCHEMIA NO LONGER PRESENT Electronically Signed On 06-17-2024 07:35:06 CDT by Ramy Javed D.O.
[2024-06-17 06:29] LABS: Influenza A QL RT-PCR Positive (Negative); Influenza B QL RT-PCR Negative (Negative); RSV RNA, RT-PCR Negative (Negative); SARS-CoV-2 RNA PCR Negative (Negative)
[2024-06-17] MEDS: predniSONE 20 MG TABLET 40 MG PO (08:03)
[2024-06-17] MEDS: OSELTAMIVIR PHOSPHATE 75 MG CAPSULE PO ×2 (08:03→20:35)
[2024-06-17 08:07] LABS: Glucose Point of Care 145 mg/dl (65-105)
[2024-06-17] MEDS: IPRATROPIUM 0.5 MG/ALBUTEROL SULFATE 2.5 MG AMPUL.NEB 3 ML INHALATION ×4 (08:07→20:02)
[2024-06-17 10:06] LABS: Alveolar/Arterial O2 Gradient 64.1 mmHg; Base Excess ABG -2.6 mEq/l (+/-2.0); Fractional Inspired Oxygen 28 %; HCO3 ABG 21.4 mEq/l (22.0-26.0); Oxygen Content ABG 15.9 %vol (16.0-22.0); Oxygen Saturation ABG 97.4 % (95.0-100.0); Oxyhemoglobin 96.9 % THb (90.0-100.0); PCO2 ABG 34.3 mmHg (35.0-45.0); PO2 ABG 95.1 mmHg (80.0-100.0); Total Hemoglobin 11.6 g/dL (12.0-18.0); pH ABG 7.413 (7.350-7.450)
[2024-06-17 10:08] LABS: Device NASAL CANNULA; Modified Allen's Test Pass; Site Drawn RIGHT RADIAL
[2024-06-17] MEDS: methylPREDNISolone SOD SUCC 40 MG VIAL IV PUSH ×2 (10:16→17:28)
[2024-06-17] MEDS: guaiFENesin 12 HR 600 MG TABCR PO ×2 (10:17→20:35)
[2024-06-17] MEDS: LORazepam (*CRX) 0.5 MG TABLET PO (10:17)
[2024-06-17] MEDS: DOXYCYCLINE 100 MG/NS 100 ML 100 MG/100 ML BAG IVPB ×2 (10:18→20:35)
--- NOTE | 2024-06-17 10:25 | PCRCNOTE ---
[facility]G late due to code in ED.
[2024-06-17] MEDS: ENOXAPARIN 40 MG/0.4 ML SYRINGE SUB-Q ×2 (10:57→20:37)
--- NOTE | 2024-06-17 11:27 | P.CONCA_ITS ---
Assessment and Plan Assessment and plan (1) Elevated troponin: Code(s): R79.89 - Other specified abnormal findings of blood chemistry Status: Acute Plan Elevated troponin, significant elevated compared to blood test that was performed 2 days ago. Concerning for NSTEMI but he would be also type 2 NSTEMI setting of acute on chronic respiratory failure Acute hypoxemic respiratory failure likely due to underlying COPD exacerbation Possible lung cancer Plan Heparin drip Aspirin Treatment of underlying COPD per primary team Transthoracic echocardiogram Statin Evaluation of lung mass. Discussion both of care with the patient Patient may need left heart catheterization History of Present Illness History of Present Illness Consult date/time: 06/17/24 11:27 Reason For Visit: COPD exacerbation, elevated trop Narrative: 70-year-old male patient presenting possibly some shortness of breath. Patient was just recently discharged from rehab after recent hospital admission. His shortness of breath was severe present at rest worse with activity. It was associated with cough. He denied any fever chills. He has history of advanced COPD with recent admission for COPD exacerbation. 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 They have 3 living children; one child in a car wreck. Retired 1998. Smoked cigarettes 1 ppd x 10 years, then cigars up to 10 per day, now 2 cigars a week. He drinks only on very rare occasion. Code status: Surrogate decision maker: Smoking packs per day: 1 Smoking cigarettes per day: 20.0 Years smoked: 55 Smoking pack-years: 55.00 Smoking status: Current some day smoker Tobacco type: cigars Smoking end date: 08/29/23 Additional smoking assessment comments: 1 Cigar per day average Alcohol intake: former Alcohol use details: 2 drinks yearly Substance use: current Substance use type: does not use Do You Feel Safe in your Home?: Yes Lack of Transportation: No Lack of Food: Never True Current Housing: I Have Housing Concerned About Future Housing: No Difficulty Paying Gas/Electric Bills: No Difficulty Paying for Meds: No Currently Unemployed: No Education: High School Diploma/GED Difficulty w/ Childcare or Family Care: No Living arrangements: alone Occupation/Education: retired Gender identity (if verbalized by the patient): Male Spiritual care concerns: No Meds Home Medications and Allergies Home Medications ?Medication ?Instructions ?Recorded ?Confirmed ?Type aspirin 81 mg chewable tablet 81 mg PO DAILY 03/11/22 06/17/24 History vitamins A,C,I-bobv-ruszll 2,148 1 tablet PO BIDWM 03/11/22 06/17/24 History mcg-113 mg-45 mg-17.4 mg tablet (PreserVision AREDS) albuterol sulfate 90 mcg/actuation 1 inh inhalation Q4H PRN shortness 03/13/24 06/17/24 Rx aerosol inhaler of breath or wheezing #8.5 grams simvastatin 10 mg tablet 10 mg PO DAILY #90 tabs 04/03/24 06/17/24 Rx amiodarone 200 mg tablet (Pacerone) 200 mg BYMOUTH DAILY #90 tabs 05/04/24 06/17/24 Rx zolpidem 5 mg tablet (Ambien) 5 mg PO QHS #30 tabs 05/04/24 06/17/24 Rx budesonide 160 mcg-glycopyr 9 2 inh inhalation BID 90 days #32.1 05/07/24 06/17/24 Rx mcg-formot 4.8 mcg/actuation HFA grams inhaler (Breztri Aerosphere) sertraline 25 mg tablet 25 mg PO DAILY #90 tabs 05/29/24 06/17/24 Rx trazodone 50 mg tablet 50 mg PO QHS PRN sleep #30 tabs 05/29/24 06/17/24 Rx ferrous sulfate 325 mg (65 mg 325 mg PO DAILY #30 tabs 06/04/24 06/17/24 Rx iron) tablet,delayed release hydrocodone 5 mg-acetaminophen 325 1 tablet PO Q4H PRN Pain Rated 06/04/24 06/17/24 Rx mg tablet 4-10 #10 tabs ensifentrine 3 mg/2.5 mL 2.5 ml inhalation BID COPD 3 06/08/24 06/17/24 Rx suspension for nebulization months #450 mL (Ohtuvayre) Allergies Allergy/AdvReac Type Severity Reaction Status Date / Time No Known Allergies Allergy Verified 06/01/24 09:43 Vital Signs Vital Signs - 24 hr 06/17/24 02:16 06/17/24 02:23 06/17/24 02:23 Temperature 36.9 C Pulse Rate 85 84 Respiratory Rate 20 Blood Pressure 145/81 H Pulse Oximetry 100 100 Oxygen Delivery Room Air Room Air 06/17/24 02:47 06/17/24 03:53 06/17/24 04:03 Temperature Pulse Rate 75 114 H 113 H Respiratory Rate 20 22 H 23 H Blood Pressure Pulse Oximetry 96 Oxygen Delivery 06/17/24 04:04 06/17/24 04:15 06/17/24 04:16 Temperature Pulse Rate 111 H 102 H 102 H Respiratory Rate 24 H 14 15 Blood Pressure 129/63 108/71 Pulse Oximetry 96 95 95 Oxygen Delivery 06/17/24 04:30 06/17/24 04:31 06/17/24 04:48 Temperature 36.7 C Pulse Rate 97 98 92 Respiratory Rate 16 15 16 Blood Pressure 99/63 L 119/64 Pulse Oximetry 94 95 94 Oxygen Delivery 06/17/24 06:00 06/17/24 06:45 06/17/24 08:00 Temperature 36.9 C Pulse Rate 88 88 Respiratory Rate 16 Blood Pressure 136/76 Pulse Oximetry 100 Oxygen Delivery Room Air Exam 2 Const: General: comfortable and no acute distress Other: Able to lie flat HENMT: Face/Nose/Sinus: Normal nares present and no epistaxis Mouth: Yes moist mucous membranes Eyes: Sclera: sclerae normal Pupils: Equal, round and reactive pupils present Neck: Neck: supple and no JVD Carotids: no bruits Resp: Auscultation: wheezes expiratory wheezes, inspiratory wheezes and throughout and diminished lung sounds bilateral Other: No chest wall tenderness Cardio: Rate: regular rate Rhythm: regular rhythm Heart sounds: no gallops, no murmurs and no rubs GI: GI Palp: Yes Soft to palpation and No Tenderness to palpation present (GI) Auscultation: normal bowel sounds Skin: General skin exam: normal color, rashes and/or lesions noted and no erythema Other: Warm Neuro: Cranial nerves: Yes Equal, round and reactive pupils present Speech: normal speech Other: No obvious focal deficit or facial asymmetry Extrem: General: no edema Other: Normal capillary refills Intact distal pulses. Results Labs and Meds 06/17/24 02:06/17/24 02: Lab results: Cardiac Enzymes 06/17/24 06/17/24 06/17/24 Range/Units 02:26 06:20 08:25 AST 131 H (17-59) U/L Troponin I 1.030 H* 1.140 H* 1.020 H* (0.000-0.034) ng/mL Coagulation 06/17/24 Range/Units 02:26 PT 13.9 (11.1-14.7) Seconds APTT 26.7 (22.3-36.8) Seconds CBC 06/17/24 Range/Units 02:26 WBC 11.0 H (4.5-10.0) K/mm3 RBC 4.50 L (4.6-6.20) M/mm3 Hgb 10.5 L (14.0-18.0) g/dL Hct 35.5 L (42.0-52.0) % Plt Count 427 H (150-375) k/mm3 Lymph # (Auto) 0.81 L (0.9-3.2) K/mm3 [place] # (Auto) 0.6 (0.1-0.6) K/mm3 Eos # (Auto) 0.0 (0-0.3) K/mm3 Baso # (Auto) 0.0 (0.0-0.1) K/mm3 Comprehensive Metabolic Panel 06/17/24 Range/Units 02:26 Sodium 133 L (137-145) mmol/L Potassium 4.4 (3.4-5.0) mmol/L Chloride 99 (98-107) mmol/L Carbon Dioxide 26 (22-30) mmol/L BUN 18 (9-20) mg/dL Creatinine 0.78 (0.7-1.3) mg/dL Glucose 108 (65-110) mg/dL Calcium 8.5 (8.4-10.2) mg/dL AST 131 H (17-59) U/L ALT 105 H (6-50) U/L Alkaline Phosphatase 219 H (38-126) U/L Total Protein 6.0 L (6.3-8.2) g/dL Albumin 3.4 L (3.5-5.1) g/dL Intake and Output 06/16/24 06/17/24 06/17/24 23:59 07:59 15:59 Intake Total 120 Balance 120 Intake: Oral 120 Patient Weight 06/17/24 23:59 Weight 40.5 kg
[2024-06-17] MEDS: MAGNESIUM SULF 1 GM/D5W 100 ML 1 GM/100 ML BAG IVPB (11:43)
--- NOTE | 2024-06-17 13:11 | PM.IMPN ---
Progress Note: A&P Assessment and Plan (1) COPD exacerbation: Code(s): J44.1 - Chronic obstructive pulmonary disease with (acute) exacerbation Status: Acute (2) History of tobacco abuse: Code(s): Z87.891 - Personal history of nicotine dependence Status: Chronic Plan 70-year-old male with multiple medical comorbidities including active tobacco dependence, atrial fibrillation, COPD, hypertension who presents with shortness of breath. He is accompanied by his daughter Candie. The patient was in [place] ER few days prior for similar complaint of shortness of breath was diagnosed and treated for COPD exacerbation and discharged back to [facility] for rehab. The patient was then discharged home to rehab however at home his shortness of breath has worsened. He denies fever, sick contacts, worsened cough. He had a recent rib fracture however reports the pain is now more manageable. ER evaluation demonstrated adequate chloride O2 saturation on room air. WBC 11. Troponin 1.030. Patient noted to be severely wheezing. Administer DuoNeb, Solu-Medrol 125 mg IV x1, morphine 2 mg IV x1. His breathing greatly improved. Denies any chest pain. ----- Acute on chronic respiratory failure with hypoxia needing oxygen supplementation related to COPD exacerbation. Will get CTA to rule out PE. ABG reviewed Influenza: On Tamiflu Non ST-elevation AL with elevated troponin cardiology consult echocardiogram aspirin Right upper lobe nodule this is new recent CT chest reviewed. History of left upper lobe nodule which was biopsied and was benign History of paroxysmal atrial fibrillation COPD exacerbation DuoNeb scheduled. Was started on Solu-Medrol then prednisone will switch back to IV Solu-Medrol. Add ceftriaxone and doxycycline Anemia History of lung nodules At hypertension Protein calorie mild nutrition A recent rib fracture from a fall Recent severe anemia needing transfusion EGD showed hiatal hernia and scattered scaring with no source of blood loss. Need colonoscopy as an outpatient basis. Eliquis on hold DVT prophylaxis on Lovenox Code status do not resuscitate Subjective Date/time seen: 06/17/24 13:11 Interval history: Continues to feel short of breath. Diffusely wheezing earlier today improved with DuoNeb. No chest pain. Review of Systems Review of Systems: All systems reviewed & are unremarkable except as noted in HPI and below (HPI) Exam Narrative: General: Alert, awake, afebrile, in no acute distress. HEENT: PERRL, no rhinorrhea, no post nasal drip, oropharynx clear. Neck: Trachea midline, no JVD, no lymphadenopathy. Cardiovascular: Regular rate and rhythm, no murmurs, rubs or gallops, no peripheral edema. Respiratory: Mildly tachypneic, Diffuse wheezing bilaterally, Abdomen: Soft, nontender, nondistended, no rebound, no guarding, no peritoneal signs. Musculoskeletal: No joint swelling or deformity, normal muscle tone. Skin: No rashes or petechia, no signs of infection. Psychiatric: Alert and oriented, normal behavior and judgment for situation. Neurological: Alert and oriented to person, place, and time. Follows all commands. No focal deficits, speech is clear and fluent. Objective Data Vital Signs Vital Signs: Vital Signs - 24 hr 06/17/24 02:16 06/17/24 02:23 06/17/24 02:23 Temperature 98.5 F Pulse Rate 85 84 Respiratory Rate 20 Blood Pressure 145/81 H Pulse Oximetry 100 100 Oxygen Delivery Room Air Room Air 06/17/24 02:47 06/17/24 03:53 06/17/24 04:03 Temperature Pulse Rate 75 114 H 113 H Respiratory Rate 20 22 H 23 H Blood Pressure Pulse Oximetry 96 Oxygen Delivery 06/17/24 04:04 06/17/24 04:15 06/17/24 04:16 Temperature Pulse Rate 111 H 102 H 102 H Respiratory Rate 24 H 14 15 Blood Pressure 129/63 108/71 Pulse Oximetry 96 95 95 Oxygen Delivery 06/17/24 04:30 06/17/24 04:31 06/17/24 04:48 Temperature 98.1 F Pulse Rate 97 98 92 Respiratory Rate 16 15 16 Blood Pressure 99/63 L 119/64 Pulse Oximetry 94 95 94 Oxygen Delivery 06/17/24 06:00 06/17/24 06:45 06/17/24 08:00 Temperature 98.4 F Pulse Rate 88 88 Respiratory Rate 16 Blood Pressure 136/76 Pulse Oximetry 100 Oxygen Delivery Room Air 06/17/24 11:51 Temperature 97.7 F Pulse Rate 76 Respiratory Rate 20 Blood Pressure 95/49 L Pulse Oximetry 100 Oxygen Delivery Intake/Output Intake/Output: Intake & Output 06/14/24 06/15/24 06/16/24 06/17/24 23:59 23:59 23:59 23:59 Intake Total 120 Balance 120 Meds/Results Medications: Active Medications Generic Name Dose Route Start Last Admin Trade Name Freq PRN Reason Stop Dose Admin Hydrocodone Bitart/Acetaminophen 1 tab 06/17/24 09:19 Hydrocodone/Acetaminophen (*Crx) 5-325 Mg Tablet PO Q4H PRN Pain Rated 4-10 Albuterol 1 puff 06/17/24 09:19 Albuterol Sulfate (*Sp) Aerosol 1 Puff INHALATION Q4H PRN shortness of breath or wheezing Albuterol/Ipratropium 3 ml 06/17/24 09:25 Ipratropium 0.5 Mg/Albuterol Sulfate 2.5 Mg Ampul.Neb 3 Ml INHALATION Q4H BROCK Amiodarone HCl 200 mg 06/18/24 09:00 Amiodarone Hcl 200 Mg Tablet BY MOUTH DAILY [facility] Aspirin 81 mg 06/18/24 09:00 Aspirin 81 Mg Chewable Tablet PO DAILY [facility] Enoxaparin Sodium 40 mg 06/17/24 10:35 06/17/24 10:57 Enoxaparin 40 Mg/0.4 Ml Syringe SUB-Q 40 mg Q12HR BROCK Administration Ferrous Sulfate 325 mg 06/18/24 09:00 Ferrous Sulfate [address] PO DAILY [facility] Fluticasone/Umeclidinium/Vilanterol 1 puff 06/17/24 11:00 Fluticasone/Umeclidin/Vilanter 100-62.5-25 Mcg Ellipta INHALATION DAILYRT [facility] Guaifenesin 600 mg 06/17/24 09:25 06/17/24 10:17 Guaifenesin 12 Hr 600 Mg Tabcr PO 600 mg Q12HR BROCK Administration Doxycycline Hyclate 100 mg in 100 mls @ 100 mls/hr 06/17/24 09:30 06/17/24 10:18 Vibramycin 100 Mg/Ns 100 Ml IVPB 100 mls/hr Q12HR BROCK Administration Ceftriaxone Sodium 1 gm in 50 mls @ 100 mls/hr 06/17/24 10:00 06/17/24 10:17 Rocephin 1 Gm/Ns 50 Ml IVPB 100 mls/hr Q24H BROCK Administration Methylprednisolone Sodium Succinate 40 mg 06/17/24 10:00 06/17/24 10:16 Methylprednisolone Sod Succ 40 Mg Vial IV PUSH 40 mg Q8H BROCK Administration Miscellaneous Information 1 each 06/17/24 00:01 Ensifentrine Nonformulary. Can Patient Use From Home Or Hold Till Discharge? XX 07/17/24 00:00 CLARIFY [facility] Multivitamins/Minerals 1 tablet 06/17/24 17:00 Opti-Gen Tab PO BIDWM BROCK Non-Formulary Medication 2.5 ml 06/17/24 17:00 Ensifentrine [Ohtuvayre] INHALATION 07/17/24 16:59 BID BROCK Oseltamivir Phosphate 75 mg 06/17/24 06:55 06/17/24 08:03 Oseltamivir Phosphate 75 Mg Capsule PO 06/22/24 06:54 75 mg Q12HR BROCK Administration Perflutren Lipid Microsphere 0 ml 06/17/24 09:25 Perflutren Lipid Microspheres 1.5 Ml Vial Diluted To 10 Ml Total Volume IV PUSH 06/20/24 09:25 ONCE PRN adequate visualization Protocol Sertraline HCl 25 mg 06/18/24 09:00 Sertraline Hcl 25 Mg Tablet PO DAILY [facility] Simvastatin 10 mg 06/18/24 09:00 Simvastatin 10 Mg Tablet PO DAILY BROCK Trazodone HCl 50 mg 06/17/24 09:19 Trazodone Hcl 50 Mg Tablet PO QHS PRN sleep Zolpidem Tartrate 5 mg 06/17/24 21:00 Zolpidem Tartrate (*Crx) 5 Mg Tablet PO QHS [facility] Radiology Results: ITS Impressions Chest X-Ray 06/17/24 05:56 Impression: 1: Enlarging right upper lobe mass, consistent with bronchogenic carcinoma until proven otherwise. Recommend follow-up clinical evaluation with either percutaneous biopsy or PET/CT scan. Labs Labs: Laboratory Results - last 24 hr 06/17/24 06/17/24 06/17/24 02:26 05:45 06:20 WBC 11.0 H RBC 4.50 L Hgb 10.5 L Hct 35.5 L MCV 78.9 L MCH 23.3 L MCHC 29.6 L RDW 27.2 H Plt Count 427 H MPV 9.6 Immature Gran % (Auto) 0.4 Neut % (Auto) 86.6 H Lymph % (Auto) 7.4 L [place] % (Auto) 5.5 Eos % (Auto) 0.0 Baso % (Auto) 0.1 L Lymph # (Auto) 0.81 L [place] # (Auto) 0.6 Eos # (Auto) 0.0 Baso # (Auto) 0.0 Abs Immat Gran (auto) 0.04 H Absolute Neuts (auto) 9.5 H Absolute Nucleated RBC 0.000 Band Neutrophils % Not Reportable Nucleated RBC % 0.0 Platelet Estimate Adequate Hypochromasia 2+ Anisocytosis 1+ Tear Drop Cells 1+ Schistocytes Rare PT 13.9 INR 1.0 APTT 26.7 Puncture Site ABG pH ABG pCO2 ABG pO2 ABG PO2/FiO2 Ratio ABG HCO3 ABG O2 Saturation ABG O2 Content ABG Base Excess A-a Gradient Oxyhemoglobin Total Hemoglobin O2 Delivery Device O2 Liters/Min FiO2 Sodium 133 L Potassium 4.4 Chloride 99 Carbon Dioxide 26 Anion Gap 8 BUN 18 Creatinine 0.78 Estim Creat Clear Calc 41 Estimated GFR > 60 Glucose 108 POC Capillary Glucose Calcium 8.5 Magnesium 1.9 Total Bilirubin 0.5 AST 131 H ALT 105 H Alkaline Phosphatase 219 H Troponin I 1.030 H* 1.140 H* Total Protein 6.0 L Albumin 3.4 L Influenza A (RT-PCR) Positive A Influenza B (RT-PCR) Negative RSV (RT-PCR) Negative SARS-CoV-2 RNA (RT-PCR) Negative 06/17/24 06/17/24 06/17/24 07:37 08:25 09:56 WBC RBC Hgb Hct MCV MCH MCHC RDW Plt Count MPV Immature Gran % (Auto) Neut % (Auto) Lymph % (Auto) [place] % (Auto) Eos % (Auto) Baso % (Auto) Lymph # (Auto) [place] # (Auto) Eos # (Auto) Baso # (Auto) Abs Immat Gran (auto) Absolute Neuts (auto) Absolute Nucleated RBC Band Neutrophils % Nucleated RBC % Platelet Estimate Hypochromasia Anisocytosis Tear Drop Cells Schistocytes PT INR APTT Puncture Site Right radial ABG pH 7.413 ABG pCO2 34.3 L ABG pO2 95.1 ABG PO2/FiO2 Ratio 3.40 ABG HCO3 21.4 L ABG O2 Saturation 97.4 ABG O2 Content 15.9 L ABG Base Excess -2.6 A-a Gradient 64.1 Oxyhemoglobin 96.9 Total Hemoglobin 11.6 L O2 Delivery Device Nasal cannula O2 Liters/Min 2.0 FiO2 28 Sodium Potassium Chloride Carbon Dioxide Anion Gap BUN Creatinine Estim Creat Clear Calc Estimated GFR Glucose POC Capillary Glucose 145 H Calcium Magnesium Total Bilirubin AST ALT Alkaline Phosphatase Troponin I 1.020 H* Total Protein Albumin Influenza A (RT-PCR) Influenza B (RT-PCR) RSV (RT-PCR) SARS-CoV-2 RNA (RT-PCR)
[2024-06-17 13:45] LABS: LDL Cholesterol Direct 40 mg/dL
[2024-06-17 13:51] LABS: MRSA (PCR) NOT DETECTED (NOT DETECTE)
[2024-06-17] MEDS: OPTI-GEN TAB 1 TABLET PO (16:31)
[2024-06-17] MEDS: HYDROcodone/acetaminophen (*CRX) 5-325 MG TABLET 1 TAB PO (16:31)
[2024-06-17] MEDS: ZOLPIDEM TARTRATE (*CRX) 5 MG TABLET PO (20:35)
[2024-06-18] VITALS (22 sets, daily range): BP systolic 102–132; BP diastolic 57–70; PULSE 61–92; RESP 18–24; TEMP 36.2–36.9; O2SAT 96–100; BMI 15.7
--- NOTE | 2024-06-18 | ECHO_ITS ---
Patient Info Name: Velasquez Kent Age: 78 years : 1945 Gender: Male Ht: 63 in Wt: 89 lbs BSA: 1.33 m2 HR: 72 bpm BP: 102 / 66 mmHg Heart Rhythm: Sinus Rhythm Technical Quality: Fair Exam Date: 06/18/2024 10:37 AM Exam Location: Echo Lab Patient Status: Inpatient Admit Date: 06/17/2024 Staff Ordering Physician: Solitario Harrison MD [employer] Gard[employer] Teacher: Chloé Mccauley RDCS Attending Provider: Mariama Jane MD Exam Type: CA echo dop color flow w con Study Info Indications - elevated troponin Complete two-dimensional, color flow and Doppler transthoracic echocardiogram is performed with contrast to opacify the left ventricle and to improve the deliniation of the left ventricle endocardial borders. Contrast/Agitated Saline Contrast/Ag. Saline: Definity Amount: 2.00 ml Administered By: Chloé Mccauley RDCS Existing IV Access: Yes IV Access Condition: patent with no signs of infiltration Summary 1. The left ventricle is normal in size and moderately reduced systolic function. The left ventricular ejection fraction is visually estimated to be 30-35%. The basal norris are normal functioning and the remaining norris are hypokinetic suggestive of multivessel coronary artery disease versus stress cardiomyopathy versus myocarditis in the right clinical settings. 2. The right ventricle is normal in size and systolic function. 3. Normal inferior vena cava with >50% collapse upon inspiration consistent with normal right atrial pressure, 3 mmHg. 4. There is moderate size pericardial effusion mostly anterior to the right ventricle with no echocardiographic evidence of cardiac tamponade. Left Ventricle The left ventricle is normal in size and moderately reduced systolic function. The left ventricular ejection fraction is visually estimated to be 30-35%. The basal norris are normal functioning and the remaining norris are hypokinetic suggestive of multivessel coronary artery disease versus stress cardiomyopathy versus myocarditis in the right clinical settings. Right Ventricle The right ventricle is normal in size and systolic function. Left Atria The left atrium is normal size. Right Atria The right atrium is normal size. Atrial Septum The atrial septum is not well visualized. Aortic Valve The aortic valve is not well visualized. The Doppler gradients suggest a normal functioning valve. Pulmonic Valve The pulmonic valve is not well visualized. There is no color Doppler evidence of pulmonic valve regurgitation. Mitral Valve The mitral valve is normal. There is no mitral regurgitation. Tricuspid Valve The tricuspid valve is not well visualized. Pericardium/Pleural There is moderate size pericardial effusion mostly anterior to the right ventricle with no echocardiographic evidence of cardiac tamponade. Inferior Vena Cava Normal inferior vena cava with >50% collapse upon inspiration consistent with normal right atrial pressure, 3 mmHg. Aorta The aortic root is not well visualized. Left Ventricular Outflow Tract Name Value Normal LVOT 2D LVOT Diameter 2.26 cm LVOT Doppler LVOT Peak Gradient 2 mmHg LVOT Mean Gradient 1 mmHg LVOT VTI 12.76 cm LVOT VTI/AV VTI Ratio 0.93 LVOT Stroke Volume 50.98 ml LVOT CO 3.68 l/min LVOT CI 2.78 L/min/m2 Pulmonic Valve Name Value Normal RVOT Doppler RVOT Peak Gradient 3 mmHg PV Doppler PV Peak Gradient 5 mmHg Mitral Valve Name Value Normal MV Doppler MV Decel [place] 282.25 cm/s2 MV PHT 0 s MV Area (PHT) 4.28 cm2 4.00-5.00 MV Diastolic Function MV E Peak Velocity 49.98 cm/s MV A Peak Velocity 87.57 cm/s MV E/A 0.57 MV Decel Time 0 s MV Annular TDI MV E/e' (Septal) 14.03 <=8.00 MV E/e' (Lateral) 11.11 <=8.00 MV E/e' (Average) 12.57 Tricuspid Valve Name Value Normal Estimated PAP/RSVP RA Pressure 3 mmHg <=5 Aorta Name Value Normal Ascending Aorta Ao Root Diameter (MM) 3.12 cm Ao Root Diam Index (MM) 2.35 cm/m2 Aortic Valve Name Value Normal AV Doppler AV Peak Velocity 88.50 cm/s AV Peak Gradient 3 mmHg AV Mean Gradient 1 mmHg AV VTI 13.67 cm AV Area (Cont Eq VTI) 3.73 cm2 >=3.00 AV Area (Cont Eq Peter) 3.42 cm2 AV Regurgitation 2D LVOT Area 4.00 cm2 Ventricles Name Value Normal LV Dimensions 2D/MM IVS Diastolic Thickness (2D) 0.87 cm 0.60-1.00 LVID Diastole (2D) 5.14 cm 4.20-5.80 LVIW Diastolic Thickness (2D) 0.93 cm 0.60-1.00 LVID Systole (2D) 3.18 cm 2.50-4.00 LVOT Diameter 2.26 cm LV Mass (2D Cubed) 164.81 g 88.00-224.00 LV Mass Index (2D Cubed) 0.01 g/cm2 0.00-0.01 Relative Wall Thickness (2D) 0.36 LV Fractional Shortening/Ejection Fraction 2D/MM LV Fractional Shortening (2D) 38 % 25-43 LV EF (2D Teicholz) 68 % 52-72 LV Diastolic Volume (4C MOD) 45.98 ml LV EF (4C MOD) 40 % LV Diastolic Volume (2C MOD) 32.46 ml LV EF (2C MOD) 43 % LV Diastolic Volume (BP MOD) 38.90 ml 62.00-150.00 LV Diastolic Volume Index (BP MOD) 0.03 l/m2 0.03-0.07 LV Systolic Volume (BP MOD) 23.00 ml 21.00-61.00 LV Systolic Volume Index (BP MOD) 0.02 l/m2 0.01-0.03 LV EF (BP MOD) 41 % 52-72 LV Diastolic Length (4C) 7.67 cm LV Systolic Length (4C) 6.57 cm LV Stroke Volume (4C MOD) 18.25 ml Atria Name Value Normal LA Dimensions LA Dimension (MM) 3.97 cm 3.00-4.10 LA Volume (4C A-L) 26.98 ml LA Volume (BP A-L) 26.22 ml RA Dimensions RA Area (4C) 7.47 cm2 <=18.00 Report Signatures
[2024-06-18] MEDS: IPRATROPIUM 0.5 MG/ALBUTEROL SULFATE 2.5 MG AMPUL.NEB 3 ML INHALATION ×6 (00:05→20:04)
[2024-06-18] MEDS: methylPREDNISolone SOD SUCC 40 MG VIAL IV PUSH ×2 (01:54→09:07)
[2024-06-18 04:31] LABS: Hematocrit 33.6 % (42.0-52.0); Hemoglobin 9.8 g/dL (14.0-18.0); Immature Granulocyte Absolute 0.02 K/mm3 (0.00-0.031); Immature Granulocyte Percent A 0.4 % (0-0.5); Lymphocytes Absolute Auto 0.29 K/mm3 (0.9-3.2); Lymphocytes Percent Auto 6.3 % (18.3-44.2); Mean Corpuscular HGB Conc 29.2 g/dl (32-36); Mean Corpuscular Volume 78.7 fl (80-100); Mean Platelet Volume 9.7 fl (7.4-10.4); Monocytes Absolute Auto 0.1 K/mm3 (0.1-0.6); Monocytes Percent Auto 2.2 % (2.6-8.5); Neutrophils Absolute Auto 4.2 K/mm3 (1.3-6.7); Neutrophils Percent Auto 91.1 % (45.5-73.1); Platelet Count Result 356 k/mm3 (150-375); Red Blood Count 4.27 M/mm3 (4.6-6.20); Red Cell Distribution Width 27.9 % (11.5-14.5); White Blood Count 4.6 K/mm3 (4.5-10.0)
[2024-06-18 04:48] LABS: Alanine Aminotransferase 96 U/L (6-50); Alkaline Phosphatase 200 U/L (38-126); Anion Gap 9 mmol/L (4-12); Aspartate Amino Transferase 73 U/L (17-59); Bilirubin,Total 0.3 mg/dL (0.2-1.3); Blood Urea Nitrogen 15 mg/dL (9-20); Calcium 8.3 mg/dL (8.4-10.2); Carbon Dioxide 26 mmol/L (22-30); Chloride 99 mmol/L (98-107); Cholesterol 115 mg/dL (0-200); Estimated CRCL calculation 42 ml/min; Estimated Glomerular Filt Rate > 60; Glucose 126 mg/dL (65-110); HDL Direct 48 mg/dL; Magnesium 2.2 mg/dL (1.6-2.3); Potassium 4.3 mmol/L (3.4-5.0); Sodium 134 mmol/L (137-145); Triglycerides 104 mg/dL (<150)
[2024-06-18 04:59] LABS: LDL Cholesterol Direct 40 mg/dL
[2024-06-18 05:17] LABS: Anisocytosis 1+; Hypochromasia 1+; Platelet Estimate Adequate (Adequate)
[2024-06-18 05:18] LABS: Burr Cells 1+; Ovalocytes 1+; Poikilocytosis 1+; Schistocytes Rare
--- NOTE | 2024-06-18 06:31 | PC.NURSE ---
Talked to son and POA, Dre Kent. Updated on patient condition and notified POA of patient move to room 204 overnight.
[2024-06-18] MEDS: PERFLUTREN LIPID MICROSPHERES 1.5 ML VIAL DILUTED TO 10 ML TOTAL VOLUME IV PUSH (09:02)
[2024-06-18] MEDS: guaiFENesin 12 HR 600 MG TABCR PO ×2 (09:06→20:29)
[2024-06-18] MEDS: SERTRALINE HCL 25 MG TABLET PO (09:07)
[2024-06-18] MEDS: FERROUS SULFATE 325 MG TABLET DR PO (09:07)
[2024-06-18] MEDS: ENOXAPARIN 40 MG/0.4 ML SYRINGE SUB-Q ×2 (09:07→20:29)
[2024-06-18] MEDS: OPTI-GEN TAB 1 TABLET PO ×2 (09:07→17:56)
[2024-06-18] MEDS: OSELTAMIVIR PHOSPHATE 75 MG CAPSULE PO ×2 (09:07→20:29)
[2024-06-18] MEDS: SIMVASTATIN 10 MG TABLET PO (09:07)
[2024-06-18] MEDS: AMIODARONE HCL 200 MG TABLET BY MOUTH (09:07)
[2024-06-18] MEDS: ASPIRIN 81 MG CHEWABLE TABLET PO (09:07)
[2024-06-18] MEDS: DOXYCYCLINE 100 MG/NS 100 ML 100 MG/100 ML BAG IVPB ×2 (09:08→20:30)
--- NOTE | 2024-06-18 10:05 | PM.PNCARD ---
Progress Note: A&P Assessment and Plan (1) Elevated troponin: Code(s): R79.89 - Other specified abnormal findings of blood chemistry Status: Acute (2) Atrial fibrillation: Code(s): I48.91 - Unspecified atrial fibrillation Status: Acute (3) Shortness of breath: Code(s): R06.02 - Shortness of breath Status: Acute Plan 70-year-old man with paroxysmal atrial fibrillation and COPD presented with shortness of breath Shortness of breath -likely secondary to influenza a infection and pulmonary embolus Troponin elevation -likely secondary to influenza a infection and pulmonary embolism -no additional cardiac workup anticipated during this admission Paroxysmal atrial fibrillation -continue amiodarone 200 mg p.o. daily -anticoagulation was previously held due to falls and severe anemia -however now on Lovenox due to recent pulmonary embolism -if anticoagulation warranted on basis of pulmonary embolism diagnosis, he can be on any of the DOAC from cardiac perspective Please call cardiology with additional questions Subjective Date/time seen: 06/18/24 10:05 Interval history: No chest pain or shortness of breath today. Has right-sided rib pain due to recent fracture. States that he feels much better today. Review of Systems Cardiovascular: Cardiovascular: Reports as per HPI Respiratory: Respiratory: Reports as per HPI Exam Const: General: comfortable HENMT: Mouth: Yes dry mucous membranes Eyes: EOM: EOMs intact bilaterally Neck: Neck: no JVD Resp: Effort & Inspection: normal respiratory effort Auscultation: wheezes Cardio: Rate: regular rate Rhythm: regular rhythm GI: GI Palp: Yes Soft to palpation Extrem: General: no pedal edema Objective Data Vital Signs Vital Signs: Vital Signs - 24 hr 06/17/24 11:51 06/17/24 12:00 06/17/24 12:00 Temperature 36.5 C Pulse Rate 76 79 Respiratory Rate 20 Blood Pressure 95/49 L Pulse Oximetry 100 97 Oxygen Delivery Nasal Cannula Oxygen Flow Rate 2 06/17/24 14:00 06/17/24 14:00 06/17/24 16:00 Temperature Pulse Rate 74 88 Respiratory Rate Blood Pressure Pulse Oximetry 95 Oxygen Delivery Nasal Cannula Oxygen Flow Rate 3 06/17/24 16:00 06/17/24 16:00 06/17/24 18:00 Temperature 36.5 C Pulse Rate 80 69 Respiratory Rate 20 Blood Pressure 115/61 Pulse Oximetry 100 100 Oxygen Delivery Nasal Cannula Oxygen Flow Rate 2 06/17/24 20:00 06/17/24 20:00 06/17/24 20:00 Temperature 36.6 C Pulse Rate 68 63 Respiratory Rate 20 Blood Pressure 120/66 Pulse Oximetry 99 95 Oxygen Delivery Nasal Cannula Oxygen Flow Rate 2 06/17/24 20:03 06/17/24 20:15 06/17/24 20:16 Temperature Pulse Rate 68 68 68 Respiratory Rate 20 20 Blood Pressure Pulse Oximetry 95 Oxygen Delivery Nasal Cannula Oxygen Flow Rate 3 06/17/24 22:00 06/17/24 23:39 06/17/24 23:55 Temperature 36.8 C Pulse Rate 67 63 Respiratory Rate 20 Blood Pressure 95/79 L Pulse Oximetry 95 100 Oxygen Delivery Nasal Cannula Oxygen Flow Rate 2 06/18/24 00:00 06/18/24 00:05 06/18/24 00:17 Temperature Pulse Rate 63 70 72 Respiratory Rate 20 20 Blood Pressure Pulse Oximetry Oxygen Delivery Oxygen Flow Rate 06/18/24 02:00 06/18/24 04:00 06/18/24 04:00 Temperature 36.9 C Pulse Rate 66 64 Respiratory Rate 20 Blood Pressure 102/66 Pulse Oximetry 99 100 Oxygen Delivery Nasal Cannula Oxygen Flow Rate 1 06/18/24 04:00 06/18/24 04:30 06/18/24 04:40 Temperature Pulse Rate 66 69 71 Respiratory Rate 20 20 Blood Pressure Pulse Oximetry Oxygen Delivery Oxygen Flow Rate 06/18/24 05:00 06/18/24 05:58 06/18/24 08:00 Temperature 36.5 C Pulse Rate 72 73 Respiratory Rate 24 H Blood Pressure 113/57 L Pulse Oximetry 100 99 Oxygen Delivery Room Air Oxygen Flow Rate 06/18/24 08:21 06/18/24 08:21 Temperature Pulse Rate 77 Respiratory Rate 18 Blood Pressure Pulse Oximetry 100 Oxygen Delivery Room Air Oxygen Flow Rate Intake/Output Intake/Output: Intake & Output 06/15/24 06/16/24 06/17/24 06/18/24 23:59 23:59 23:59 23:59 Intake Total 490 Output Total 250 310 Balance 240 -310 Meds/Results Medications: Active Medications Generic Name Dose Route Start Last Admin Trade Name Freq PRN Reason Stop Dose Admin Hydrocodone Bitart/Acetaminophen 1 tab 06/17/24 09:19 06/17/24 16:31 Hydrocodone/Acetaminophen (*Crx) 5-325 Mg Tablet PO 1 tab Q4H PRN Administration Pain Rated 4-10 Albuterol 1 puff 06/17/24 09:19 Albuterol Sulfate (*Sp) Aerosol 1 Puff INHALATION Q4H PRN shortness of breath or wheezing Albuterol/Ipratropium 3 ml 06/17/24 09:25 06/18/24 08:18 Ipratropium 0.5 Mg/Albuterol Sulfate 2.5 Mg Ampul.Neb 3 Ml INHALATION 3 ml Q4H BROCK Administration Amiodarone HCl 200 mg 06/18/24 09:00 06/18/24 09:07 Amiodarone Hcl 200 Mg Tablet BY MOUTH 200 mg DAILY BROCK Administration Aspirin 81 mg 06/18/24 09:00 06/18/24 09:07 Aspirin 81 Mg Chewable Tablet PO 81 mg DAILY BROCK Administration Enoxaparin Sodium 40 mg 06/17/24 10:35 06/18/24 09:07 Enoxaparin 40 Mg/0.4 Ml Syringe SUB-Q 40 mg Q12HR BROCK Administration Ferrous Sulfate 325 mg 06/18/24 09:00 06/18/24 09:07 Ferrous Sulfate [address] PO 325 mg DAILY BROCK Administration Fluticasone/Umeclidinium/Vilanterol 1 puff 06/17/24 11:00 06/17/24 14:41 Fluticasone/Umeclidin/Vilanter 100-62.5-25 Mcg Ellipta INHALATION Not Given DAILYRT [facility] Guaifenesin 600 mg 06/17/24 09:25 06/18/24 09:06 Guaifenesin 12 Hr 600 Mg Tabcr PO 600 mg Q12HR BROCK Administration Doxycycline Hyclate 100 mg in 100 mls @ 100 mls/hr 06/17/24 09:30 06/18/24 09:08 Vibramycin 100 Mg/Ns 100 Ml IVPB 100 mls/hr Q12HR BROCK Administration Ceftriaxone Sodium 1 gm in 50 mls @ 100 mls/hr 06/17/24 10:00 06/18/24 09:08 Rocephin 1 Gm/Ns 50 Ml IVPB 100 mls/hr Q24H BROCK Administration Methylprednisolone Sodium Succinate 40 mg 06/17/24 10:00 06/18/24 09:07 Methylprednisolone Sod Succ 40 Mg Vial IV PUSH 40 mg Q8H BROCK Administration Multivitamins/Minerals 1 tablet 06/17/24 17:00 06/18/24 09:07 Opti-Gen Tab PO 1 tablet BIDWM BROCK Administration Oseltamivir Phosphate 75 mg 06/17/24 06:55 06/18/24 09:07 Oseltamivir Phosphate 75 Mg Capsule PO 06/22/24 06:54 75 mg Q12HR BROCK Administration Perflutren Lipid Microsphere 0 ml 06/17/24 09:25 Perflutren Lipid Microspheres 1.5 Ml Vial Diluted To 10 Ml Total Volume IV PUSH 06/20/24 09:25 ONCE PRN adequate visualization Protocol Sertraline HCl 25 mg 06/18/24 09:00 06/18/24 09:07 Sertraline Hcl 25 Mg Tablet PO 25 mg DAILY BROCK Administration Simvastatin 10 mg 06/18/24 09:00 06/18/24 09:07 Simvastatin 10 Mg Tablet PO 10 mg DAILY BROCK Administration Trazodone HCl 50 mg 06/17/24 09:19 Trazodone Hcl 50 Mg Tablet PO QHS PRN sleep Zolpidem Tartrate 5 mg 06/17/24 21:00 06/17/24 20:35 Zolpidem Tartrate (*Crx) 5 Mg Tablet PO 5 mg QHS BROCK Administration Radiology Results: ITS Impressions Chest X-Ray 06/17/24 05:56 Impression: 1: Enlarging right upper lobe mass, consistent with bronchogenic carcinoma until proven otherwise. Recommend follow-up clinical evaluation with either percutaneous biopsy or PET/CT scan. Chest CTA 06/17/24 14:38 IMPRESSION: Acute subsegmental right upper lobe embolus. Low clot burden. No CT evidence of right heart strain. No acute process detected in the chest. Pulmonary nodules, concerning for progression of neoplastic/metastatic disease. Labs Labs: Laboratory Results - last 24 hr 06/17/24 06/17/24 06/17/24 08:21 09:56 12:34 WBC RBC Hgb Hct MCV MCH MCHC RDW Plt Count MPV Immature Gran % (Auto) Neut % (Auto) Lymph % (Auto) [place] % (Auto) Eos % (Auto) Baso % (Auto) Lymph # (Auto) [place] # (Auto) Eos # (Auto) Baso # (Auto) Abs Immat Gran (auto) Absolute Neuts (auto) Absolute Nucleated RBC Band Neutrophils % Nucleated RBC % Platelet Estimate Hypochromasia Poikilocytosis Anisocytosis Ovalocytes [place] Cells Schistocytes Puncture Site Right radial ABG pH 7.413 ABG pCO2 34.3 L ABG pO2 95.1 ABG PO2/FiO2 Ratio 3.40 ABG HCO3 21.4 L ABG O2 Saturation 97.4 ABG O2 Content 15.9 L ABG Base Excess -2.6 A-a Gradient 64.1 Oxyhemoglobin 96.9 Total Hemoglobin 11.6 L O2 Delivery Device Nasal cannula O2 Liters/Min 2.0 FiO2 28 Sodium Potassium Chloride Carbon Dioxide Anion Gap BUN Creatinine Estim Creat Clear Calc Estimated GFR Glucose Calcium Magnesium Total Bilirubin AST ALT Alkaline Phosphatase Troponin I Total Protein Albumin Triglycerides Cholesterol LDL Cholesterol Direct 40 HDL Direct Nasal MRSA (PCR) Not detected 06/17/24 06/18/24 14:09 03:59 WBC 4.6 RBC 4.27 L Hgb 9.8 L Hct 33.6 L MCV 78.7 L MCH 23.0 L MCHC 29.2 L RDW 27.9 H Plt Count 356 MPV 9.7 Immature Gran % (Auto) 0.4 Neut % (Auto) 91.1 H Lymph % (Auto) 6.3 L [place] % (Auto) 2.2 L Eos % (Auto) 0.0 Baso % (Auto) 0.0 L Lymph # (Auto) 0.29 L [place] # (Auto) 0.1 Eos # (Auto) 0.0 Baso # (Auto) 0.0 Abs Immat Gran (auto) 0.02 Absolute Neuts (auto) 4.2 Absolute Nucleated RBC 0.000 Band Neutrophils % Not Reportable Nucleated RBC % 0.0 Platelet Estimate Adequate Hypochromasia 1+ Poikilocytosis 1+ Anisocytosis 1+ Ovalocytes 1+ [place] Cells 1+ Schistocytes Rare Puncture Site ABG pH ABG pCO2 ABG pO2 ABG PO2/FiO2 Ratio ABG HCO3 ABG O2 Saturation ABG O2 Content ABG Base Excess A-a Gradient Oxyhemoglobin Total Hemoglobin O2 Delivery Device O2 Liters/Min FiO2 Sodium 134 L Potassium 4.3 Chloride 99 Carbon Dioxide 26 Anion Gap 9 BUN 15 Creatinine 0.71 Estim Creat Clear Calc 42 Estimated GFR > 60 Glucose 126 H Calcium 8.3 L Magnesium 2.2 Total Bilirubin 0.3 AST 73 H ALT 96 H Alkaline Phosphatase 200 H Troponin I 0.830 H* Total Protein 6.0 L Albumin 3.0 L Triglycerides 104 Cholesterol 115 LDL Cholesterol Direct 40 HDL Direct 48 Nasal MRSA (PCR)
--- NOTE | 2024-06-18 11:33 | PM.IMPN ---
Progress Note: A&P Assessment and Plan (1) COPD exacerbation: Code(s): J44.1 - Chronic obstructive pulmonary disease with (acute) exacerbation Status: Acute (2) History of tobacco abuse: Code(s): Z87.891 - Personal history of nicotine dependence Status: Chronic Plan 70-year-old male with multiple medical comorbidities including active tobacco dependence, atrial fibrillation, COPD, hypertension who presents with shortness of breath. He is accompanied by his daughter Candie. The patient was in [place] ER few days prior for similar complaint of shortness of breath was diagnosed and treated for COPD exacerbation and discharged back to [facility] for rehab. The patient was then discharged home to rehab however at home his shortness of breath has worsened. He denies fever, sick contacts, worsened cough. He had a recent rib fracture however reports the pain is now more manageable. ER evaluation demonstrated adequate chloride O2 saturation on room air. WBC 11. Troponin 1.030. Patient noted to be severely wheezing. Administer DuoNeb, Solu-Medrol 125 mg IV x1, morphine 2 mg IV x1. His breathing greatly improved. Denies any chest pain. ----- Acute on chronic respiratory failure with hypoxia needing oxygen supplementation related to COPD exacerbation. CTA did reveal right upper lobe pulmonary embolism. ABG reviewed Influenza: On Tamiflu Non ST-elevation [place] with elevated troponin cardiology consult echocardiogram aspirin Right upper lobe nodule this is new recent CT chest reviewed. History of left upper lobe nodule which was biopsied and was benign. This right upper lobe nodule is new and likely needs biopsied. Will seek Pulmonary consultation for their advise. History of paroxysmal atrial fibrillation COPD exacerbation DuoNeb scheduled. Was started on Solu-Medrol then prednisone will switch back to IV Solu-Medrol. Add ceftriaxone and doxycycline. Will taper down Solu Medrol. CTA reveal right upper lobe pulmonary embolism. Lovenox started will switch to Eliquis at discharge Anemia History of lung nodules At hypertension Protein calorie mild nutrition A recent rib fracture from a fall Recent severe anemia needing transfusion EGD showed hiatal hernia and scattered scaring with no source of blood loss. Need colonoscopy as an outpatient basis. Eliquis on hold DVT prophylaxis on Lovenox Code status do not resuscitate Subjective Date/time seen: 06/18/24 11:33 Interval history: Feels better today. Less wheezy. Review of Systems Review of Systems: All systems reviewed & are unremarkable except as noted in HPI and below (HPI) Exam Narrative: General: Alert, awake, afebrile, in no acute distress. HEENT: PERRL, no rhinorrhea, no post nasal drip, oropharynx clear. Neck: Trachea midline, no JVD, no lymphadenopathy. Cardiovascular: Regular rate and rhythm, no murmurs, rubs or gallops, no peripheral edema. Respiratory: No respiratory distress occasional wheezes/rhonchi noted Abdomen: Soft, nontender, nondistended, no rebound, no guarding, no peritoneal signs. Musculoskeletal: No joint swelling or deformity, normal muscle tone. Skin: No rashes or petechia, no signs of infection. Psychiatric: Alert and oriented, normal behavior and judgment for situation. Neurological: Alert and oriented to person, place, and time. Follows all commands. No focal deficits, speech is clear and fluent. Objective Data Vital Signs Vital Signs: Vital Signs - 24 hr 06/17/24 11:51 06/17/24 12:00 06/17/24 12:00 Temperature 97.7 F Pulse Rate 76 79 Respiratory Rate 20 Blood Pressure 95/49 L Pulse Oximetry 100 97 Oxygen Delivery Nasal Cannula Oxygen Flow Rate 2 06/17/24 14:00 06/17/24 14:00 06/17/24 16:00 Temperature Pulse Rate 74 88 Respiratory Rate Blood Pressure Pulse Oximetry 95 Oxygen Delivery Nasal Cannula Oxygen Flow Rate 3 06/17/24 16:00 06/17/24 16:00 06/17/24 18:00 Temperature 97.7 F Pulse Rate 80 69 Respiratory Rate 20 Blood Pressure 115/61 Pulse Oximetry 100 100 Oxygen Delivery Nasal Cannula Oxygen Flow Rate 2 06/17/24 20:00 06/17/24 20:00 06/17/24 20:00 Temperature 97.8 F Pulse Rate 68 63 Respiratory Rate 20 Blood Pressure 120/66 Pulse Oximetry 99 95 Oxygen Delivery Nasal Cannula Oxygen Flow Rate 2 06/17/24 20:03 06/17/24 20:15 06/17/24 20:16 Temperature Pulse Rate 68 68 68 Respiratory Rate 20 20 Blood Pressure Pulse Oximetry 95 Oxygen Delivery Nasal Cannula Oxygen Flow Rate 3 06/17/24 22:00 06/17/24 23:39 06/17/24 23:55 Temperature 98.2 F Pulse Rate 67 63 Respiratory Rate 20 Blood Pressure 95/79 L Pulse Oximetry 95 100 Oxygen Delivery Nasal Cannula Oxygen Flow Rate 2 06/18/24 00:00 06/18/24 00:05 06/18/24 00:17 Temperature Pulse Rate 63 70 72 Respiratory Rate 20 20 Blood Pressure Pulse Oximetry Oxygen Delivery Oxygen Flow Rate 06/18/24 02:00 06/18/24 04:00 06/18/24 04:00 Temperature 98.4 F Pulse Rate 66 64 Respiratory Rate 20 Blood Pressure 102/66 Pulse Oximetry 99 100 Oxygen Delivery Nasal Cannula Oxygen Flow Rate 1 06/18/24 04:00 06/18/24 04:30 06/18/24 04:40 Temperature Pulse Rate 66 69 71 Respiratory Rate 20 20 Blood Pressure Pulse Oximetry Oxygen Delivery Oxygen Flow Rate 06/18/24 05:00 06/18/24 05:58 06/18/24 08:00 Temperature 97.7 F Pulse Rate 72 73 Respiratory Rate 24 H Blood Pressure 113/57 L Pulse Oximetry 100 99 Oxygen Delivery Room Air Oxygen Flow Rate 06/18/24 08:00 06/18/24 08:00 06/18/24 08:21 Temperature Pulse Rate 77 90 Respiratory Rate 18 Blood Pressure Pulse Oximetry 100 100 Oxygen Delivery Room Air Room Air Oxygen Flow Rate 06/18/24 08:21 06/18/24 10:00 Temperature Pulse Rate 77 78 Respiratory Rate 18 Blood Pressure Pulse Oximetry Oxygen Delivery Oxygen Flow Rate Intake/Output Intake/Output: Intake & Output 06/15/24 06/16/24 06/17/24 06/18/24 23:59 23:59 23:59 23:59 Intake Total 490 500 Output Total 250 310 Balance 240 190 Meds/Results Medications: Active Medications Generic Name Dose Route Start Last Admin Trade Name Freq PRN Reason Stop Dose Admin Hydrocodone Bitart/Acetaminophen 1 tab 06/17/24 09:19 06/17/24 16:31 Hydrocodone/Acetaminophen (*Crx) 5-325 Mg Tablet PO 1 tab Q4H PRN Administration Pain Rated 4-10 Albuterol 1 puff 06/17/24 09:19 Albuterol Sulfate (*Sp) Aerosol 1 Puff INHALATION Q4H PRN shortness of breath or wheezing Albuterol/Ipratropium 3 ml 06/17/24 09:25 06/18/24 08:18 Ipratropium 0.5 Mg/Albuterol Sulfate 2.5 Mg Ampul.Neb 3 Ml INHALATION 3 ml Q4H BROCK Administration Amiodarone HCl 200 mg 06/18/24 09:00 06/18/24 09:07 Amiodarone Hcl 200 Mg Tablet BY MOUTH 200 mg DAILY BROCK Administration Aspirin 81 mg 06/18/24 09:00 06/18/24 09:07 Aspirin 81 Mg Chewable Tablet PO 81 mg DAILY BROCK Administration Enoxaparin Sodium 40 mg 06/17/24 10:35 06/18/24 09:07 Enoxaparin 40 Mg/0.4 Ml Syringe SUB-Q 40 mg Q12HR BROCK Administration Ferrous Sulfate 325 mg 06/18/24 09:00 06/18/24 09:07 Ferrous Sulfate [address] PO 325 mg DAILY BROCK Administration Fluticasone/Umeclidinium/Vilanterol 1 puff 06/17/24 11:00 06/17/24 14:41 Fluticasone/Umeclidin/Vilanter 100-62.5-25 Mcg Ellipta INHALATION Not Given DAILYRT [facility] Guaifenesin 600 mg 06/17/24 09:25 06/18/24 09:06 Guaifenesin 12 Hr 600 Mg Tabcr PO 600 mg Q12HR BROCK Administration Doxycycline Hyclate 100 mg in 100 mls @ 100 mls/hr 06/17/24 09:30 06/18/24 09:08 Vibramycin 100 Mg/Ns 100 Ml IVPB 100 mls/hr Q12HR BROCK Administration Ceftriaxone Sodium 1 gm in 50 mls @ 100 mls/hr 06/17/24 10:00 06/18/24 09:08 Rocephin 1 Gm/Ns 50 Ml IVPB 100 mls/hr Q24H BROCK Administration Methylprednisolone Sodium Succinate 40 mg 06/17/24 10:00 06/18/24 09:07 Methylprednisolone Sod Succ 40 Mg Vial IV PUSH 40 mg Q8H BROCK Administration Multivitamins/Minerals 1 tablet 06/17/24 17:00 06/18/24 09:07 Opti-Gen Tab PO 1 tablet BIDWM BROCK Administration Oseltamivir Phosphate 75 mg 06/17/24 06:55 06/18/24 09:07 Oseltamivir Phosphate 75 Mg Capsule PO 06/22/24 06:54 75 mg Q12HR BROCK Administration Perflutren Lipid Microsphere 0 ml 06/17/24 09:25 Perflutren Lipid Microspheres 1.5 Ml Vial Diluted To 10 Ml Total Volume IV PUSH 06/20/24 09:25 ONCE PRN adequate visualization Protocol Sertraline HCl 25 mg 06/18/24 09:00 06/18/24 09:07 Sertraline Hcl 25 Mg Tablet PO 25 mg DAILY BROCK Administration Simvastatin 10 mg 06/18/24 09:00 06/18/24 09:07 Simvastatin 10 Mg Tablet PO 10 mg DAILY BROCK Administration Trazodone HCl 50 mg 06/17/24 09:19 Trazodone Hcl 50 Mg Tablet PO QHS PRN sleep Zolpidem Tartrate 5 mg 06/17/24 21:00 06/17/24 20:35 Zolpidem Tartrate (*Crx) 5 Mg Tablet PO 5 mg QHS BROCK Administration Radiology Results: ITS Impressions Chest X-Ray 06/17/24 05:56 Impression: 1: Enlarging right upper lobe mass, consistent with bronchogenic carcinoma until proven otherwise. Recommend follow-up clinical evaluation with either percutaneous biopsy or PET/CT scan. Chest CTA 06/17/24 14:38 IMPRESSION: Acute subsegmental right upper lobe embolus. Low clot burden. No CT evidence of right heart strain. No acute process detected in the chest. Pulmonary nodules, concerning for progression of neoplastic/metastatic disease. Labs Labs: Laboratory Results - last 24 hr 06/17/24 06/17/24 06/17/24 08:21 12:34 14:09 WBC RBC Hgb Hct MCV MCH MCHC RDW Plt Count MPV Immature Gran % (Auto) Neut % (Auto) Lymph % (Auto) [place] % (Auto) Eos % (Auto) Baso % (Auto) Lymph # (Auto) [place] # (Auto) Eos # (Auto) Baso # (Auto) Abs Immat Gran (auto) Absolute Neuts (auto) Absolute Nucleated RBC Band Neutrophils % Nucleated RBC % Platelet Estimate Hypochromasia Poikilocytosis Anisocytosis Ovalocytes [place] Cells Schistocytes Sodium Potassium Chloride Carbon Dioxide Anion Gap BUN Creatinine Estim Creat Clear Calc Estimated GFR Glucose Calcium Magnesium Total Bilirubin AST ALT Alkaline Phosphatase Troponin I 0.830 H* Total Protein Albumin Triglycerides Cholesterol LDL Cholesterol Direct 40 HDL Direct Nasal MRSA (PCR) Not detected 06/18/24 03:59 WBC 4.6 RBC 4.27 L Hgb 9.8 L Hct 33.6 L MCV 78.7 L MCH 23.0 L MCHC 29.2 L RDW 27.9 H Plt Count 356 MPV 9.7 Immature Gran % (Auto) 0.4 Neut % (Auto) 91.1 H Lymph % (Auto) 6.3 L [place] % (Auto) 2.2 L Eos % (Auto) 0.0 Baso % (Auto) 0.0 L Lymph # (Auto) 0.29 L [place] # (Auto) 0.1 Eos # (Auto) 0.0 Baso # (Auto) 0.0 Abs Immat Gran (auto) 0.02 Absolute Neuts (auto) 4.2 Absolute Nucleated RBC 0.000 Band Neutrophils % Not Reportable Nucleated RBC % 0.0 Platelet Estimate Adequate Hypochromasia 1+ Poikilocytosis 1+ Anisocytosis 1+ Ovalocytes 1+ [place] Cells 1+ Schistocytes Rare Sodium 134 L Potassium 4.3 Chloride 99 Carbon Dioxide 26 Anion Gap 9 BUN 15 Creatinine 0.71 Estim Creat Clear Calc 42 Estimated GFR > 60 Glucose 126 H Calcium 8.3 L Magnesium 2.2 Total Bilirubin 0.3 AST 73 H ALT 96 H Alkaline Phosphatase 200 H Troponin I Total Protein 6.0 L Albumin 3.0 L Triglycerides 104 Cholesterol 115 LDL Cholesterol Direct 40 HDL Direct 48 Nasal MRSA (PCR)
--- NOTE | 2024-06-18 12:26 | IVDEFINITY ---
Prior to administration of IV Definity the patient was educated on the risks and benefits of the imaging enhancing agent including potential adverse side effects. The patient verbalized understanding. Allergies were verified. No exclusion criteria were identified and at least one of the following inclusion criteria were met: 1) physician request, 2) patient technically difficult to image (per the [place] [employer]ch[employer] guidelines of two or more segments not discernable within the apical view), or 3) questionable left ventricular function. ?
[2024-06-18] MEDS: FLUTICASONE/UMECLIDIN/VILANTER 100-62.5-25 MCG ELLIPTA 1 PUFF INHALATION (12:36)
--- NOTE | 2024-06-18 14:02 | PM.CNPUL ---
Assessment and Plan Assessment and plan (1) Multiple lung nodules on CT: Code(s): R91.8 - Other nonspecific abnormal finding of lung field Status: Acute Assessment and Plan: 06/17/24 CTA Pulmonary nodules, concerning for progression of neoplastic/metastatic disease. These have increased compared to May 31, 2024. He is not a great candidate for any kind of biopsy because he has end end end-stage COPD with apical cysts and scarring. Any biopsy would no doubt cause a pneumothorax. We may be able to get a PET scan as an outpatient however he is on Lovenox planning to bridge to Eliquis before discharge. Will discuss with patient a plan for diagnosis. If we get PET out pt which is (+) he may be able to get empiric radiation. (2) Pulmonary embolism: Code(s): I26.99 - Other pulmonary embolism without acute cor pulmonale Status: Acute Assessment and Plan: Subacute right upper lobe pulmonary embolism without right heart strain confirmed on CTA. Lovenox started will switch to Eliquis at discharge. (3) Influenza A: Code(s): J10.1 - Influenza due to other identified influenza virus with other respiratory manifestations Status: Acute Assessment and Plan: Patient is positive for influenza A on a swab 06/17/2024, treated with Oseltamivir. (4) End stage COPD: Code(s): J44.9 - Chronic obstructive pulmonary disease, unspecified Status: Acute Assessment and Plan: Received Solu-Medrol, oral steroids, then returned to IV Solu-Medro, tapering. He also received empiric antibiotics, ceftriaxone and doxycycline. (5) Tobacco abuse: Code(s): Z72.0 - Tobacco use Status: Acute Assessment and Plan: Heavy smoker, has not smoked for about 2 weeks. Plan plan: COPD treatment, steroids, antibiotics, Lovenox -> Eliquis for small PE artery to RUL out pt PET for multiple RUL nodules, suspected malignancy History of Present Illness History of Present Illness Consult date: 06/18/24 Chief complaint: COPD exacerbation, elevated trop Narrative: Patient was seen June 18, 2024 at 14:06 Room 204 [facility] NEW: Velasquez Kent is a 78-year-old man whom I follow in the clinic for end stage COPD, last visit in the office was May 23. In January, he started Otuvayre, inhaled phosphodiesterase inhibitor which is used twice a day. He says this seems to help him feel less short of breath. He smokes very very rarely, 1 cigar every 2 weeks; has significant shortness of breath. On May 30, his legs gave out while standing in his kitchen, fell onto his right side, CT showed an acute fracture of the right 6th rib; He had anemia, hemoglobin 5.6 , hematocrit 19%; baseline hemoglobin was 11 g. GI saw him, he did not want a colonoscopy, and Cardiology saw him for his bradycardia down to 30. It was felt he was not symptomatic so no adjustment of his amiodarone occurred. He Went to [facility] for rehab. He did not have a great experience there. He was discharged home, return to the emergency department with shortness of breath and went to rehab for 1 day and again went home. He says for the last week he has been extremely tired and short of breath. He returned June 15, admitted for 1 day then went to rehab for 1 day and was sent home. Re-admitted 06/17 with shortness of breath, has (+) influenza A screen, Chest CTA showed acute subsegmental right upper lobe embolus with a low clot burden. He had mild increase in troponins, increased size of pulmonary nodules with concern for progression of neoplastic/metastatic disease. He has had no appetite recently. His last smoking was 2 puffs on a cigar 2 weeks ago. He has had no fever, chills, difficulty swallowing, nausea, vomiting, rashes or headache. He just feels really weak and short of breath. DATA * 06/17/24; IMPRESSION: Acute subsegmental right upper lobe embolus. Low clot burden. No CT evidence of right heart strain. No acute process detected in the chest. Pulmonary nodules, concerning for progression of neoplastic/metastatic disease. Nodules in RUL worsened compared to his 05/31/[address] * 06/17/2024; ABG on 2 L pH 7.41, pCO2 34, pO2 95, HCO3 = 21 on 2 L * 06/18/2024, WBC 4.6, H&H 10.5/35% Sodium 133 potassium 4.9 chloride 99 carbon dioxide 26 BUN 18 creatinine 0.78 glucose 108 calcium 8.3 * 06/17/2024 serology positive influenza A, negative flu B, negative RSV, negative COVID, * 06/17/24 serology swab (+) MRSA Review of Systems Review of Systems: All systems reviewed & are unremarkable except as noted in HPI and below PMFSH Past Medical History Medical History (Updated 06/18/24 @ 14:36 by Supriya Jacobo MD) Tobacco abuse End stage COPD Pulmonary infiltrate present on computed tomography Depression Atrial fibrillation 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 History of tobacco abuse Hyperlipidemia 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 They have 3 living children; one child in a car wreck. Retired 1998. Smoked cigarettes 1 ppd x 10 years, then cigars up to 10 per day, now 2 cigars a week. He drinks only on very rare occasion. Code status: Surrogate decision maker: Smoking packs per day: 1 Smoking cigarettes per day: 20.0 Years smoked: 55 Smoking pack-years: 55.00 Smoking status: Current some day smoker Tobacco type: cigars Smoking end date: 08/29/23 Additional smoking assessment comments: 1 Cigar per day average Alcohol intake: former Alcohol use details: 2 drinks yearly Substance use: current Substance use type: does not use Do You Feel Safe in your Home?: Yes Lack of Transportation: No Lack of Food: Never True Current Housing: I Have Housing Concerned About Future Housing: No Difficulty Paying Gas/Electric Bills: No Difficulty Paying for Meds: No Currently Unemployed: No Education: High School Diploma/GED Difficulty w/ Childcare or Family Care: No Living arrangements: alone Occupation/Education: retired Gender identity (if verbalized by the patient): Male Spiritual care concerns: No Meds Home Medications and Allergies Home Medications ?Medication ?Instructions ?Recorded ?Confirmed ?Type aspirin 81 mg chewable tablet 81 mg PO DAILY 03/11/22 06/17/24 History vitamins A,C,Z-hatn-teabdv 2,148 1 tablet PO BIDWM 03/11/22 06/17/24 History mcg-113 mg-45 mg-17.4 mg tablet (PreserVision AREDS) albuterol sulfate 90 mcg/actuation 1 inh inhalation Q4H PRN shortness 03/13/24 06/17/24 Rx aerosol inhaler of breath or wheezing #8.5 grams simvastatin 10 mg tablet 10 mg PO DAILY #90 tabs 04/03/24 06/17/24 Rx amiodarone 200 mg tablet (Pacerone) 200 mg BYMOUTH DAILY #90 tabs 05/04/24 06/17/24 Rx zolpidem 5 mg tablet (Ambien) 5 mg PO QHS #30 tabs 05/04/24 06/17/24 Rx budesonide 160 mcg-glycopyr 9 2 inh inhalation BID 90 days #32.1 05/07/24 06/17/24 Rx mcg-formot 4.8 mcg/actuation HFA grams inhaler (Breztri Aerosphere) sertraline 25 mg tablet 25 mg PO DAILY #90 tabs 05/29/24 06/17/24 Rx trazodone 50 mg tablet 50 mg PO QHS PRN sleep #30 tabs 05/29/24 06/17/24 Rx ferrous sulfate 325 mg (65 mg 325 mg PO DAILY #30 tabs 06/04/24 06/17/24 Rx iron) tablet,delayed release hydrocodone 5 mg-acetaminophen 325 1 tablet PO Q4H PRN Pain Rated 06/04/24 06/17/24 Rx mg tablet 4-10 #10 tabs ensifentrine 3 mg/2.5 mL 2.5 ml inhalation BID COPD 3 06/08/24 06/17/24 Rx suspension for nebulization months #450 mL (Ohtuvayre) Allergies Allergy/AdvReac Type Severity Reaction Status Date / Time No Known Allergies Allergy Verified 06/01/24 09:43 Vital Signs Vital Signs - 24 hr 06/17/24 16:00 06/17/24 16:00 06/17/24 16:00 Temperature 36.5 C Pulse Rate 88 80 Respiratory Rate 20 Blood Pressure 115/61 Pulse Oximetry 100 100 Oxygen Delivery Nasal Cannula Oxygen Flow Rate 2 06/17/24 18:00 06/17/24 20:00 06/17/24 20:00 Temperature 36.6 C Pulse Rate 69 68 Respiratory Rate 20 Blood Pressure 120/66 Pulse Oximetry 99 95 Oxygen Delivery Nasal Cannula Oxygen Flow Rate 2 06/17/24 20:00 06/17/24 20:03 06/17/24 20:15 Temperature Pulse Rate 63 68 68 Respiratory Rate 20 Blood Pressure Pulse Oximetry Oxygen Delivery Oxygen Flow Rate 06/17/24 20:16 06/17/24 22:00 06/17/24 23:39 Temperature Pulse Rate 68 67 Respiratory Rate 20 Blood Pressure Pulse Oximetry 95 95 Oxygen Delivery Nasal Cannula Nasal Cannula Oxygen Flow Rate 3 2 04/20/25 23:55 06/18/24 00:00 06/18/24 00:05 Temperature 36.8 C Pulse Rate 63 63 70 Respiratory Rate 20 20 Blood Pressure 95/79 L Pulse Oximetry 100 Oxygen Delivery Oxygen Flow Rate 06/18/24 00:17 06/18/24 02:00 06/18/24 04:00 Temperature 36.9 C Pulse Rate 72 66 64 Respiratory Rate 20 20 Blood Pressure 102/66 Pulse Oximetry 99 Oxygen Delivery Oxygen Flow Rate 06/18/24 04:00 06/18/24 04:00 06/18/24 04:30 Temperature Pulse Rate 66 69 Respiratory Rate 20 Blood Pressure Pulse Oximetry 100 Oxygen Delivery Nasal Cannula Oxygen Flow Rate 1 06/18/24 04:40 06/18/24 05:00 06/18/24 05:58 Temperature Pulse Rate 71 72 Respiratory Rate 20 Blood Pressure Pulse Oximetry 100 Oxygen Delivery Room Air Oxygen Flow Rate 06/18/24 08:00 06/18/24 08:00 06/18/24 08:00 Temperature 36.5 C Pulse Rate 73 77 90 Respiratory Rate 24 H 18 Blood Pressure 113/57 L Pulse Oximetry 99 100 Oxygen Delivery Room Air Oxygen Flow Rate 06/18/24 08:21 06/18/24 08:21 06/18/24 10:00 Temperature Pulse Rate 77 78 Respiratory Rate 18 Blood Pressure Pulse Oximetry 100 Oxygen Delivery Room Air Oxygen Flow Rate 06/18/24 12:36 06/18/24 12:44 Temperature Pulse Rate 61 92 Respiratory Rate 20 20 Blood Pressure Pulse Oximetry Oxygen Delivery Oxygen Flow Rate Exam Narrative: GEN: Alert, oriented, not in distress. Poor eyesight. HEENT: pupils are equal, EOMI, symmetrical face; oral membranes dry, dentures, Mallampati II airway NECK: Trachea is midline CHEST: Equal air entry, hyperinflated chest, decreased breath sounds, faint expiratory wheeze over the precordium; has prolonged expiration CV: Regular S1S2 with a III/ murmur systolic, mostly regular ABD : (+) bowel sounds Extremities : no clubbing; his hands are rough, dry, cool to touch. No edema. Hands are warmer today than usual PSYCH: normal thought and speech Results Laboratory Findings 06/20/24 05:50 06/20/24 05:50 ABG, PT/INR, D-dimer: ABG ABG pH 7.413 (7.350-7.450) 06/17/24 09:56 ABG pCO2 34.3 mmHg (35.0-45.0) L 06/17/24 09:56 ABG pO2 95.1 mmHg (80.0-100.0) 06/17/24 09:56 ABG O2 Saturation 97.4 % (95.0-100.0) 06/17/24 09:56 PT/INR, D-dimer PT 13.9 Seconds (11.1-14.7) 06/17/24 02:26 INR 1.0 06/17/24 02:26 Abnormal lab findings: Abnormal Labs 06/17/24 06/17/24 06/17/24 02:26 05:45 06:20 WBC 11.0 H RBC 4.50 L Hgb 10.5 L Hct 35.5 L MCV 78.9 L MCH 23.3 L MCHC 29.6 L RDW 27.2 H Plt Count 427 H Neut % (Auto) 86.6 H Lymph % (Auto) 7.4 L [place] % (Auto) Baso % (Auto) 0.1 L Lymph # (Auto) 0.81 L Abs Immat Gran (auto) 0.04 H Absolute Neuts (auto) 9.5 H ABG pCO2 ABG HCO3 ABG O2 Content Total Hemoglobin Sodium 133 L Glucose POC Capillary Glucose Calcium AST 131 H ALT 105 H Alkaline Phosphatase 219 H Troponin I 1.030 H* 1.140 H* Total Protein 6.0 L Albumin 3.4 L Influenza A (RT-PCR) Positive A 06/17/24 06/17/24 06/17/24 07:37 08:25 09:56 WBC RBC Hgb Hct MCV MCH MCHC RDW Plt Count Neut % (Auto) Lymph % (Auto) [place] % (Auto) Baso % (Auto) Lymph # (Auto) Abs Immat Gran (auto) Absolute Neuts (auto) ABG pCO2 34.3 L ABG HCO3 21.4 L ABG O2 Content 15.9 L Total Hemoglobin 11.6 L Sodium Glucose POC Capillary Glucose 145 H Calcium AST ALT Alkaline Phosphatase Troponin I 1.020 H* Total Protein Albumin Influenza A (RT-PCR) 06/17/24 06/18/24 14:09 03:59 WBC RBC 4.27 L Hgb 9.8 L Hct 33.6 L MCV 78.7 L MCH 23.0 L MCHC 29.2 L RDW 27.9 H Plt Count Neut % (Auto) 91.1 H Lymph % (Auto) 6.3 L [place] % (Auto) 2.2 L Baso % (Auto) 0.0 L Lymph # (Auto) 0.29 L Abs Immat Gran (auto) Absolute Neuts (auto) ABG pCO2 ABG HCO3 ABG O2 Content Total Hemoglobin Sodium 134 L Glucose 126 H POC Capillary Glucose Calcium 8.3 L AST 73 H ALT 96 H Alkaline Phosphatase 200 H Troponin I 0.830 H* Total Protein 6.0 L Albumin 3.0 L Influenza A (RT-PCR)
[2024-06-18] MEDS: ZOLPIDEM TARTRATE (*CRX) 5 MG TABLET PO (20:29)
[2024-06-19] VITALS (15 sets, daily range): BP systolic 117–136; BP diastolic 64–72; PULSE 65–80; RESP 16–22; TEMP 36–36.6; O2SAT 96–100
[2024-06-19] MEDS: IPRATROPIUM 0.5 MG/ALBUTEROL SULFATE 2.5 MG AMPUL.NEB 3 ML INHALATION ×5 (00:15→20:15)
[2024-06-19 05:59] LABS: Basophils Percent Auto 0.1 % (0.2-1.2); Hematocrit 32.1 % (42.0-52.0); Hemoglobin 9.7 g/dL (14.0-18.0); Immature Granulocyte Absolute 0.08 K/mm3 (0.00-0.031); Immature Granulocyte Percent A 0.9 % (0-0.5); Lymphocytes Absolute Auto 0.44 K/mm3 (0.9-3.2); Lymphocytes Percent Auto 4.8 % (18.3-44.2); Mean Corpuscular HGB Conc 30.2 g/dl (32-36); Mean Corpuscular Hemoglobin 23.6 pg (26-34); Mean Corpuscular Volume 78.1 fl (80-100); Mean Platelet Volume 10.2 fl (7.4-10.4); Monocytes Absolute Auto 0.5 K/mm3 (0.1-0.6); Monocytes Percent Auto 5.5 % (2.6-8.5); Neutrophils Absolute Auto 8.1 K/mm3 (1.3-6.7); Neutrophils Percent Auto 88.7 % (45.5-73.1); Platelet Count Result 357 k/mm3 (150-375); Red Blood Count 4.11 M/mm3 (4.6-6.20); Red Cell Distribution Width 27.3 % (11.5-14.5); White Blood Count 9.1 K/mm3 (4.5-10.0)
[2024-06-19 06:07] LABS: Alanine Aminotransferase 99 U/L (6-50); Alkaline Phosphatase 202 U/L (38-126); Anion Gap 5 mmol/L (4-12); Aspartate Amino Transferase 85 U/L (17-59); Bilirubin,Total 0.5 mg/dL (0.2-1.3); Blood Urea Nitrogen 18 mg/dL (9-20); Calcium 8.4 mg/dL (8.4-10.2); Carbon Dioxide 27 mmol/L (22-30); Chloride 99 mmol/L (98-107); Estimated CRCL calculation 42 ml/min; Estimated Glomerular Filt Rate > 60; Glucose 101 mg/dL (65-110); Magnesium 2.1 mg/dL (1.6-2.3); Sodium 131 mmol/L (137-145)
[2024-06-19 06:48] LABS: Anisocytosis 3+; Hypochromasia 2+; Ovalocytes 1+; Platelet Estimate Adequate (Adequate); Poikilocytosis 1+; Target Cells 1+; Tear Drop Cells 1+
[2024-06-19 06:49] LABS: Acanthocytes 1+; Schistocytes Rare
[2024-06-19] MEDS: FLUTICASONE/UMECLIDIN/VILANTER 100-62.5-25 MCG ELLIPTA 1 PUFF INHALATION (08:12)
[2024-06-19] MEDS: DOXYCYCLINE 100 MG/NS 100 ML 100 MG/100 ML BAG IVPB (08:45)
[2024-06-19] MEDS: SIMVASTATIN 10 MG TABLET PO (08:46)
[2024-06-19] MEDS: ASPIRIN 81 MG CHEWABLE TABLET PO (08:46)
[2024-06-19] MEDS: guaiFENesin 12 HR 600 MG TABCR PO ×2 (08:46→21:03)
[2024-06-19] MEDS: OPTI-GEN TAB 1 TABLET PO ×2 (08:46→16:45)
[2024-06-19] MEDS: OSELTAMIVIR PHOSPHATE 75 MG CAPSULE PO ×2 (08:46→21:03)
[2024-06-19] MEDS: SERTRALINE HCL 25 MG TABLET PO (08:46)
[2024-06-19] MEDS: predniSONE 20 MG TABLET 40 MG PO (08:46)
[2024-06-19] MEDS: FERROUS SULFATE 325 MG TABLET DR PO (08:46)
[2024-06-19] MEDS: ENOXAPARIN 40 MG/0.4 ML SYRINGE SUB-Q ×2 (08:46→21:03)
[2024-06-19] MEDS: AMIODARONE HCL 200 MG TABLET BY MOUTH (08:47)
--- NOTE | 2024-06-19 08:55 | PM.PNCARD ---
Progress Note: A&P Assessment and Plan (1) Elevated troponin: Code(s): R79.89 - Other specified abnormal findings of blood chemistry Status: Acute (2) Atrial fibrillation: Code(s): I48.91 - Unspecified atrial fibrillation Status: Acute (3) Shortness of breath: Code(s): R06.02 - Shortness of breath Status: Acute Plan 70-year-old man with paroxysmal atrial fibrillation and COPD presented with shortness of breath Shortness of breath -likely secondary to influenza a infection and pulmonary embolus Troponin elevation -likely secondary to influenza a infection and pulmonary embolism -no additional cardiac workup anticipated during this admission Paroxysmal atrial fibrillation -continue amiodarone 200 mg p.o. daily -anticoagulation was previously held due to falls and severe anemia -however now on Lovenox due to recent pulmonary embolism -if anticoagulation warranted on basis of pulmonary embolism diagnosis, he can be on any of the DOAC from cardiac perspective Cardiomyopathy EF 30-35% -will start him on very low-dose Entresto. Guideline directed medical therapy can be optimized as outpatient. Will sign off, Please call cardiology with additional questions Subjective Date/time seen: 06/19/24 08:55 Interval history: No chest pain or shortness of breath today. Has right-sided rib pain due to recent fracture. States that he feels much better today. 06/19/2024: Continues to feel well. Denies any shortness of breath, chest pain, palpitations, swelling. Review of Systems Cardiovascular: Cardiovascular: Reports as per HPI Respiratory: Respiratory: Reports as per HPI Exam Const: General: comfortable and no acute distress Other: Able to lie flat HENMT: Face/Nose/Sinus: Normal nares present and no epistaxis Mouth: Yes moist mucous membranes and Yes dry mucous membranes Eyes: Sclera: sclerae normal Pupils: Equal, round and reactive pupils present EOM: EOMs intact bilaterally Neck: Neck: supple and no JVD Carotids: no bruits Resp: Effort & Inspection: normal respiratory effort Auscultation: wheezes expiratory wheezes, inspiratory wheezes and throughout and diminished lung sounds bilateral Other: No chest wall tenderness Cardio: Rate: regular rate Rhythm: regular rhythm Heart sounds: no gallops, no murmurs and no rubs GI: Auscultation: normal bowel sounds Skin: General skin exam: normal color, rashes and/or lesions noted and no erythema Other: Warm Neuro: Cranial nerves: Yes Equal, round and reactive pupils present Speech: normal speech Other: No obvious focal deficit or facial asymmetry Extrem: General: no edema and no pedal edema Other: Normal capillary refills Intact distal pulses. Objective Data Vital Signs Vital Signs: Vital Signs - 24 hr 06/18/24 10:00 06/18/24 12:36 06/18/24 12:44 Temperature Pulse Rate 78 61 92 Respiratory Rate 20 20 Blood Pressure Pulse Oximetry Oxygen Delivery 06/18/24 16:00 06/18/24 16:09 06/18/24 16:14 Temperature 36.2 C L Pulse Rate 76 76 74 Respiratory Rate 20 20 20 Blood Pressure 132/61 Pulse Oximetry 100 Oxygen Delivery 06/18/24 20:00 06/18/24 20:00 06/18/24 20:04 Temperature 36.6 C Pulse Rate 80 78 Respiratory Rate 20 20 Blood Pressure 110/58 L Pulse Oximetry 100 Oxygen Delivery Room Air 06/18/24 20:07 06/18/24 20:12 06/18/24 21:48 Temperature 36.6 C Pulse Rate 78 76 79 Respiratory Rate 20 18 Blood Pressure 130/70 Pulse Oximetry 96 98 Oxygen Delivery Room Air 06/18/24 21:48 06/19/24 00:15 06/19/24 00:24 Temperature Pulse Rate 76 74 75 Respiratory Rate 20 20 20 Blood Pressure Pulse Oximetry 96 Oxygen Delivery Room Air 06/19/24 05:59 06/19/24 08:04 06/19/24 08:04 Temperature 36.6 C Pulse Rate 75 70 70 Respiratory Rate 20 20 20 Blood Pressure 136/71 Pulse Oximetry 100 96 Oxygen Delivery Room Air 06/19/24 08:10 06/19/24 08:47 Temperature Pulse Rate 65 66 Respiratory Rate 20 Blood Pressure Pulse Oximetry Oxygen Delivery Intake/Output Intake/Output: Intake & Output 06/16/24 06/17/24 06/18/24 06/19/24 23:59 23:59 23:59 23:59 Intake Total 490 1600 200 Output Total 250 460 250 Balance 240 1140 -50 Meds/Results Medications: Active Medications Generic Name Dose Route Start Last Admin Trade Name Freq PRN Reason Stop Dose Admin Hydrocodone Bitart/Acetaminophen 1 tab 06/17/24 09:19 06/17/24 16:31 Hydrocodone/Acetaminophen (*Crx) 5-325 Mg Tablet PO 1 tab Q4H PRN Administration Pain Rated 4-10 Albuterol 1 puff 06/17/24 09:19 Albuterol Sulfate (*Sp) Aerosol 1 Puff INHALATION Q4H PRN shortness of breath or wheezing Albuterol/Ipratropium 3 ml 06/17/24 09:25 06/19/24 08:01 Ipratropium 0.5 Mg/Albuterol Sulfate 2.5 Mg Ampul.Neb 3 Ml INHALATION 3 ml Q4H BROCK Administration Amiodarone HCl 200 mg 06/18/24 09:00 06/19/24 08:47 Amiodarone Hcl 200 Mg Tablet BY MOUTH 200 mg DAILY BROCK Administration Aspirin 81 mg 06/18/24 09:00 06/19/24 08:46 Aspirin 81 Mg Chewable Tablet PO 81 mg DAILY BROCK Administration Enoxaparin Sodium 40 mg 06/17/24 10:35 06/19/24 08:46 Enoxaparin 40 Mg/0.4 Ml Syringe SUB-Q 40 mg Q12HR BROCK Administration Ferrous Sulfate 325 mg 06/18/24 09:00 06/19/24 08:46 Ferrous Sulfate [address] PO 325 mg DAILY BROCK Administration Fluticasone/Umeclidinium/Vilanterol 1 puff 06/17/24 11:00 06/19/24 08:12 Fluticasone/Umeclidin/Vilanter 100-62.5-25 Mcg Ellipta INHALATION 1 puff DAILYRT BROCK Administration Guaifenesin 600 mg 06/17/24 09:25 06/19/24 08:46 Guaifenesin 12 Hr 600 Mg Tabcr PO 600 mg Q12HR BROCK Administration Doxycycline Hyclate 100 mg in 100 mls @ 100 mls/hr 06/17/24 09:30 06/19/24 08:45 Vibramycin 100 Mg/Ns 100 Ml IVPB 100 mls/hr Q12HR BROCK Administration Ceftriaxone Sodium 1 gm in 50 mls @ 100 mls/hr 06/17/24 10:00 06/18/24 09:08 Rocephin 1 Gm/Ns 50 Ml IVPB 100 mls/hr Q24H BROCK Administration Multivitamins/Minerals 1 tablet 06/17/24 17:00 06/19/24 08:46 Opti-Gen Tab PO 1 tablet BIDWM BROCK Administration Oseltamivir Phosphate 75 mg 06/17/24 06:55 06/19/24 08:46 Oseltamivir Phosphate 75 Mg Capsule PO 06/22/24 06:54 75 mg Q12HR BROCK Administration Prednisone 40 mg 06/19/24 08:00 06/19/24 08:46 Prednisone 20 Mg Tablet PO 40 mg DAILY@0800 BROCK Administration Sertraline HCl 25 mg 06/18/24 09:00 06/19/24 08:46 Sertraline Hcl 25 Mg Tablet PO 25 mg DAILY BROCK Administration Simvastatin 10 mg 06/18/24 09:00 06/19/24 08:46 Simvastatin 10 Mg Tablet PO 10 mg DAILY BROCK Administration Trazodone HCl 50 mg 06/17/24 09:19 Trazodone Hcl 50 Mg Tablet PO QHS PRN sleep Zolpidem Tartrate 5 mg 06/17/24 21:00 06/18/24 20:29 Zolpidem Tartrate (*Crx) 5 Mg Tablet PO 5 mg QHS BROCK Administration Radiology Results: ITS Impressions Chest X-Ray 06/17/24 05:56 Impression: 1: Enlarging right upper lobe mass, consistent with bronchogenic carcinoma until proven otherwise. Recommend follow-up clinical evaluation with either percutaneous biopsy or PET/CT scan. Chest CTA 06/17/24 14:38 IMPRESSION: Acute subsegmental right upper lobe embolus. Low clot burden. No CT evidence of right heart strain. No acute process detected in the chest. Pulmonary nodules, concerning for progression of neoplastic/metastatic disease. Labs Labs: Laboratory Results - last 24 hr 06/17/24 06/19/24 02:26 05:26 WBC 9.1 RBC 4.11 L Hgb 9.7 L Hct 32.1 L MCV 78.1 L MCH 23.6 L MCHC 30.2 L RDW 27.3 H Plt Count 357 MPV 10.2 Immature Gran % (Auto) 0.9 H Neut % (Auto) 88.7 H Lymph % (Auto) 4.8 L [place] % (Auto) 5.5 Eos % (Auto) 0.0 Baso % (Auto) 0.1 L Lymph # (Auto) 0.44 L [place] # (Auto) 0.5 Eos # (Auto) 0.0 Baso # (Auto) 0.0 Abs Immat Gran (auto) 0.08 H Absolute Neuts (auto) 8.1 H Absolute Nucleated RBC 0.000 Band Neutrophils % Not Reportable Nucleated RBC % 0.0 Platelet Estimate Adequate Hypochromasia 2+ Poikilocytosis 1+ Anisocytosis 3+ Target Cells 1+ Tear Drop Cells 1+ Ovalocytes 1+ Acanthocytes (Spur) 1+ Schistocytes Rare Sodium 131 L Potassium 4.0 Chloride 99 Carbon Dioxide 27 Anion Gap 5 BUN 18 Creatinine 0.72 Estim Creat Clear Calc 42 Estimated GFR > 60 Glucose 101 Calcium 8.4 Magnesium 2.1 Total Bilirubin 0.5 AST 85 H ALT 99 H Alkaline Phosphatase 202 H Troponin I 1.030 H* Total Protein 5.0 L Albumin 3.0 L
--- NOTE | 2024-06-19 10:59 | PCPTNOTE ---
Spoke with Dr. Hunter RIVERS to remove bedrest orders to allow pt to participate in therapy. Will make nurse aware.
[2024-06-19] MEDS: AMOXICILLIN/CLAVULANATE K 875-125 MG TAB 1 TABLET PO ×2 (11:35→21:03)
[2024-06-19] MEDS: DOXYCYCLINE HYCLATE 100 MG TABLET PO ×2 (11:35→21:03)
--- NOTE | 2024-06-19 14:04 | P.PNIM_ITS ---
Progress Note: A&P Assessment and Plan (1) COPD exacerbation: Code(s): J44.1 - Chronic obstructive pulmonary disease with (acute) exacerbation Status: Acute (2) History of tobacco abuse: Code(s): Z87.891 - Personal history of nicotine dependence Status: Chronic Plan 70-year-old male with multiple medical comorbidities including active tobacco dependence, atrial fibrillation, COPD, hypertension who presents with shortness of breath. He is accompanied by his daughter Candie. The patient was in [place] ER few days prior for similar complaint of shortness of breath was diagnosed and treated for COPD exacerbation and discharged back to [place] for rehab. The patient was then discharged home to rehab however at home his shortness of breath has worsened. He denies fever, sick contacts, worsened cough. He had a recent rib fracture however reports the pain is now more manageable. ER evaluation demonstrated adequate chloride O2 saturation on room air. WBC 11. Troponin 1.030. Patient noted to be severely wheezing. Administer DuoNeb, Solu-Medrol 125 mg IV x1, morphine 2 mg IV x1. His breathing greatly improved. Denies any chest pain. ----- Acute on chronic respiratory failure with hypoxia needing oxygen supplementation related to COPD exacerbation. CTA did reveal right upper lobe pulmonary embolism. ABG reviewed Influenza: On Tamiflu Non ST-elevation ID with elevated troponin cardiology consulted. Echocardiogram with EF 30-35% with hypokinetic norris suggestive of multivessel coronary artery disease versus stress cardiomyopathy. Goal-directed medical therapy as planned by Cardiology and ischemic evaluation as outpatient basis Right upper lobe nodule this is new recent CT chest reviewed. History of left upper lobe nodule which was biopsied and was benign. This right upper lobe nodule is new and likely needs biopsied. Will seek Pulmonary consultation for their advise. History of paroxysmal atrial fibrillation COPD exacerbation DuoNeb scheduled. Was started on Solu-Medrol then prednisone will switch back to IV Solu-Medrol. Add ceftriaxone and doxycycline. Switched to oral. Solu Medrol to prednisone CTA reveal right upper lobe pulmonary embolism. Lovenox started will switch to Eliquis at discharge if no plans for biopsy Anemia History of lung nodules At hypertension Protein calorie mild nutrition A recent rib fracture from a fall Recent severe anemia needing transfusion EGD showed hiatal hernia and scattered scaring with no source of blood loss. Need colonoscopy as an outpatient basis. Eliquis on hold DVT prophylaxis on Lovenox Code status do not resuscitate Subjective Date/time seen: 06/19/24 14:04 Interval history: Working with therapy today. Shortness of breath with exertion. No chest pain. Review of Systems Review of Systems: All systems reviewed & are unremarkable except as noted in HPI and below (HPI) Exam Narrative: General: Alert, awake, afebrile, in no acute distress. HEENT: PERRL, no rhinorrhea, no post nasal drip, oropharynx clear. Neck: Trachea midline, no JVD, no lymphadenopathy. Cardiovascular: Regular rate and rhythm, no murmurs, rubs or gallops, no peripheral edema. Respiratory: No respiratory distress occasional wheezes/rhonchi noted Abdomen: Soft, nontender, nondistended, no rebound, no guarding, no peritoneal signs. Musculoskeletal: No joint swelling or deformity, normal muscle tone. Skin: No rashes or petechia, no signs of infection. Psychiatric: Alert and oriented, normal behavior and judgment for situation. Neurological: Alert and oriented to person, place, and time. Follows all commands. No focal deficits, speech is clear and fluent. Objective Data Vital Signs Vital Signs: Vital Signs - 24 hr 06/18/24 16:00 06/18/24 16:09 06/18/24 16:14 Temperature 97.1 F L Pulse Rate 76 76 74 Respiratory Rate 20 20 20 Blood Pressure 132/61 Pulse Oximetry 100 Oxygen Delivery 06/18/24 20:00 06/18/24 20:00 06/18/24 20:04 Temperature 97.9 F Pulse Rate 80 78 Respiratory Rate 20 20 Blood Pressure 110/58 L Pulse Oximetry 100 Oxygen Delivery Room Air 06/18/24 20:07 06/18/24 20:12 06/18/24 21:48 Temperature 97.9 F Pulse Rate 78 76 79 Respiratory Rate 20 18 Blood Pressure 130/70 Pulse Oximetry 96 98 Oxygen Delivery Room Air 06/18/24 21:48 06/19/24 00:15 06/19/24 00:24 Temperature Pulse Rate 76 74 75 Respiratory Rate 20 20 20 Blood Pressure Pulse Oximetry 96 Oxygen Delivery Room Air 06/19/24 05:59 06/19/24 08:04 06/19/24 08:04 Temperature 97.9 F Pulse Rate 75 70 70 Respiratory Rate 20 20 20 Blood Pressure 136/71 Pulse Oximetry 100 96 Oxygen Delivery Room Air 06/19/24 08:10 06/19/24 08:47 06/19/24 09:38 Temperature 97.6 F Pulse Rate 65 66 80 Respiratory Rate 20 22 H Blood Pressure 127/64 Pulse Oximetry 100 Oxygen Delivery 06/19/24 11:11 06/19/24 11:25 06/19/24 11:25 Temperature Pulse Rate 77 Respiratory Rate 20 Blood Pressure Pulse Oximetry 98 Oxygen Delivery Room Air Room Air 06/19/24 11:37 06/19/24 14:00 Temperature 96.8 F L Pulse Rate 66 75 Respiratory Rate 20 18 Blood Pressure 117/71 Pulse Oximetry 99 Oxygen Delivery Intake/Output Intake/Output: Intake & Output 06/16/24 06/17/24 06/18/24 06/19/24 23:59 23:59 23:59 23:59 Intake Total 490 1600 740 Output Total 250 460 250 Balance 240 1140 490 Meds/Results Medications: Active Medications Generic Name Dose Route Start Last Admin Trade Name Freq PRN Reason Stop Dose Admin Hydrocodone Bitart/Acetaminophen 1 tab 06/17/24 09:19 06/17/24 16:31 Hydrocodone/Acetaminophen (*Crx) 5-325 Mg Tablet PO 1 tab Q4H PRN Administration Pain Rated 4-10 Albuterol 1 puff 06/17/24 09:19 Albuterol Sulfate (*Sp) Aerosol 1 Puff INHALATION Q4H PRN shortness of breath or wheezing Albuterol/Ipratropium 3 ml 06/19/24 12:00 06/19/24 11:24 Ipratropium 0.5 Mg/Albuterol Sulfate 2.5 Mg Ampul.Neb 3 Ml INHALATION 3 ml Q4HRT BROCK Administration Amiodarone HCl 200 mg 06/18/24 09:00 06/19/24 08:47 Amiodarone Hcl 200 Mg Tablet BY MOUTH 200 mg DAILY BROCK Administration Amoxicillin/Clavulanate Potassium 1 tablet 06/19/24 11:15 06/19/24 11:35 Amoxicillin/Clavulanate K 875-125 Mg Tab PO 06/21/24 21:01 1 tablet Q12HR BROCK Administration Aspirin 81 mg 06/18/24 09:00 06/19/24 08:46 Aspirin 81 Mg Chewable Tablet PO 81 mg DAILY BROCK Administration Doxycycline Hyclate 100 mg 06/19/24 11:15 06/19/24 11:35 Doxycycline Hyclate 100 Mg Tablet PO 06/21/24 21:01 100 mg Q12HR BROCK Administration Enoxaparin Sodium 40 mg 06/17/24 10:35 06/19/24 08:46 Enoxaparin 40 Mg/0.4 Ml Syringe SUB-Q 40 mg Q12HR BROCK Administration Ferrous Sulfate 325 mg 06/18/24 09:00 06/19/24 08:46 Ferrous Sulfate [address] PO 325 mg DAILY BROCK Administration Fluticasone/Umeclidinium/Vilanterol 1 puff 06/17/24 11:00 06/19/24 08:12 Fluticasone/Umeclidin/Vilanter 100-62.5-25 Mcg Ellipta INHALATION 1 puff DAILYRT BROCK Administration Guaifenesin 600 mg 06/17/24 09:25 06/19/24 08:46 Guaifenesin 12 Hr 600 Mg Tabcr PO 600 mg Q12HR BROCK Administration Multivitamins/Minerals 1 tablet 06/17/24 17:00 06/19/24 08:46 Opti-Gen Tab PO 1 tablet BIDWM BROCK Administration Oseltamivir Phosphate 75 mg 06/17/24 06:55 06/19/24 08:46 Oseltamivir Phosphate 75 Mg Capsule PO 06/22/24 06:54 75 mg Q12HR BROCK Administration Prednisone 40 mg 06/19/24 08:00 06/19/24 08:46 Prednisone 20 Mg Tablet PO 40 mg DAILY@0800 BROCK Administration Sertraline HCl 25 mg 06/18/24 09:00 06/19/24 08:46 Sertraline Hcl 25 Mg Tablet PO 25 mg DAILY BROCK Administration Simvastatin 10 mg 06/18/24 09:00 06/19/24 08:46 Simvastatin 10 Mg Tablet PO 10 mg DAILY BROCK Administration Trazodone HCl 50 mg 06/17/24 09:19 Trazodone Hcl 50 Mg Tablet PO QHS PRN sleep Zolpidem Tartrate 5 mg 06/17/24 21:00 06/18/24 20:29 Zolpidem Tartrate (*Crx) 5 Mg Tablet PO 5 mg QHS BROCK Administration Radiology Results: ITS Impressions Chest X-Ray 06/17/24 05:56 Impression: 1: Enlarging right upper lobe mass, consistent with bronchogenic carcinoma until proven otherwise. Recommend follow-up clinical evaluation with either percutaneous biopsy or PET/CT scan. Chest CTA 06/17/24 14:38 IMPRESSION: Acute subsegmental right upper lobe embolus. Low clot burden. No CT evidence of right heart strain. No acute process detected in the chest. Pulmonary nodules, concerning for progression of neoplastic/metastatic disease. Labs Labs: Laboratory Results - last 24 hr 06/17/24 06/19/24 02:26 05:26 WBC 9.1 RBC 4.11 L Hgb 9.7 L Hct 32.1 L MCV 78.1 L MCH 23.6 L MCHC 30.2 L RDW 27.3 H Plt Count 357 MPV 10.2 Immature Gran % (Auto) 0.9 H Neut % (Auto) 88.7 H Lymph % (Auto) 4.8 L [place] % (Auto) 5.5 Eos % (Auto) 0.0 Baso % (Auto) 0.1 L Lymph # (Auto) 0.44 L [place] # (Auto) 0.5 Eos # (Auto) 0.0 Baso # (Auto) 0.0 Abs Immat Gran (auto) 0.08 H Absolute Neuts (auto) 8.1 H Absolute Nucleated RBC 0.000 Band Neutrophils % Not Reportable Nucleated RBC % 0.0 Platelet Estimate Adequate Hypochromasia 2+ Poikilocytosis 1+ Anisocytosis 3+ Target Cells 1+ Tear Drop Cells 1+ Ovalocytes 1+ Acanthocytes (Spur) 1+ Schistocytes Rare Sodium 131 L Potassium 4.0 Chloride 99 Carbon Dioxide 27 Anion Gap 5 BUN 18 Creatinine 0.72 Estim Creat Clear Calc 42 Estimated GFR > 60 Glucose 101 Calcium 8.4 Magnesium 2.1 Total Bilirubin 0.5 AST 85 H ALT 99 H Alkaline Phosphatase 202 H Troponin I 1.030 H* Total Protein 5.0 L Albumin 3.0 L
[2024-06-19] MEDS: HYDROcodone/acetaminophen (*CRX) 5-325 MG TABLET 1 TAB PO (21:02)
[2024-06-19] MEDS: ZOLPIDEM TARTRATE (*CRX) 5 MG TABLET PO (21:03)
[2024-06-19] MEDS: SACUBITRIL/VALSARTAN 12-13 MG TABLET 1 TAB PO (21:03)
[2024-06-20] VITALS (15 sets, daily range): BP systolic 112–142; BP diastolic 55–71; PULSE 67–88; RESP 14–24; TEMP 35.8–36.4; O2SAT 97–98
[2024-06-20] MEDS: IPRATROPIUM 0.5 MG/ALBUTEROL SULFATE 2.5 MG AMPUL.NEB 3 ML INHALATION ×7 (00:08→23:59)
[2024-06-20 06:34] LABS: Basophils Percent Auto 0.2 % (0.2-1.2); Hematocrit 33.3 % (42.0-52.0); Hemoglobin 10.1 g/dL (14.0-18.0); Immature Granulocyte Absolute 0.14 K/mm3 (0.00-0.031); Immature Granulocyte Percent A 1.7 % (0-0.5); Lymphocytes Percent Auto 5.9 % (18.3-44.2); Mean Corpuscular HGB Conc 30.3 g/dl (32-36); Mean Corpuscular Hemoglobin 23.7 pg (26-34); Mean Platelet Volume 10.4 fl (7.4-10.4); Monocytes Absolute Auto 0.5 K/mm3 (0.1-0.6); Monocytes Percent Auto 5.5 % (2.6-8.5); Neutrophils Absolute Auto 7.3 K/mm3 (1.3-6.7); Neutrophils Percent Auto 86.7 % (45.5-73.1); Platelet Count Result 344 k/mm3 (150-375); Red Blood Count 4.27 M/mm3 (4.6-6.20); Red Cell Distribution Width 27.8 % (11.5-14.5); White Blood Count 8.4 K/mm3 (4.5-10.0)
[2024-06-20 06:44] LABS: Alanine Aminotransferase 131 U/L (6-50); Albumin Level 2.8 g/dL (3.5-5.1); Alkaline Phosphatase 203 U/L (38-126); Anion Gap 5 mmol/L (4-12); Aspartate Amino Transferase 86 U/L (17-59); Bilirubin,Total 0.4 mg/dL (0.2-1.3); Blood Urea Nitrogen 19 mg/dL (9-20); Calcium 8.1 mg/dL (8.4-10.2); Carbon Dioxide 25 mmol/L (22-30); Chloride 100 mmol/L (98-107); Estimated CRCL calculation 46 ml/min; Estimated Glomerular Filt Rate > 60; Glucose 102 mg/dL (65-110); Potassium 4.1 mmol/L (3.4-5.0); Sodium 130 mmol/L (137-145)
[2024-06-20 07:33] LABS: Anisocytosis 1+; Hypochromasia 1+; Ovalocytes 1+; Platelet Estimate Adequate (Adequate); Schistocytes None Seen; Target Cells 1+; Tear Drop Cells 1+
[2024-06-20] MEDS: OPTI-GEN TAB 1 TABLET PO ×2 (08:17→18:29)
[2024-06-20] MEDS: predniSONE 20 MG TABLET 40 MG PO (08:18)
[2024-06-20] MEDS: AMIODARONE HCL 200 MG TABLET BY MOUTH (08:36)
[2024-06-20] MEDS: SACUBITRIL/VALSARTAN 12-13 MG TABLET 1 TAB PO ×2 (08:36→20:57)
[2024-06-20] MEDS: OSELTAMIVIR PHOSPHATE 75 MG CAPSULE PO ×2 (08:36→20:57)
[2024-06-20] MEDS: SIMVASTATIN 10 MG TABLET PO (08:36)
[2024-06-20] MEDS: guaiFENesin 12 HR 600 MG TABCR PO ×2 (08:36→20:57)
[2024-06-20] MEDS: SERTRALINE HCL 25 MG TABLET PO (08:37)
[2024-06-20] MEDS: ASPIRIN 81 MG CHEWABLE TABLET PO (08:37)
[2024-06-20] MEDS: ENOXAPARIN 40 MG/0.4 ML SYRINGE SUB-Q ×2 (08:37→20:57)
[2024-06-20] MEDS: DOXYCYCLINE HYCLATE 100 MG TABLET PO ×2 (08:37→20:57)
[2024-06-20] MEDS: AMOXICILLIN/CLAVULANATE K 875-125 MG TAB 1 TABLET PO ×2 (08:37→20:57)
[2024-06-20] MEDS: FERROUS SULFATE 325 MG TABLET DR PO (08:39)
[2024-06-20] MEDS: FLUTICASONE/UMECLIDIN/VILANTER 100-62.5-25 MCG ELLIPTA 1 PUFF INHALATION (11:00)
--- NOTE | 2024-06-20 13:55 | P.PNIM_ITS ---
Progress Note: A&P Assessment and Plan (1) COPD exacerbation: Code(s): J44.1 - Chronic obstructive pulmonary disease with (acute) exacerbation Status: Acute (2) History of tobacco abuse: Code(s): Z87.891 - Personal history of nicotine dependence Status: Chronic Plan 70-year-old male with multiple medical comorbidities including active tobacco dependence, atrial fibrillation, COPD, hypertension who presents with shortness of breath. He is accompanied by his daughter Candie. The patient was in [facility] few days prior for similar complaint of shortness of breath was diagnosed and treated for COPD exacerbation and discharged back to [facility] for rehab. The patient was then discharged home to rehab however at home his shortness of breath has worsened. He denies fever, sick contacts, worsened cough. He had a recent rib fracture however reports the pain is now more manageable. ER evaluation demonstrated adequate chloride O2 saturation on room air. WBC 11. Troponin 1.030. Patient noted to be severely wheezing. Administer DuoNeb, Solu-Medrol 125 mg IV x1, morphine 2 mg IV x1. His breathing greatly improved. Denies any chest pain. Acute on chronic respiratory failure with hypoxia needing oxygen supplementation related to COPD exacerbation. CTA did reveal right upper lobe pulmonary embolism. ABG reviewed Influenza: On Tamiflu Non ST-elevation MT with elevated troponin cardiology consulted. Echocardiogram with EF 30-35% with hypokinetic norris suggestive of multivessel coronary artery disease versus stress cardiomyopathy. Goal-directed medical therapy as planned by Cardiology and ischemic evaluation as outpatient basis Right upper lobe nodule new recent CT chest reviewed. History of left upper lobe nodule which was biopsied and was benign. This right upper lobe nodule is new and likely needs biopsied. Pulmonary consultation, Dr. Jacobo recommend to get PET out pt which is (+) he may be able to get empiric radiation. Pulmonary embolism Lovenox started switch to Eliquis at discharge History of paroxysmal atrial fibrillation COPD exacerbation DuoNeb scheduled. Was started on Solu-Medrol then prednisone will switch back to IV Solu-Medrol. Add ceftriaxone and doxycycline. Switched to oral. Solu Medrol to prednisone CTA reveal right upper lobe pulmonary embolism. Anemia History of lung nodules At hypertension Protein calorie mild nutrition A recent rib fracture from a fall Recent severe anemia needing transfusion EGD showed hiatal hernia and scattered scaring with no source of blood loss. Need colonoscopy as an outpatient basis. Eliquis on hold DVT prophylaxis on Lovenox Code status do not resuscitate Subjective Date/time seen: 06/20/24 13:55 Interval history: Patient feels better today, has general weakness, denies chest pain shortness of breath, abdomen pain, nausea vomiting Exam Narrative: GENERAL: Ill-appearing in no acute distress. Well-nourished. - EYES: EOMI. Anicteric. - HENT: Moist mucous membranes. - LUNGS: Clear to auscultation bilateral ly, no wheezing, rhonchi, or rales. - CARDIOVASCULAR: Regular rate and rhyth m. No murmur. No JVD. - ABDOMEN: Soft, non-tender and non-dist ended. No palpable masses. - EXTREMITIES: No edema. Peripheral puls es 2+. Non-tender. - NEUROLOGIC: No focal neurological defi cits. CN II-XII grossly intact. - PSYCHIATRIC: Awake, Alert and oriented x 3. Appropriate mood and affect. - SKIN: No rashes or lesions. Warm. - LYMPH: No cervical lymphadenopathy. Objective Data Vital Signs Vital Signs: Vital Signs - 24 hr 06/19/24 14:00 06/19/24 16:05 06/19/24 16:16 Temperature 96.8 F L Pulse Rate 75 71 78 Respiratory Rate 18 20 20 Blood Pressure 117/71 Pulse Oximetry 99 Oxygen Delivery Fraction of Inspired Oxygen 06/19/24 20:00 06/19/24 20:15 06/19/24 20:15 Temperature Pulse Rate 77 77 Respiratory Rate 20 20 Blood Pressure Pulse Oximetry 97 Oxygen Delivery Room Air Room Air Fraction of Inspired Oxygen 21 06/19/24 20:24 06/19/24 20:27 06/20/24 00:08 Temperature 97.9 F Pulse Rate 78 78 75 Respiratory Rate 20 16 16 Blood Pressure 133/72 Pulse Oximetry 96 Oxygen Delivery Fraction of Inspired Oxygen 06/20/24 00:17 06/20/24 04:39 06/20/24 04:46 Temperature Pulse Rate 78 72 71 Respiratory Rate 14 16 16 Blood Pressure Pulse Oximetry Oxygen Delivery Fraction of Inspired Oxygen 06/20/24 05:44 06/20/24 08:30 06/20/24 08:30 Temperature 97.6 F Pulse Rate 67 88 Respiratory Rate 16 20 Blood Pressure 120/68 Pulse Oximetry 97 97 Oxygen Delivery Room Air Fraction of Inspired Oxygen 06/20/24 11:44 06/20/24 11:53 Temperature Pulse Rate 74 75 Respiratory Rate 20 20 Blood Pressure Pulse Oximetry Oxygen Delivery Fraction of Inspired Oxygen Intake/Output Intake/Output: Intake & Output 06/17/24 06/18/24 06/19/24 06/20/24 23:59 23:59 23:59 23:59 Intake Total 490 1600 980 236 Output Total 250 460 350 300 Balance 240 1140 630 -64 Meds/Results Medications: Active Medications Generic Name Dose Route Start Last Admin Trade Name Freq PRN Reason Stop Dose Admin Hydrocodone Bitart/Acetaminophen 1 tab 06/17/24 09:19 06/19/24 21:02 Hydrocodone/Acetaminophen (*Crx) 5-325 Mg Tablet PO 1 tab Q4H PRN Administration Pain Rated 4-10 Albuterol 1 puff 06/17/24 09:19 Albuterol Sulfate (*Sp) Aerosol 1 Puff INHALATION Q4H PRN shortness of breath or wheezing Albuterol/Ipratropium 3 ml 06/19/24 12:00 06/20/24 11:44 Ipratropium 0.5 Mg/Albuterol Sulfate 2.5 Mg Ampul.Neb 3 Ml INHALATION 3 ml Q4HRT BROCK Administration Amiodarone HCl 200 mg 06/18/24 09:00 06/20/24 08:36 Amiodarone Hcl 200 Mg Tablet BY MOUTH 200 mg DAILY BROCK Administration Amoxicillin/Clavulanate Potassium 1 tablet 06/19/24 11:15 06/20/24 08:37 Amoxicillin/Clavulanate K 875-125 Mg Tab PO 06/21/24 21:01 1 tablet Q12HR BROCK Administration Aspirin 81 mg 06/18/24 09:00 06/20/24 08:37 Aspirin 81 Mg Chewable Tablet PO 81 mg DAILY BROCK Administration Doxycycline Hyclate 100 mg 06/19/24 11:15 06/20/24 08:37 Doxycycline Hyclate 100 Mg Tablet PO 06/21/24 21:01 100 mg Q12HR BROCK Administration Enoxaparin Sodium 40 mg 06/17/24 10:35 06/20/24 08:37 Enoxaparin 40 Mg/0.4 Ml Syringe SUB-Q 40 mg Q12HR BROCK Administration Ferrous Sulfate 325 mg 06/18/24 09:00 06/20/24 08:39 Ferrous Sulfate [address] PO 325 mg DAILY BROCK Administration Fluticasone/Umeclidinium/Vilanterol 1 puff 06/17/24 11:00 06/20/24 11:00 Fluticasone/Umeclidin/Vilanter 100-62.5-25 Mcg Ellipta INHALATION 1 puff DAILYRT BROCK Administration Guaifenesin 600 mg 06/17/24 09:25 06/20/24 08:36 Guaifenesin 12 Hr 600 Mg Tabcr PO 600 mg Q12HR BROCK Administration Multivitamins/Minerals 1 tablet 06/17/24 17:00 06/20/24 08:17 Opti-Gen Tab PO 1 tablet BIDWM BROCK Administration Oseltamivir Phosphate 75 mg 06/17/24 06:55 06/20/24 08:36 Oseltamivir Phosphate 75 Mg Capsule PO 06/22/24 06:54 75 mg Q12HR BROCK Administration Prednisone 40 mg 06/19/24 08:00 06/20/24 08:18 Prednisone 20 Mg Tablet PO 40 mg DAILY@0800 BROCK Administration Sacubitril/Valsartan 1 tab 06/19/24 21:00 06/20/24 08:36 Sacubitril/Valsartan 12-13 Mg Tablet PO 1 tab Q12HR BROCK Administration Sertraline HCl 25 mg 06/18/24 09:00 06/20/24 08:37 Sertraline Hcl 25 Mg Tablet PO 25 mg DAILY BROCK Administration Simvastatin 10 mg 06/18/24 09:00 06/20/24 08:36 Simvastatin 10 Mg Tablet PO 10 mg DAILY BROCK Administration Trazodone HCl 50 mg 06/17/24 09:19 Trazodone Hcl 50 Mg Tablet PO QHS PRN sleep Zolpidem Tartrate 5 mg 06/17/24 21:00 06/19/24 21:03 Zolpidem Tartrate (*Crx) 5 Mg Tablet PO 5 mg QHS BROCK Administration Radiology Results: ITS Impressions Chest X-Ray 06/17/24 05:56 Impression: 1: Enlarging right upper lobe mass, consistent with bronchogenic carcinoma until proven otherwise. Recommend follow-up clinical evaluation with either percutaneous biopsy or PET/CT scan. Chest CTA 06/17/24 14:38 IMPRESSION: Acute subsegmental right upper lobe embolus. Low clot burden. No CT evidence of right heart strain. No acute process detected in the chest. Pulmonary nodules, concerning for progression of neoplastic/metastatic disease. Labs Labs: Laboratory Results - last 24 hr 06/20/24 05:50 WBC 8.4 RBC 4.27 L Hgb 10.1 L Hct 33.3 L MCV 78.0 L MCH 23.7 L MCHC 30.3 L RDW 27.8 H Plt Count 344 MPV 10.4 Immature Gran % (Auto) 1.7 H Neut % (Auto) 86.7 H Lymph % (Auto) 5.9 L [place] % (Auto) 5.5 Eos % (Auto) 0.0 Baso % (Auto) 0.2 Lymph # (Auto) 0.50 L [place] # (Auto) 0.5 Eos # (Auto) 0.0 Baso # (Auto) 0.0 Abs Immat Gran (auto) 0.14 H Absolute Neuts (auto) 7.3 H Absolute Nucleated RBC 0.000 Band Neutrophils % Not Reportable Nucleated RBC % 0.0 Platelet Estimate Adequate Hypochromasia 1+ Anisocytosis 1+ Target Cells 1+ Tear Drop Cells 1+ Ovalocytes 1+ Schistocytes None seen Sodium 130 L Potassium 4.1 Chloride 100 Carbon Dioxide 25 Anion Gap 5 BUN 19 Creatinine 0.68 L Estim Creat Clear Calc 46 Estimated GFR > 60 Glucose 102 Calcium 8.1 L Magnesium 2.0 Total Bilirubin 0.4 AST 86 H ALT 131 H Alkaline Phosphatase 203 H Total Protein 5.0 L Albumin 2.8 L
--- NOTE | 2024-06-20 18:23 | PM.PNPUL ---
Progress Note: A&P Assessment and Plan (1) Multiple pulmonary nodules determined by computed tomography of lung: Code(s): R91.8 - Other nonspecific abnormal finding of lung field Status: Acute Assessment and Plan: 06/17/24 CTA Pulmonary nodules, concerning for progression of neoplastic/metastatic disease. These have increased compared to May 31, 2024. He is not a great candidate for any kind of biopsy because he has end end end-stage COPD with apical cysts and scarring. Any biopsy would no doubt cause a pneumothorax. We may be able to get a PET scan as an outpatient however he is on Lovenox planning to bridge to [facility] before discharge. If we get PET out pt which is (+) he may be able to get empiric radiation. (2) Pulmonary embolism: Code(s): I26.99 - Other pulmonary embolism without acute cor pulmonale Status: Acute Assessment and Plan: Subacute right upper lobe pulmonary embolism without right heart strain confirmed on CTA. Lovenox started. He can go home on [facility]. (3) Influenza A: Code(s): J10.1 - Influenza due to other identified influenza virus with other respiratory manifestations Status: Acute Assessment and Plan: Patient is positive for influenza A on a swab 06/17/2024, treated with Oseltamivir. (4) End stage COPD: Code(s): J44.9 - Chronic obstructive pulmonary disease, unspecified Status: Acute Assessment and Plan: Now on prednisone, oral Augmentin and doxycycline started 06/19. He can go home on enough to complete 7 days total, needs 3 more days to finish June 25. (5) Tobacco abuse: Code(s): Z72.0 - Tobacco use Status: Acute Assessment and Plan: Heavy smoker, has not smoked for about 2 weeks. Strongly encourage him to go home nad not smoke. Taking one puff will impair his ability to maintain tobacco cessation. Plan plan: Stable for discharge Can go home on Augmentin and doxycycline started 06/19. He can go home on enough to complete 7 days total, needs 3 more days to finish June 25. Lovenox -> Eliquis for small PE artery to RUL, 2.5 mg bid. out pt PET for multiple RUL nodules, suspected malignancy Follow up in pulmonary office in 2-4 weeks. Subjective Date/time seen: 06/22/24 11:50 Interval history: 06/22/24 follow up; He is stable, room air, wants to go home, feels much improved. Completed 5 days of Tamiflu 75 mg b.i.d for influenza A, on oral Augmentin and Doxycycline started 06/19, Not short of breath. We briefly discussed tobacco cessation. He plans to take one puff when he goes home. I advised against it. he can follow up in the office in pulmonary office in a month. HISTORY = = = = = = = = = = = 06/18/24, new consult;Velasquez Kent is a 78-year-old man whom I follow in the clinic for end stage COPD, last visit in the office was May 23. In January, he started Otuvayre, inhaled phosphodiesterase inhibitor which is used twice a day. He says this seems to help him feel less short of breath. He smokes very very rarely, 1 cigar every 2 weeks; has significant shortness of breath. On May 30, his legs gave out while standing in his kitchen, fell onto his right side, CT showed an acute fracture of the right 6th rib; He had anemia, hemoglobin 5.6 , hematocrit 19%; baseline hemoglobin was 11 g. GI saw him, he did not want a colonoscopy, and Cardiology saw him for his bradycardia down to 30. It was felt he was not symptomatic so no adjustment of his amiodarone occurred. He Went to [facility] for rehab. He did not have a great experience there. He was discharged home, return to the emergency department with shortness of breath and went to rehab for 1 day and again went home. He says for the last week he has been extremely tired and short of breath. He returned June 15, admitted for 1 day then went to rehab for 1 day and was sent home. Re-admitted 06/17 with shortness of breath, has (+) influenza A screen, Chest CTA showed acute subsegmental right upper lobe embolus with a low clot burden. He had mild increase in troponins, increased size of pulmonary nodules with concern for progression of neoplastic/metastatic disease. He has had no appetite recently. His last smoking was 2 puffs on a cigar 2 weeks ago. He has had no fever, chills, difficulty swallowing, nausea, vomiting, rashes or headache. He just feels really weak and short of breath. DATA * 06/17/24; IMPRESSION: Acute subsegmental right upper lobe embolus. Low clot burden. No CT evidence of right heart strain. No acute process detected in the chest. Pulmonary nodules, concerning for progression of neoplastic/metastatic disease. Nodules in RUL worsened compared to his 05/31/[address] Review of Systems Review of Systems: All systems reviewed & are unremarkable except as noted in HPI and below Exam Narrative: GEN: Alert, oriented, not in distress. Poor eyesight. HEENT: pupils are equal, EOMI, symmetrical face NECK: Trachea is midline CHEST: Equal air entry, hyperinflated chest, decreased breath sounds, no wheezes or crackles CV: Regular S1S2 without murmur noted today ABD : (+) bowel sounds Extremities : no clubbing; his hands are rough, dry, cool to touch. No edema. PSYCH: normal thought and speech Objective Data Vital Signs Vital Signs: Vital Signs - 24 hr 06/19/24 20:00 06/19/24 20:15 06/19/24 20:15 Temperature Pulse Rate 77 77 Respiratory Rate 20 20 Blood Pressure Pulse Oximetry 97 Oxygen Delivery Room Air Room Air Fraction of Inspired Oxygen 21 06/19/24 20:24 06/19/24 20:27 06/20/24 00:08 Temperature 36.6 C Pulse Rate 78 78 75 Respiratory Rate 20 16 16 Blood Pressure 133/72 Pulse Oximetry 96 Oxygen Delivery Fraction of Inspired Oxygen 06/20/24 00:17 06/20/24 04:39 06/20/24 04:46 Temperature Pulse Rate 78 72 71 Respiratory Rate 14 16 16 Blood Pressure Pulse Oximetry Oxygen Delivery Fraction of Inspired Oxygen 06/20/24 05:44 06/20/24 08:30 06/20/24 08:30 Temperature 36.4 C Pulse Rate 67 88 Respiratory Rate 16 20 Blood Pressure 120/68 Pulse Oximetry 97 97 Oxygen Delivery Room Air Fraction of Inspired Oxygen 06/20/24 11:44 06/20/24 11:53 06/20/24 14:00 Temperature 36.2 C L Pulse Rate 74 75 87 Respiratory Rate 20 20 18 Blood Pressure 142/71 H Pulse Oximetry 98 Oxygen Delivery Fraction of Inspired Oxygen 06/20/24 16:27 06/20/24 16:35 Temperature Pulse Rate 71 72 Respiratory Rate 18 18 Blood Pressure Pulse Oximetry Oxygen Delivery Fraction of Inspired Oxygen Intake/Output Intake/Output: Intake & Output 06/17/24 06/18/24 06/19/24 06/20/24 23:59 23:59 23:59 23:59 Intake Total 490 1600 980 236 Output Total 250 460 350 300 Balance 240 1140 630 -64 Meds/Results Medications: Active Medications Generic Name Dose Route Start Last Admin Trade Name Freq PRN Reason Stop Dose Admin Hydrocodone Bitart/Acetaminophen 1 tab 06/17/24 09:19 06/19/24 21:02 Hydrocodone/Acetaminophen (*Crx) 5-325 Mg Tablet PO 1 tab Q4H PRN Administration Pain Rated 4-10 Albuterol 1 puff 06/17/24 09:19 Albuterol Sulfate (*Sp) Aerosol 1 Puff INHALATION Q4H PRN shortness of breath or wheezing Albuterol/Ipratropium 3 ml 06/19/24 12:00 06/20/24 16:26 Ipratropium 0.5 Mg/Albuterol Sulfate 2.5 Mg Ampul.Neb 3 Ml INHALATION 3 ml Q4HRT BROCK Administration Amiodarone HCl 200 mg 06/18/24 09:00 06/20/24 08:36 Amiodarone Hcl 200 Mg Tablet BY MOUTH 200 mg DAILY BROCK Administration Amoxicillin/Clavulanate Potassium 1 tablet 06/19/24 11:15 06/20/24 08:37 Amoxicillin/Clavulanate K 875-125 Mg Tab PO 06/21/24 21:01 1 tablet Q12HR BROCK Administration Aspirin 81 mg 06/18/24 09:00 06/20/24 08:37 Aspirin 81 Mg Chewable Tablet PO 81 mg DAILY BROCK Administration Doxycycline Hyclate 100 mg 06/19/24 11:15 06/20/24 08:37 Doxycycline Hyclate 100 Mg Tablet PO 06/21/24 21:01 100 mg Q12HR BROCK Administration Enoxaparin Sodium 40 mg 06/17/24 10:35 06/20/24 08:37 Enoxaparin 40 Mg/0.4 Ml Syringe SUB-Q 40 mg Q12HR BROCK Administration Ferrous Sulfate 325 mg 06/18/24 09:00 06/20/24 08:39 Ferrous Sulfate [address] PO 325 mg DAILY BROCK Administration Fluticasone/Umeclidinium/Vilanterol 1 puff 06/17/24 11:00 06/20/24 11:00 Fluticasone/Umeclidin/Vilanter 100-62.5-25 Mcg Ellipta INHALATION 1 puff DAILYRT BROCK Administration Guaifenesin 600 mg 06/17/24 09:25 06/20/24 08:36 Guaifenesin 12 Hr 600 Mg Tabcr PO 600 mg Q12HR BROCK Administration Multivitamins/Minerals 1 tablet 06/17/24 17:00 06/20/24 08:17 Opti-Gen Tab PO 1 tablet BIDWM BROCK Administration Oseltamivir Phosphate 75 mg 06/17/24 06:55 06/20/24 08:36 Oseltamivir Phosphate 75 Mg Capsule PO 06/22/24 06:54 75 mg Q12HR BROCK Administration Prednisone 40 mg 06/19/24 08:00 06/20/24 08:18 Prednisone 20 Mg Tablet PO 40 mg DAILY@0800 BROCK Administration Sacubitril/Valsartan 1 tab 06/19/24 21:00 06/20/24 08:36 Sacubitril/Valsartan 12-13 Mg Tablet PO 1 tab Q12HR BROCK Administration Sertraline HCl 25 mg 06/18/24 09:00 06/20/24 08:37 Sertraline Hcl 25 Mg Tablet PO 25 mg DAILY BROCK Administration Simvastatin 10 mg 06/18/24 09:00 06/20/24 08:36 Simvastatin 10 Mg Tablet PO 10 mg DAILY BROCK Administration Trazodone HCl 50 mg 06/17/24 09:19 Trazodone Hcl 50 Mg Tablet PO QHS PRN sleep Zolpidem Tartrate 5 mg 06/17/24 21:00 06/19/24 21:03 Zolpidem Tartrate (*Crx) 5 Mg Tablet PO 5 mg QHS BROCK Administration Radiology Results: ITS Impressions Chest X-Ray 06/17/24 05:56 Impression: 1: Enlarging right upper lobe mass, consistent with bronchogenic carcinoma until proven otherwise. Recommend follow-up clinical evaluation with either percutaneous biopsy or PET/CT scan. Chest CTA 06/17/24 14:38 IMPRESSION: Acute subsegmental right upper lobe embolus. Low clot burden. No CT evidence of right heart strain. No acute process detected in the chest. Pulmonary nodules, concerning for progression of neoplastic/metastatic disease. Labs Labs: Laboratory Results - last 24 hr 06/20/24 05:50 WBC 8.4 RBC 4.27 L Hgb 10.1 L Hct 33.3 L MCV 78.0 L MCH 23.7 L MCHC 30.3 L RDW 27.8 H Plt Count 344 MPV 10.4 Immature Gran % (Auto) 1.7 H Neut % (Auto) 86.7 H Lymph % (Auto) 5.9 L [place] % (Auto) 5.5 Eos % (Auto) 0.0 Baso % (Auto) 0.2 Lymph # (Auto) 0.50 L [place] # (Auto) 0.5 Eos # (Auto) 0.0 Baso # (Auto) 0.0 Abs Immat Gran (auto) 0.14 H Absolute Neuts (auto) 7.3 H Absolute Nucleated RBC 0.000 Band Neutrophils % Not Reportable Nucleated RBC % 0.0 Platelet Estimate Adequate Hypochromasia 1+ Anisocytosis 1+ Target Cells 1+ Tear Drop Cells 1+ Ovalocytes 1+ Schistocytes None seen Sodium 130 L Potassium 4.1 Chloride 100 Carbon Dioxide 25 Anion Gap 5 BUN 19 Creatinine 0.68 L Estim Creat Clear Calc 46 Estimated GFR > 60 Glucose 102 Calcium 8.1 L Magnesium 2.0 Total Bilirubin 0.4 AST 86 H ALT 131 H Alkaline Phosphatase 203 H Total Protein 5.0 L Albumin 2.8 L
[2024-06-20] MEDS: HYDROcodone/acetaminophen (*CRX) 5-325 MG TABLET 1 TAB PO (20:57)
[2024-06-20] MEDS: ZOLPIDEM TARTRATE (*CRX) 5 MG TABLET PO (20:57)
[2024-06-21] VITALS (18 sets, daily range): BP systolic 104–134; BP diastolic 60–71; PULSE 66–81; RESP 13–24; TEMP 36.2–36.6; O2SAT 96–99
[2024-06-21] MEDS: IPRATROPIUM 0.5 MG/ALBUTEROL SULFATE 2.5 MG AMPUL.NEB 3 ML INHALATION ×6 (04:04→23:39)
[2024-06-21] MEDS: FLUTICASONE/UMECLIDIN/VILANTER 100-62.5-25 MCG ELLIPTA 1 PUFF INHALATION (08:10)
[2024-06-21] MEDS: OPTI-GEN TAB 1 TABLET PO ×2 (10:11→16:59)
[2024-06-21] MEDS: ENOXAPARIN 40 MG/0.4 ML SYRINGE SUB-Q ×2 (10:11→21:03)
[2024-06-21] MEDS: SERTRALINE HCL 25 MG TABLET PO (10:11)
[2024-06-21] MEDS: ASPIRIN 81 MG CHEWABLE TABLET PO (10:11)
[2024-06-21] MEDS: SIMVASTATIN 10 MG TABLET PO (10:11)
[2024-06-21] MEDS: DOXYCYCLINE HYCLATE 100 MG TABLET PO ×2 (10:11→21:02)
[2024-06-21] MEDS: AMIODARONE HCL 200 MG TABLET BY MOUTH (10:11)
[2024-06-21] MEDS: SACUBITRIL/VALSARTAN 12-13 MG TABLET 1 TAB PO ×2 (10:12→21:02)
[2024-06-21] MEDS: FERROUS SULFATE 325 MG TABLET DR PO (10:12)
[2024-06-21] MEDS: guaiFENesin 12 HR 600 MG TABCR PO ×2 (10:12→21:02)
[2024-06-21] MEDS: OSELTAMIVIR PHOSPHATE 75 MG CAPSULE PO ×2 (10:12→21:02)
[2024-06-21] MEDS: AMOXICILLIN/CLAVULANATE K 875-125 MG TAB 1 TABLET PO ×2 (10:12→21:02)
[2024-06-21] MEDS: predniSONE 20 MG TABLET 40 MG PO (10:12)
--- NOTE | 2024-06-21 13:16 | P.PNIM_ITS ---
Progress Note: A&P Assessment and Plan (1) COPD exacerbation: Code(s): J44.1 - Chronic obstructive pulmonary disease with (acute) exacerbation Status: Acute (2) History of tobacco abuse: Code(s): Z87.891 - Personal history of nicotine dependence Status: Chronic Plan 70-year-old male with multiple medical comorbidities including active tobacco dependence, atrial fibrillation, COPD, hypertension who presents with shortness of breath. He is accompanied by his daughter Candie. The patient was in [place] ER few days prior for similar complaint of shortness of breath was diagnosed and treated for COPD exacerbation and discharged back to [place] for rehab. The patient was then discharged home to rehab however at home his shortness of breath has worsened. He denies fever, sick contacts, worsened cough. He had a recent rib fracture however reports the pain is now more manageable. ER evaluation demonstrated adequate chloride O2 saturation on room air. WBC 11. Troponin 1.030. Patient noted to be severely wheezing. Administer DuoNeb, Solu-Medrol 125 mg IV x1, morphine 2 mg IV x1. His breathing greatly improved. Denies any chest pain. Acute on chronic respiratory failure with hypoxia needing oxygen supplementation related to COPD exacerbation. CTA did reveal right upper lobe pulmonary embolism. ABG reviewed Influenza: On Tamiflu COPD exacerbation DuoNeb scheduled. Was started on Solu-Medrol then prednisone will switch back to IV Solu-Medrol. Add ceftriaxone and doxycycline. Switched to oral. Solu Medrol to prednisone CTA reveal right upper lobe pulmonary embolism. Non ST-elevation [place] with elevated troponin cardiology consulted. Echocardiogram with EF 30-35% with hypokinetic norris suggestive of multivessel coronary artery disease versus stress cardiomyopathy. Goal-directed medical therapy as planned by Cardiology and ischemic evaluation as outpatient basis Right upper lobe nodule new recent CT chest reviewed. History of left upper lobe nodule which was biopsied and was benign. This right upper lobe nodule is new and likely needs biopsied. Pulmonary consultation, Dr. Jacobo recommend to get PET out pt which is (+) he may be able to get empiric radiation. Pulmonary embolism Lovenox started switch to Eliquis at discharge History of paroxysmal atrial fibrillation Anemia Hemoglobin stable No active bleeding Recent severe anemia needing transfusion EGD showed hiatal hernia and scattered scaring with no source of blood loss. Need colonoscopy as an outpatient basis. Eliquis on hold DVT prophylaxis on Lovenox Code status do not resuscitate Subjective Date/time seen: 06/21/24 13:16 Interval history: Patient feels better today, patient feels better today, patient has mild cough and some shortness breath with exertion. Denies abdomen pain, nausea vomiting Exam Narrative: GENERAL: Ill-appearing in no acute distress. Well-nourished. - EYES: EOMI. Anicteric. - HENT: Moist mucous membranes. - LUNGS: Distant breath sound bilateral ly, no wheezing, rhonchi, or rales. - CARDIOVASCULAR: Regular rate and rhyth m. No murmur. No JVD. - ABDOMEN: Soft, non-tender and non-dist ended. No palpable masses. - EXTREMITIES: No edema. Peripheral puls es 2+. Non-tender. - NEUROLOGIC: No focal neurological defi cits. CN II-XII grossly intact. - PSYCHIATRIC: Awake, Alert and oriented x 3. Appropriate mood and affect. - SKIN: No rashes or lesions. Warm. - LYMPH: No cervical lymphadenopathy. Objective Data Vital Signs Vital Signs: Vital Signs - 24 hr 06/20/24 14:00 06/20/24 16:27 06/20/24 16:35 Temperature 97.2 F L Pulse Rate 87 71 72 Respiratory Rate 18 18 18 Blood Pressure 142/71 H Pulse Oximetry 98 Oxygen Delivery 06/20/24 19:40 06/20/24 19:47 06/20/24 20:00 Temperature Pulse Rate 76 75 Respiratory Rate 18 16 Blood Pressure Pulse Oximetry Oxygen Delivery Room Air 06/20/24 21:13 06/20/24 23:59 06/21/24 00:08 Temperature 96.5 F L Pulse Rate 79 70 70 Respiratory Rate 24 H 16 18 Blood Pressure 112/55 L Pulse Oximetry 97 Oxygen Delivery 06/21/24 04:04 06/21/24 04:12 06/21/24 05:50 Temperature 97.1 F L Pulse Rate 70 68 72 Respiratory Rate 15 16 24 H Blood Pressure 114/71 Pulse Oximetry 98 Oxygen Delivery 06/21/24 08:00 06/21/24 08:49 06/21/24 08:58 Temperature Pulse Rate 78 72 Respiratory Rate 16 16 Blood Pressure Pulse Oximetry Oxygen Delivery Room Air 06/21/24 10:11 Temperature Pulse Rate 72 Respiratory Rate Blood Pressure Pulse Oximetry Oxygen Delivery Intake/Output Intake/Output: Intake & Output 06/18/24 06/19/24 06/20/24 06/21/24 23:59 23:59 23:59 23:59 Intake Total 1600 980 356 480 Output Total 460 350 300 275 Balance 1140 630 56 205 Meds/Results Medications: Active Medications Generic Name Dose Route Start Last Admin Trade Name Freq PRN Reason Stop Dose Admin Hydrocodone Bitart/Acetaminophen 1 tab 06/17/24 09:19 06/20/24 20:57 Hydrocodone/Acetaminophen (*Crx) 5-325 Mg Tablet PO 1 tab Q4H PRN Administration Pain Rated 4-10 Albuterol 1 puff 06/17/24 09:19 Albuterol Sulfate (*Sp) Aerosol 1 Puff INHALATION Q4H PRN shortness of breath or wheezing Albuterol/Ipratropium 3 ml 06/19/24 12:00 06/21/24 08:47 Ipratropium 0.5 Mg/Albuterol Sulfate 2.5 Mg Ampul.Neb 3 Ml INHALATION 3 ml Q4HRT BROCK Administration Amiodarone HCl 200 mg 06/18/24 09:00 06/21/24 10:11 Amiodarone Hcl 200 Mg Tablet BY MOUTH 200 mg DAILY BROCK Administration Amoxicillin/Clavulanate Potassium 1 tablet 06/19/24 11:15 06/21/24 10:12 Amoxicillin/Clavulanate K 875-125 Mg Tab PO 06/21/24 21:01 1 tablet Q12HR BROCK Administration Aspirin 81 mg 06/18/24 09:00 06/21/24 10:11 Aspirin 81 Mg Chewable Tablet PO 81 mg DAILY BROCK Administration Doxycycline Hyclate 100 mg 06/19/24 11:15 06/21/24 10:11 Doxycycline Hyclate 100 Mg Tablet PO 06/21/24 21:01 100 mg Q12HR BROCK Administration Enoxaparin Sodium 40 mg 06/17/24 10:35 06/21/24 10:11 Enoxaparin 40 Mg/0.4 Ml Syringe SUB-Q 40 mg Q12HR BROCK Administration Ferrous Sulfate 325 mg 06/18/24 09:00 06/21/24 10:12 Ferrous Sulfate [address] PO 325 mg DAILY BROCK Administration Fluticasone/Umeclidinium/Vilanterol 1 puff 06/17/24 11:00 06/21/24 08:10 Fluticasone/Umeclidin/Vilanter 100-62.5-25 Mcg Ellipta INHALATION 1 puff DAILYRT BROCK Administration Guaifenesin 600 mg 06/17/24 09:25 06/21/24 10:12 Guaifenesin 12 Hr 600 Mg Tabcr PO 600 mg Q12HR BROCK Administration Multivitamins/Minerals 1 tablet 06/17/24 17:00 06/21/24 10:11 Opti-Gen Tab PO 1 tablet BIDWM BROCK Administration Oseltamivir Phosphate 75 mg 06/17/24 06:55 06/21/24 10:12 Oseltamivir Phosphate 75 Mg Capsule PO 06/22/24 06:54 75 mg Q12HR BROCK Administration Prednisone 40 mg 06/19/24 08:00 06/21/24 10:12 Prednisone 20 Mg Tablet PO 40 mg DAILY@0800 BROCK Administration Sacubitril/Valsartan 1 tab 06/19/24 21:00 06/21/24 10:12 Sacubitril/Valsartan 12-13 Mg Tablet PO 1 tab Q12HR BROCK Administration Sertraline HCl 25 mg 06/18/24 09:00 06/21/24 10:11 Sertraline Hcl 25 Mg Tablet PO 25 mg DAILY BROCK Administration Simvastatin 10 mg 06/18/24 09:00 06/21/24 10:11 Simvastatin 10 Mg Tablet PO 10 mg DAILY BROCK Administration Trazodone HCl 50 mg 06/17/24 09:19 Trazodone Hcl 50 Mg Tablet PO QHS PRN sleep Zolpidem Tartrate 5 mg 06/17/24 21:00 06/20/24 20:57 Zolpidem Tartrate (*Crx) 5 Mg Tablet PO 5 mg QHS BROCK Administration Radiology Results: ITS Impressions Chest X-Ray 06/17/24 05:56 Impression: 1: Enlarging right upper lobe mass, consistent with bronchogenic carcinoma until proven otherwise. Recommend follow-up clinical evaluation with either percutaneous biopsy or PET/CT scan. Chest CTA 06/17/24 14:38 IMPRESSION: Acute subsegmental right upper lobe embolus. Low clot burden. No CT evidence of right heart strain. No acute process detected in the chest. Pulmonary nodules, concerning for progression of neoplastic/metastatic disease.
[2024-06-21] MEDS: ZOLPIDEM TARTRATE (*CRX) 5 MG TABLET PO (21:02)
[2024-06-21] MEDS: HYDROcodone/acetaminophen (*CRX) 5-325 MG TABLET 1 TAB PO (21:03)
[2024-06-22] VITALS (8 sets, daily range): BP systolic 105–112; BP diastolic 51–59; PULSE 65–78; RESP 12–20; TEMP 36.2; O2SAT 97
[2024-06-22] MEDS: IPRATROPIUM 0.5 MG/ALBUTEROL SULFATE 2.5 MG AMPUL.NEB 3 ML INHALATION ×3 (04:19→15:55)
[2024-06-22] MEDS: OPTI-GEN TAB 1 TABLET PO ×2 (08:36→16:28)
[2024-06-22] MEDS: ASPIRIN 81 MG CHEWABLE TABLET PO (08:36)
[2024-06-22] MEDS: ENOXAPARIN 40 MG/0.4 ML SYRINGE SUB-Q (08:36)
[2024-06-22] MEDS: predniSONE 20 MG TABLET 40 MG PO (08:36)
[2024-06-22] MEDS: guaiFENesin 12 HR 600 MG TABCR PO (08:36)
[2024-06-22] MEDS: AMIODARONE HCL 200 MG TABLET BY MOUTH (08:37)
[2024-06-22] MEDS: FERROUS SULFATE 325 MG TABLET DR PO (08:37)
[2024-06-22] MEDS: SACUBITRIL/VALSARTAN 12-13 MG TABLET 1 TAB PO (08:37)
[2024-06-22] MEDS: SIMVASTATIN 10 MG TABLET PO (08:37)
[2024-06-22] MEDS: SERTRALINE HCL 25 MG TABLET PO (08:37)
--- NOTE | 2024-06-22 10:12 | PCNFU ---
Nutrition Follow-Up Complete: Severe protein calorie malnutrition related to inadequate energy intake in the setting of chronic disease as evidenced by poor po intake for greater than 1 month, a significant weight loss of -8% x 1 month, and NFPE findings for severe subcutaneous fat loss and severe muscle wasting. PO intake greater than 50% Goal: Pt current nutrition is Regular diet, Ensure Enlive TID (350 kcal, 20 g protein) and nutritional ice cream BID (270 kcal, 8 g protein). Nutrition recommendation: No new nutrition recommendations. Continue current nutrition care plan and orders. Last recorded weight is 42.1 kg. Bowel Motility: +1 BM 06/22/24 Labs Reviewed: No new labs since 06/20/24 Meds Noted: Prednisone, entresto Skin: No skin issues Additional Notes: Intakes 20-100% on regular diet. Continue to monitor Monitor intake, wt, labs, Follow up in 5 days.
[2024-06-22] MEDS: FLUTICASONE/UMECLIDIN/VILANTER 100-62.5-25 MCG ELLIPTA 1 PUFF INHALATION (11:04)
--- NOTE | 2024-06-22 11:55 | P.DS_ITS ---
DS: Admitting Diagnosis Discharge Date 06/22/2024 Admitting Diagnosis COPD exacerbation DS: Discharge Diagnosis Discharge Diagnosis (1) COPD exacerbation: Code(s): J44.1 - Chronic obstructive pulmonary disease with (acute) exacerbation Status: Acute (2) History of tobacco abuse: Code(s): Z87.891 - Personal history of nicotine dependence Status: Chronic Plan 70-year-old male with multiple medical comorbidities including active tobacco dependence, atrial fibrillation, COPD, hypertension who presents with shortness of breath. He is accompanied by his daughter Candie. The patient was in [facility] ER few days prior for similar complaint of shortness of breath was diagnosed and treated for COPD exacerbation and discharged back to [facility] for rehab. The patient was then discharged home to rehab however at home his shortness of breath has worsened. He denies fever, sick contacts, worsened cough. He had a recent rib fracture however reports the pain is now more manageable. ER evaluation demonstrated adequate chloride O2 saturation on room air. WBC 11. Troponin 1.030. Patient noted to be severely wheezing. Administer DuoNeb, Solu-Medrol 125 mg IV x1, morphine 2 mg IV x1. His breathing greatly improved. Denies any chest pain. Acute on chronic respiratory failure with hypoxia needing oxygen supplementation related to COPD exacerbation. CTA did reveal right upper lobe pulmonary embolism. ABG reviewed Influenza: On Tamiflu COPD exacerbation DuoNeb scheduled. Was started on Solu-Medrol then prednisone will switch back to IV Solu-Medrol. Add ceftriaxone and doxycycline. Switched to oral. Solu Medrol to prednisone CTA reveal right upper lobe pulmonary embolism. Non ST-elevation [place] with elevated troponin cardiology consulted. Echocardiogram with EF 30-35% with hypokinetic norris suggestive of multivessel coronary artery disease versus stress cardiomyopathy. Goal-directed medical therapy as planned by Cardiology and ischemic evaluation as outpatient basis Right upper lobe nodule new recent CT chest reviewed. History of left upper lobe nodule which was biopsied and was benign. This right upper lobe nodule is new and likely needs biopsied. Pulmonary consultation, Dr. Jacobo recommend to get PET out pt which is (+) he may be able to get empiric radiation. Pulmonary embolism Lovenox started switch to Eliquis at discharge History of paroxysmal atrial fibrillation Anemia Hemoglobin stable No active bleeding Recent severe anemia needing transfusion EGD showed hiatal hernia and scattered scaring with no source of blood loss. Need colonoscopy as an outpatient basis. Eliquis on hold DVT prophylaxis on Lovenox Code status do not resuscitate DS: Summary Hospital Course Reason for hospitalization: COPD exacerebation Hospital Course: 78 years old male with history of COPD was admitted with COPD exacerbation. Patient was given oxygen steroid and nebulizer treatment. Patient was continued on home medications. After treatment for few days patient is slightly better. Today patient was discharged home stable condition. Follow up Scheduled. Status at Discharge Cognitive/behavioral status at discharge: Stable Time Spent with Patient Time attestation: Total time spent providing and/or coordinating discharge services: 30 minutes Exam Narrative: GENERAL: Ill-appearing in no acute distress. Well-nourished. - EYES: EOMI. Anicteric. - HENT: Moist mucous membranes. - LUNGS: Distant breath sound bilateral ly, no wheezing, rhonchi, or rales. - CARDIOVASCULAR: Regular rate and rhyth m. No murmur. No JVD. - ABDOMEN: Soft, non-tender and non-dist ended. No palpable masses. - EXTREMITIES: No edema. Peripheral puls es 2+. Non-tender. - NEUROLOGIC: No focal neurological defi cits. CN II-XII grossly intact. - PSYCHIATRIC: Awake, Alert and oriented x 3. Appropriate mood and affect. - SKIN: No rashes or lesions. Warm. - LYMPH: No cervical lymphadenopathy. Const: General: comfortable and no acute distress Other: A&O x3 Resp: Auscultation: diminished lung sounds Other: Expiratory wheezing Cardio: Rate: regular rate Rhythm: regular rhythm Heart sounds: no gallops, no murmurs and no rubs Extrem: General: no edema Discharge Plan Discharge Attending physician on discharge: Drew Koenig Consulting providers: Lynn Tang Barbara J. Discharging Clinician: Drew Koenig Patient Disposition: Home with Home Health Service Activity: as tolerated Diet: as tolerated Discharge Instructions: Care Coordination: [facility]. Their phone number is [phone] if you have any questions; they will contact you to schedule their first visit. RN Please fax discharge instructions to [phone]. Patient Instructions: Antibiotic Form, COPD (Chronic Obstructive Pulmonary Di sease) (DC), High Troponin Levels (GEN) Patient Language: [place] Island[place] Stand Alone Forms: General Discharge Information Follow-up/Referrals: Ernst Tang MD [Physician] - Supriya Jacobo MD [Physician] - Noelle Tian APN-C [Primary Care Provider] - Discharge Medications: New guaifenesin [Mucus Relief ER] 600 mg Tablet Extended Release 12hr 600 mg PO Q12HR Qty: 30 0RF prednisone 20 mg Tablet 40 mg PO DAILY@0800 Qty: 14 0RF Entresto 24-26 mg Tablet 1 tablet PO Q12HR Qty: 30 0RF ipratropium-albuterol 0.5 mg-3 mg(2.5 mg base)/3 mL Solution For Nebulization 3 ml inhalation Q4HRT Qty: 90 0RF Continued albuterol sulfate 90 mcg/actuation HFA aerosol inhaler 1 inh inhalation Q4H PRN (Reason: shortness of breath or wheezing) Qty: 8.5 0RF amiodarone [Pacerone] 200 mg tablet 200 mg BYMOUTH DAILY Qty: 90 0RF zolpidem [Ambien] 5 mg tablet 5 mg PO QHS Qty: 30 0RF aspirin 81 mg tablet,chewable 81 mg PO DAILY PreserVision AREDS 2,148 mcg-113 mg-45 mg-17.4mg tablet 1 tablet PO BIDWM Rx Instructions: administer with AM and PM meals ferrous sulfate 325 mg (65 mg iron) Tablet,Delayed Release (Dr/Ec) 325 mg PO DAILY Qty: 30 0RF simvastatin 10 mg tablet 10 mg PO DAILY Qty: 90 1RF Breztri Aerosphere 160-9-4.8 mcg/actuation HFA aerosol inhaler 2 inh inhalation BID 90 Days Qty: 32.1 0RF sertraline 25 mg tablet 25 mg PO DAILY Qty: 90 1RF trazodone 50 mg tablet 50 mg PO QHS PRN (Reason: sleep) Qty: 30 0RF Ohtuvayre 3 mg/2.5 mL suspension for nebulization 2.5 ml inhalation BID 90 Days Qty: 450 2RF Rx Instructions: Inhale 3 mg by mouth via nebulizer twice a day, once in the morning and once in the evening. Discontinued hydrocodone-acetaminophen 5-325 mg Tablet 1 tablet PO Q4H PRN (Reason: Pain Rated 4-10) Qty: 10 0RF Date of admission: 06/17/24 03:26 Primary Care Provider: Noelle Tian Admitting Provider: Mariama Jane Attending physician on admission: Mariama Jane Condition: Improved
[2024-06-22] MEDS: APIXABAN 2.5 MG TABLET PO (13:20)
== END 2024-06-22 18:45 | disposition home health service (06) | DRG 190 ==
LOC: ANHED 03:38 → ANHIMU 04:07 → ANH3MEDSUR 06-18 21:38
PROVIDERS: Internal Medicine; Admitting Provider General Practice; Emergency Provider Emergency Medicine; PCP Nurse Practitioner Family; Visit Provider Internal Medicine
DX: J44.1 Chronic obstructive pulmonary disease with (acute) exacerbation (principal); I26.99 Other pulmonary embolism without acute cor pulmonale; J96.21 Acute and chronic respiratory failure with hypoxia; E44.1 Mild protein-calorie malnutrition; Z68.1 Body mass index [BMI] 19.9 or less, adult; I51.81 Takotsubo syndrome; J10.1 Influenza due to other identified influenza virus with other respiratory manifestations; I25.10 Atherosclerotic heart disease of native coronary artery without angina pectoris; I48.0 Paroxysmal atrial fibrillation; I10 Essential (primary) hypertension; R91.8 Other nonspecific abnormal finding of lung field; D64.9 Anemia, unspecified; H35.30 Unspecified macular degeneration; E78.5 Hyperlipidemia, unspecified; F17.210 Nicotine dependence, cigarettes, uncomplicated; Z66 Do not resuscitate
CPT/HCPCS: 36415; 36600; 71045; 71046; 71275; 80053; 80061; 82805; 82948; 83721; 83735; 84484; 85018; 85025; 85027; 85610; 85730; 87637; 87641; 93005; 94640; 96374; 97110; 97116; 97161; 97165; 97530; 97535; 99284; 99285; A9270; C8929; J0696; J1650; J2270; J2919; J3475; J7512; Q9957; Q9967